=== PATIENT | female | born 1945 | race Caucasian/White ===

== ENCOUNTER → 2018-02-01 11:01 | Outpatient (CLI) | payer MEDICARE, OTHER, SELFPAY | PROVIDERS: PCP Internal Medicine; Visit Provider Internal Medicine Endocrinology, Diabetes & Metabolism | DX: E11.9 Type 2 diabetes mellitus without complications (principal) | CPT/HCPCS: 36415; 83036 ==

== ENCOUNTER → 2018-07-28 12:18 | Outpatient (CLI) | payer MEDICARE, OTHER, SELFPAY ==
[2018-07-28 13:13] LABS: Hemoglobin A1C% w Est Avg Glu 6.5 % (4.0-6.0)
[2018-07-28 13:31] LABS: Alanine Aminotransferase 25 IU/L (9-52); BUN Creatinine Ratio 22.5 (6-22); Blood Urea Nitrogen 18 mg/dL (7-17); Calcium 9.7 mg/dL (8.4-10.2); Carbon Dioxide 29 mmol/L (22-32); Chloride 104 mmol/L (98-107); Cholesterol 140 mg/dL (140-199); Estimated Glomerular Filt Rate > 60.0 mL/min (>60); Glucose 95 mg/dL (80-110); HDL Cholesterol 33 mg/dL (40-60); HEMOLYSIS < 15 (0-50); LDL Cholesterol Calculated 81 mg/dL (<100); Potassium 4.3 mmol/L (3.4-5.1); Sodium 147 mmol/L (137-145); Triglycerides 128 mg/dL (35-150)
[2018-07-28 15:55] LABS: Microalbumin Urine Random 2.4 mg/dL (0-1.6)
[2018-07-28 16:04] LABS: Creatinine Urine Random 107.4 mg/dL; Microalbumi Creatinin Ratio Ur 22.3 ug/mg CR (<30)
== END ==
PROVIDERS: Visit Provider Internal Medicine Endocrinology, Diabetes & Metabolism
DX: E11.9 Type 2 diabetes mellitus without complications (principal)
CPT/HCPCS: 36415; 80048; 80061; 82043; 82570; 83036; 84460

== ENCOUNTER → 2018-11-11 08:40 | Outpatient (CLI) | payer MEDICARE, OTHER, SELFPAY ==
[2018-11-11 09:49] LABS: Alanine Aminotransferase 35 IU/L (9-52); Aspartate Aminotransferase 23 IU/L (14-36); BUN Creatinine Ratio 25.6 (6-22); Blood Urea Nitrogen 23 mg/dL (7-17); Calcium 9.5 mg/dL (8.4-10.2); Carbon Dioxide 30 mmol/L (22-32); Chloride 98 mmol/L (98-107); Cholesterol 165 mg/dL (140-199); Estimated Glomerular Filt Rate > 60.0 mL/min (>60); Glucose 207 mg/dL (80-110); HDL Cholesterol 30 mg/dL (40-60); HEMOLYSIS < 15 (0-50); LDL Cholesterol Calculated 94 mg/dL (<100); Potassium 4.7 mmol/L (3.4-5.1); Sodium 138 mmol/L (137-145); Triglycerides 204 mg/dL (35-150)
[2018-11-11 11:25] LABS: TSH w/ Reflex to FT4 1.43 uIU/mL (0.47-4.68)
== END ==
PROVIDERS: PCP Internal Medicine; Visit Provider Internal Medicine
DX: I10 Essential (primary) hypertension (principal); E78.5 Hyperlipidemia, unspecified; E03.9 Hypothyroidism, unspecified; E78.2 Mixed hyperlipidemia
CPT/HCPCS: 36415; 80048; 80061; 84443; 84450; 84460

== ENCOUNTER → 2018-12-19 08:03 | Outpatient (CLI) | payer MEDICARE, OTHER, SELFPAY ==
[2018-12-19 09:59] LABS: Alanine Aminotransferase 23 IU/L (9-52); Aspartate Aminotransferase 22 IU/L (14-36); BUN Creatinine Ratio 26.3 (6-22); Blood Urea Nitrogen 21 mg/dL (7-17); Calcium 9.6 mg/dL (8.4-10.2); Carbon Dioxide 31 mmol/L (22-32); Chloride 100 mmol/L (98-107); Cholesterol 189 mg/dL (140-199); Estimated Glomerular Filt Rate > 60.0 mL/min (>60); Glucose 205 mg/dL (80-110); HDL Cholesterol 35 mg/dL (40-60); HEMOLYSIS < 15 (0-50); LDL Cholesterol Calculated 105 mg/dL (<100); Sodium 139 mmol/L (137-145); TSH w/ Reflex to FT4 2.32 uIU/mL (0.47-4.68); Triglycerides 247 mg/dL (35-150)
== END ==
PROVIDERS: PCP Internal Medicine; Visit Provider Internal Medicine
DX: I10 Essential (primary) hypertension (principal); E78.5 Hyperlipidemia, unspecified; E03.9 Hypothyroidism, unspecified
CPT/HCPCS: 36415; 80048; 80061; 84443; 84450; 84460

== ENCOUNTER → 2018-12-20 12:13 | Outpatient (CLI) | payer MEDICARE, OTHER, SELFPAY ==
--- NOTE | 2018-12-20 | DI.US.S_ITS ---
PROCEDURE: US THYROID INDICATIONS: THYROID NODULE TECHNIQUE: Real-time scanning was performed of the thyroid gland, with image documentation. COMPARISON: None. FINDINGS: Right: Thyroid lobe measures 3.2 x 1.3 x 1.4 cm, and is heterogeneous in echotexture. Left: Thyroid lobe measures 3.2 x 1.9 x 2.1 cm, and is heterogeneous in echotexture. Isthmus: 1.0 mm thick. I Nodule number: 1 Location: Left mid Size: 2.0 x 1.7 x 1.4 cm. Composition: Solid Echogenicity: Isoechoic Shape: wider than tall. Margins: Smooth Echogenic foci: None Total points: 3 ACR TI-RADS category: Mildly suspicious Nodule number: 2 Location: Left inferior Size: 0.8 x 1.0 x 0.9 cm. Composition: Solid Echogenicity: Isoechoic Shape: wider than tall. Margins: Smooth Echogenic foci: None Total points: 3 ACR TI-RADS category: Mildly suspicious IMPRESSION: Left thyroid nodules as above. Recommend continued followup ultrasound as detailed below. ACR TI-RADS definitions and recommendations: TI-RADS 1 (benign): 0 points. FNA not needed. TI-RADS 2 (not suspicious): 2 points. FNA not needed. TI-RADS 3 (mildly suspicious): 3 points. * FNA if 2.5 cm or larger, follow up if 1.5 cm or larger (at 1, 3, and 5 years). TI-RADS 4 (moderately suspicious): 4-6 points. * FNA if 1.5 cm or larger, follow up if 1 cm or larger (at 1, 2, 3, and 5 years). TI-RADS 5 (highly suspicious): 7 points or more. * FNA if 1 cm or larger, follow up if 0.5 cm or larger (every year for 5 years). Dictated by: Edwardo TONEY Interpreted: Pito España MD on 12/20/2018 at 14:33 Approved by: Pito España M.D. on 12/21/2018 at 9:56
== END ==
PROVIDERS: PCP Internal Medicine; Visit Provider Internal Medicine
DX: E04.2 Nontoxic multinodular goiter (principal)
CPT/HCPCS: 76536

== ENCOUNTER → 2019-01-19 11:50 | Outpatient (CLI) | payer MEDICARE, OTHER, SELFPAY ==
--- NOTE | 2019-01-19 | DI.MRI.S_ITS ---
PROCEDURE: MR HEAD/BRAIN WO CON INDICATIONS: Dizziness and giddiness TECHNIQUE: Non-contrast axial T1 spin echo, axial T2 fast spin echo, sagittal and axial FLAIR, coronal T2 fast spin echo, axial gradient echo, axial diffusion and ADC through the brain. COMPARISON: [facility], CT, MASTOIDS WITHOUT CONTRAST, 04/22/2011, 7:54. FINDINGS: Image quality: Excellent. CSF spaces: Ventricles appear symmetric in size and shape. Basal cisterns are patent. No extra-axial fluid collections. Brain: No intracranial bleeds or mass effects. There is cerebral volume loss for age. There are periventricular and deep white matter chronic small vessel ischemic changes. Brainstem appears normal. Diffusion-weighted images show no acute ischemic insults. No chronic ischemic insults. Normal intravascular flow voids are present. Skull and face: Calvarial bone marrow is normal in signal. Orbits are normal. Note is made of bilateral lens replacements. Sinuses: Sinuses and mastoids are clear. IMPRESSION: No imaging explanation is found for this patient's presenting symptoms. Dictated by: Rafael Gerber M.D. on 01/19/2019 at 11:57 Approved by: Rafael Gerber M.D. on 01/19/2019 at 11:58
== END ==
PROVIDERS: PCP Internal Medicine; Visit Provider Internal Medicine
DX: R42 Dizziness and giddiness (principal)
CPT/HCPCS: 70551

== ENCOUNTER → 2019-01-25 15:46 | Outpatient (CLI) | payer MEDICARE, OTHER, SELFPAY ==
[2019-01-25 16:23] LABS: Erythrocyte Sedimentation Rate 1 MM/HR (0-20)
[2019-01-25 16:36] LABS: C-Reactive Protein Quant < 0.5 mg/dL (<1.0)
== END ==
PROVIDERS: PCP Internal Medicine; Visit Provider Internal Medicine
DX: R51 Headache (principal)
CPT/HCPCS: 36415; 85651; 86140

== ENCOUNTER → 2019-05-11 07:21 | Outpatient (CLI) | payer MEDICARE, OTHER, SELFPAY ==
[2019-05-11 09:56] LABS: Alanine Aminotransferase 19 IU/L (9-52); BUN Creatinine Ratio 28.8 (6-22); Blood Urea Nitrogen 23 mg/dL (7-17); Carbon Dioxide 29 mmol/L (22-32); Chloride 101 mmol/L (98-107); Cholesterol 164 mg/dL (140-199); Estimated Glomerular Filt Rate > 60.0 mL/min (>60); Glucose 180 mg/dL (80-110); HDL Cholesterol 35 mg/dL (40-60); HEMOLYSIS < 15 (0-50); LDL Cholesterol Calculated 92 mg/dL (<100); Potassium 4.8 mmol/L (3.4-5.1); Sodium 142 mmol/L (137-145); Triglycerides 186 mg/dL (35-150); VLDL Cholesterol Calculated 37 mg/dL (2-30)
[2019-05-11 09:59] LABS: Hemoglobin A1C% w Est Avg Glu 7.2 % (4.0-6.0)
[2019-05-13 15:52] LABS: Microalbumin Urine Random 1.7 mg/dL (0-1.6)
[2019-05-13 16:08] LABS: Creatinine Urine Random 53.9 mg/dL; Microalbumi Creatinin Ratio Ur 31.5 ug/mg CR (<30)
== END ==
PROVIDERS: PCP Internal Medicine; Visit Provider Internal Medicine Endocrinology, Diabetes & Metabolism
DX: E11.9 Type 2 diabetes mellitus without complications (principal)
CPT/HCPCS: 36415; 80048; 80061; 82043; 82570; 83036; 84443; 84460

== ENCOUNTER 2019-05-16 09:23 | Day surgery (SDC) | payer MEDICARE, OTHER, SELFPAY ==
[2019-05-16] VITALS (9 sets, daily range): BP systolic 108–124; BP diastolic 59–71; PULSE 68–73; RESP 10–16; TEMP 36.1–36.2; O2SAT 94–100; BMI 24.2
--- NOTE | 2019-05-16 10:11 | PM.HP.1 ---
History of Present Illness History of Present Illness Date Patient Seen: 05/16/19 Chief complaint: [id number] SCREENING COLONOSCOPY Narrative: Patient presented for screening colonoscopy, no previous colonoscopy. Denies history of diarrhea or constipation. Denies rectal bleeding. Denies family history of GI malignancy. Patient History Social History household members: spouse Smoking Status: Never smoker Family & Social History Tobacco & Substance use: Smoking Status Never smoker Meds Home Medications and Allergies Home Medications Medication Instructions Recorded Confirmed Type latanoprost 1 drp EYE-BOTH BEDTIME #0 02/18/09 05/16/19 History levothyroxine 75 mcg PO DAILY #0 02/18/09 05/16/19 History lovastatin 40 mg PO QDAYPM #0 02/18/09 05/16/19 History metformin 1,000 mg PO BID #0 02/18/09 05/16/19 History multivitamin 1 cap PO DAILY #0 02/18/09 05/16/19 History glimepiride 4 mg PO DAILY 05/16/19 05/16/19 History timolol maleate 1 drp EYE-BOTH BID 05/16/19 05/16/19 History Allergies Allergy/AdvReac Type Severity Reaction Status Date / Time No Known Drug Allergies Allergy Verified 05/16/19 10:12 Review of Systems Review of Systems ROS Unobtainable: All systems reviewed & are unremarkable except as noted in HPI and below Exam Const General: cooperative, healthy appearing, comfortable and well developed Nutritional Appearance: average body habitus HENMT Head: normal to inspection and atraumatic Nose: external nose normal Resp Effort & Inspection: normal respiratory effort and able to speak in complete sentences Auscultation: clear to auscultation bilaterally Cardio Rate: regular rate Rhythm: regular rhythm Heart Sounds: S1 normal and S2 normal GI Palpation: soft and No tender Auscultation: normal bowel sounds Extrem General: no pedal edema Assessment & Plan Assessment & Plan narrative: 1. Screening colonoscopy - Colonoscopy today
[2019-05-16] MEDS: SODIUM CHLORIDE 0.9% 1,000 ML 70 ML IV (10:33)
--- NOTE | 2019-05-16 12:05 | PM.OP.ENDO ---
Operative Date/Time/Diagnoses Date of procedure: 05/16/19 Time of procedure: 11:40 Procedure Notes Procedure in detail: Surgeon: Paige Najera DO Procedure: Screening Colonoscopy Preoperative diagnosis: 1. Screening colonoscopy, no prior colonoscopy. Average risk. Postoperative diagnosis: 1. Diverticulosis scattered throughout the entire colon concentrated in the sigmoid and descending colon 2. Mild internal hemorrhoids, grade 1 Medications: Conscious sedation using 3 mg IV of Midazolam and 100 mcg IV of Fentanyl Preanesthesia Assessment An H and P was performed/updated and the Px?s ASA class is 2. The procedure was discussed in detail with the patient. The potential risks and complications including infection, bleeding, missed lesions, perforation, need for surgery in case of perforation, prolonged hospital stay, and were explained. A brief question and answer period was allotted and once all questions were answered, informed consent was obtained. The patient was brought back to the procedure room and placed on standard monitoring. The patient?s vital signs were monitored continuously throughout the entire procedure. Prior to starting, a timeout was performed to confirm the patient?s identity, allergies, medications, and procedure. Procedure in detail The patient was placed in left lateral decubitus position and once adequate sedation was obtained a EARLINE was performed. The digital rectal examination did not reveal any palpable lesions. The tip of the colonoscope was placed in the anal canal and advanced without difficulty all the way to the cecum which was identified by the appendiceal orifice and the ileocecal valve. Careful examination of all mark of the colon was performed with irrigation of any residual stool. Patient's colon was moderately tortuous. Diverticulosis was noted scattered throughout the entire colon with the greatest concentration in the sigmoid and descending colon. Internal hemorrhoids, grade 1 were noted during retroflexion. The patient tolerated the procedure well and will be brought back to the recovery area to be discharged once criteria are met. The prep was judged to be good/excellent and adequate to identify polyps less than 5 mm. The withdrawal time was 9min. The total physician intraservice time was 22min. Complications There were no complications and estimated blood loss was minimal. Recommendations: Resume previous diet Continue outPx medications Follow up pathology results Repeat colonoscopy in 10 years, though will be over age 80 at that time. No further screening colonoscopies are needed. An emergency contact number was given to the patient for any complications related to the procedure
[2019-05-16] MEDS: fentaNYL 250 MCG/5 ML INJ IV (12:08)
[2019-05-16] MEDS: MIDAZOLAM 5 MG/5 ML VIAL IV (12:09)
--- NOTE | 2019-05-16 12:35 | SUR.PHASEI ---
1210 To PACU from endo, awake, oriented, drowsy. Verbalized desire to sleep 1235 Aroused to voice, HOB elevated, juice given. Denies discomfort. States that she is light-headed; preferred to stay sitting up and drinking juice.
== END 2019-05-16 13:11 | disposition home or self-care (01) ==
PROVIDERS: Family Provider Internal Medicine; PCP Internal Medicine; Visit Provider Student in an Organized Health Care Education/Training Program
PROC: 0DJD8ZZ Inspection of Lower Intestinal Tract, Via Natural or Artificial Opening Endoscopic (ICD-10-PCS; CPT 45378; principal; 2019-05-16 11:00)
DX: Z12.11 Encounter for screening for malignant neoplasm of colon (principal); K57.30 Diverticulosis of large intestine without perforation or abscess without bleeding; K64.0 First degree hemorrhoids
CPT/HCPCS: G0121; J2250; J3010

== ENCOUNTER 2019-09-02 15:34 | Observation (INO) | payer MEDICARE, OTHER, SELFPAY ==
[2019-09-02] VITALS (7 sets, daily range): BP systolic 123–182; BP diastolic 58–79; PULSE 66–77; RESP 15–19; TEMP 36.4; O2SAT 95–100
--- NOTE | 2019-09-02 15:55 | ED.DIZZY ---
HPI - Dizziness <Jil Cid, - Last Filed: 09/03/19 07:48> General Chief Complaint: Dizziness Stated Complaint: dizziness/headache Time Seen by Provider: 09/02/19 15:54 Source: patient Mode of arrival: Wheelchair Limitations: no limitations History of Present Illness HPI Narrative: This is a 73-year-old female comes to the emergency department with complaint of dizziness and headache. Patient states she has a chronic history of dizziness which she describes as being off balance. Typically she finds it fairly minimal with mild headache and will often have to grab a wall or steady herself and then be able to ambulate or move normally. Today at about 2:00 pm. this afternoon she felt that it was significantly worse. She states her headache feels about the same. It's typically left-sided and radiates down through her back. Patient has not had any fevers. She does not have vision changes. She is nauseated but not vomiting. Denies any chest pain or shortness of breath denies any dysuria, urgency but has had some frequency. She states this is chronic. She has also had frequent diarrhea but states this is been for several months. Patient has not noticed any new issues with speech, no facial droop, no numbness or tingling in her extremities or weakness on 1 side versus the other that is new or different. Patient has seen a neurologist and had an extensive workup including MRI. She was referred for PT for her vertigo symptoms but has not attended. She states she has not been prescribed any medication for her symptoms in the past. Related Data Home Medications Medication Instructions Recorded Confirmed latanoprost 1 drp EYE-BOTH BEDTIME #0 02/18/09 09/03/19 levothyroxine 75 mcg PO DAILY #0 02/18/09 09/03/19 lovastatin 40 mg PO QDAYPM #0 02/18/09 09/03/19 metformin 1,000 mg PO BID #0 02/18/09 09/03/19 multivitamin 1 cap PO DAILY #0 02/18/09 09/03/19 glimepiride 4 mg PO BID 05/16/19 09/03/19 timolol maleate 1 drp EYE-BOTH BID 05/16/19 09/03/19 dulaglutide [Trulicity] mg SUBCUT 09/03/19 Previous Rx's Medication Instructions Recorded meclizine 50 mg PO TID PRN #14 tab 09/02/19 ondansetron HCl [Zofran] 4 mg PO Q6H PRN #10 tab 09/02/19 Allergies Allergy/AdvReac Type Severity Reaction Status Date / Time No Known Drug Allergies Allergy Verified 09/02/19 15:36 Review of Systems <Jil Cid DO - Last Filed: 09/03/19 07:48> Review of Systems ROS Unobtainable: All systems reviewed & are unremarkable except as noted in HPI and below Patient History <Jil Cid DO - Last Filed: 09/03/19 07:48> Medical History Diabetes type 2, controlled (Chronic) Hearing aid worn (Chronic) Hypothyroidism (Chronic) Family History Mother Myocardial infarct Father CVA (cerebral vascular accident) Sister Thyroid disease Brother Thyroid disease Social History household members: spouse Smoking Status: Never smoker alcohol intake: current Smoking Status: Never smoker Exam <Jil Cid DO - Last Filed: 09/03/19 07:48> Narrative Exam Narrative: GEN: well nourished, well appearing female, alert and oriented x 3, patient appears to be in mild distress. HEENT: Atraumatic, pupils are equal round reactive to light, extraocular movements are intact, nares are clear, TMs are clear with no fluid, there is no conjunctival pallor. Throat is clear without any exudates, erythema, tonsillar enlargement or uvular deviation, no facial droop. HEART: Regular rate and rhythm without murmur, clicks, rubs. Pulses are equal in upper and lower extremities LUNGS:Lungs clear to auscultation, no wheezes, rales, crackles, chest moves symmetrically, no tachypnea accessory muscle use ABD:bowel sounds normal, soft, non-tender, no guarding, rebound, rigidity, no masses noted, no hepatosplenomegaly :No CVA tenderness MSCL: Non-tender, no muscle atrophy, muscles strength 5/5 upper and lower extremities, full range of motion, gait not tested. NEURO:CN 2-12 intact, sensation normal, finger nose finger test normal, heel cloud test normal SKIN: no rash, no erythema, no petechiae Initial Vital Signs Initial Vital Signs: Vital Signs Temperature 97.6 F 09/02/19 16:10 Pulse Rate 69 09/02/19 16:10 Respiratory Rate 18 09/02/19 16:10 Blood Pressure 142/79 H 09/02/19 16:10 Pulse Oximetry 98 09/02/19 16:10 <James Campos DO - Last Filed: 09/03/19 05:24> Initial Vital Signs Initial Vital Signs: Vital Signs Temperature 97.6 F 09/02/19 16:10 Pulse Rate 69 09/02/19 16:10 Respiratory Rate 18 09/02/19 16:10 Blood Pressure 142/79 H 09/02/19 16:10 Pulse Oximetry 98 09/02/19 16:10 Scores <Jil Cid DO - Last Filed: 09/03/19 07:48> NIH Stroke Scale Level of Conciousness: Alert, keenly responsive Ask month/age: Answers both questions correctly. Open/close eyes, close hand: Performs both tasks correctly Best gaze horizontal: Normal Visual muñoz: No visual loss Facial palsy: Normal symetrical movement Left arm drift: No drift for full 10 sec Right arm drift: No drift for full 10 sec Left leg drift: No drift for full 10 sec Right leg drift: No drift for full 10 sec Limb ataxia: Absent Sensory on face/arms/legs: Normal, no sensory loss Best language: No aphasia, normal Dysarthria: Normal Extinction or inattention: No abnormality Total NIH Stroke scale score: 0 Course <Jil Cid DO - Last Filed: 09/03/19 07:48> Orders Ordered: Acetaminophen (Tylenol) 650 mg PO Q6HR PRN PRN Reason: Fever/Mild Pain (1-3) Dextrose (D50w) 25 gm IV PRN PRN PRN Reason: Hypoglycemia Sodium Chloride (Normal Saline 0.9%) 1,000 mls @ 100 mls/hr IV CONT JOYCE Last Infusion: 09/03/19 01:08 Dose: 0 mls/hr Documented by: Infusion: 09/03/19 00:30 Dose: 150 mls/hr Documented by: Admin: 09/02/19 23:21 Dose: 150 mls/hr Documented by: RENEE Sodium Chloride (Normal Saline 0.9%) 1,000 mls @ 100 mls/hr IV CONT JOYCE Stop: 09/03/19 10:29 Last Admin: 09/03/19 01:08 Dose: 100 mls/hr Documented by: ROSA Insulin Aspart (Novolog Flexpen) 0 unit SUBCUT ACHS JOYCE; Protocol Meclizine HCl (Antivert) 25 mg PO Q6HR PRN PRN Reason: Vertigo Naloxone HCl (Narcan) 0.2 mg IV Q2MIN PRN PRN Reason: Opiate Reversal Ondansetron HCl (Zofran) 4 mg IV Q8HR PRN PRN Reason: Nausea And Vomiting Discontinued Medications Sodium Chloride (Normal Saline 0.9%) 1,000 mls @ 1,000 mls/hr IV BOLUS ONE Stop: 09/02/19 17:28 Last Infusion: 09/02/19 19:30 Dose: 0 mls/hr Documented by: Admin: 09/02/19 17:00 Dose: 1,000 mls/hr Documented by: ERIC Lorazepam (Ativan) 0.5 mg IV NOW ONE Stop: 09/02/19 18:28 Last Admin: 09/02/19 18:37 Dose: 0.5 mg Documented by: RENEE Meclizine HCl (Antivert) 50 mg PO NOW ONE Stop: 09/02/19 16:30 Last Admin: 09/02/19 17:00 Dose: 50 mg Documented by: ERIC Metoclopramide HCl (Reglan) 10 mg IV NOW ONE Stop: 09/02/19 23:04 Last Admin: 09/02/19 23:09 Dose: 10 mg Documented by: RENEE Ondansetron HCl (Zofran) 4 mg IV NOW ONE Stop: 09/02/19 17:24 Last Admin: 09/02/19 17:29 Dose: 4 mg Documented by: RENEE Vital Signs Vital signs: Vital Signs - 8 hr 09/02/19 22:33 Pulse Rate 72 Respiratory Rate 16 Blood Pressure [Right Arm] 159/76 H Pulse Oximetry 95 <James Campos DO - Last Filed: 09/03/19 05:24> Course Course Narrative: Patient received in sign-out from Dr. Jenkins. I performed independent history and physical. Patient has had a very thorough evaluation for her dizziness without any high risk findings. She is persistently dizzy with vomiting despite multiple medications and cannot even stand without becoming symptomatic. She is on safe for discharge and requires hospitalization for treatment of her intractable vomiting Orders Ordered: Acetaminophen (Tylenol) 650 mg PO Q6HR PRN PRN Reason: Fever/Mild Pain (1-3) Dextrose (D50w) 25 gm IV PRN PRN PRN Reason: Hypoglycemia Sodium Chloride (Normal Saline 0.9%) 1,000 mls @ 100 mls/hr IV CONT JOYCE Last Infusion: 09/03/19 01:08 Dose: 0 mls/hr Documented by: Infusion: 09/03/19 00:30 Dose: 150 mls/hr Documented by: Admin: 09/02/19 23:21 Dose: 150 mls/hr Documented by: RENEE Sodium Chloride (Normal Saline 0.9%) 1,000 mls @ 100 mls/hr IV CONT JOYCE Stop: 09/03/19 10:29 Last Admin: 09/03/19 01:08 Dose: 100 mls/hr Documented by: ROSA Insulin Aspart (Novolog Flexpen) 0 unit SUBCUT ACHS JOYCE; Protocol Meclizine HCl (Antivert) 25 mg PO Q6HR PRN PRN Reason: Vertigo Naloxone HCl (Narcan) 0.2 mg IV Q2MIN PRN PRN Reason: Opiate Reversal Ondansetron HCl (Zofran) 4 mg IV Q8HR PRN PRN Reason: Nausea And Vomiting Discontinued Medications Sodium Chloride (Normal Saline 0.9%) 1,000 mls @ 1,000 mls/hr IV BOLUS ONE Stop: 09/02/19 17:28 Last Infusion: 09/02/19 19:30 Dose: 0 mls/hr Documented by: Admin: 09/02/19 17:00 Dose: 1,000 mls/hr Documented by: ERIC Lorazepam (Ativan) 0.5 mg IV NOW ONE Stop: 09/02/19 18:28 Last Admin: 09/02/19 18:37 Dose: 0.5 mg Documented by: RENEE Meclizine HCl (Antivert) 50 mg PO NOW ONE Stop: 09/02/19 16:30 Last Admin: 09/02/19 17:00 Dose: 50 mg Documented by: ERIC Metoclopramide HCl (Reglan) 10 mg IV NOW ONE Stop: 09/02/19 23:04 Last Admin: 09/02/19 23:09 Dose: 10 mg Documented by: RENEE Ondansetron HCl (Zofran) 4 mg IV NOW ONE Stop: 09/02/19 17:24 Last Admin: 09/02/19 17:29 Dose: 4 mg Documented by: RENEE Vital Signs Vital signs: Vital Signs - 8 hr 09/02/19 22:33 Pulse Rate 72 Respiratory Rate 16 Blood Pressure [Right Arm] 159/76 H Pulse Oximetry 95 MDM - Dizziness <Jil Cid, DO - Last Filed: 09/03/19 07:48> Lab Data Attestation: I reviewed the patient's lab results. Result diagrams: 09/03/19 05:40 09/03/19 05:40 Labs: Lab Results 09/02/19 09/02/19 09/02/19 Range/Units 16:55 16:55 16:55 WBC 14.6 H (4.5-11.0) X10^3/uL RBC 4.35 (4.0-5.2) X10^6/uL Hgb 13.9 (12.0-16.0) g/dL Hct 40.5 (36-46) % MCV 93.2 (80-100) fL MCH 31.9 (26-34) PG MCHC 34.2 (30-36) % RDW 14.0 (11.6-14.8) % Plt Count 137 L (150-400) X10^3/uL Neut % (Auto) Not Reportable Lymph % (Auto) Not Reportable Dillon % (Auto) Not Reportable Eos % (Auto) Not Reportable Baso % (Auto) Not Reportable Lymph # (Auto) Not Reportable Dillon # (Auto) Not Reportable Baso # (Auto) Not Reportable Total Counted 100 Seg Neutrophils % 30.0 L (38-70) % Band Neutrophils % 1.0 L (3-7) % Lymphocytes % (Manual) 44.0 (25-45) % Atypical Lymphs % 23.0 H ( - 0) % Monocytes % (Manual) 2.0 (2-11) % Neutrophils # (Manual) 4526 (3035-0787) /uL Smudge Cells 2+ H RBC Morphology Normal morphology Sodium 140 (137-145) mmol/L Potassium 4.0 (3.4-5.1) mmol/L Chloride 103 (98-107) mmol/L Carbon Dioxide 30 (22-32) mmol/L BUN 18 H (7-17) mg/dL Creatinine 0.70 (0.52-1.04) mg/dL Estimated GFR > 60.0 (>60) mL/min BUN/Creatinine Ratio 25.7 H (6-22) Glucose 138 H (80-110) mg/dL Calcium 9.5 (8.4-10.2) mg/dL Troponin I < 0.012 (0.01-0.034) ng/mL Procalcitonin < 0.05 (<0.5) ng/mL Imaging Data CT scan - head: Radiologist's Impression: [address] [address] [address] Scan Report Signed Patient: Jennifer Tubbs FMR#: [id number] : 6Acct:[id number] Age/Sex: 73 / FDate of Service: 09/02/19 Loc: ED Accession Number: [id number] Procedure: CT head/brain wo con Ordering Provider: Jil Cid D.O. PROCEDURE: CT HEAD/BRAIN WO CON INDICATIONS: hx of vertigo chronically, worsened today TECHNIQUE: Noncontrast 4.5 mm thick angled axial sections acquired from the foramen magnum to the vertex, with coronal and sagittal reformats. For radiation dose reduction, the following was used: automated exposure control, adjustment of mA and/or kV according to patient size. COMPARISON: [facility], MR, MR HEAD/BRAIN WO CON, 01/19/2019, 12:04. FINDINGS: Image quality: Excellent. CSF spaces: Basal cisterns are patent. No extra-axial fluid collections. Ventricles are normal in size and shape. Brain: No midline shift. No intracranial masses or hemorrhage. [place]-white matter interface is normal. Skull and face: Calvarium and visualized facial bones are intact, without suspicious lesions. Sinuses: Visualized sinuses and mastoids are clear. IMPRESSION: No acute intracranial abnormality demonstrated. Comment: Findings were discussed with Jil Cid at the time of dictation. Dictated by: Suresh aCntu M.D. on 09/02/2019 at 17:49 Approved by: Suresh Cantu M.D. on 09/02/2019 at 17:51 head and neck angio: Radiologist's Impression: Jennifer Tubbs 73 F [address] [address] [address] Scan Report Signed Patient: Jennifer Tubbs FMR#: [id number] : [id number]:[id number] Age/Sex: 73 / FDate of Service: 09/02/19 Loc: ED Accession Number: [id number] Procedure: CT angio head and neck Ordering Provider: Jil Cid D.O. PROCEDURE: CT ANGIO HEAD AND NECK INDICATIONS: vertigo symptoms, worsening TECHNIQUE: Pre-contrast 4.5 mm thick sections acquired from the foramen magnum to the vertex. After the administration of intravenous contrast, 1 mm thick sections acquired from the aortic arch through the [place] of [place]. Post-contrast 4.5 mm thick sections then re-acquired from the foramen magnum to the vertex. 3-dimensional umzjhfg-umzbwlmby-etfockxyvp (MIP) and/or volume rendering reformats were acquired of the central intracranial vasculature and neck separately. COMPARISON: [facility], CT, CT HEAD/BRAIN WO CON, 09/02/2019, 17:35. [facility], MR, MR HEAD/BRAIN WO CON, 01/19/2019, 12:04. FINDINGS: Image quality: Excellent. BRAIN: CSF spaces: Ventricles are normal in size and shape. Basal cisterns are patent. No extra-axial fluid collections. Brain: No midline shift. No intracranial bleeds or masses. [place]-white matter interface appears intact. Skull and face: Calvarium and facial bones appear intact, without suspicious lesions. Orbits appear normal. Sinuses: Sinuses and mastoids are clear. HEAD CT ANGIOGRAPHY: Anterior circulation: Intracranial internal carotid arteries are normal in size and flow. The flow within the paired anterior cerebral arteries is normal and symmetric. The flow within the middle cerebral arteries is normal and symmetric. The anterior communicating artery is seen. No aneurysms are seen. Posterior circulation: Visualized portions of the vertebral arteries demonstrate normal caliber, and join to form a normal appearing basilar artery. Flow within the posterior cerebral arteries is symmetric. The left posterior cerebral artery originates off of the left MCA, (8/102), variant. Bilateral posterior communicating artery are seen. No aneurysms are seen. NECK CT ANGIOGRAPHY: Carotid system: The great vessels demonstrate a conventional anatomy as they arise from the aortic arch. The origins of the common carotid arteries appear patent. The common carotid arteries demonstrate normal caliber and courses. The bifurcation regions are both widely patent. The internal carotid arteries demonstrate normal calibers and courses. Posterior circulation: The origins of the vertebral arteries both appear widely patent. The more superior extracranial portions of both vertebral arteries also demonstrate normal courses and calibers. They join to form a normal appearing basilar artery. Soft tissues: Visualized neck soft tissues demonstrate no suspicious abnormalities. Heterogeneous left thyroid nodule, (4/166). Bones: No suspicious bony lesions. Visualized cervical spine appears normally aligned. IMPRESSION: 1. No large vessel occlusion. No significant stenosis or aneurysm seen. 2. Less than 50% bilateral ICA stenosis. Any quantitative measurements of stenosis were performed using NASCET criteria. Comment: Findings were discussed with Dr. Cid at the time of dictation. Dictated by: Suresh Cantu M.D. on 09/02/2019 at 18:24 Approved by: Suresh Cantu M.D. on 09/02/2019 at 18:32 ECG Data Attestation: I personally reviewed and interpreted this ECG as follows: Prior ECG tracings: available for review Interpretation: Sinus rhythm rate of 67 CA 164 QRS 80 and QTC of 400. No ST elevation or depression noted. Q-wave in V1 and V2. Patient has prior from 06/07/19 that appears similar. [facility] Narrative Medical decision making narrative: Patient symptoms similar to prior but worsened sudden onset. Patient had MRI in 01/19/19 that showed no acute changes. Patient received fluids, zofran and meclizine in ED. Patient Head CT is negative. labs show elevated wbc count, patient has been afebrile, platelets are 137. BUN is elevated 18, glucose is 138 with negative troponin and normal electrolytes. CTA is negative for large vessel occlusion and suspect this is a worsening of patients symptoms results called to me by radiology. She did tolerate zofran and meclizine for a while and tolerated CT and return without issue but then began having worsening symptoms. Given ativan 0.5mg IV and will recheck. Patient signed out to Dr. Campos for final disposition. If patient unable to ambulate safely may need to be kept for observation. <James Campos, DO - Last Filed: 09/03/19 05:24> Lab Data Labs: Lab Results 09/02/19 09/02/19 09/02/19 Range/Units 16:55 16:55 16:55 WBC 14.6 H (4.5-11.0) X10^3/uL RBC 4.35 (4.0-5.2) X10^6/uL Hgb 13.9 (12.0-16.0) g/dL Hct 40.5 (36-46) % MCV 93.2 (80-100) fL MCH 31.9 (26-34) PG MCHC 34.2 (30-36) % RDW 14.0 (11.6-14.8) % Plt Count 137 L (150-400) X10^3/uL Neut % (Auto) Not Reportable Lymph % (Auto) Not Reportable Dillon % (Auto) Not Reportable Eos % (Auto) Not Reportable Baso % (Auto) Not Reportable Lymph # (Auto) Not Reportable Dillon # (Auto) Not Reportable Baso # (Auto) Not Reportable Total Counted 100 Seg Neutrophils % 30.0 L (38-70) % Band Neutrophils % 1.0 L (3-7) % Lymphocytes % (Manual) 44.0 (25-45) % Atypical Lymphs % 23.0 H ( - 0) % Monocytes % (Manual) 2.0 (2-11) % Neutrophils # (Manual) 4526 (2639-6767) /uL Smudge Cells 2+ H RBC Morphology Normal morphology Sodium 140 (137-145) mmol/L Potassium 4.0 (3.4-5.1) mmol/L Chloride 103 (98-107) mmol/L Carbon Dioxide 30 (22-32) mmol/L BUN 18 H (7-17) mg/dL Creatinine 0.70 (0.52-1.04) mg/dL Estimated GFR > 60.0 (>60) mL/min BUN/Creatinine Ratio 25.7 H (6-22) Glucose 138 H (80-110) mg/dL Calcium 9.5 (8.4-10.2) mg/dL Troponin I < 0.012 (0.01-0.034) ng/mL Procalcitonin < 0.05 (<0.5) ng/mL Discharge Plan Departure Patient Disposition: Admitted as Observation Clinical Impression: Vertigo Discharge Date/Time: 09/03/19 00:32 Instructions: DI for Vertigo Additional Instructions: Follow up with primary care and/or your neurologist this week. I would recommend following up with PT for treatment of your vertigo/dizziness symptoms. Continue home medications as prescribed. You may take meclizine 1-2 tablets every 8 hours as needed for vertigo symptoms. Take zofran 1 tablet every 6 hours as needed for nausea/vomiting. Return to ER for fevers greater 100.4 F, who worsening symptoms, passing out, new lightheadedness, chest pain, shortness of breath, persistent vomiting, black or bloody stools or other new or concerning symptoms. Referrals: Norma Donovan MD [Primary Care Provider] - Admit Date/Time: 09/02/19 23:20 Admit Provider: Awa Cueto
--- NOTE | 2019-09-02 16:30 | DI.CT.S_ITS ---
PROCEDURE: CT HEAD/BRAIN WO CON INDICATIONS: hx of vertigo chronically, worsened today TECHNIQUE: Noncontrast 4.5 mm thick angled axial sections acquired from the foramen magnum to the vertex, with coronal and sagittal reformats. For radiation dose reduction, the following was used: automated exposure control, adjustment of mA and/or kV according to patient size. COMPARISON: [facility], MR, MR HEAD/BRAIN WO CON, 01/19/2019, 12:04. FINDINGS: Image quality: Excellent. CSF spaces: Basal cisterns are patent. No extra-axial fluid collections. Ventricles are normal in size and shape. Brain: No midline shift. No intracranial masses or hemorrhage. [place]-white matter interface is normal. Skull and face: Calvarium and visualized facial bones are intact, without suspicious lesions. Sinuses: Visualized sinuses and mastoids are clear. IMPRESSION: No acute intracranial abnormality demonstrated. Comment: Findings were discussed with Jil Cid at the time of dictation. Dictated by: Suresh Cantu M.D. on 09/02/2019 at 17:49 Approved by: Suresh Cantu M.D. on 09/02/2019 at 17:51
--- NOTE | 2019-09-02 16:30 | DI.CT.S_ITS ---
PROCEDURE: CT ANGIO HEAD AND NECK INDICATIONS: vertigo symptoms, worsening TECHNIQUE: Pre-contrast 4.5 mm thick sections acquired from the foramen magnum to the vertex. After the administration of intravenous contrast, 1 mm thick sections acquired from the aortic arch through the [place] of [place]. Post-contrast 4.5 mm thick sections then re-acquired from the foramen magnum to the vertex. 3-dimensional nvkxmlu-zpphbtwaj-cdjmcifzwb (MIP) and/or volume rendering reformats were acquired of the central intracranial vasculature and neck separately. COMPARISON: [facility], CT, CT HEAD/BRAIN WO CON, 09/02/2019, 17:35. [facility], MR, MR HEAD/BRAIN WO CON, 01/19/2019, 12:04. FINDINGS: Image quality: Excellent. BRAIN: CSF spaces: Ventricles are normal in size and shape. Basal cisterns are patent. No extra-axial fluid collections. Brain: No midline shift. No intracranial bleeds or masses. [place]-white matter interface appears intact. Skull and face: Calvarium and facial bones appear intact, without suspicious lesions. Orbits appear normal. Sinuses: Sinuses and mastoids are clear. HEAD CT ANGIOGRAPHY: Anterior circulation: Intracranial internal carotid arteries are normal in size and flow. The flow within the paired anterior cerebral arteries is normal and symmetric. The flow within the middle cerebral arteries is normal and symmetric. The anterior communicating artery is seen. No aneurysms are seen. Posterior circulation: Visualized portions of the vertebral arteries demonstrate normal caliber, and join to form a normal appearing basilar artery. Flow within the posterior cerebral arteries is symmetric. The left posterior cerebral artery originates off of the left MCA, (8/102), variant. Bilateral posterior communicating artery are seen. No aneurysms are seen. NECK CT ANGIOGRAPHY: Carotid system: The great vessels demonstrate a conventional anatomy as they arise from the aortic arch. The origins of the common carotid arteries appear patent. The common carotid arteries demonstrate normal caliber and courses. The bifurcation regions are both widely patent. The internal carotid arteries demonstrate normal calibers and courses. Posterior circulation: The origins of the vertebral arteries both appear widely patent. The more superior extracranial portions of both vertebral arteries also demonstrate normal courses and calibers. They join to form a normal appearing basilar artery. Soft tissues: Visualized neck soft tissues demonstrate no suspicious abnormalities. Heterogeneous left thyroid nodule, (4/166). Bones: No suspicious bony lesions. Visualized cervical spine appears normally aligned. IMPRESSION: 1. No large vessel occlusion. No significant stenosis or aneurysm seen. 2. Less than 50% bilateral ICA stenosis. Any quantitative measurements of stenosis were performed using NASCET criteria. Comment: Findings were discussed with Dr. Cid at the time of dictation. Dictated by: Suresh Cantu M.D. on 09/02/2019 at 18:24 Approved by: Suresh Cantu M.D. on 09/02/2019 at 18:32
[2019-09-02] MEDS: SODIUM CHLORIDE 0.9% 1,000 ML 1000 ML IV (17:00)
[2019-09-02] MEDS: MECLIZINE HCL 12.5 MG TABLET 50 MG PO (17:00)
[2019-09-02 17:14] LABS: BUN Creatinine Ratio 25.7 (6-22); Blood Urea Nitrogen 18 mg/dL (7-17); Calcium 9.5 mg/dL (8.4-10.2); Carbon Dioxide 30 mmol/L (22-32); Chloride 103 mmol/L (98-107); Estimated Glomerular Filt Rate > 60.0 mL/min (>60); Glucose 138 mg/dL (80-110); HEMOLYSIS 17 (0-50); Sodium 140 mmol/L (137-145)
[2019-09-02 17:15] LABS: Add Manual Diff / Slide Review YES; Hematocrit 40.5 % (36-46); Hemoglobin 13.9 g/dL (12.0-16.0); Mean Corpuscular HGB Conc 34.2 % (30-36); Mean Corpuscular Hemoglobin 31.9 PG (26-34); Mean Corpuscular Volume 93.2 fL (80-100); Platelet Count 137 X10^3/uL (150-400); Red Blood Cell Count 4.35 X10^6/uL (4.0-5.2); White Blood Cell Count 14.6 X10^3/uL (4.5-11.0)
[2019-09-02 17:26] LABS: Troponin I < 0.012 ng/mL (0.01-0.034)
[2019-09-02] MEDS: ONDANSETRON 4 MG/2 ML INJ IV (17:29)
[2019-09-02 17:47] LABS: Neutrophils Absolute Manual 4526 /uL (3000-5900); RBC Morphology Normal Morphology; Total Cells Counted 100
[2019-09-02 18:11] LABS: Smudge Cells 2+
[2019-09-02] MEDS: ONDANSETRON 4 MG/2 ML INJ (18:36)
[2019-09-02] MEDS: LORazepam 2 MG/ML INJ 0.5 MG IV (18:37)
--- NOTE | 2019-09-02 22:19 | PC.NURSE ---
Pt's came out and requested that she needs to use the restroom. when we get her up she starts vomiting. Pt agreed to wait until she could get something for her vomiting.
[2019-09-02] MEDS: METOCLOPRAMIDE 10 MG/2 ML INJ IV (23:09)
[2019-09-02] MEDS: SODIUM CHLORIDE 0.9% 1,000 ML 150 ML IV (23:21)
[2019-09-03] VITALS (16 sets, daily range): BP systolic 97–167; BP diastolic 49–80; PULSE 67–86; RESP 16–19; TEMP 36.4–37.2; O2SAT 92–99; BMI 23.8
--- NOTE | 2019-09-03 00:37 | P.HP_ITS ---
History of Present Illness History of Present Illness Date Patient Seen: 09/03/19 Time Patient Seen: 00:01 Chief complaint: dizziness/headache Narrative: Jennifer Tubbs is a pleasant 73 y.o. female with diabetes type 2, hypothyroidism who wears hearing aids and presented to the ED with a one day history headache, vertigo followed by debilitating nausea. She was worked up in the ED with a head CT, and a MRI/MRA both which were negative. She is being observed overnight as she is unable to ambulate without suffering from nausea. She has had similar symptoms that occurred in [place] last summer. She was assessed there, discharged and returned to the [facility] where they had been referred to and saw a neurologist. They recommended PT/OT for treatment with Eppley maneuvers, however they had not followed up on this as yet. Patient History Medical History Diabetes type 2, controlled (Chronic) Hearing aid worn (Chronic) Hypothyroidism (Chronic) Family & Social History Family History Mother Myocardial infarct Father CVA (cerebral vascular accident) Sister Thyroid disease Brother Thyroid disease Social History: household members spouse Safety & Behavioral: Feels Safe in Current Yes Environment Been Physically Hurt or No Threatened By a Person Tobacco & Substance use: Smoking Status Never smoker ETOH Denies Substance use Denies Meds Home Medications and Allergies Home Medications Medication Instructions Recorded Confirmed Type latanoprost 1 drp EYE-BOTH BEDTIME #0 02/18/09 09/03/19 History levothyroxine 75 mcg PO DAILY #0 02/18/09 09/03/19 History lovastatin 40 mg PO QDAYPM #0 02/18/09 09/03/19 History metformin 1,000 mg PO BID #0 02/18/09 09/03/19 History multivitamin 1 cap PO DAILY #0 02/18/09 09/03/19 History glimepiride 4 mg PO BID 05/16/19 09/03/19 History timolol maleate 1 drp EYE-BOTH BID 05/16/19 09/03/19 History meclizine 50 mg PO TID PRN #14 tab 09/02/19 09/03/19 Rx ondansetron HCl [Zofran] 4 mg PO Q6H PRN #10 tab 09/02/19 09/03/19 Rx dulaglutide [Trulicity] mg SUBCUT 09/03/19 History Allergies Allergy/AdvReac Type Severity Reaction Status Date / Time No Known Drug Allergies Allergy Verified 09/02/19 15:36 Review of Systems Review of Systems Narrative: All systems reviewed and are negative except as noted in the HPI. Exam Vital Signs (past 8 hours): - 09/02/19 16:58 09/02/19 18:52 09/02/19 19:30 Pulse Rate 66 69 72 Respiratory Rate 15 18 16 Blood Pressure [Right Arm] 157/67 H 145/62 H 123/58 L Pulse Oximetry 100 97 95 09/02/19 20:36 09/02/19 22:33 09/02/19 23:21 Pulse Rate 70 72 77 Respiratory Rate 18 16 19 Blood Pressure [Right Arm] 140/68 159/76 H 182/75 H Pulse Oximetry 98 95 97 09/03/19 00:09 Pulse Rate 76 Respiratory Rate 19 Blood Pressure [Right Arm] 150/71 H Pulse Oximetry 96 Oxygen Delivery Method Room Air Narrative Exam Narrative: Gen: Alert, oriented, thin 73 y.o. female, appears fatigued HEENT: normocephalic, atraumatic, conjunctiva clear, sclera non-icteric, oral mucosa pink and moist Neck: supple, full ROM Resp: Lungs CTA, non-labored breathing CV: RRR, no murmur or rubs Abd: soft, non-tender, normoactive BTs Skin: no lesions or rashes, dry and intact Neuro: Alert and oriented X 4 w/no focal deficits Extremities: moves all 4 extremities, is ambulatory, negative Gris?s sign Psyche: normal mood and affect. Objective Labs Result Diagrams: 09/02/19 16:55 09/02/19 16:55 Labs: Laboratory Results - last 24 hr 09/02/19 09/02/19 16:55 16:55 WBC 14.6 H RBC 4.35 Hgb 13.9 Hct 40.5 MCV 93.2 MCH 31.9 MCHC 34.2 RDW 14.0 Plt Count 137 L Neut % (Auto) Not Reportable Lymph % (Auto) Not Reportable [place] % (Auto) Not Reportable Eos % (Auto) Not Reportable Baso % (Auto) Not Reportable Lymph # (Auto) Not Reportable [place] # (Auto) Not Reportable Baso # (Auto) Not Reportable Total Counted 100 Seg Neutrophils % 30.0 L Band Neutrophils % 1.0 L Lymphocytes % (Manual) 44.0 Atypical Lymphs % 23.0 H Monocytes % (Manual) 2.0 Neutrophils # (Manual) 4526 Smudge Cells 2+ H RBC Morphology Normal morphology Sodium 140 Potassium 4.0 Chloride 103 Carbon Dioxide 30 BUN 18 H Creatinine 0.70 Estimated GFR > 60.0 BUN/Creatinine Ratio 25.7 H Glucose 138 H Calcium 9.5 Troponin I < 0.012 Assessment & Plan Assessment & Plan narrative: Jennifer Tubbs will be placed into observation for further management and workup of intractable vertigo. 1. Intractable vertigo, acute present on admission * Meclazine for vertigo * Zofran for nausea associated with vertigo * IVF NS at 100 ml/hour X 1L * PT/OT for Eppley maneuvers in the am * Othostatic vitals q shift 2. Elevated white count of 14.6, present on admission * 1st procalcitonin was negative and will be repeated in the am 3. Diabetes type 2, A1C of 7.2, April 2019, chronic and stable * New A1c ordered * Low dose correctional insulin 4. Hypothyroidism, stable and chronic * Continue home dose of levothyroxine 75 mg po daily 5. Hyperlipidemia, stable and chronic * Continue home dose of lovastatin 40 mg qam FEN: NS at 100 ml/hour X 1 bag, carb control diet, chemistries in the am Patient is placed into observation as her stay is not likely to exceed 2 midnights. VTE Prophylaxis: bilateral SCDs Medications reconciled: partially Disposition: probable discharge to home Code Status: full code Quality VTE Deep Vein Thrombosis/Pulmonary Embolism Present on Admission: No
[2019-09-03 01:04] LABS: Procalcitonin < 0.05 ng/mL (<0.5)
[2019-09-03] MEDS: SODIUM CHLORIDE 0.9% 1,000 ML 100 ML IV ×2 (01:08→09:04)
--- NOTE | 2019-09-03 05:36 | PC.NURSE ---
Addendum entered by Mahsa Ang R.N. 09/03/19 07:45: pt retaining urine. Had not voided since being admitted; tried to void in bed simons and on commode, both unsuccessful (peed 20cc while on commode); She was then bladder scanned and found to have 800cc urine. [facility] Cueto notified and ordered a straight cath and UA. Straight Cath'd at 0715 for 1100cc urine. Original Note: Pt is admitted to unit at 0030 as AxOx3, hypertensive on admission. Pt reports dizziness at rest and especially when standing. Reports vomitting when standing up. Pt was settled into bed but about 20minutes after admission pt vomitted 100cc bile. Fingerstick 187 overnight. NS@100cc/hr b/l SCDs on. BP trended down this morning with SBP in the 100s. Not getting pt OOB Pt slept thru majority of shift with no issues.
[2019-09-03 06:03] LABS: Blood Urea Nitrogen 15 mg/dL (7-17); Calcium 8.6 mg/dL (8.4-10.2); Carbon Dioxide 26 mmol/L (22-32); Chloride 103 mmol/L (98-107); Estimated Glomerular Filt Rate > 60.0 mL/min (>60); Glucose 172 mg/dL (80-110); HEMOLYSIS < 15 (0-50); Potassium 3.7 mmol/L (3.4-5.1); Sodium 138 mmol/L (137-145)
[2019-09-03 06:06] LABS: Hemoglobin A1C% w Est Avg Glu 6.9 % (4.0-6.0)
[2019-09-03 06:11] LABS: Add Manual Diff / Slide Review NO; Basophils Absolute Auto 100 /uL (0-100); Basophils Percent Auto 0.3 % (0-2); Eosinophils Absolute Auto 0 /uL (0-450); Eosinophils Percent Auto 0.1 % (2-4); Hemoglobin 13.5 g/dL (12.0-16.0); Lymphocytes Absolute Auto 9300 /uL (1100-4500); Lymphocytes Percent Auto 55.2 % (25-40); Mean Corpuscular HGB Conc 35.5 % (30-36); Mean Corpuscular Hemoglobin 32.8 PG (26-34); Mean Corpuscular Volume 92.5 fL (80-100); Monocytes Absolute Auto 500 /uL (0-900); Monocytes Percent Auto 2.7 % (3-14); Neutrophils Absolute Auto 7000 /uL (1500-7000); Neutrophils Percent Auto 41.7 % (50-75); Platelet Count 150 X10^3/uL (150-400); Red Blood Cell Count 4.11 X10^6/uL (4.0-5.2); Red Cell Distribution Width 13.9 % (11.6-14.8); White Blood Cell Count 16.8 X10^3/uL (4.5-11.0)
[2019-09-03 06:38] LABS: TSH w/ Reflex to FT4 0.29 uIU/mL (0.47-4.68)
[2019-09-03 07:06] LABS: Free T4, Direct Thyroxine 1.36 ng/dL (0.78-2.19)
--- NOTE | 2019-09-03 07:14 | DI.ECHO.S_ITS ---
[facility] +---------+ Hospital +---------+ : : [address] : : : [place], [place] : : : : [id number] : : : : Phone: [phone] Echocardiogram Report + + :Name: FERNANDO BATES Study Date: 09/03/2019 Height: 63 in : :[facility] Weight: 134 lb : : Gender: Female BSA: 1.6 m2 : :: 1945 Age: 73 yrs BP: 113/66 mmHg: :Reason For Study: Dizziness : :Ordering Physician: Stanislaw : :Hospitalist Performed By: Cassius Palomino : :Referring: AGUSTINA BOYLE : + + Interpretation Summary Normal sinus rhythm. Normal LV size, wall thickness, wall motion and LV systolic function. EF is 60-65%. Normal chamber sizes. No significant valvular abnormalities. No prior study available for comparison. Procedure: A two-dimensional transthoracic echocardiogram with color flow and Doppler was performed. The study quality was technically difficult. There is no prior echocardiogram noted for this patient. The patient was in normal sinus rhythm during the exam. Left Ventricle: The left ventricle is normal in size. There is normal left ventricular wall thickness. Left ventricular systolic function is normal. The ejection fraction is estimated to be 60-65%. Left ventricular wall motion is normal. Right Ventricle: The right ventricle is normal in size and function. Atria: The left atrium is not well visualized. Right atrial size is normal. The interatrial septum is intact with no evidence for an atrial septal defect. Mitral Valve: The mitral valve leaflets appear mildly thickened, but open well. Possible prolapse of the anterior leaflet. There is mild to moderate mitral regurgitation. Aortic Valve: The aortic valve is not well visualized. The aortic valve opens well. No aortic regurgitation is present. Tricuspid Valve: The tricuspid valve is normal in structure and function. There is trace tricuspid regurgitation. Pulmonary artery pressures cannot be estimated because of the lack of a measurable TR jet velocity. Pulmonic Valve: The pulmonic valve is not well visualized. There is trace pulmonic regurgitation. Great Vessels: The aortic root is normal size. The dimensions of the ascending aorta are normal. The pulmonary artery is normal size. The IVC is dilated (diameter is greater than 2.1 cm) yet it collapses greater than 50% with a sniff. This suggests a right atrial pressure of 8 mm Hg. Pericardium/ Pleura There is no pericardial effusion. There is no pleural effusion. MMode/2D Measurements & Calculations LVIDd: 4.5 cm LVOT diam: 2.1 cm LVIDs: 2.8 cm Ao root diam: 2.8 cm FS: 37.7 % EPSS: 0.69 cm IVSd: 1.0 cm LVPWd: 0.92 cm LV jung. diameter/BSA (cm/m^2): 2.8 LV sys. diameter/BSA (cm/m^2): 1.7 LA A4 area: 18.6 cm2 RA long axis: 5.0 cm LA length (vol): 5.0 cm RA area: 12.1 cm2 RA vol: 24.9 ml RA : 15.3 ml/m2 TAPSE: 2.5 cm Doppler Measurements & Calculations Ao V2 max: 99.6 cm/sec LVOT Max Anastasia: 86.3 cm/sec Ao V2 mean: 72.6 cm/sec LV V1 max P.0 mmHg Ao max P.0 mmHg LV V1 VTI: 18.9 cm Ao mean P.3 mmHg RODRIGUEZ(I,D): 2.7 cm2 Ao V2 VTI: 22.9 cm RODRIGUEZ(V,D): 2.9 cm2 sev ratio: 0.82 RODRIGUEZ indexed to BSA (cm^2/m^2): 1.7 MV E max anastasia: 71.6 cm/sec PA V2 max: 62.5 cm/sec MV A max anastasia: 55.7 cm/sec PA V2 mean: 44.1 cm/sec MV E/A: 1.3 PA mean P.90 mmHg Med Peak E' Anastasia: 7.6 cm/sec PA Accel Time: 0.10 sec E/E' med: 9.4 Lat Peak E' Anastasia: 9.8 cm/sec E/E' lat: 7.3 E/e' average: 8.3 MV dec time: 0.29 sec SV(LVOT): 63.1 ml Electronically signed by: Maxine Aguila M.D. on Reading Physician:09/03/2019 06:06 PM
[2019-09-03 07:30] LABS: Procalcitonin < 0.05 ng/mL (<0.5)
[2019-09-03 07:56] LABS: RBC Urine None Seen (0-5/HPF)
[2019-09-03 07:58] LABS: Appearance Urine UA CLEAR; Bilirubin Urine UA NEGATIVE (NEGATIVE); Color Urine UA YELLOW; Glucose Urine UA NEGATIVE (Negative); Ketones Urine UA 1+ (NEGATIVE); Leukocyte Esterase Urine UA NEGATIVE (NEGATIVE); Nitrite Urine UA NEGATIVE (Negative); Occult Blood Urine UA NEGATIVE (Negative); Protein Urine UA NEGATIVE (Negative); Specific Gravity Urine UA 1.015 (1.000-1.035); Urobilinogen Urine UA 0.2 E.U./dL (0.2)
[2019-09-03 08:13] LABS: Bacteria Urine Many (>30); Culture Indicated Urine Cult Not Indicated; WBC Urine 0-1/HPF (0-5/HPF)
[2019-09-03 13:20] LABS: Adenovirus Not Detected (Not Detect); Bordetella pertussis Not Detected (Not Detect); Chlamydophila pneumoniae Not Detected (Not Detect); Coronavirus 229E Not Detected (Not Detect); Coronavirus HKU1 Not Detected (Not Detect); Coronavirus NL 63 Not Detected (Not Detect); Coronavirus OC43 Not Detected (Not Detect); Human Metapneumovirus Not Detected (Not Detect); Human Rhinovirus/Enterovirus Not Detected (Not Detect); Influenza A Not Detected (Not Detect); Influenza B Not Detected (Not Detect); Mycoplasma pneumoniae Not Detected (Not Detect); Parainfluenza Virus 1 Not Detected (Not Detect); Parainfluenza Virus 2 Not Detected (Not Detect); Parainfluenza Virus 3 Not Detected (Not Detect); Parainfluenza Virus 4 Not Detected (Not Detect); Respiratory Syncytial Virus Not Detected (Not Detect)
--- NOTE | 2019-09-03 13:26 | PT.IIE ---
Medical History (Last Reviewed 09/03/19 @ 00:56 by ELIZA Dickens) Diabetes type 2, controlled (Chronic) Hearing aid worn (Chronic) Hypothyroidism (Chronic) Physical Therapy Inpatient Evaluation/Re-Eval M1 PT/OT-IP Prior Functional Status Start: 09/03/19 13:07 Freq: NEEDED Status: Active Protocol: Document 09/03/19 10:35 DCW (Rec: 09/03/19 13:26 DCW [id number]) Medical Review Prior Functional Status Medical History Reviewed Yes Diet/Fluid Consistency Regular Communication WNL Mobility and Gait Occasional use of SPC due to right leg pain Social History Household Members spouse Home Equipment Straight Cane M2 PT-IP Current Condition Start: 09/03/19 13:07 Freq: NEEDED Status: Active Protocol: Document 09/03/19 10:35 DCW (Rec: 09/03/19 13:26 DCW [id number]) Physical Therapy Current Condition Current Condition Evaluation Date 09/03/19 Treatment Diagnosis Vertigo/dizziness Onset Date 09/02/19 M3 PT-IP Subjective Start: 09/03/19 13:07 Freq: NEEDED Status: Active Protocol: Document 09/03/19 10:35 DCW (Rec: 09/03/19 13:26 DCW [id number]) Subjective Physical Therapy Visit Type Type Initial Evaluation Visit Start Time 10:35 Visit Stop Time 11:10 Total Visit Minutes 35 Number of GIVER Visits 0 Physical Therapy Visit Comments Patient Comments Pt is a 73 year old female complaining of a one day history of spontaneous vertigo and imbalance. Pt reports episodes lasted 20-60 minutes. Symptoms were constant the entire time, and after they began to fade, she remained feeling very off-balance and dizzy, just no more vertigo or nausea. Pt denies tinnitus, diplopia, dysarthria, discoordination, or decreased mentation/consciousness, but does report unilateral hearing loss on her left side. Pt had previously suffered a similar episode in January of 2019, with an hour or more of spinning vertigo, nausea, and vomiting. Pt denies a migraine history, but does note that she will occasionally get left-sided head pain, which makes her typically feel a little off- balance and dizzy, just not nearly as severe has yesterday . M4 PT-IP Mobility and Gait Start: 09/03/19 13:07 Freq: NEEDED Status: Active Protocol: Document 09/03/19 10:35 DCW (Rec: 09/03/19 13:26 [facility] [id number]) PT-Bed Mobility Assessment Rolling Type of Rolling Roll to Right Level of Assist Independent Supine to Sit Supine to Sit Independent Sit to Supine Sit to Supine Independent Scooting Scooting to Edge of Bed Independent PT-Transfer Assessment Sit to and From Stand Sit to and from Stand Independent Equipment Transfer Assistive Device None PT-Balance Assessment Sitting Balance and Reactions Static Sitting Balance Ability Normal Dynamic Sitting Balance Ability Good Balance Tests Single Limb Standing 5 seconds each foot Comments Other Balance Tests/Deviations/Treatment Eyes closed narrow NATTY: WNL : M5 PT-IP Objective Assessments Start: 09/03/19 13:07 Freq: NEEDED Status: Active Protocol: Document 09/03/19 10:35 DCW (Rec: 09/03/19 13:26 [facility] [id number]) Orientation Orientation/Cognition Level of Alertness Alert Safety Awareness Understands Safety Issues Memory Description No Deficits Noted Gross Range of Motion Upper Extremity ROM Assessment Within Functional Limits Lower Extremity ROM Assessment Within Functional Limits Strength Upper Extremity Strength Assessment Within Functional Limits Lower Extremity Strength Assessment Within Functional Limits Other Assessments Other Other Assessments Horizontal and Vertical Smooth pursuit: WNL Horizontal Saccades: WNL Head Thrust: WNL Heave test: WNL [place]: Negative bilaterally Roll Test: Negative Bilaterally Supine->Sit: Negative M7 PT-IP Assessment and Plan Start: 09/03/19 13:07 Freq: NEEDED Status: Active Protocol: Document 09/03/19 10:35 DCW (Rec: 09/03/19 13:26 [facility] [id number]) PT Summary Assessment and Plan Potential Rehabilitation Potential Good Status of Condition at Evaluation Stable Summary Assessment Summary Pt underwent a vestibular examination in order to rule in or out an inner ear component regarding her dizziness. Pt has undergone a CT, a CTA, and other testing to rule out a central cause of her dizziness, which were all negative. Her vestibular testing was negative at this time, and pt had no current complaints of vertigo. BPPV unlikely at this time, due to pt's reports of extended symptoms with no change in position. Pt may be suffering from a Vestibular migraine, pt does deny migraine history, however her reports of left head pain along with dizziness over the course of her life may be suggestive of an undiagnosed migraine disorder. Additionally, with now two episodes of vertigo over the past year, combined with her unilateral left hearing loss, pt may have Meniere's Disease. Pt would benefit from a referral to an ENT for VNG and auditory testing. Pt's balance at this time is functional, as she can stand with her eyes closed or balance on a single leg for an appropriate length of time for gait. Pt should be safe to discharge home with her when medically cleared . Pt unlikely to benefit from further in-patient physical therapy at this time. Frequency of Treatment Frequency Of Treatment Discharge Recommendations To Nursing Amount of Assist Needed Standby Assistance Discharge Recommendations PT Discharge Recommendations Home with Assistance Other Discharge Recommendations Pt likely to benefit from referral to ENT following discharge from hospital
--- NOTE | 2019-09-03 13:27 | OT.IP.EVAL ---
Past Medical History (Last Reviewed 09/03/19 @ 00:56 by ELIZA Dickens) Diabetes type 2, controlled (Chronic) Hearing aid worn (Chronic) Hypothyroidism (Chronic) Occupational Therapy Inpatient Evaluation/Re-Eval M1 PT/OT-IP Prior Functional Status Start: 09/03/19 13:07 Freq: NEEDED Status: Active Protocol: Document 09/03/19 13:27 PJM (Rec: 09/03/19 15:57 PJ [id number]) Medical Review Prior Functional Status Medical History Reviewed Yes Diet/Fluid Consistency Regular Communication WNL Mobility and Gait Occasional use of SPC (25% of the time) due to right leg pain Activities of Daily Living and IADL's Pt independent with all self care and does light IADLS such as dishes and folding laundry . 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 Pt manages own medications and finances. Prior Functional Level (Other details) Pt states she drives occasionally; does most driving. Social History Household Members spouse Living Arrangements House Number of Stairs To Enter/Railing? 6 stairs to enter front door or 2 through garage with rail Home Environment Standard Height Toilet,Walk in Shower,Built-In Shower Seat Home Equipment Straight Cane M2 OT-IP Current Condition Start: 09/03/19 15:42 Freq: Status: Active Protocol: Document 09/03/19 13:27 PJM (Rec: 09/03/19 15:57 PJ [id number]) Occupational Therapy Current Condition Current Condition Evaluation Date 09/03/19 Treatment Diagnosis assess self care for return home w/DX of vertigo Diagnosis Onset Date 09/02/19 Post Operative Precautions Other Precautions fall risk M3 OT- IP Subjective and Pain Start: 09/03/19 15:42 Freq: Status: Active Protocol: Document 09/03/19 13:27 PJM (Rec: 09/03/19 15:57 PJ [id number]) OT- Subjective Occupational Therapy Visit Type Type Initial Evaluation Visit Start Time 12:56 Visit Stop Time 13:27 Total Visit Minutes 31 Notes not here this session. Occupational Therapy Visit Comments Patient Comments I don't feel dizzy or nauseous right now. Patient/Caregiver Goals to go home OT Pain Assessment Pain When Pain Assessed At Rest Pain Present Pain Present Pain Reported Location Lower Back Intensity 2 Description Aching,Chronic M4 OT- IP ADL's Start: 09/03/19 15:42 Freq: Status: Active Protocol: Document 09/03/19 13:27 PJM (Rec: 09/03/19 15:57 [facility] [id number]) OT VSE-[place]-Gdkssiu General Evaluation Self-Feeding Ability Independent OT ADL-Grooming General Evaluation Grooming Ability Independent Comments OT Grooming Comments standing at sink OT ADL-Oral Care Comments Oral Care Comments pt declined this session OT ADL-Dressing General Eval Lower Body Dressing Ability Independent Areas Needing Assistance Socks OT ADL-Toileting General Evaluation Toileting Ability Independent OT ADL-Bathing Bathing Type Bathing Type Shower Comments OT Bathing Comments pt declines to shower here, prefers to shower at home; has shower seat and can provide SBA M5 OT- IP IADL's Start: 09/03/19 15:42 Freq: Status: Active Protocol: Document 09/03/19 13:27 PJM (Rec: 09/03/19 15:57 [facility] [id number]) OT-Instrumental Activities of Daily Living Deficits IADL Deficits Identified Deficits Home Safety Awareness Awareness of Need for Assistance at Home Good Awareness Ability to Problem Solve Emergency Able to Problem Solve Situations Medication Management Medication Management No Deficits Identified Money Management Money Management No Deficits Identified Meal Preparation Meal Preparation Caregiver Provides Assist Firearms Instructor Firearms Instructor Caregiver Provides Assist Driving Driving Caregiver Provides Assist M6 OT- IP Functional Cognition Start: 09/03/19 15:42 Freq: Status: Active Protocol: Document 09/03/19 13:27 PJM (Rec: 09/03/19 15:57 [facility] [id number]) Cognitive Factors Limiting Selfcare Function Cognitive Ability Level of Alertness Alert Patient Orientation Name,Month,Year,Place, Situation Attention Span Ability Capable of Focused Attention, Capable of Sustained Attention Ability to Follow Commands Able to Follow One Step Commands Cognitive Comments Cognitive Assessment Comments Pt drowsy at start of session and more alert as session progressed. Pt mildly confused about room layout and needs verbal cues to attend to IV lines. Needs verbal cues for exact date. OT- Vision and Hearing OT- Hearing Assessment OT- Hearing Assessment WFL OT- Vision Assessment Visual Acuity Glasses All The Time,No Vision Aides At Hospital Vision Assessment Comments Pt states she needs new glasses. M7 OT- IP Mobility and Balance Start: 09/03/19 15:42 Freq: Status: Active Protocol: Document 09/03/19 13:27 PJM (Rec: 09/03/19 15:57 PJM [id number]) OT- Bed Mobility Assessment Rolling Type of Rolling Roll to Right Level of Assistance Independent Supine to Sit Supine to Sit Assist Independent Scooting Scooting to Edge of Bed Independent OT-Transfer Assessment Sit to and From Stand Sit to and from Stand Standby Assistance Transfers Transfer Ability Standby Assistance Technique Transfer Destination Bed,Toilet Transfer Technique Stand Step Pivot Devices Transfer Assistive Devices None Comments Mobility Comments Therapist pushing IV pole for pt. OT- Gait Assessment Gait Gait Assistance Required: Standby Assistance Distance (Feet) 15 Assistive Devices Assistive Device None Comments Gait Ability Comments no LOB noted; see P.T. notes for further details OT- Balance Assessment Sitting Balance and Reactions Static Sitting Balance Ability Good Dynamic Sitting Balance Ability Good Standing Balance and Reactions Static Standing Balance Ability Good Dynamic Standing Balance Ability Good Comments Other Balance Tests/Deviations/Treatment during lower body clothing : management and standing at sink, see P.T. notes for further details M8 OT- IP Objective Assessments Start: 09/03/19 15:42 Freq: Status: Active Protocol: Document 09/03/19 13:27 PJM (Rec: 09/03/19 15:57 PJM [id number]) OT Gross Range of Motion Upper Extremity Range of Motion Assessment Within Functional Limits OT Strength Upper Extremity Strength Assessment Within Functional Limits Hand Loop Drier Operator Strength Hand Dominance Right OT- Coordination Assessment Comments Coordination Comments BUE WFL OT-Muscle Tone Assessment Muscle Tone WNL Yes OT Sensation Assessment Comments Summary Comments BUE WNL per pt Edema Edema Absent M9 OT- IP Assessment and Plan Start: 09/03/19 15:42 Freq: Status: Active Protocol: Document 09/03/19 13:27 PJM (Rec: 09/03/19 15:57 PJM [id number]) OT Summary Assessment and Plan Potential Rehabilitation Potential Good Analytic Complexity at Evaluation Low Summary Progress Towards Goals Safe For Discharge Assessment Summary Low complexity OT assessment completed on this 73 yr old pt admitted with vertigo, headache with nausea. Head CT/ MRI negative. See P.T. notes for results of vestibular assessment. Pt appears to be close to, or at, her baseline level of self care function as described above. Provided pt education re: energy conservation, pacing and slow movements to avoid triggering vertigo. No further OT goals identified for this admission. Anticipate pt will d/c home with retired when medically stable. Frequency of Treatment Frequency Of Treatment Discharge Discharge Recommendations OT Discharge Recommendations Home with Assistance
[2019-09-03] MEDS: TRIAMTERENE/HCTZ 37.5/25 TABLET 1 CAP PO (14:53)
--- NOTE | 2019-09-03 15:44 | PC.NURSE ---
Shift summary: (late entry) Alert and oriented X3. Endorsed mild nausea, but was able to eat a bit of both meals without increase in nausea or emesis. Voided once for us (100 measured, plus unmeasured amount into the toilet). Denied post-void urgency at that time and as of 1500 had not needed to void again. ECHO was done and she was evaluated by PT earlier. Lungs CTA, HRR. Able to make needs known and calls appropriately. Light within reach, bed alarm on.
--- NOTE | 2019-09-03 16:01 | PC.NURSE ---
Addendum entered by Ermelinda Hannah R.N. 09/03/19 23:27: Since last note, has voided twice, PVR done after the 2020 void with residual bladder scan = 283 ml. Pt reports able to empty bladder & does not feel further urge. VS remain stable. Patient refusing to wear SCD's. She is refusing to call staff before getting OOB, setting off bed alarm. She said and you wonder why I wanted to go home? At least there no one wakes me up all the time. I talked to her about hospitalization & Dr's orders. I explained the order for US in the AM to try to find out why she is retaining urine. I explained fall precautions, instructed her to call staff & have them present before ambulating. Gait unsteady, she takes a few steps and appears steady but then startles & grabs wall/furniture to steady self, refusing to use walker. Needs SBA. Words of comfort & moral support offered, she smiled, apologized and said I bet you get sick of taking care of people like me. Alarm active for safety. Report given to NOC RN, aware of patient's request to let me sleep until I call. Addendum entered by Ermelinda Hannah R.N. 09/03/19 19:15: CBG 178, patient refused SS insulin. Explained rationale for SS insulin order, she said I take 3 other medications for my blood sugar & I don't want that. At 1840 patient voided 400 ml urine. Post-void residual bladder scan = 801. I notified Dr Reece of retention. She ordered for me to do in & out cath x 1. Dr Reece told me if we need to do it a 3rd time we can just leave it in. I talked to patient about need for in & out catheter, she said well let me try to go again--I feel like I need to take a dump. Patient requesting to sit on toilet. Voided large amts of urine, stream stopping then starting again severael times. Urine mostly missed hat except for 50 ml. No BM, did pass flatus. Pt back to bed. Post-void residual bladder scan done, with largest amt recordered= 231 ml. Will hold off on doing straight cath at this time. Original Note: Evening notes: Jennifer up to BS, voided 200 ml urine. PVR bladder scan = 681 ml. IV saline locked per Dr's orders. VS stable, patient reports slight headache but denies increased dizziness when OOB. Spouse now at bedside visiting.
[2019-09-03] MEDS: LOVASTATIN 20 MG TABLET 40 MG PO (17:08)
--- NOTE | 2019-09-03 17:36 | DI.US.S_ITS ---
PROCEDURE: US RENAL COMPLETE INDICATIONS: urinary retention, unintentional weight loss TECHNIQUE: Real-time scanning was performed of the kidneys and bladder, with image documentation. COMPARISON: [facility], CT, ABDOMEN/PELVIS WITH CONTRAST, 06/05/2014, 20:40. FINDINGS: Kidneys: Kidneys are normal in size. Right kidney measures 10.6 cm long; left kidney measures 9.8 cm long. Right renal cortical thickness is 1.3 cm; left renal cortical thickness is 1.5 cm. Renal cortical echotexture is normal. No hydronephrosis or nephrolithiasis. No suspicious solid mass lesions. Bilateral simple appearing renal cysts are seen, which measure up to 2.5 cm on the right and up to 1.6 cm on the left. Bladder: Pre-void bladder volume is 259 mL. Despite this bladder volume, the patient was unable to void for postvoid bladder measurements. Pre-void images demonstrate no intraluminal masses or stones. On pre-void images, both ureteral jets are noted with color Doppler interrogation. (Of note, ureteral jets may not be detectable in up to 25% of cases due to insufficient differences in specific gravity between ureteral and bladder urine). Miscellaneous: No free pelvic fluid. The liver demonstrates normal size. The liver demonstrates generalized increased echogenicity. This decreases ultrasound sensitivity for detection of hepatic masses. IMPRESSION: Confirmation of urinary retention, with the patient unable to void, despite a measured bladder volume of 259 cc. No hydronephrosis is seen. Bilateral simple appearing renal cysts are seen. The liver demonstrates increased echogenicity. This finding is nonspecific, yet it is most commonly attributed to fatty infiltration. Dictated by: Rafael Gerber M.D. on 09/04/2019 at 9:41 Approved by: Rafael Gerber M.D. on 09/04/2019 at 9:44
--- NOTE | 2019-09-03 18:14 | CM.DANOTE ---
DCP Assessment: EMR reviewed: patient is a 73 yr old female who was admitted for 'OBS due to Intractable Vertigo. Patient PCP is Dr. durand. CM/Rn met with patient and explained role. Patient was alert and oriented x3 at time of CM/RN visit. Patient currently lives in a single level home with her Jj. Patient is I with all ADL's at baseline and can drive independently. Patients usually does the Driving, shopping, meal prep, and heavy chores but patient is able to do them when needed. Patient has a shower bench and cane at home. Patient had PT and OT evaluations and both state patient can go home with assistance. Patient has been struggling for the last few days with episodes of Vertigo and generalized weakness associted with feeling dizzy. patient during CM visit stated she felt stable and not feeling dizzy at this time. I: Medicare and [employer] Plan: D/c home with when medically stable. no identified D/C planning needs noted at this time. CM department will follow patient to manage any new D/c planning needs that may arise. Norma Csaon RN Discharge Planning/Care Management Discharge Assessment Start: 09/03/19 18:05 Freq: Status: Active Protocol: Document 09/03/19 18:05 (Rec: 09/03/19 18:14 [id number]) Discharge Planning Assessment Assigned Obstetrician Norma Cason RN DPOA/Assigned Designee Name Jj Thomas () Contact Information [phone] Advance Directives? Yes History Provided By Patient Has Patient been admitted in last 30 No days? Prior Living Arrangements House Household Members spouse Type of transporation used prior to Drives own vehicle admit Comment mostly drives Independent with ADL's Yes Is patient alert and oriented? Yes Needs Assistance With Meal Prep,Home Chores / Shopping Comment patients does most of the heavy chores and grocery shopping and meal prep. Patient can do these chores if needed but huband usually does them. Caregiver for Another No Discharge Plan Home Referrals Initiated None needed Whiteboard Updated in Patient Room with Yes name and ext. # of Obstetrician Review Status In Process Next Review Type Continued Stay Review
[2019-09-03] MEDS: LATANOPROST 0.005% OPHTH 2.5 ML 1 DROPS EYE-BOTH (21:55)
[2019-09-03] MEDS: TIMOLOL 0.25% OPHTH 1 DROPS EYE-BOTH (21:55)
[2019-09-03] MEDS: HEPARIN 5,000 UNIT/ML VIAL 5000 UNIT SUBCUT (21:56)
[2019-09-03] MEDS: SODIUM CHLORIDE 0.9% FLUSH 10 ML IV (21:57)
[2019-09-04 03:15] VITALS: BP 109/66; BP 115/70; BP 126/71; PULSE 68; PULSE 73; PULSE 81; RESP 18; TEMP 36.6; O2SAT 95
--- NOTE | 2019-09-04 06:05 | PC.NURSE ---
Pt still retaining urine. Pt voided 300cc at start of shift, then later at 444 pt voided another 300cc into the hat. Bladder scan performed for PVR showing 600cc urine in bladder still. Straight cath'ed at 0445 and got out 700cc urine.
[2019-09-04 06:33] LABS: Hematocrit 39.7 % (36-46); Hemoglobin 13.9 g/dL (12.0-16.0); Mean Corpuscular Hemoglobin 32.1 PG (26-34); Mean Corpuscular Volume 91.7 fL (80-100); Platelet Count 147 X10^3/uL (150-400); Red Blood Cell Count 4.33 X10^6/uL (4.0-5.2); Red Cell Distribution Width 13.8 % (11.6-14.8); White Blood Cell Count 15.4 X10^3/uL (4.5-11.0)
[2019-09-04 06:34] LABS: Add Manual Diff / Slide Review YES
[2019-09-04 06:43] LABS: BUN Creatinine Ratio 16.3 (6-22); Blood Urea Nitrogen 13 mg/dL (7-17); Calcium 9.1 mg/dL (8.4-10.2); Carbon Dioxide 29 mmol/L (22-32); Chloride 102 mmol/L (98-107); Estimated Glomerular Filt Rate > 60.0 mL/min (>60); Glucose 173 mg/dL (80-110); HEMOLYSIS < 15 (0-50); Magnesium 1.8 mg/dL (1.6-2.3); Potassium 3.7 mmol/L (3.4-5.1); Sodium 138 mmol/L (137-145)
[2019-09-04 07:09] LABS: Neutrophils Absolute Manual 5852 /uL (3000-5900); Smudge Cells 1+; Total Cells Counted 100
[2019-09-04 07:55] VITALS: BP 122/69; PULSE 71; RESP 14; TEMP 36.5; O2SAT 95
[2019-09-04] MEDS: TIMOLOL 0.25% OPHTH 1 DROPS EYE-BOTH (08:42)
[2019-09-04] MEDS: TRIAMTERENE/HCTZ 37.5/25 TABLET 1 CAP PO (08:43)
[2019-09-04] MEDS: LEVOTHYROXINE 50 MCG TABLET PO (08:43)
[2019-09-04] MEDS: HEPARIN 5,000 UNIT/ML VIAL 5000 UNIT SUBCUT (08:43)
[2019-09-04 09:58] VITALS: BMI 23.8
--- NOTE | 2019-09-04 10:00 | DIET.PN ---
Dietary Progress Note Assessment: 73y F admitted for nausea dx as Meniere's Dz referred to nutrition for 15# unintentional wt loss in past year. Pt endorsed slow wt loss over past year of 1#/mo related to reduced appetite. Pt stated she was overweight by 10# so while unintentional, wt loss was welcomed. Pt declined further information regarding nutrition. HT: 160cm WT: 60.9kg UBW: 67kg BMI: 23.8 Labs: A1c: 6.9 adequate range for DM2 MNA: 14 Osmany: 21 Nutrition Diagnosis: unintentional wt loss r/t reduced appetite from unknown causes aeb 15# unintentional wt loss in past year. Interventions: 1. Discussed BMI, while the recent wt loss is okay and within adequate range, continued loss is contraindicated to health after age 65. 2. Encouraged pt to f/u c PCP and consider OP RD appt to address any further wt loss. Diet Order: CCD EER: 1600kcal, 60g PRO (1g/kg elder), 1.9L fluids Monitoring/Evaluations: encouraged pt to follow up c PCP if continued wt loss
--- NOTE | 2019-09-04 10:50 | PC.NURSE ---
Assess- Patient is awake and seems frustrated to be in the hospital. Her Vertigo has resolved but she is now here as she is having some urinary retention. She will void and then we will bladder scan her. If she has a large amount in her bladder, she will either be in/out cathed or will talk to Dr. Reece to see if she would like the patient to have a jernigan catheter based off of if she is going home. Patient had a ultra sound and we are just waiting to see results of this. Patient is pleasant enough, she is just tired of being here and wants to go home.
[2019-09-04 11:00] VITALS: BP 107/57; BP 109/59; BP 122/62; PULSE 68; PULSE 70; PULSE 71; PULSE 73; RESP 16; O2SAT 95
[2019-09-04] MEDS: METFORMIN HCL 500 MG TABLET 1000 MG PO (11:32)
[2019-09-04] MEDS: GLIMEPIRIDE 2 MG TABLET 4 MG PO (11:33)
--- NOTE | 2019-09-04 11:39 | P.DS_ITS ---
History of Present Illness History of Present Illness Date Patient Seen: 09/03/19 Chief complaint: dizziness/headache Narrative: Written by Awa AKY: Jennifer Tubbs is a pleasant 73 y.o. female with diabetes type 2, hypothyroidism who wears hearing aids and presented to the ED with a one day history headache, vertigo followed by debilitating nausea. She was worked up in the ED with a head CT, and a MRI/MRA both which were negative. [facility] is unable to ambulate without suffering from nausea. She has had similar symptoms that occurred in [place] last summer. She was assessed there, discharged and returned to the [facility] where they had been referred to and saw a neurologist. They recommended PT/OT for treatment with Eppley maneuvers, however they had not followed up on this as yet. Discharge Providers Provider Date of admission: 09/02/19 23:20 Discharge Date: 09/04/19 Primary care physician: Norma Donovan MD Consults: 09/03/19 00:21 Consult to Occupational Therapy Evaluate & Treat Comment: Eppley maneuvers for vertigo Physician Instructions: Evaluate and treat 09/03/19 09:16 Consult to Physical Therapy Evaluate & Treat Comment: Admit Dx Vertigo Physician Instructions: Evaluate and Treat 09/04/19 09:45 Consult to Dietitian, Adult Routine Comment: Reason For Exam: unintentional weight loss Discharge provider: Ana Reece DO Summary Hospital Course Discharge Diagnosis: 1. Intractable vertigo secondary to newly diagnosed Meniere's disease, present on admission. Vertigo resolving. 2. Urinary retention, unclear acuity, present on admission. Active. 3. Leukocytosis, unclear acuity, present on admission. Active. 4. Diabetes mellitus type 2, non-insulin using, present on admission. Stable. 5. Hypothyroidism, chronic, present on admission. Stable. Hospital Course: Jennifer Tubbs is a 73-year-old female with a past medical history significant for hyperlipidemia, diabetes mellitus type 2, non-insulin using, hypor thyroidism, and hearing loss who presented with recurrent and intractable vertigo. 1. Intractable vertigo secondary to newly diagnosed Meniere's disease, present on admission. Vertigo resolving. -Patient endorses sensorineural hearing loss bilaterally left greater than right requiring hearing aids, fullness in ear/head, distorted sound, to now 2 episodes of vertigo lasting 12-24 hours in duration not amenable to Jevon or Minerva-Hallpike maneuvers. She denies tinnitus. -CT brain without contrast did not demonstrate any acute intracranial abnormalities. -CTA head and neck did not demonstrate any large vessel occlusion, significant stenosis or aneurysm. Less than 50% bilateral ICA stenosis. -EKG demonstrated sinus rhythm with Q-waves in leads V1 and V2 possible indicative of old septal infarct. -Echocardiogram unremarkable. -Previous neurological evaluation inconclusive. -Started and continued triamterene/hydrochlorothiazide 37.5/25 mg daily. Recommend follow-up with her gyro compass tester and ENT Dr. Angus Johnson in the next 1-2 weeks. 2. Urinary retention, unclear acuity, present on admission. Active. -Patient found to have urinary retention of unclear etiology. The patient is asymptomatic and does not feel as though she did not completely empty her bladder and denies dysuria, urinary frequency, urinary hesitancy, and or urinary urgency. -Continued as needed in and out catheterization and PVR. -Renal ultrasound confirmed urinary retention and did not demonstrate any abnormalities including hydronephrosis, masses or stones. Incidental note of simple appearing renal cysts. -Implemented bowel regimen as chronic constipation may contribute to incomplete bladder emptying. 3. Leukocytosis, unclear acuity, present on admission. Active. -Patient had mild elevation of WBC 14.6->16.9->15.4 with differential predominantly lymphocytes with atypical lymphocytes. -Patient endorses unintentional weight loss in which she was losing 1 lb per month for several months. She reports she is no longer losing weight. -Patient does not appear to have infectious source and has been afebrile, UA negative, chest exam clear, and no abdominal pain. -Path smear review has been sent by ED, pending and will need to be followed by PCP. 4. Diabetes mellitus type 2, non-insulin using, present on admission. Stable. -Hemoglobin A1c 6.9% indicative of fair glycemic control. -Held oral antihyperglycemics including glimepiride, metformin and Trulicity. -Continued [facility] blood glucose checks and covered with low-dose correctional scale insulin. -Continued carbohydrate consistent diet. 5. Hypothyroidism, chronic, present on admission. Stable. -TSH low at 0.29 and free T4 normal at 1.36 indicative of subclinical hyperthyroidism and over supplementation. -Continued levothyroxine at decreased dose from 75 mcg daily to 50 mcg daily. Recommend repeat thyroid function test in 4-6 weeks per PCP. Exam Vital Signs (past 8 hours): - 09/04/19 07:55 Temperature 97.7 F Pulse Rate 71 Respiratory Rate 14 Blood Pressure 122/69 Pulse Oximetry 95 Oxygen Delivery Method Room Air Oxygen Flow Rate 0 Narrative Exam Narrative: General: Older female sitting in bedside chair and in no acute distress, well- developed, well-nourished, appropriately interactive. HEENT: Normocephalic, atraumatic. External ears without defect. Pupils equal, round, and reactive to light. Anicteric sclerae, moist conjunctivae, and no lid lag. Oropharynx free of erythema and cobble stoning with moist mucosa. Neck: Supple with full range of motion. No jugular venous distension. No lymphadenopathy or thyromegaly. Cardiovascular: Regular rate and rhythm without murmurs, rubs, or gallops appreciated Pulmonary: Clear to auscultation bilaterally without crackles, wheezes, or rho nchi. Normal respiratory effort with no use of accessory muscles. Abdomen: Soft, bowel sounds present, nontender, nondistended. No hepatosplenomegaly or masses appreciated. Extremities: No clubbing, cyanosis, or edema. Skin: Normal temperature, turgor, and texture; no rash, ulcers, or subcutaneous nodules appreciated. Neurological: Cranial nerves grossly intact. Psychiatric: Normal mood and affect. Alert and oriented to person, place, and time. Objective Labs Result Diagrams: 09/04/19 06:05 09/04/19 06:05 Labs: Laboratory Results - last 24 hr 09/03/19 09/03/19 09/04/19 07:15 11:51 06:05 WBC 15.4 H RBC 4.33 Hgb 13.9 Hct 39.7 MCV 91.7 MCH 32.1 MCHC 35.0 RDW 13.8 Plt Count 147 L Neut % (Auto) Not Reportable Lymph % (Auto) Not Reportable [place] % (Auto) Not Reportable Eos % (Auto) Not Reportable Baso % (Auto) Not Reportable Lymph # (Auto) Not Reportable [place] # (Auto) Not Reportable Baso # (Auto) Not Reportable Total Counted 100 Seg Neutrophils % 36.0 L Band Neutrophils % 2.0 L Lymphocytes % (Manual) 17.0 L Atypical Lymphs % 39.0 H Monocytes % (Manual) 6.0 Neutrophils # (Manual) 5852 Smudge Cells 1+ H RBC Morphology See below Sodium Potassium Chloride Carbon Dioxide BUN Creatinine Estimated GFR BUN/Creatinine Ratio Glucose Calcium Magnesium Urine Color Yellow Urine Appearance Clear Urine pH 6.0 Ur Specific [place] 1.015 Urine Protein Negative Urine Glucose (UA) Negative Urine Ketones 1+ H Urine Occult Blood Negative Urine Nitrate Negative Urine Bilirubin Negative Urine Urobilinogen 0.2 Ur Leukocyte Esterase Negative Urine RBC None seen Urine WBC 0-1/hpf Urine Bacteria Many (>30) H Ur Culture Indicated? Cult not indicated Chlamy pneumoniae PCR Not detected Adenovirus (PCR) Not detected B.parapertussis DNA PCR Not detected Coronavirus OC43 (PCR) Not detected Coronavirus HKU1 (PCR) Not detected Coronavirus 229E (PCR) Not detected Coronavirus NL63 (PCR) Not detected Human Metapneumovir PCR Not detected Influenza Type A (PCR) Not detected Influenza Type B (PCR) Not detected M. pneumoniae (PCR) Not detected Parainfluenza 1 (PCR) Not detected Parainfluenza 2 (PCR) Not detected Parainfluenza 3 (PCR) Not detected Parainfluenza 4 (PCR) Not detected RSV (PCR) Not detected Entero/Rhino (PCR) Not detected 09/04/19 06:05 WBC RBC Hgb Hct MCV MCH MCHC RDW Plt Count Neut % (Auto) Lymph % (Auto) [place] % (Auto) Eos % (Auto) Baso % (Auto) Lymph # (Auto) [place] # (Auto) Baso # (Auto) Total Counted Seg Neutrophils % Band Neutrophils % Lymphocytes % (Manual) Atypical Lymphs % Monocytes % (Manual) Neutrophils # (Manual) Smudge Cells RBC Morphology Sodium 138 Potassium 3.7 Chloride 102 Carbon Dioxide 29 BUN 13 Creatinine 0.80 Estimated GFR > 60.0 BUN/Creatinine Ratio 16.3 Glucose 173 H Calcium 9.1 Magnesium 1.8 Urine Color Urine Appearance Urine pH Ur Specific [place] Urine Protein Urine Glucose (UA) Urine Ketones Urine Occult Blood Urine Nitrate Urine Bilirubin Urine Urobilinogen Ur Leukocyte Esterase Urine RBC Urine WBC Urine Bacteria Ur Culture Indicated? Chlamy pneumoniae PCR Adenovirus (PCR) B.parapertussis DNA PCR Coronavirus OC43 (PCR) Coronavirus HKU1 (PCR) Coronavirus 229E (PCR) Coronavirus NL63 (PCR) Human Metapneumovir PCR Influenza Type A (PCR) Influenza Type B (PCR) M. pneumoniae (PCR) Parainfluenza 1 (PCR) Parainfluenza 2 (PCR) Parainfluenza 3 (PCR) Parainfluenza 4 (PCR) RSV (PCR) Entero/Rhino (PCR) Discharge Plan Discharge Plan Patient Disposition: Home Discharge comment: You're being discharged home. You have Meniere's disease which is a buildup of fluid in the ear which causes vertigo and hearing loss. You have been prescribed triamterene/hydrochlorothiazide 37.5/[address] ease follow-up with your gyro compass tester regarding your hearing aids and new diagnosis of Meniere's disease. You also have urinary retention from unclear cause which puts you at risk of urinary tract infections. It may be related to chronic constipation which causes incomplete bladder emptying and you have been prescribed Colace 100 mg twice daily and MiraLax 17 g daily as needed for constipation. Please follow-up with your primary care physician, Dr. Donovan, regarding your hospitalization and referral to urology to assess and treat your urinary retention. Also your your levothyroxine was reduced to 50 mcg daily as you were over repleted and may be contributing to your previous weight loss. P adonis have your thyroid function rechecked in 4-6 weeks. Discharge orders & Medications Prescriptions: New meclizine 25 mg tablet,chewable 50 mg PO TID PRN (Reason: dizzines) Qty: 14 RF: 0 ondansetron HCl [Zofran] 4 mg tablet 4 mg PO Q6H PRN (Reason: nausea and vomiting) Qty: 10 RF: 0 triamterene-hydrochlorothiazid [Maxzide-25mg] 37.5-25 mg Tablet 1 tab PO DAILY Qty: 30 RF: 0 docusate sodium [Colace] 100 mg capsule 100 mg PO BID Qty: 60 RF: 0 polyethylene glycol 3350 [Miralax] 17 gram/dose powder 17 gram PO DAILY PRN (Reason: constipation) Qty: 119 RF: 0 levothyroxine 50 mcg capsule 50 mcg PO DAILY Qty: 30 RF: 0 Continued latanoprost 0.005 % Drops 1 drp EYE-BOTH BEDTIME Qty: 0 RF: 0 lovastatin 10 MG tablet 40 mg PO QDAYPM Qty: 0 RF: 0 metformin 1,000 mg Tablet 1,000 mg PO BID Qty: 0 RF: 0 multivitamin Capsule 1 cap PO DAILY Qty: 0 RF: 0 Trulicity 1.5 mg/0.5 mL Pen Injector 1.5 mg SUBCUT WEEKLY RF: 0 timolol maleate 0.25 % Drops 1 drp EYE-BOTH BID RF: 0 glimepiride 4 mg Tablet 4 mg PO BID RF: 0 Discontinued levothyroxine 75 mcg Tablet 75 mcg PO DAILY Qty: 0 RF: 0 Follow up/Referrals: Norma Donovan MD [Primary Care Provider] - 1 Week Diet/Activity/Treatments Diet: Diet as Tolerated and Carb-consistent/Diabetic Activity: Activity as tolerated Visit Report/Discharge Packet Instructions: DI for Vertigo, DI for Meniere's Disease Discharge Data Primary Care Provider: Norma Donovan Attending Provider: Awa Cueto Admit Date/Time: 09/02/19 23:20 Quality VTE Deep Vein Thrombosis/Pulmonary Embolism Present on Admission: No
== END 2019-09-04 13:10 | disposition home or self-care (01) ==
LOC: ED 18:50 → AC 23:21
PROVIDERS: Emergency Medicine; Internal Medicine; Admitting Provider Nurse Practitioner Family; Emergency Provider Emergency Medicine; PCP Internal Medicine; Visit Provider Nurse Practitioner Family
DX: H81.03 Meniere's disease, bilateral (principal); R51 Headache; R11.0 Nausea; E11.9 Type 2 diabetes mellitus without complications; E03.9 Hypothyroidism, unspecified; R33.9 Retention of urine, unspecified; D72.829 Elevated white blood cell count, unspecified
CPT/HCPCS: 36415; 70450; 70496; 70498; 76770; 80048; 81001; 82962; 83036; 83735; 84145; 84439; 84443; 84484; 85025; 87077; 87086; 87185; 87633; 93005; 93010; 93306; 96361; 96372; 96374; 96375; 96376; 97161; 97165; 97535; 99285; G0378; J1644; J2060; J2405; J2765; Q9967

== ENCOUNTER → 2019-10-10 13:07 | Outpatient (CLI) | payer MEDICARE, OTHER, SELFPAY ==
[2019-09-03 00:02] VITALS: BMI 23.8
--- NOTE | 2019-10-10 | DI.CT.S_ITS ---
PROCEDURE: CT ABDOMEN PELVIS W CON INDICATIONS: Change in bowel habit TECHNIQUE: After the administration of oral and intravenous contrast, 5 mm thick sections acquired from the diaphragms to the symphysis. 5 mm thick coronal and sagittal reformats were performed. For radiation dose reduction, the following was used: automated exposure control, adjustment of mA and/or kV according to patient size. COMPARISON: [facility], CT, ABDOMEN/PELVIS WITH CONTRAST, 06/05/2014, 20:40. FINDINGS: Image quality: Excellent. ABDOMEN: Lung bases: Lung bases are clear. Heart size is normal. Solid organs: Liver is normal in size and enhancement. Gallbladder appears partially contracted. Biliary system is non-dilated. Pancreas enhances normally. Spleen is normal in size and enhancement. No adrenal nodules. Kidneys are normal in size and enhancement, without hydronephrosis. Peritoneum and bowel: Stomach, small bowel, and colon loops are normal in caliber and wall thickness. No free fluid or air. Nodes and vessels: No retroperitoneal or mesenteric adenopathy. Aorta and inferior vena cava are normal in caliber. Miscellaneous: No ventral hernias. PELVIS: Genitourinary: Bladder wall thickness is normal. Miscellaneous: No inguinal hernias or adenopathy. Bones: No suspicious bony lesions. No vertebral body compression fractures. IMPRESSION: Source of change in bowel habits is not seen. Please note that bowel preparation for this examination is not performed and significant portions of the colon contain stool to the degraded accurate assessment for underlying neoplasm is very limited. Dictated by: Brendan Vyas M.D. on 10/10/2019 at 14:48 Approved by: Brendan Vyas M.D. on 10/10/2019 at 14:50
== END ==
PROVIDERS: PCP Student in an Organized Health Care Education/Training Program; Referring Provider Urology; Visit Provider Urology
DX: R19.4 Change in bowel habit (principal)
CPT/HCPCS: 74177; Q9967

== ENCOUNTER 2019-11-01 10:30 | Outpatient (RCR) | payer MEDICARE, OTHER, SELFPAY ==
[2019-09-03 00:02] VITALS: BMI 23.8
--- NOTE | 2019-10-04 15:59 | PT.OIE ---
Current Diagnoses Meniere's disease, unspecified ear (10/04/19) Unsteadiness on feet (10/04/19) Past Medical History (Last Reviewed 09/03/19 @ 00:56 by ELIZA Dickens) Diabetes type 2, controlled (Chronic) Hearing aid worn (Chronic) Hypothyroidism (Chronic) Visit Care Team Role Provider Type Norma Donovan MD Primary Care Provider Physician Specialty: Internal Medicine Address: [address] [place] [address], [id number] Email: Chuckie Liu MD Attending Provider Non-Staff Referring Provider Specialty: Neurology Address: [address] [place] [address], [id number] Email: Physical Therapy Initial Evaluation PT-OP-A Visit Information Start: 10/04/19 07:32 Freq: Status: Active Protocol: Document 10/04/19 10:30 MB (Rec: 10/04/19 11:17 MB [id number]) Out-Patient Physical Therapy Visit Information Visit Information Visit Type Initial Evaluation Visit Start Time 10:30 Visit Stop Time 11:45 Total Visit Minutes 75 Visit Number 1 Evaluation Information Evaluation Date 10/04/19 Precautions Precautions Fall risk PT-OP-B Current Condition Start: 10/04/19 07:32 Freq: Status: Active Protocol: Document 10/04/19 10:30 MB (Rec: 10/04/19 11:17 MB [id number]) Current Condition History of Current Condition Onset Date 09/04/2019 Current Complaints She is really dizzy today History of Current Condition Pt reports that she went to the ED and spent three days and was dx with Meniere's. She had trouble with her bladder and is seeing a urologist tomorrow. She is seeing an ENT in three weeks. Pt has had left greater than right hearing changes that have really decreased over the last couple of months. She has hearing aides that she does not often use. She needs replacement hearing aides. Pt states that the dizziness comes and goes. She tends to be inactive. She sleeps a lot- -a couple of hours in the morning and a couple of hours in the afternoon. Activities like bending over to take care of the dog increase her dizziness. She is walking with a hiking stick off and on. She has poor balance. She has not had falls. Pt reports tinnitus in left ear that has resolved. She is coughing a lot. She is not aware of allergies or sinus trouble. No headaches. She has some neck pain and ache down the back and left of head. She denies whiplash. She has not had any acute visual changes. She denies trouble swallowing, chiropractor care, TMD. She is not aware of anemia. She does not know if she takes B12 . She does not bring in med list . She is taking a dizziness medication, possibly meclizine . She denies BP issues. PMH: DM, neck pain, back pain, left knee injury, tail bone injury, possible neuropathy-- these have led to decreased activity progression She has been napping twice a day over the last 6 months. Pt has not been seeing a regular PCP. She is having her DM checked yearly. She is looking for a PCP. Prior Treatments and Tests Pt underwent ECHO that did not reveal any significant issues ; CTA neck negative; Head CT: negative PT for balance and it was fine PT-OP-C Subjective Start: 10/04/19 07:32 Freq: Status: Active Protocol: Document 10/04/19 10:30 MB (Rec: 10/04/19 11:17 MB [id number]) OP-PT Subjective Patient Comments Patient Comments To decrease dizziness and improve balance Patient Questionnaires Dizziness Handicap Inventory DHI Functional Impairment 60 to 79% Impaired (Score 60- 79) OP-PT Pain Assessment Comments Pain Comments Pt reports that she has back of head soreness but she cannot rate when asked PT-OP-D Balance Start: 10/04/19 07:32 Freq: Status: Active Protocol: Document 10/04/19 10:30 MB (Rec: 10/04/19 15:59 MB [id number]) OP-PT Balance Assessment Sitting Balance Static Sitting Balance Ability Good Dynamic Sitting Balance Ability Fair Sitting Balance Comments Pt uses heavy UE support for dynamic scooting to edge of chair, she also utilizes back support in the chair Standing Balance Static Standing Balance Ability Poor Dynamic Standing Balance Ability Poor Standing Balance Comments Pt must use wall to move feet into Romberg. She must use steadying asst to stand up fully, holding onto chair Balance Tests Romberg Romberg Pt has to hold wall to get into position, 10 sec Other Other Balance Tests Performed Pt cannot tolerate further balance testing d/t fall risk and dizziness today Briseno Fall Scale Copyright Permission PT-OP-G Mobility & Gait Start: 10/04/19 07:32 Freq: Status: Active Protocol: Document 10/04/19 10:30 MB (Rec: 10/04/19 15:59 MB [id number]) OP Gait Assessment Comments Gait Comments Use of cane in right hand and she holds onto bag in left hand to even me out. She is unsteady, especially with gentle head turns and trying to talk during gait PT-OP-K Range of Motion Start: 10/04/19 07:32 Freq: Status: Active Protocol: Document 10/04/19 10:30 MB (Rec: 10/04/19 15:59 MB [id number]) Cervical Spine Range of Motion Cervical Spine Active Comments Pt sittin% normal cervical extension and flexion and pt report dizziness with extension. B rotation 70% normal and less reports of dizziness PT-OP-M Strength Start: 10/04/19 07:32 Freq: Status: Active Protocol: Document 10/04/19 10:30 MB (Rec: 10/04/19 15:59 MB [id number]) Shoulder Strength Shoulder Manual Muscle Testing Left Flexion 5 Normal Abduction (C5) 5 Normal Right Flexion 5 Normal Abduction (C5) 5 Normal Elbow/Forearm Strength Elbow and Forearm Manual Muscle Testing Left Flexion (C6) 5 Normal Extension (C7) 5 Normal Pronation 4 Good Supination 4 Good Right Flexion (C6) 5 Normal Extension (C7) 5 Normal Pronation 5 Normal Supination 5 Normal Wrist Strength Wrist Manual Muscle Testing Left Flexion (C7) 4 Good Extension (C6) 4 Good Right Flexion (C7) 5 Normal Extension (C6) 5 Normal PT-OP-O Vestibular Start: 10/04/19 07:32 Freq: Status: Active Protocol: Document 10/04/19 10:30 MB (Rec: 10/04/19 15:59 MB [id number]) Vestibular Assessment Visual Testing Smooth Pursuits Horizontal Normal, pt reports dizziness Smooth Pursuits Vertical As above Saccades Horizontal As above Gaze Evoked Nystagmus With Fixation Negative Convergence Test Dizziness Spontaneous Nystagmus Negative Comments Vestibular Comments Vestibular testing is limited by severe dizziness today at rest, with gait and very mild head movements. No spontaneous nystagmus, right pupil does not constrict to light as readily as the left. Will attempt BPPV testing and orthostatic hypotension testing next treatment date. PT-OP-Q Treatments Start: 10/04/19 07:32 Freq: Status: Active Protocol: Document 10/04/19 10:30 MB (Rec: 10/04/19 15:59 MB [id number]) Self-Care/Home Management Treatment Education Other Education Extensive education to pt and about Meniere's Disease--duration of symptoms, loss of hearing and/or tinnitus in one ear, work-up and dx needed by ENT, ENT testing and possible treatments. Role of PT in vestibular rehab for balance and VOR, need for pt to start with consistent PCP care d/t recent weight loss, increased sleeping and decreased activity, history of DM with high blood sugars PT-OP-T Assessment and Plan Start: 10/04/19 07:32 Freq: Status: Active Protocol: Document 10/04/19 10:30 MB (Rec: 10/04/19 15:59 MB [id number]) Physical Therapy Assessment Rehab Potential Rehabilitation Potential Fair Evaluation Complexity Number of Personal Factors/Comorbidities 3 or More Number of Body Systems Impaired 3 Clinical Presentation at Evaluation Unstable Impairments Impairments Activity Tolerance,Balance, Functional Activities, Functional Mobility,Gait, Posture,Soft Tissue Mobility, Strength,Transfers,Vestibular Other Impairments Pt presents with the following personal factors: [place], poor compliance with medical care, poor historian when PT asks her many questions and PT has come into treatment room after eval for education, risk for driving d/t dizziness and decreased cervical movement. Body systems involved include neuromuscular--possible neuropathy, musculoskeletal, metabolic (DM) and vestibular. Her clinical presentation is unstable given weight loss changes, unstable blood sugars Other Concerns Barriers to Rehabilitation Fall risk, severity of symptoms, multiple medical co- morbidities Goals 4 Half-Way Goal (LTG) Pt will gait train at least 1100 feet in 6 minutes with or without AD to improve community ambulation by 2019. LTG Duration 8 weeks 3 Half-Way Goal (LTG) Pt will ascend and descend 3 steps with rail to allow safe home mobility by 12/03/2019. LTG Duration 8 weeks 2 Half-Way Goal (LTG) Pt will present WNLs on [place] Balance Testing to decrease fall risk and improve mobility by 12/03/2019. LTG Duration 8 weeks 1 Salvage Engineer Goal (LTG) Pt will present with an improved DHI score to reflect no more than low perception of handicap to allow return to actvity and to decrease fall risk by 12/03/2019. LTG Duration 8 weeks Assessment Summary Assessment Pt is a 74 y/o female presenting with a complicated clinical presentation d/t multiple medical co- morbidities, poor overall consistency with health care, possible uncontrolled DM and neuropathy and severe dizziness. She reports needing to nap twice daily, recent weight loss and progressive sedentary lifestyle. She is unable to tolerate many vestibular tests today and balance and gait are very poor . She is awaiting ENT testing. Oculomotor testing is normal for eye movement but does provoke dizziness. Her right pupil does not constrict as readily as the left. Finger-to -nose is normal and she does have some left UE weakness. She is not descriptive about back of the head soreness and is not consistent in her reports. PT makes sure to bring in her to educate pt and him in PT findings and concerns today. Recommend follow-up with a PCP consistently for work-up about weakness, fatigue, weight loss and sleeping as well as regular lab testing as appropriate. Her functional prognosis is guarded d/t her medical co-morbidities, severe dizziness symptoms and decreased clear communication. Physical Therapy Plan Frequency and Duration Frequency of Treatment 2x/Week Duration of Treatment 8 weeks Plan of Care Start Date 10/04/19 Plan of Care End Date 12/03/19 Therapeutic Interventions Therapeutic Interventions Balance Training,Canalithic Repositioning,Coordination Training,Gait Training,Home Exercise Program,Manual Therapy,Neuromuscular Re- education,Patient/Caregiver Education,Self-Care/Home Management,Taping,Therapeutic Activities,Therapeutic Exercises,Vestibular Rehabilitation Modalities Cold Pack/Ice Massage,Electric Stimulation,Hot Packs, Ultrasound Other Referrals/Consults Referrals/Consults Recommended Pt to start seeing a PCP Next Visit Focus/Plan Next Note Type Treatment Note Next Visit Plan [place]-Hallpike and orthostatic testing if she can tolerate
--- NOTE | 2019-10-04 15:59 | PT.OPPOC ---
Physical, Occupational & Speech Therapy At [facility] Current Diagnoses Meniere's disease, unspecified ear (10/04/19) Unsteadiness on feet (10/04/19) Visit Care Team Role Provider Type Norma Donovan MD Primary Care Provider Physician Specialty: Internal Medicine Address: [address] [place] [address], [id number] Email: [email or web address] Chuckie Liu MD Attending Provider Non-Staff Referring Provider Specialty: Neurology Address: [address] [place] [address], [id number] Email: Plan Of Care PT-OP-T Assessment and Plan Start: 10/04/19 07:32 Freq: Status: Active Protocol: Document 10/04/19 10:30 MB (Rec: 10/04/19 15:59 MB [id number]) Physical Therapy Assessment Rehab Potential Rehabilitation Potential Fair Evaluation Complexity Number of Personal Factors/Comorbidities 3 or More Number of Body Systems Impaired 3 Clinical Presentation at Evaluation Unstable Impairments Impairments Activity Tolerance,Balance, Functional Activities, Functional Mobility,Gait, Posture,Soft Tissue Mobility, Strength,Transfers,Vestibular Other Impairments Pt presents with the following personal factors: [place], poor compliance with medical care, poor historian when PT asks her many questions and PT has come into treatment room after eval for education, risk for driving d/t dizziness and decreased cervical movement. Body systems involved include neuromuscular--possible neuropathy, musculoskeletal, metabolic (DM) and vestibular. Her clinical presentation is unstable given weight loss changes, unstable blood sugars Other Concerns Barriers to Rehabilitation Fall risk, severity of symptoms, multiple medical co- morbidities Goals 4 Multiple Effect Evaporator Operator Goal (LTG) Pt will gait train at least 1100 feet in 6 minutes with or without AD to improve community ambulation by 2019. LTG Duration 8 weeks 3 Multiple Effect Evaporator Operator Goal (LTG) Pt will ascend and descend 3 steps with rail to allow safe home mobility by 12/03/2019. LTG Duration 8 weeks 2 Assisted Goal (LTG) Pt will present WNLs on [place] Balance Testing to decrease fall risk and improve mobility by 12/03/2019. LTG Duration 8 weeks 1 Assisted Goal (LTG) Pt will present with an improved DHI score to reflect no more than low perception of handicap to allow return to actvity and to decrease fall risk by 12/03/2019. LTG Duration 8 weeks Assessment Summary Assessment Pt is a 74 y/o female presenting with a complicated clinical presentation d/t multiple medical co- morbidities, poor overall consistency with health care, possible uncontrolled DM and neuropathy and severe dizziness. She reports needing to nap twice daily, recent weight loss and progressive sedentary lifestyle. She is unable to tolerate many vestibular tests today and balance and gait are very poor . She is awaiting ENT testing. Oculomotor testing is normal for eye movement but does provoke dizziness. Her right pupil does not constrict as readily as the left. Finger-to -nose is normal and she does have some left UE weakness. She is not descriptive about back of the head soreness and is not consistent in her reports. PT makes sure to bring in her to educate pt and him in PT findings and concerns today. Recommend follow-up with a PCP consistently for work-up about weakness, fatigue, weight loss and sleeping as well as regular lab testing as appropriate. Her functional prognosis is guarded d/t her medical co-morbidities, severe dizziness symptoms and decreased clear communication. Physical Therapy Plan Frequency and Duration Frequency of Treatment 2x/Week Duration of Treatment 8 weeks Plan of Care Start Date 10/04/19 Plan of Care End Date 12/03/19 Therapeutic Interventions Therapeutic Interventions Balance Training,Canalithic Repositioning,Coordination Training,Gait Training,Home Exercise Program,Manual Therapy,Neuromuscular Re- education,Patient/Caregiver Education,Self-Care/Home Management,Taping,Therapeutic Activities,Therapeutic Exercises,Vestibular Rehabilitation Modalities Cold Pack/Ice Massage,Electric Stimulation,Hot Packs, Ultrasound Other Referrals/Consults Referrals/Consults Recommended Pt to start seeing a PCP Next Visit Focus/Plan Next Note Type Treatment Note Next Visit Plan [place]-Hallpike and orthostatic testing if she can tolerate Plan of Care Dates Plan of Care Start Date 10/04/19 Plan of Care End Date 12/03/19 Electronically Signed by: Melanie Simmons, PT 10/04/19 1693 Please Sign and Return: I have reviewed this Plan of Care and certify that the skilled therapy services above are required to meet the patient?s needs. Physician Signature Date Printed Name and Credentials Clinical Instructor Signature Printed Name and Credentials
--- NOTE | 2019-10-11 11:29 | PT.OTN ---
Current Diagnoses Meniere's disease, unspecified ear (10/11/19) Unsteadiness on feet (10/11/19) Physical Therapy Treatment Note PT-OP-A Visit Information Start: 10/04/19 07:32 Freq: Status: Active Protocol: Document 10/11/19 10:35 MB (Rec: 10/11/19 11:29 MB [id number]) Out-Patient Physical Therapy Visit Information Visit Information Visit Type Treatment Note Visit Start Time 10:35 Visit Stop Time 11:15 Total Visit Minutes 40 Visit Number 2 PT-OP-B Current Condition Start: 10/04/19 07:32 Freq: Status: Active Protocol: Document 10/04/19 10:30 MB (Rec: 10/04/19 11:17 MB [id number]) Current Condition History of Current Condition Onset Date 09/04/2019 Current Complaints She is really dizzy today History of Current Condition Pt reports that she went to the ED and spent three days and was dx with Meniere's. She had trouble with her bladder and is seeing a urologist tomorrow. She is seeing an ENT in three weeks. Pt has had left greater than right hearing changes that have really decreased over the last couple of months. She has hearing aides that she does not often use. She needs replacement hearing aides. Pt states that the dizziness comes and goes. She tends to be inactive. She sleeps a lot- -a couple of hours in the morning and a couple of hours in the afternoon. Activities like bending over to take care of the dog increase her dizziness. She is walking with a hiking stick off and on. She has poor balance. She has not had falls. Pt reports tinnitus in left ear that has resolved. She is coughing a lot. She is not aware of allergies or sinus trouble. No headaches. She has some neck pain and ache down the back and left of head. She denies whiplash. She has not had any acute visual changes. She denies trouble swallowing, chiropractor care, TMD. She is not aware of anemia. She does not know if she takes B12 . She does not bring in med list . She is taking a dizziness medication, possibly meclizine . She denies BP issues. PMH: DM, neck pain, back pain, left knee injury, tail bone injury, possible neuropathy-- these have led to decreased activity progression She has been napping twice a day over the last 6 months. Pt has not been seeing a regular PCP. She is having her DM checked yearly. She is looking for a PCP. Prior Treatments and Tests Pt underwent ECHO that did not reveal any significant issues ; CTA neck negative; Head CT: negative PT for balance and it was fine PT-OP-C Subjective Start: 10/04/19 07:32 Freq: Status: Active Protocol: Document 10/11/19 10:35 MB (Rec: 10/11/19 11:29 MB [id number]) OP-PT Subjective Patient Comments Patient Comments Pt reports her dizziness is about the same. PT-OP-D Balance Start: 10/04/19 07:32 Freq: Status: Active Protocol: Document 10/04/19 10:30 MB (Rec: 10/04/19 15:59 MB [id number]) OP-PT Balance Assessment Sitting Balance Static Sitting Balance Ability Good Dynamic Sitting Balance Ability Fair Sitting Balance Comments Pt uses heavy UE support for dynamic scooting to edge of chair, she also utilizes back support in the chair Standing Balance Static Standing Balance Ability Poor Dynamic Standing Balance Ability Poor Standing Balance Comments Pt must use wall to move feet into Romberg. She must use steadying asst to stand up fully, holding onto chair Balance Tests Romberg Romberg Pt has to hold wall to get into position, 10 sec Other Other Balance Tests Performed Pt cannot tolerate further balance testing d/t fall risk and dizziness today Briseno Fall Scale Copyright Permission PT-OP-G Mobility & Gait Start: 10/04/19 07:32 Freq: Status: Active Protocol: Document 10/04/19 10:30 MB (Rec: 10/04/19 15:59 MB [id number]) OP Gait Assessment Comments Gait Comments Use of cane in right hand and she holds onto bag in left hand to even me out. She is unsteady, especially with gentle head turns and trying to talk during gait PT-OP-K Range of Motion Start: 10/04/19 07:32 Freq: Status: Active Protocol: Document 10/04/19 10:30 MB (Rec: 10/04/19 15:59 MB [id number]) Cervical Spine Range of Motion Cervical Spine Active Comments Pt sittin% normal cervical extension and flexion and pt report dizziness with extension. B rotation 70% normal and less reports of dizziness PT-OP-M Strength Start: 10/04/19 07:32 Freq: Status: Active Protocol: Document 10/04/19 10:30 MB (Rec: 10/04/19 15:59 MB [id number]) Shoulder Strength Shoulder Manual Muscle Testing Left Flexion 5 Normal Abduction (C5) 5 Normal Right Flexion 5 Normal Abduction (C5) 5 Normal Elbow/Forearm Strength Elbow and Forearm Manual Muscle Testing Left Flexion (C6) 5 Normal Extension (C7) 5 Normal Pronation 4 Good Supination 4 Good Right Flexion (C6) 5 Normal Extension (C7) 5 Normal Pronation 5 Normal Supination 5 Normal Wrist Strength Wrist Manual Muscle Testing Left Flexion (C7) 4 Good Extension (C6) 4 Good Right Flexion (C7) 5 Normal Extension (C6) 5 Normal PT-OP-O Vestibular Start: 10/04/19 07:32 Freq: Status: Active Protocol: Document 10/04/19 10:30 MB (Rec: 10/04/19 15:59 MB [id number]) Vestibular Assessment Visual Testing Smooth Pursuits Horizontal Normal, pt reports dizziness Smooth Pursuits Vertical As above Saccades Horizontal As above Gaze Evoked Nystagmus With Fixation Negative Convergence Test Dizziness Spontaneous Nystagmus Negative Comments Vestibular Comments Vestibular testing is limited by severe dizziness today at rest, with gait and very mild head movements. No spontaneous nystagmus, right pupil does not constrict to light as readily as the left. Will attempt BPPV testing and orthostatic hypotension testing next treatment date. PT-OP-Q Treatments Start: 10/04/19 07:32 Freq: Status: Active Protocol: Document 10/11/19 10:35 MB (Rec: 10/11/19 11:29 MB [id number]) Neuro Re-Education Treatment Vestibular Rehabilitation Head Thrust Comments Postive for B corrective saccade, pt too dizzy for VOR exercise today Other Activities Quick supine to stand, standing balance and symptoms with orthostatic testing Comments +2 CGA for balance once up, she does seem dizzier with getting to feet but she is not very descriptive when asked about it. Negative orthostasis Hawthorne-Hallpike and Log roll Comments Mod A for rolling, performed with and without Frenzel Lenses and PT does not appreciate nystagmus and pt does not report worse dizziness; B Chuck-Hallpike without lenses and no nystagmus noted. Pt is poor historian when asked if worse dizzy, +2 asst for supine to long sitting PT-OP-T Assessment and Plan Start: 10/04/19 07:32 Freq: Status: Active Protocol: Document 10/11/19 10:35 MB (Rec: 10/11/19 11:29 MB [id number]) Physical Therapy Assessment Rehab Potential Rehabilitation Potential Fair Evaluation Complexity Number of Personal Factors/Comorbidities 3 or More Number of Body Systems Impaired 3 Clinical Presentation at Evaluation Unstable Impairments Impairments Activity Tolerance,Balance, Functional Activities, Functional Mobility,Gait, Posture,Soft Tissue Mobility, Strength,Transfers,Vestibular Other Impairments Pt presents with the following personal factors: [place], poor compliance with medical care, poor historian when PT asks her many questions and PT has come into treatment room after eval for education, risk for driving d/t dizziness and decreased cervical movement. Body systems involved include neuromuscular--possible neuropathy, musculoskeletal, metabolic (DM) and vestibular. Her clinical presentation is unstable given weight loss changes, unstable blood sugars Other Concerns Barriers to Rehabilitation Fall risk, severity of symptoms, multiple medical co- morbidities Goals 4 Penitentiary Goal (LTG) Pt will gait train at least 1100 feet in 6 minutes with or without AD to improve community ambulation by 2019. LTG Duration 8 weeks 3 Plywood Layup Line Core Feeder Goal (LTG) Pt will ascend and descend 3 steps with rail to allow safe home mobility by 12/03/2019. LTG Duration 8 weeks 2 Penitentiary Goal (LTG) Pt will present WNLs on [place] Balance Testing to decrease fall risk and improve mobility by 12/03/2019. LTG Duration 8 weeks 1 Plywood Layup Line Core Feeder Goal (LTG) Pt will present with an improved DHI score to reflect no more than low perception of handicap to allow return to actvity and to decrease fall risk by 12/03/2019. LTG Duration 8 weeks Assessment Summary Assessment Orthostatic assessment with BP and HR in LUE: supine 120/72, 72; standing 120/65, 92; standing 1' 122/69, 91. She might have some saccadic eye movement with smooth pursuits but it is hard to see with pt blinking often and this is not new from eval. No spontaneous nystagmus with Frenzel Lenses and wtih gaze with lenses on. BPPV testing negative today, no positive findings with Frenzel Lenses with gaze and log rolling. Pt states that nothing really made her dizziness worse today except for standing. She does have worse dizziness with shaking head. Pt con't to report trouble with her legs weakness , losing weight. Vestibulopathy still in work- up given hearing change, 4 week dizziness and negative head and neck dxs in hospital but PT cannot rule out some sort of central process at this point given long dizziness course and leg weakness. She con't to sleep a lot as well. Pt has trouble with opposite toe tap, reports cramp in left foot. Rapid supination and pronation normal. B VOR head thrust with corrective saccade but pt closes eyes and is difficult to determine. Con't PT efforts . Pt states she does have an ENT appointment next month. Physical Therapy Plan Frequency and Duration Frequency of Treatment 2x/Week Duration of Treatment 8 weeks Plan of Care Start Date 10/04/19 Plan of Care End Date 12/03/19 Therapeutic Interventions Therapeutic Interventions Balance Training,Canalithic Repositioning,Coordination Training,Gait Training,Home Exercise Program,Manual Therapy,Neuromuscular Re- education,Patient/Caregiver Education,Self-Care/Home Management,Taping,Therapeutic Activities,Therapeutic Exercises,Vestibular Rehabilitation Modalities Cold Pack/Ice Massage,Electric Stimulation,Hot Packs, Ultrasound Other Referrals/Consults Referrals/Consults Recommended Pt to start seeing a PCP, work -up regarding B12, possible testing for leg weakness such as EMG if there is a neurological concern related to dizziness. She does not currently have a neurologist appointment. Next Visit Focus/Plan Next Note Type Treatment Note
--- NOTE | 2019-10-16 13:29 | PT.OTN ---
Current Diagnoses Meniere's disease, unspecified ear (10/16/19) Unsteadiness on feet (10/16/19) Physical Therapy Treatment Note PT-OP-A Visit Information Start: 10/04/19 07:32 Freq: Status: Active Protocol: Document 10/16/19 13:00 MB (Rec: 10/16/19 13:28 MB [id number]) Out-Patient Physical Therapy Visit Information Visit Information Visit Type Treatment Note Visit Note Shortened treatment d/t ongoing severity of symptoms and initiated simple VOR exercises and monitor response Visit Start Time 13:00 Visit Stop Time 13:28 Total Visit Minutes 28 Visit Number 3 Precautions Precautions Fall risk PT-OP-B Current Condition Start: 10/04/19 07:32 Freq: Status: Active Protocol: Document 10/04/19 10:30 MB (Rec: 10/04/19 11:17 MB [id number]) Current Condition History of Current Condition Onset Date 09/04/2019 Current Complaints She is really dizzy today History of Current Condition Pt reports that she went to the ED and spent three days and was dx with Meniere's. She had trouble with her bladder and is seeing a urologist tomorrow. She is seeing an ENT in three weeks. Pt has had left greater than right hearing changes that have really decreased over the last couple of months. She has hearing aides that she does not often use. She needs replacement hearing aides. Pt states that the dizziness comes and goes. She tends to be inactive. She sleeps a lot- -a couple of hours in the morning and a couple of hours in the afternoon. Activities like bending over to take care of the dog increase her dizziness. She is walking with a hiking stick off and on. She has poor balance. She has not had falls. Pt reports tinnitus in left ear that has resolved. She is coughing a lot. She is not aware of allergies or sinus trouble. No headaches. She has some neck pain and ache down the back and left of head. She denies whiplash. She has not had any acute visual changes. She denies trouble swallowing, chiropractor care, TMD. She is not aware of anemia. She does not know if she takes B12 . She does not bring in med list . She is taking a dizziness medication, possibly meclizine . She denies BP issues. PMH: DM, neck pain, back pain, left knee injury, tail bone injury, possible neuropathy-- these have led to decreased activity progression She has been napping twice a day over the last 6 months. Pt has not been seeing a regular PCP. She is having her DM checked yearly. She is looking for a PCP. Prior Treatments and Tests Pt underwent ECHO that did not reveal any significant issues ; CTA neck negative; Head CT: negative PT for balance and it was fine PT-OP-C Subjective Start: 10/04/19 07:32 Freq: Status: Active Protocol: Document 10/16/19 13:00 MB (Rec: 10/16/19 13:28 MB [id number]) OP-PT Subjective Patient Comments Patient Comments Pt when to Dr. Johnson, ENT, who cleaned out both ears and she had more ear wax in her left ear. She was told that she has not had a significant hearing change but she states she cannot hear as well out of her left ear. She is being referred to another ENT for further Meniere's work-up. She was prescribed a diuretic and is taking it. PT-OP-D Balance Start: 10/04/19 07:32 Freq: Status: Active Protocol: Document 10/04/19 10:30 MB (Rec: 10/04/19 15:59 MB [id number]) OP-PT Balance Assessment Sitting Balance Static Sitting Balance Ability Good Dynamic Sitting Balance Ability Fair Sitting Balance Comments Pt uses heavy UE support for dynamic scooting to edge of chair, she also utilizes back support in the chair Standing Balance Static Standing Balance Ability Poor Dynamic Standing Balance Ability Poor Standing Balance Comments Pt must use wall to move feet into Romberg. She must use steadying asst to stand up fully, holding onto chair Balance Tests Romberg Romberg Pt has to hold wall to get into position, 10 sec Other Other Balance Tests Performed Pt cannot tolerate further balance testing d/t fall risk and dizziness today Briseno Fall Scale Copyright Permission PT-OP-G Mobility & Gait Start: 10/04/19 07:32 Freq: Status: Active Protocol: Document 10/04/19 10:30 MB (Rec: 10/04/19 15:59 MB [id number]) OP Gait Assessment Comments Gait Comments Use of cane in right hand and she holds onto bag in left hand to even me out. She is unsteady, especially with gentle head turns and trying to talk during gait PT-OP-K Range of Motion Start: 10/04/19 07:32 Freq: Status: Active Protocol: Document 10/04/19 10:30 MB (Rec: 10/04/19 15:59 MB [id number]) Cervical Spine Range of Motion Cervical Spine Active Comments Pt sittin% normal cervical extension and flexion and pt report dizziness with extension. B rotation 70% normal and less reports of dizziness PT-OP-M Strength Start: 10/04/19 07:32 Freq: Status: Active Protocol: Document 10/04/19 10:30 MB (Rec: 10/04/19 15:59 MB [id number]) Shoulder Strength Shoulder Manual Muscle Testing Left Flexion 5 Normal Abduction (C5) 5 Normal Right Flexion 5 Normal Abduction (C5) 5 Normal Elbow/Forearm Strength Elbow and Forearm Manual Muscle Testing Left Flexion (C6) 5 Normal Extension (C7) 5 Normal Pronation 4 Good Supination 4 Good Right Flexion (C6) 5 Normal Extension (C7) 5 Normal Pronation 5 Normal Supination 5 Normal Wrist Strength Wrist Manual Muscle Testing Left Flexion (C7) 4 Good Extension (C6) 4 Good Right Flexion (C7) 5 Normal Extension (C6) 5 Normal PT-OP-O Vestibular Start: 10/04/19 07:32 Freq: Status: Active Protocol: Document 10/04/19 10:30 MB (Rec: 10/04/19 15:59 MB [id number]) Vestibular Assessment Visual Testing Smooth Pursuits Horizontal Normal, pt reports dizziness Smooth Pursuits Vertical As above Saccades Horizontal As above Gaze Evoked Nystagmus With Fixation Negative Convergence Test Dizziness Spontaneous Nystagmus Negative Comments Vestibular Comments Vestibular testing is limited by severe dizziness today at rest, with gait and very mild head movements. No spontaneous nystagmus, right pupil does not constrict to light as readily as the left. Will attempt BPPV testing and orthostatic hypotension testing next treatment date. PT-OP-Q Treatments Start: 10/04/19 07:32 Freq: Status: Active Protocol: Document 10/16/19 13:00 MB (Rec: 10/16/19 13:28 MB [id number]) Therapeutic Exercises Sitting Exercises Diaphragmatic breathing Comments Performed in sitting between exercises Neuro Re-Education Treatment Other Activities VOR eye tracking letter a with letter still and head turns Comments Extensive cues and practice, neck moves rigidly. Cues to keep letter a clear. 20 sec x2 reps VOR eye tracking letter a, head still Comments Performed 1 minute, mild dizziness, added to HEP PT-OP-T Assessment and Plan Start: 10/04/19 07:32 Freq: Status: Active Protocol: Document 10/16/19 13:00 MB (Rec: 10/16/19 13:28 MB [id number]) Physical Therapy Assessment Rehab Potential Rehabilitation Potential Fair Evaluation Complexity Number of Personal Factors/Comorbidities 3 or More Number of Body Systems Impaired 3 Clinical Presentation at Evaluation Unstable Impairments Impairments Activity Tolerance,Balance, Functional Activities, Functional Mobility,Gait, Posture,Soft Tissue Mobility, Strength,Transfers,Vestibular Other Impairments Pt presents with the following personal factors: [place], poor compliance with medical care, poor historian when PT asks her many questions and PT has come into treatment room after eval for education, risk for driving d/t dizziness and decreased cervical movement. Body systems involved include neuromuscular--possible neuropathy, musculoskeletal, metabolic (DM) and vestibular. Her clinical presentation is unstable given weight loss changes, unstable blood sugars Other Concerns Barriers to Rehabilitation Fall risk, severity of symptoms, multiple medical co- morbidities Goals 4 [employer] Pinner Goal (LTG) Pt will gait train at least 1100 feet in 6 minutes with or without AD to improve community ambulation by 2019. LTG Duration 8 weeks 3 [employer]inner Goal (LTG) Pt will ascend and descend 3 steps with rail to allow safe home mobility by 12/03/2019. LTG Duration 8 weeks 2 Snf Goal (LTG) Pt will present WNLs on [place] Balance Testing to decrease fall risk and improve mobility by 12/03/2019. LTG Duration 8 weeks 1 [employer] Pinner Goal (LTG) Pt will present with an improved DHI score to reflect no more than low perception of handicap to allow return to actvity and to decrease fall risk by 12/03/2019. LTG Duration 8 weeks Assessment Summary Assessment Pt con't to be severely symptomatic with gait, head turns, sit to stand, all mobility. This is a barrier to PT. Initiated VOR exercises today and will monitor response. Will monitor if PT is helpful at this time. Diuretic might help. Extensive breaks and ed in simple VOR exercises today. Physical Therapy Plan Frequency and Duration Frequency of Treatment 2x/Week Duration of Treatment 8 weeks Plan of Care Start Date 10/04/19 Plan of Care End Date 12/03/19 Therapeutic Interventions Therapeutic Interventions Balance Training,Canalithic Repositioning,Coordination Training,Gait Training,Home Exercise Program,Manual Therapy,Neuromuscular Re- education,Patient/Caregiver Education,Self-Care/Home Management,Taping,Therapeutic Activities,Therapeutic Exercises,Vestibular Rehabilitation Modalities Cold Pack/Ice Massage,Electric Stimulation,Hot Packs, Ultrasound Other Referrals/Consults Referrals/Consults Recommended Pt to start seeing a PCP, work -up regarding B12, possible testing for leg weakness such as EMG if there is a neurological concern related to dizziness. She does not currently have a neurologist appointment. Next Visit Focus/Plan Next Note Type Treatment Note Next Visit Plan Monitor response to VOR exercises provided
--- NOTE | 2019-10-18 13:45 | PT.OTN ---
Current Diagnoses Meniere's disease, unspecified ear (10/18/19) Unsteadiness on feet (10/18/19) Physical Therapy Treatment Note PT-OP-A Visit Information Start: 10/04/19 07:32 Freq: Status: Active Protocol: Document 10/18/19 13:02 MB (Rec: 10/18/19 13:41 MB [id number]) Out-Patient Physical Therapy Visit Information Visit Information Visit Type Treatment Note Visit Start Time 13:02 Visit Stop Time 13:40 Total Visit Minutes 38 Visit Number 4 Precautions Precautions Fall risk PT-OP-B Current Condition Start: 10/04/19 07:32 Freq: Status: Active Protocol: Document 10/04/19 10:30 MB (Rec: 10/04/19 11:17 MB [id number]) Current Condition History of Current Condition Onset Date 09/04/2019 Current Complaints She is really dizzy today History of Current Condition Pt reports that she went to the ED and spent three days and was dx with Meniere's. She had trouble with her bladder and is seeing a urologist tomorrow. She is seeing an ENT in three weeks. Pt has had left greater than right hearing changes that have really decreased over the last couple of months. She has hearing aides that she does not often use. She needs replacement hearing aides. Pt states that the dizziness comes and goes. She tends to be inactive. She sleeps a lot- -a couple of hours in the morning and a couple of hours in the afternoon. Activities like bending over to take care of the dog increase her dizziness. She is walking with a hiking stick off and on. She has poor balance. She has not had falls. Pt reports tinnitus in left ear that has resolved. She is coughing a lot. She is not aware of allergies or sinus trouble. No headaches. She has some neck pain and ache down the back and left of head. She denies whiplash. She has not had any acute visual changes. She denies trouble swallowing, chiropractor care, TMD. She is not aware of anemia. She does not know if she takes B12 . She does not bring in med list . She is taking a dizziness medication, possibly meclizine . She denies BP issues. PMH: DM, neck pain, back pain, left knee injury, tail bone injury, possible neuropathy-- these have led to decreased activity progression She has been napping twice a day over the last 6 months. Pt has not been seeing a regular PCP. She is having her DM checked yearly. She is looking for a PCP. Prior Treatments and Tests Pt underwent ECHO that did not reveal any significant issues ; CTA neck negative; Head CT: negative PT for balance and it was fine PT-OP-C Subjective Start: 10/04/19 07:32 Freq: Status: Active Protocol: Document 10/18/19 13:02 MB (Rec: 10/18/19 13:41 MB [id number]) OP-PT Subjective Patient Comments Patient Comments Pt states that she is the same . She did not bring in her walking stick because she walked out of a different. Pt is still sleeping a lot. PT-OP-D Balance Start: 10/04/19 07:32 Freq: Status: Active Protocol: Document 10/04/19 10:30 MB (Rec: 10/04/19 15:59 MB [id number]) OP-PT Balance Assessment Sitting Balance Static Sitting Balance Ability Good Dynamic Sitting Balance Ability Fair Sitting Balance Comments Pt uses heavy UE support for dynamic scooting to edge of chair, she also utilizes back support in the chair Standing Balance Static Standing Balance Ability Poor Dynamic Standing Balance Ability Poor Standing Balance Comments Pt must use wall to move feet into Romberg. She must use steadying asst to stand up fully, holding onto chair Balance Tests Romberg Romberg Pt has to hold wall to get into position, 10 sec Other Other Balance Tests Performed Pt cannot tolerate further balance testing d/t fall risk and dizziness today Briseno Fall Scale Copyright Permission PT-OP-G Mobility & Gait Start: 10/04/19 07:32 Freq: Status: Active Protocol: Document 10/04/19 10:30 MB (Rec: 10/04/19 15:59 MB [id number]) OP Gait Assessment Comments Gait Comments Use of cane in right hand and she holds onto bag in left hand to even me out. She is unsteady, especially with gentle head turns and trying to talk during gait PT-OP-K Range of Motion Start: 10/04/19 07:32 Freq: Status: Active Protocol: Document 10/04/19 10:30 MB (Rec: 10/04/19 15:59 MB [id number]) Cervical Spine Range of Motion Cervical Spine Active Comments Pt sittin% normal cervical extension and flexion and pt report dizziness with extension. B rotation 70% normal and less reports of dizziness PT-OP-M Strength Start: 10/04/19 07:32 Freq: Status: Active Protocol: Document 10/04/19 10:30 MB (Rec: 10/04/19 15:59 MB [id number]) Shoulder Strength Shoulder Manual Muscle Testing Left Flexion 5 Normal Abduction (C5) 5 Normal Right Flexion 5 Normal Abduction (C5) 5 Normal Elbow/Forearm Strength Elbow and Forearm Manual Muscle Testing Left Flexion (C6) 5 Normal Extension (C7) 5 Normal Pronation 4 Good Supination 4 Good Right Flexion (C6) 5 Normal Extension (C7) 5 Normal Pronation 5 Normal Supination 5 Normal Wrist Strength Wrist Manual Muscle Testing Left Flexion (C7) 4 Good Extension (C6) 4 Good Right Flexion (C7) 5 Normal Extension (C6) 5 Normal PT-OP-O Vestibular Start: 10/04/19 07:32 Freq: Status: Active Protocol: Document 10/04/19 10:30 MB (Rec: 10/04/19 15:59 MB [id number]) Vestibular Assessment Visual Testing Smooth Pursuits Horizontal Normal, pt reports dizziness Smooth Pursuits Vertical As above Saccades Horizontal As above Gaze Evoked Nystagmus With Fixation Negative Convergence Test Dizziness Spontaneous Nystagmus Negative Comments Vestibular Comments Vestibular testing is limited by severe dizziness today at rest, with gait and very mild head movements. No spontaneous nystagmus, right pupil does not constrict to light as readily as the left. Will attempt BPPV testing and orthostatic hypotension testing next treatment date. PT-OP-Q Treatments Start: 10/04/19 07:32 Freq: Status: Active Protocol: Document 10/18/19 13:02 MB (Rec: 10/18/19 13:41 MB [id number]) Manual Therapy Treatment Other Other Manual Treatments STM: B upper traps, B cervical paraspinals and scalenes and pt performs active cervical rotation, SB and extension ( with anterior scalene). She has more myofascial tension on the left. Ed pt in sleeping position. PT-OP-T Assessment and Plan Start: 10/04/19 07:32 Freq: Status: Active Protocol: Document 10/18/19 13:02 MB (Rec: 10/18/19 13:41 MB [id number]) Physical Therapy Assessment Rehab Potential Rehabilitation Potential Fair Evaluation Complexity Number of Personal Factors/Comorbidities 3 or More Number of Body Systems Impaired 3 Clinical Presentation at Evaluation Unstable Impairments Impairments Activity Tolerance,Balance, Functional Activities, Functional Mobility,Gait, Posture,Soft Tissue Mobility, Strength,Transfers,Vestibular Other Impairments Pt presents with the following personal factors: [place], poor compliance with medical care, poor historian when PT asks her many questions and PT has come into treatment room after eval for education, risk for driving d/t dizziness and decreased cervical movement. Body systems involved include neuromuscular--possible neuropathy, musculoskeletal, metabolic (DM) and vestibular. Her clinical presentation is unstable given weight loss changes, unstable blood sugars Other Concerns Barriers to Rehabilitation Fall risk, severity of symptoms, multiple medical co- morbidities Goals 4 Rotoprinter Goal (LTG) Pt will gait train at least 1100 feet in 6 minutes with or without AD to improve community ambulation by 2019. LTG Duration 8 weeks 3 Snf Goal (LTG) Pt will ascend and descend 3 steps with rail to allow safe home mobility by 12/03/2019. LTG Duration 8 weeks 2 Snf Goal (LTG) Pt will present WNLs on [place] Balance Testing to decrease fall risk and improve mobility by 12/03/2019. LTG Duration 8 weeks 1 Snf Goal (LTG) Pt will present with an improved DHI score to reflect no more than low perception of handicap to allow return to actvity and to decrease fall risk by 12/03/2019. LTG Duration 8 weeks Assessment Summary Assessment Pt con't with cough that has been ongoing for two weeks and she wears face mask. She sees new PCP next week. PT asks pt if her gets sick d/t pt with lingering mildew-type smell for 10 minutes in room after she left last treatment and this treatment as well. Unsure about home air situation. Initiated gentle manual work, ed pt on proper neck support with towel roll in pillow for sleeping. Initiate postural exercises next treatment date. Physical Therapy Plan Frequency and Duration Frequency of Treatment 2x/Week Duration of Treatment 8 weeks Plan of Care Start Date 10/04/19 Plan of Care End Date 12/03/19 Therapeutic Interventions Therapeutic Interventions Balance Training,Canalithic Repositioning,Coordination Training,Gait Training,Home Exercise Program,Manual Therapy,Neuromuscular Re- education,Patient/Caregiver Education,Self-Care/Home Management,Taping,Therapeutic Activities,Therapeutic Exercises,Vestibular Rehabilitation Modalities Cold Pack/Ice Massage,Electric Stimulation,Hot Packs, Ultrasound Other Referrals/Consults Referrals/Consults Recommended Pt to start seeing a PCP, work -up regarding B12, possible testing for leg weakness such as EMG if there is a neurological concern related to dizziness. She does not currently have a neurologist appointment. Next Visit Focus/Plan Next Note Type Treatment Note Next Visit Plan Reassess VOR exercises, initiate gentle cervical exercises, scapular retraction and shoulder strengthening. Consider teaching racquet ball self-massage as pt states that massage in the past has been helpful. Consider anterior neck stretch.
--- NOTE | 2019-10-26 15:29 | PT.OTN ---
Current Diagnoses Meniere's disease, unspecified ear (10/26/19) Unsteadiness on feet (10/26/19) Physical Therapy Treatment Note PT-OP-A Visit Information Start: 10/04/19 07:32 Freq: Status: Active Protocol: Document 10/26/19 14:32 MB (Rec: 10/26/19 15:29 MB [id number]) Out-Patient Physical Therapy Visit Information Visit Information Visit Type Treatment Note Visit Start Time 14:32 Visit Stop Time 15:15 Total Visit Minutes 43 Visit Number 5 Precautions Precautions Fall risk PT-OP-B Current Condition Start: 10/04/19 07:32 Freq: Status: Active Protocol: Document 10/04/19 10:30 MB (Rec: 10/04/19 11:17 MB [id number]) Current Condition History of Current Condition Onset Date 09/04/2019 Current Complaints She is really dizzy today History of Current Condition Pt reports that she went to the ED and spent three days and was dx with Meniere's. She had trouble with her bladder and is seeing a urologist tomorrow. She is seeing an ENT in three weeks. Pt has had left greater than right hearing changes that have really decreased over the last couple of months. She has hearing aides that she does not often use. She needs replacement hearing aides. Pt states that the dizziness comes and goes. She tends to be inactive. She sleeps a lot- -a couple of hours in the morning and a couple of hours in the afternoon. Activities like bending over to take care of the dog increase her dizziness. She is walking with a hiking stick off and on. She has poor balance. She has not had falls. Pt reports tinnitus in left ear that has resolved. She is coughing a lot. She is not aware of allergies or sinus trouble. No headaches. She has some neck pain and ache down the back and left of head. She denies whiplash. She has not had any acute visual changes. She denies trouble swallowing, chiropractor care, TMD. She is not aware of anemia. She does not know if she takes B12 . She does not bring in med list . She is taking a dizziness medication, possibly meclizine . She denies BP issues. PMH: DM, neck pain, back pain, left knee injury, tail bone injury, possible neuropathy-- these have led to decreased activity progression She has been napping twice a day over the last 6 months. Pt has not been seeing a regular PCP. She is having her DM checked yearly. She is looking for a PCP. Prior Treatments and Tests Pt underwent ECHO that did not reveal any significant issues ; CTA neck negative; Head CT: negative PT for balance and it was fine PT-OP-C Subjective Start: 10/04/19 07:32 Freq: Status: Active Protocol: Document 10/26/19 14:32 MB (Rec: 10/26/19 15:29 MB [id number]) OP-PT Subjective Patient Comments Patient Comments Pt reports she feels the same and she is meeting Dr. Bach on Tuesday. She does not have new cough, same cough . She has had the cough for a long time. She has a wood stove on all the time. PT-OP-D Balance Start: 10/04/19 07:32 Freq: Status: Active Protocol: Document 10/04/19 10:30 MB (Rec: 10/04/19 15:59 MB [id number]) OP-PT Balance Assessment Sitting Balance Static Sitting Balance Ability Good Dynamic Sitting Balance Ability Fair Sitting Balance Comments Pt uses heavy UE support for dynamic scooting to edge of chair, she also utilizes back support in the chair Standing Balance Static Standing Balance Ability Poor Dynamic Standing Balance Ability Poor Standing Balance Comments Pt must use wall to move feet into Romberg. She must use steadying asst to stand up fully, holding onto chair Balance Tests Romberg Romberg Pt has to hold wall to get into position, 10 sec Other Other Balance Tests Performed Pt cannot tolerate further balance testing d/t fall risk and dizziness today Briseno Fall Scale Copyright Permission PT-OP-G Mobility & Gait Start: 10/04/19 07:32 Freq: Status: Active Protocol: Document 10/04/19 10:30 MB (Rec: 10/04/19 15:59 MB [id number]) OP Gait Assessment Comments Gait Comments Use of cane in right hand and she holds onto bag in left hand to even me out. She is unsteady, especially with gentle head turns and trying to talk during gait PT-OP-K Range of Motion Start: 10/04/19 07:32 Freq: Status: Active Protocol: Document 10/04/19 10:30 MB (Rec: 10/04/19 15:59 MB [id number]) Cervical Spine Range of Motion Cervical Spine Active Comments Pt sittin% normal cervical extension and flexion and pt report dizziness with extension. B rotation 70% normal and less reports of dizziness PT-OP-M Strength Start: 10/04/19 07:32 Freq: Status: Active Protocol: Document 10/04/19 10:30 MB (Rec: 10/04/19 15:59 MB [id number]) Shoulder Strength Shoulder Manual Muscle Testing Left Flexion 5 Normal Abduction (C5) 5 Normal Right Flexion 5 Normal Abduction (C5) 5 Normal Elbow/Forearm Strength Elbow and Forearm Manual Muscle Testing Left Flexion (C6) 5 Normal Extension (C7) 5 Normal Pronation 4 Good Supination 4 Good Right Flexion (C6) 5 Normal Extension (C7) 5 Normal Pronation 5 Normal Supination 5 Normal Wrist Strength Wrist Manual Muscle Testing Left Flexion (C7) 4 Good Extension (C6) 4 Good Right Flexion (C7) 5 Normal Extension (C6) 5 Normal PT-OP-O Vestibular Start: 10/04/19 07:32 Freq: Status: Active Protocol: Document 10/04/19 10:30 MB (Rec: 10/04/19 15:59 MB [id number]) Vestibular Assessment Visual Testing Smooth Pursuits Horizontal Normal, pt reports dizziness Smooth Pursuits Vertical As above Saccades Horizontal As above Gaze Evoked Nystagmus With Fixation Negative Convergence Test Dizziness Spontaneous Nystagmus Negative Comments Vestibular Comments Vestibular testing is limited by severe dizziness today at rest, with gait and very mild head movements. No spontaneous nystagmus, right pupil does not constrict to light as readily as the left. Will attempt BPPV testing and orthostatic hypotension testing next treatment date. PT-OP-Q Treatments Start: 10/04/19 07:32 Freq: Status: Active Protocol: Document 10/26/19 14:32 MB (Rec: 10/26/19 15:29 MB [id number]) Therapeutic Exercises Sitting Exercises Racquet ball massage upper traps Comments Shoulder against corner and head turns Standing Exercises Scapular retraction Comments Scapular retraction against wall Racquet ball massage intrascapular area, infraspinatus with MWM Comments Performed today with MWM IR and ER for infra Self-Care/Home Management Treatment Education Other Education Proper sleeping position with contour pillow and PT demonstrates today, ed pt in talking with about wood stove given her symptoms of cough and [place] PT-OP-T Assessment and Plan Start: 10/04/19 07:32 Freq: Status: Active Protocol: Document 10/26/19 14:32 MB (Rec: 10/26/19 15:29 MB [id number]) Physical Therapy Assessment Rehab Potential Rehabilitation Potential Fair Evaluation Complexity Number of Personal Factors/Comorbidities 3 or More Number of Body Systems Impaired 3 Clinical Presentation at Evaluation Unstable Impairments Impairments Activity Tolerance,Balance, Functional Activities, Functional Mobility,Gait, Posture,Soft Tissue Mobility, Strength,Transfers,Vestibular Other Impairments Pt presents with the following personal factors: [place], poor compliance with medical care, poor historian when PT asks her many questions and PT has come into treatment room after eval for education, risk for driving d/t dizziness and decreased cervical movement. Body systems involved include neuromuscular--possible neuropathy, musculoskeletal, metabolic (DM) and vestibular. Her clinical presentation is unstable given weight loss changes, unstable blood sugars Other Concerns Barriers to Rehabilitation Fall risk, severity of symptoms, multiple medical co- morbidities Goals 4 Life Specialist Goal (LTG) Pt will gait train at least 1100 feet in 6 minutes with or without AD to improve community ambulation by 2019. LTG Duration 8 weeks 3 Mcfp Goal (LTG) Pt will ascend and descend 3 steps with rail to allow safe home mobility by 12/03/2019. LTG Duration 8 weeks 2 Mcfp Goal (LTG) Pt will present WNLs on [place] Balance Testing to decrease fall risk and improve mobility by 12/03/2019. LTG Duration 8 weeks 1 Life Specialist Goal (LTG) Pt will present with an improved DHI score to reflect no more than low perception of handicap to allow return to actvity and to decrease fall risk by 12/03/2019. LTG Duration 8 weeks Assessment Summary Assessment Extensive time to teach and practice self-massage techniques in sitting in standing d/t dizziness. Pt has trouble with getting up, head turns, nodding provoking dizziness. Also ed pt in postural changes. Upon questioning today, pt states that they heat with a wood stove and she doesn't particularly like it but her does. Given her ongoing headaches and cough, it is possible she could have an allergy to the smoke. Pt demonstrates how she sleeps and it is with tip of head on pillow without neck support and all tension on side of head. Given reports of side of head pain each day, ed pt on better sleeping position. Physical Therapy Plan Frequency and Duration Frequency of Treatment 2x/Week Duration of Treatment 8 weeks Plan of Care Start Date 10/04/19 Plan of Care End Date 12/03/19 Therapeutic Interventions Therapeutic Interventions Balance Training,Canalithic Repositioning,Coordination Training,Gait Training,Home Exercise Program,Manual Therapy,Neuromuscular Re- education,Patient/Caregiver Education,Self-Care/Home Management,Taping,Therapeutic Activities,Therapeutic Exercises,Vestibular Rehabilitation Modalities Cold Pack/Ice Massage,Electric Stimulation,Hot Packs, Ultrasound Other Referrals/Consults Referrals/Consults Recommended Pt to start seeing a PCP, work -up regarding B12, possible testing for leg weakness such as EMG if there is a neurological concern related to dizziness. She does not currently have a neurologist appointment. Next Visit Focus/Plan Next Note Type Treatment Note Next Visit Plan Reassess VOR exercises, initiate gentle cervical exercises, scapular retraction and shoulder strengthening. Consider teaching racquet ball self-massage as pt states that massage in the past has been helpful. Consider anterior neck stretch.
--- NOTE | 2019-10-30 11:28 | PT.OTN ---
Current Diagnoses Meniere's disease, unspecified ear (10/30/19) Unsteadiness on feet (10/30/19) Physical Therapy Treatment Note PT-OP-A Visit Information Start: 10/04/19 07:32 Freq: Status: Active Protocol: Document 10/30/19 10:35 MB (Rec: 10/30/19 11:28 MB [id number]) Out-Patient Physical Therapy Visit Information Visit Information Visit Type Treatment Note Visit Start Time 10:35 Visit Stop Time 11:15 Total Visit Minutes 40 Visit Number 6 Precautions Precautions Fall risk PT-OP-B Current Condition Start: 10/04/19 07:32 Freq: Status: Active Protocol: Document 10/04/19 10:30 MB (Rec: 10/04/19 11:17 MB [id number]) Current Condition History of Current Condition Onset Date 09/04/2019 Current Complaints She is really dizzy today History of Current Condition Pt reports that she went to the ED and spent three days and was dx with Meniere's. She had trouble with her bladder and is seeing a urologist tomorrow. She is seeing an ENT in three weeks. Pt has had left greater than right hearing changes that have really decreased over the last couple of months. She has hearing aides that she does not often use. She needs replacement hearing aides. Pt states that the dizziness comes and goes. She tends to be inactive. She sleeps a lot- -a couple of hours in the morning and a couple of hours in the afternoon. Activities like bending over to take care of the dog increase her dizziness. She is walking with a hiking stick off and on. She has poor balance. She has not had falls. Pt reports tinnitus in left ear that has resolved. She is coughing a lot. She is not aware of allergies or sinus trouble. No headaches. She has some neck pain and ache down the back and left of head. She denies whiplash. She has not had any acute visual changes. She denies trouble swallowing, chiropractor care, TMD. She is not aware of anemia. She does not know if she takes B12 . She does not bring in med list . She is taking a dizziness medication, possibly meclizine . She denies BP issues. PMH: DM, neck pain, back pain, left knee injury, tail bone injury, possible neuropathy-- these have led to decreased activity progression She has been napping twice a day over the last 6 months. Pt has not been seeing a regular PCP. She is having her DM checked yearly. She is looking for a PCP. Prior Treatments and Tests Pt underwent ECHO that did not reveal any significant issues ; CTA neck negative; Head CT: negative PT for balance and it was fine PT-OP-C Subjective Start: 10/04/19 07:32 Freq: Status: Active Protocol: Document 10/30/19 10:35 MB (Rec: 10/30/19 11:28 MB [id number]) OP-PT Subjective Patient Comments Patient Comments Pt thinks that her dizziness is worse. She saw Dr. Bach and it was mostly meet and greet and she did not get any labs ordered or medication changes. PT-OP-D Balance Start: 10/04/19 07:32 Freq: Status: Active Protocol: Document 10/04/19 10:30 MB (Rec: 10/04/19 15:59 MB [id number]) OP-PT Balance Assessment Sitting Balance Static Sitting Balance Ability Good Dynamic Sitting Balance Ability Fair Sitting Balance Comments Pt uses heavy UE support for dynamic scooting to edge of chair, she also utilizes back support in the chair Standing Balance Static Standing Balance Ability Poor Dynamic Standing Balance Ability Poor Standing Balance Comments Pt must use wall to move feet into Romberg. She must use steadying asst to stand up fully, holding onto chair Balance Tests Romberg Romberg Pt has to hold wall to get into position, 10 sec Other Other Balance Tests Performed Pt cannot tolerate further balance testing d/t fall risk and dizziness today Briseno Fall Scale Copyright Permission PT-OP-G Mobility & Gait Start: 10/04/19 07:32 Freq: Status: Active Protocol: Document 10/04/19 10:30 MB (Rec: 10/04/19 15:59 MB [id number]) OP Gait Assessment Comments Gait Comments Use of cane in right hand and she holds onto bag in left hand to even me out. She is unsteady, especially with gentle head turns and trying to talk during gait PT-OP-K Range of Motion Start: 10/04/19 07:32 Freq: Status: Active Protocol: Document 10/04/19 10:30 MB (Rec: 10/04/19 15:59 MB [id number]) Cervical Spine Range of Motion Cervical Spine Active Comments Pt sittin% normal cervical extension and flexion and pt report dizziness with extension. B rotation 70% normal and less reports of dizziness PT-OP-M Strength Start: 10/04/19 07:32 Freq: Status: Active Protocol: Document 10/04/19 10:30 MB (Rec: 10/04/19 15:59 MB [id number]) Shoulder Strength Shoulder Manual Muscle Testing Left Flexion 5 Normal Abduction (C5) 5 Normal Right Flexion 5 Normal Abduction (C5) 5 Normal Elbow/Forearm Strength Elbow and Forearm Manual Muscle Testing Left Flexion (C6) 5 Normal Extension (C7) 5 Normal Pronation 4 Good Supination 4 Good Right Flexion (C6) 5 Normal Extension (C7) 5 Normal Pronation 5 Normal Supination 5 Normal Wrist Strength Wrist Manual Muscle Testing Left Flexion (C7) 4 Good Extension (C6) 4 Good Right Flexion (C7) 5 Normal Extension (C6) 5 Normal PT-OP-O Vestibular Start: 10/04/19 07:32 Freq: Status: Active Protocol: Document 10/04/19 10:30 MB (Rec: 10/04/19 15:59 MB [id number]) Vestibular Assessment Visual Testing Smooth Pursuits Horizontal Normal, pt reports dizziness Smooth Pursuits Vertical As above Saccades Horizontal As above Gaze Evoked Nystagmus With Fixation Negative Convergence Test Dizziness Spontaneous Nystagmus Negative Comments Vestibular Comments Vestibular testing is limited by severe dizziness today at rest, with gait and very mild head movements. No spontaneous nystagmus, right pupil does not constrict to light as readily as the left. Will attempt BPPV testing and orthostatic hypotension testing next treatment date. PT-OP-Q Treatments Start: 10/04/19 07:32 Freq: Status: Active Protocol: Document 10/30/19 10:35 MB (Rec: 10/30/19 11:28 MB [id number]) Therapeutic Exercises Standing Exercises Racquet ball massage intrascapular area, infraspinatus with MWM Standing Exercise Name Pt requires extensive ed and demo Comments Performed today with MWM IR and ER for infra Therapeutic Activity Therapeutic Activity Bed mobility Comments Bed mobility with B Chuck- Hallpike and Roll test which were negative pt takes time to settle from dizziness with sitting and max A to roll quickly and move from supine to sit PT-OP-T Assessment and Plan Start: 10/04/19 07:32 Freq: Status: Active Protocol: Document 10/30/19 10:35 MB (Rec: 10/30/19 11:28 MB [id number]) Physical Therapy Assessment Rehab Potential Rehabilitation Potential Fair Evaluation Complexity Number of Personal Factors/Comorbidities 3 or More Number of Body Systems Impaired 3 Clinical Presentation at Evaluation Unstable Impairments Impairments Activity Tolerance,Balance, Functional Activities, Functional Mobility,Gait, Posture,Soft Tissue Mobility, Strength,Transfers,Vestibular Other Impairments Pt presents with the following personal factors: [place], poor compliance with medical care, poor historian when PT asks her many questions and PT has come into treatment room after eval for education, risk for driving d/t dizziness and decreased cervical movement. Body systems involved include neuromuscular--possible neuropathy, musculoskeletal, metabolic (DM) and vestibular. Her clinical presentation is unstable given weight loss changes, unstable blood sugars Other Concerns Barriers to Rehabilitation Fall risk, severity of symptoms, multiple medical co- morbidities Goals 4 Nursing Clinical Director Goal (LTG) Pt will gait train at least 1100 feet in 6 minutes with or without AD to improve community ambulation by 2019. LTG Duration 8 weeks 3 Senior Care Goal (LTG) Pt will ascend and descend 3 steps with rail to allow safe home mobility by 12/03/2019. LTG Duration 8 weeks 2 Senior Care Goal (LTG) Pt will present WNLs on [place] Balance Testing to decrease fall risk and improve mobility by 12/03/2019. LTG Duration 8 weeks 1 Nursing Clinical Director Goal (LTG) Pt will present with an improved DHI score to reflect no more than low perception of handicap to allow return to actvity and to decrease fall risk by 12/03/2019. LTG Duration 8 weeks Assessment Summary Assessment Pt requires increased time and practice of racquet ball exercises, she has trouble performing. Re-ed today. Pt asks about self-Jevon maneuver for home and so BPPV testing performed and was negative. Motion Sensitivity Quotient not performed d/t pt is dizzy all the time. PT will try to talk with , Elkin, about trialing not using wood stove d/t pt's chronic cough, fatigue and sleepiness, dizziness and she states she feels better when it is not running. Con't PT efforts. Heat to back and neck after treatment. Physical Therapy Plan Frequency and Duration Frequency of Treatment 2x/Week Duration of Treatment 8 weeks Plan of Care Start Date 10/04/19 Plan of Care End Date 12/03/19 Therapeutic Interventions Therapeutic Interventions Balance Training,Canalithic Repositioning,Coordination Training,Gait Training,Home Exercise Program,Manual Therapy,Neuromuscular Re- education,Patient/Caregiver Education,Self-Care/Home Management,Taping,Therapeutic Activities,Therapeutic Exercises,Vestibular Rehabilitation Modalities Cold Pack/Ice Massage,Electric Stimulation,Hot Packs, Ultrasound Other Referrals/Consults Referrals/Consults Recommended Pt to start seeing a PCP, work -up regarding B12, possible testing for leg weakness such as EMG if there is a neurological concern related to dizziness. She does not currently have a neurologist appointment. Next Visit Focus/Plan Next Note Type Treatment Note Next Visit Plan Reassess VOR exercises, initiate gentle cervical exercises, scapular retraction and shoulder strengthening. Consider teaching racquet ball self-massage as pt states that massage in the past has been helpful. Consider anterior neck stretch.
--- NOTE | 2019-11-01 11:21 | PT.OTN ---
Current Diagnoses Meniere's disease, unspecified ear (11/01/19) Unsteadiness on feet (11/01/19) Physical Therapy Treatment Note PT-OP-A Visit Information Start: 10/04/19 07:32 Freq: Status: Active Protocol: Document 11/01/19 10:32 MB (Rec: 11/01/19 11:20 MB [id number]) Out-Patient Physical Therapy Visit Information Visit Information Visit Type Treatment Note Visit Start Time 10:32 Visit Stop Time 11:13 Total Visit Minutes 41 Visit Number 7 Precautions Precautions Fall risk PT-OP-B Current Condition Start: 10/04/19 07:32 Freq: Status: Active Protocol: Document 10/04/19 10:30 MB (Rec: 10/04/19 11:17 MB [id number]) Current Condition History of Current Condition Onset Date 09/04/2019 Current Complaints She is really dizzy today History of Current Condition Pt reports that she went to the ED and spent three days and was dx with Meniere's. She had trouble with her bladder and is seeing a urologist tomorrow. She is seeing an ENT in three weeks. Pt has had left greater than right hearing changes that have really decreased over the last couple of months. She has hearing aides that she does not often use. She needs replacement hearing aides. Pt states that the dizziness comes and goes. She tends to be inactive. She sleeps a lot- -a couple of hours in the morning and a couple of hours in the afternoon. Activities like bending over to take care of the dog increase her dizziness. She is walking with a hiking stick off and on. She has poor balance. She has not had falls. Pt reports tinnitus in left ear that has resolved. She is coughing a lot. She is not aware of allergies or sinus trouble. No headaches. She has some neck pain and ache down the back and left of head. She denies whiplash. She has not had any acute visual changes. She denies trouble swallowing, chiropractor care, TMD. She is not aware of anemia. She does not know if she takes B12 . She does not bring in med list . She is taking a dizziness medication, possibly meclizine . She denies BP issues. PMH: DM, neck pain, back pain, left knee injury, tail bone injury, possible neuropathy-- these have led to decreased activity progression She has been napping twice a day over the last 6 months. Pt has not been seeing a regular PCP. She is having her DM checked yearly. She is looking for a PCP. Prior Treatments and Tests Pt underwent ECHO that did not reveal any significant issues ; CTA neck negative; Head CT: negative PT for balance and it was fine PT-OP-C Subjective Start: 10/04/19 07:32 Freq: Status: Active Protocol: Document 11/01/19 10:32 MB (Rec: 11/01/19 11:20 MB [id number]) OP-PT Subjective Patient Comments Patient Comments When PT asks pt if her , Elkin, is around for PT to call him about the wood stove issue, she states that he is not available today. She states that he really likes the wood stove and does not feel that he will consider another option. She has paid attention that she feels better when she is in the part of the house away from the stove. The kitchen is near the stove. PT-OP-D Balance Start: 10/04/19 07:32 Freq: Status: Active Protocol: Document 10/04/19 10:30 MB (Rec: 10/04/19 15:59 MB [id number]) OP-PT Balance Assessment Sitting Balance Static Sitting Balance Ability Good Dynamic Sitting Balance Ability Fair Sitting Balance Comments Pt uses heavy UE support for dynamic scooting to edge of chair, she also utilizes back support in the chair Standing Balance Static Standing Balance Ability Poor Dynamic Standing Balance Ability Poor Standing Balance Comments Pt must use wall to move feet into Romberg. She must use steadying asst to stand up fully, holding onto chair Balance Tests Romberg Romberg Pt has to hold wall to get into position, 10 sec Other Other Balance Tests Performed Pt cannot tolerate further balance testing d/t fall risk and dizziness today Briseno Fall Scale Copyright Permission PT-OP-G Mobility & Gait Start: 10/04/19 07:32 Freq: Status: Active Protocol: Document 10/04/19 10:30 MB (Rec: 10/04/19 15:59 MB [id number]) OP Gait Assessment Comments Gait Comments Use of cane in right hand and she holds onto bag in left hand to even me out. She is unsteady, especially with gentle head turns and trying to talk during gait PT-OP-K Range of Motion Start: 10/04/19 07:32 Freq: Status: Active Protocol: Document 10/04/19 10:30 MB (Rec: 10/04/19 15:59 MB [id number]) Cervical Spine Range of Motion Cervical Spine Active Comments Pt sittin% normal cervical extension and flexion and pt report dizziness with extension. B rotation 70% normal and less reports of dizziness PT-OP-M Strength Start: 10/04/19 07:32 Freq: Status: Active Protocol: Document 10/04/19 10:30 MB (Rec: 10/04/19 15:59 MB [id number]) Shoulder Strength Shoulder Manual Muscle Testing Left Flexion 5 Normal Abduction (C5) 5 Normal Right Flexion 5 Normal Abduction (C5) 5 Normal Elbow/Forearm Strength Elbow and Forearm Manual Muscle Testing Left Flexion (C6) 5 Normal Extension (C7) 5 Normal Pronation 4 Good Supination 4 Good Right Flexion (C6) 5 Normal Extension (C7) 5 Normal Pronation 5 Normal Supination 5 Normal Wrist Strength Wrist Manual Muscle Testing Left Flexion (C7) 4 Good Extension (C6) 4 Good Right Flexion (C7) 5 Normal Extension (C6) 5 Normal PT-OP-O Vestibular Start: 10/04/19 07:32 Freq: Status: Active Protocol: Document 10/04/19 10:30 MB (Rec: 10/04/19 15:59 MB [id number]) Vestibular Assessment Visual Testing Smooth Pursuits Horizontal Normal, pt reports dizziness Smooth Pursuits Vertical As above Saccades Horizontal As above Gaze Evoked Nystagmus With Fixation Negative Convergence Test Dizziness Spontaneous Nystagmus Negative Comments Vestibular Comments Vestibular testing is limited by severe dizziness today at rest, with gait and very mild head movements. No spontaneous nystagmus, right pupil does not constrict to light as readily as the left. Will attempt BPPV testing and orthostatic hypotension testing next treatment date. PT-OP-Q Treatments Start: 10/04/19 07:32 Freq: Status: Active Protocol: Document 11/01/19 10:32 MB (Rec: 11/01/19 11:20 MB [id number]) Manual Therapy Treatment Soft Tissue Mobilization STM B upper traps Comments Pt sitting, increased tension greater on the left Neuro Re-Education Treatment Other Activities DVA eye chart VOR exercise Comments Letter A horizontal and vertical head movements, 4 reps up to 30 sec and pt states that they are both troublesome Self-Care/Home Management Treatment Education Other Education Ongoing discussions about home air, allergies in setting of chronic dizziness, headache, cough, fatigue. Pt is unsure when will be available for PT to speak with them together. Discussed many options: allergy testing, staying in a stove-free area for a week, being outside. PT-OP-T Assessment and Plan Start: 10/04/19 07:32 Freq: Status: Active Protocol: Document 11/01/19 10:32 MB (Rec: 11/01/19 11:20 MB [id number]) Physical Therapy Assessment Rehab Potential Rehabilitation Potential Fair Evaluation Complexity Number of Personal Factors/Comorbidities 3 or More Number of Body Systems Impaired 3 Clinical Presentation at Evaluation Unstable Impairments Impairments Activity Tolerance,Balance, Functional Activities, Functional Mobility,Gait, Posture,Soft Tissue Mobility, Strength,Transfers,Vestibular Other Impairments Pt presents with the following personal factors: [place], poor compliance with medical care, poor historian when PT asks her many questions and PT has come into treatment room after eval for education, risk for driving d/t dizziness and decreased cervical movement. Body systems involved include neuromuscular--possible neuropathy, musculoskeletal, metabolic (DM) and vestibular. Her clinical presentation is unstable given weight loss changes, unstable blood sugars Other Concerns Barriers to Rehabilitation Fall risk, severity of symptoms, multiple medical co- morbidities Goals 4 Continuous Improvement Lead Goal (LTG) Pt will gait train at least 1100 feet in 6 minutes with or without AD to improve community ambulation by 2019. LTG Duration 8 weeks 3 Continuous Improvement Lead Goal (LTG) Pt will ascend and descend 3 steps with rail to allow safe home mobility by 12/03/2019. LTG Duration 8 weeks 2 Senior Care Goal (LTG) Pt will present WNLs on [place] Balance Testing to decrease fall risk and improve mobility by 12/03/2019. LTG Duration 8 weeks 1 Senior Care Goal (LTG) Pt will present with an improved DHI score to reflect no more than low perception of handicap to allow return to actvity and to decrease fall risk by 12/03/2019. LTG Duration 8 weeks Assessment Summary Assessment Pt would like to con't with PT over the next two weeks. Pt requires increased time and practice of racquet ball exercises, she has trouble performing. Re-ed today. Pt asks about self-Jevon maneuver for home and so BPPV testing performed and was negative. Motion Sensitivity Quotient not performed d/t pt is dizzy all the time. PT will try to talk with , Elkin, about trialing not using wood stove d/t pt's chronic cough, fatigue and sleepiness, dizziness and she states she feels better when it is not running. Con't PT efforts. Heat to back and neck after treatment. Physical Therapy Plan Frequency and Duration Frequency of Treatment 2x/Week Duration of Treatment 8 weeks Plan of Care Start Date 10/04/19 Plan of Care End Date 12/03/19 Therapeutic Interventions Therapeutic Interventions Balance Training,Canalithic Repositioning,Coordination Training,Gait Training,Home Exercise Program,Manual Therapy,Neuromuscular Re- education,Patient/Caregiver Education,Self-Care/Home Management,Taping,Therapeutic Activities,Therapeutic Exercises,Vestibular Rehabilitation Modalities Cold Pack/Ice Massage,Electric Stimulation,Hot Packs, Ultrasound Other Referrals/Consults Referrals/Consults Recommended Consider allergy testing and ENT work-up Next Visit Focus/Plan Next Note Type Treatment Note Next Visit Plan Reassess VOR exercises, initiate gentle cervical exercises, scapular retraction and shoulder strengthening. Consider anterior neck stretch .
--- NOTE | 2019-11-06 12:26 | PT-OP ANOTE ---
Pt and would not like to have treatment today. PT explained that PT is wearing mask d/t found out today PT had patient exposure to COVID-19 12 days ago and PT has been symptom and fever free. PT has been cleared by employee health. Pt and decline treatment. Will con't PT in December.
--- NOTE | 2019-11-24 12:29 | PT-OP ANOTE ---
PT calls pt. She states that she has settled into isolation. She feels better. She is not near as dizzy. Standing up quickly and turning will make her dizzy. She is interested in e-visits.
--- NOTE | 2019-12-08 16:36 | PT-OP ANOTE ---
PT calls pt. Pt has been lax with doing her exercises. She has not been very dizzy. Given pt's ongoing coughing and not being able to have her specialist ENT appointment yet, pt and PT agree to d/c PT at this time.
--- NOTE | 2019-12-08 16:44 | PT.OPDS ---
Current Diagnoses Meniere's disease, unspecified ear (11/01/19) Unsteadiness on feet (11/01/19) Visit Care Team Role Provider Type Norma Donovan MD Primary Care Provider Physician Specialty: Internal Medicine Address: [address] [place] [address], [id number] Email: [email or web address] Chuckie Liu MD Attending Provider Non-Staff Referring Provider Specialty: Neurology Address: [address] [place] [address], [id number] Email: Visit Number Visit Number 7 Discharge Summary PT-OP-B Current Condition Start: 10/04/19 07:32 Freq: Status: Active Protocol: Document 10/04/19 10:30 MB (Rec: 10/04/19 11:17 MB [id number]) Current Condition History of Current Condition Onset Date 09/04/2019 Current Complaints She is really dizzy today History of Current Condition Pt reports that she went to the ED and spent three days and was dx with Meniere's. She had trouble with her bladder and is seeing a urologist tomorrow. She is seeing an ENT in three weeks. Pt has had left greater than right hearing changes that have really decreased over the last couple of months. She has hearing aides that she does not often use. She needs replacement hearing aides. Pt states that the dizziness comes and goes. She tends to be inactive. She sleeps a lot- -a couple of hours in the morning and a couple of hours in the afternoon. Activities like bending over to take care of the dog increase her dizziness. She is walking with a hiking stick off and on. She has poor balance. She has not had falls. Pt reports tinnitus in left ear that has resolved. She is coughing a lot. She is not aware of allergies or sinus trouble. No headaches. She has some neck pain and ache down the back and left of head. She denies whiplash. She has not had any acute visual changes. She denies trouble swallowing, chiropractor care, TMD. She is not aware of anemia. She does not know if she takes B12 . She does not bring in med list . She is taking a dizziness medication, possibly meclizine . She denies BP issues. PMH: DM, neck pain, back pain, left knee injury, tail bone injury, possible neuropathy-- these have led to decreased activity progression She has been napping twice a day over the last 6 months. Pt has not been seeing a regular PCP. She is having her DM checked yearly. She is looking for a PCP. Prior Treatments and Tests Pt underwent ECHO that did not reveal any significant issues ; CTA neck negative; Head CT: negative PT for balance and it was fine PT-OP-C Subjective Start: 10/04/19 07:32 Freq: Status: Active Protocol: Document 11/01/19 10:32 MB (Rec: 11/01/19 11:20 MB [id number]) OP-PT Subjective Patient Comments Patient Comments When PT asks pt if her , Elkin, is around for PT to call him about the wood stove issue, she states that he is not available today. She states that he really likes the wood stove and does not feel that he will consider another option. She has paid attention that she feels better when she is in the part of the house away from the stove. The kitchen is near the stove. PT-OP-D Balance Start: 10/04/19 07:32 Freq: Status: Active Protocol: Document 10/04/19 10:30 MB (Rec: 10/04/19 15:59 MB [id number]) OP-PT Balance Assessment Sitting Balance Static Sitting Balance Ability Good Dynamic Sitting Balance Ability Fair Sitting Balance Comments Pt uses heavy UE support for dynamic scooting to edge of chair, she also utilizes back support in the chair Standing Balance Static Standing Balance Ability Poor Dynamic Standing Balance Ability Poor Standing Balance Comments Pt must use wall to move feet into Romberg. She must use steadying asst to stand up fully, holding onto chair Balance Tests Romberg Romberg Pt has to hold wall to get into position, 10 sec Other Other Balance Tests Performed Pt cannot tolerate further balance testing d/t fall risk and dizziness today Briseno Fall Scale Copyright Permission PT-OP-G Mobility & Gait Start: 10/04/19 07:32 Freq: Status: Active Protocol: Document 10/04/19 10:30 MB (Rec: 10/04/19 15:59 MB [id number]) OP Gait Assessment Comments Gait Comments Use of cane in right hand and she holds onto bag in left hand to even me out. She is unsteady, especially with gentle head turns and trying to talk during gait PT-OP-K Range of Motion Start: 10/04/19 07:32 Freq: Status: Active Protocol: Document 10/04/19 10:30 MB (Rec: 10/04/19 15:59 MB [id number]) Cervical Spine Range of Motion Cervical Spine Active Comments Pt sittin% normal cervical extension and flexion and pt report dizziness with extension. B rotation 70% normal and less reports of dizziness PT-OP-M Strength Start: 10/04/19 07:32 Freq: Status: Active Protocol: Document 10/04/19 10:30 MB (Rec: 10/04/19 15:59 MB [id number]) Shoulder Strength Shoulder Manual Muscle Testing Left Flexion 5 Normal Abduction (C5) 5 Normal Right Flexion 5 Normal Abduction (C5) 5 Normal Elbow/Forearm Strength Elbow and Forearm Manual Muscle Testing Left Flexion (C6) 5 Normal Extension (C7) 5 Normal Pronation 4 Good Supination 4 Good Right Flexion (C6) 5 Normal Extension (C7) 5 Normal Pronation 5 Normal Supination 5 Normal Wrist Strength Wrist Manual Muscle Testing Left Flexion (C7) 4 Good Extension (C6) 4 Good Right Flexion (C7) 5 Normal Extension (C6) 5 Normal PT-OP-O Vestibular Start: 10/04/19 07:32 Freq: Status: Active Protocol: Document 10/04/19 10:30 MB (Rec: 10/04/19 15:59 MB [id number]) Vestibular Assessment Visual Testing Smooth Pursuits Horizontal Normal, pt reports dizziness Smooth Pursuits Vertical As above Saccades Horizontal As above Gaze Evoked Nystagmus With Fixation Negative Convergence Test Dizziness Spontaneous Nystagmus Negative Comments Vestibular Comments Vestibular testing is limited by severe dizziness today at rest, with gait and very mild head movements. No spontaneous nystagmus, right pupil does not constrict to light as readily as the left. Will attempt BPPV testing and orthostatic hypotension testing next treatment date. PT-OP-T Assessment and Plan Start: 10/04/19 07:32 Freq: Status: Active Protocol: Document 12/08/19 16:43 MB (Rec: 12/08/19 16:44 MB [id number]) Physical Therapy Plan Discharge Physical Therapy Discharge Comments Pt has not been performing exercises. She has not been as dizzy. Given her ongoing cough and unable to get to ENT appointment yet d/t government shut in, will d/c PT at this time.
== END 2019-11-01 11:30 ==
LOC: PHYS 10:30
PROVIDERS: PCP Internal Medicine; Referring Provider Psychiatry & Neurology Neurology; Visit Provider Psychiatry & Neurology Neurology
DX: R26.81 Unsteadiness on feet (principal); H81.09 Meniere's disease, unspecified ear
CPT/HCPCS: 97110; 97112; 97140; 97163; 97530; 97535

== ENCOUNTER → 2019-12-20 10:10 | Outpatient (CLI) | payer MEDICARE, OTHER, SELFPAY ==
[2019-10-12 10:45] VITALS: BMI 23.8
[2019-12-20 12:53] LABS: TSH w/ Reflex to FT4 1.28 uIU/mL (0.47-4.68)
== END ==
PROVIDERS: PCP Family Medicine
DX: E03.9 Hypothyroidism, unspecified (principal); E11.40 Type 2 diabetes mellitus with diabetic neuropathy, unspecified
CPT/HCPCS: 36415; 83036; 84443

== ENCOUNTER → 2019-12-28 16:47 | Outpatient (CLI) | payer MEDICARE, OTHER, SELFPAY ==
[2019-10-12 10:45] VITALS: BMI 23.8
[2019-12-28 17:00] LABS: RBC Urine None Seen (0-5/HPF)
[2019-12-28 17:37] LABS: Appearance Urine UA CLOUDY; Bilirubin Urine UA NEGATIVE (NEGATIVE); Color Urine UA YELLOW; Glucose Urine UA NEGATIVE (Negative); Ketones Urine UA NEGATIVE (NEGATIVE); Leukocyte Esterase Urine UA NEGATIVE (NEGATIVE); Nitrite Urine UA POSITIVE (Negative); Occult Blood Urine UA NEGATIVE (Negative); Protein Urine UA NEGATIVE (Negative); Specific Gravity Urine UA 1.015 (1.000-1.035); Urobilinogen Urine UA 0.2 E.U./dL (0.2); pH Urine UA 8.5 (4.5-8.0)
[2019-12-28 17:49] LABS: Amorphous Sediment Urine 2+; Bacteria Urine Many (>30); Squamous Epithelial Cell Urine 0-1 /HPF (0-5/HPF); Triple Phosphate Crystal Urine Many; WBC Urine 1-5/HPF (0-5/HPF)
[2019-12-28 17:50] LABS: Culture Indicated Urine Specimen Cultured
== END ==
PROVIDERS: PCP Family Medicine; Referring Provider Urology; Visit Provider Urology
DX: R39.15 Urgency of urination (principal)
CPT/HCPCS: 81001; 87077; 87086

== ENCOUNTER → 2020-01-10 15:19 | Outpatient (CLI) | payer MEDICARE, OTHER, SELFPAY ==
[2019-10-12 10:45] VITALS: BMI 23.8
[2020-01-10 18:04] LABS: Appearance Urine UA SL CLOUDY; Bilirubin Urine UA NEGATIVE (NEGATIVE); Color Urine UA YELLOW; Glucose Urine UA NEGATIVE (Negative); Ketones Urine UA NEGATIVE (NEGATIVE); Leukocyte Esterase Urine UA 2+ (NEGATIVE); Nitrite Urine UA NEGATIVE (Negative); Occult Blood Urine UA 1+ (Negative); Protein Urine UA NEGATIVE (Negative); Urobilinogen Urine UA 0.2 E.U./dL (0.2)
[2020-01-10 18:12] LABS: pH Urine UA 5.5 (4.5-8.0)
[2020-01-10 18:13] LABS: Bacteria Urine Occasional (0-1); RBC Urine 5-10/HPF (0-5/HPF); Squamous Epithelial Cell Urine 1-5 /HPF (0-5/HPF); Transitional Epi Cells Urine 1-5/HPF (0-5/HPF); WBC Urine 5-10/HPF (0-5/HPF)
[2020-01-10 18:14] LABS: Culture Indicated Urine Specimen Cultured
== END ==
PROVIDERS: PCP Family Medicine; Referring Provider Urology; Visit Provider Urology
DX: R39.15 Urgency of urination (principal)
CPT/HCPCS: 81001; 87086

== ENCOUNTER → 2020-03-05 09:41 | Outpatient (CLI) | payer MEDICARE, OTHER, SELFPAY ==
[2019-10-12 10:45] VITALS: BMI 23.8
[2020-03-05 10:27] LABS: Appearance Urine UA SL CLOUDY; Bilirubin Urine UA NEGATIVE (NEGATIVE); Color Urine UA YELLOW; Glucose Urine UA NEGATIVE (Negative); Ketones Urine UA NEGATIVE (NEGATIVE); Leukocyte Esterase Urine UA TRACE (NEGATIVE); Nitrite Urine UA NEGATIVE (Negative); Occult Blood Urine UA TRACE-LYSED (Negative); Protein Urine UA NEGATIVE (Negative); Specific Gravity Urine UA 1.015 (1.000-1.035); Urobilinogen Urine UA 0.2 E.U./dL (0.2)
[2020-03-05 10:37] LABS: RBC Urine 1-5/HPF (0-5/HPF); Squamous Epithelial Cell Urine 0-1 /HPF (0-5/HPF); WBC Urine 1-5/HPF (0-5/HPF)
[2020-03-05 10:38] LABS: Amorphous Sediment Urine 1+; Bacteria Urine Many (>30); Culture Indicated Urine Specimen Cultured
== END ==
PROVIDERS: PCP Student in an Organized Health Care Education/Training Program; Referring Provider Urology; Visit Provider Urology
DX: R39.15 Urgency of urination (principal)
CPT/HCPCS: 81001; 87077; 87086

== ENCOUNTER → 2020-03-14 16:29 | Outpatient (CLI) | payer MEDICARE, OTHER, SELFPAY ==
[2019-10-12 10:45] VITALS: BMI 23.8
[2020-03-14 16:44] LABS: Bacteria Urine None Seen; RBC Urine None Seen (0-5/HPF)
[2020-03-14 17:39] LABS: Appearance Urine UA CLEAR; Bilirubin Urine UA NEGATIVE (NEGATIVE); Color Urine UA YELLOW; Glucose Urine UA NEGATIVE (Negative); Ketones Urine UA NEGATIVE (NEGATIVE); Leukocyte Esterase Urine UA NEGATIVE (NEGATIVE); Nitrite Urine UA NEGATIVE (Negative); Occult Blood Urine UA NEGATIVE (Negative); Protein Urine UA NEGATIVE (Negative); Urobilinogen Urine UA 0.2 E.U./dL (0.2)
[2020-03-14 17:53] LABS: Culture Indicated Urine Cult Not Indicated; Squamous Epithelial Cell Urine 0-1 /HPF (0-5/HPF); WBC Urine 0-1/HPF (0-5/HPF)
== END ==
PROVIDERS: PCP Student in an Organized Health Care Education/Training Program; Referring Provider Urology; Visit Provider Urology
DX: R35.0 Frequency of micturition (principal)
CPT/HCPCS: 81001

== ENCOUNTER → 2020-03-17 11:30 | Outpatient (CLI) | payer MEDICARE, OTHER, SELFPAY ==
[2019-10-12 10:45] VITALS: BMI 23.8
[2020-03-17 11:55] LABS: Bacteria Urine None Seen; WBC Urine None Seen (0-5/HPF)
[2020-03-17 14:03] LABS: Appearance Urine UA CLEAR; Bilirubin Urine UA NEGATIVE (NEGATIVE); Color Urine UA YELLOW; Glucose Urine UA NEGATIVE (Negative); Ketones Urine UA NEGATIVE (NEGATIVE); Leukocyte Esterase Urine UA NEGATIVE (NEGATIVE); Nitrite Urine UA NEGATIVE (Negative); Occult Blood Urine UA NEGATIVE (Negative); Protein Urine UA NEGATIVE (Negative); Urobilinogen Urine UA 0.2 E.U./dL (0.2)
[2020-03-17 14:04] LABS: pH Urine UA 5.5 (4.5-8.0)
[2020-03-17 14:06] LABS: Culture Indicated Urine Cult Not Indicated; RBC Urine 1-5/HPF (0-5/HPF)
== END ==
PROVIDERS: PCP Student in an Organized Health Care Education/Training Program; Referring Provider Urology; Visit Provider Urology
DX: R35.0 Frequency of micturition (principal)
CPT/HCPCS: 81001

== ENCOUNTER 2020-04-07 09:45 | Outpatient (RCR) | payer MEDICARE, OTHER, SELFPAY ==
[2019-10-12 10:45] VITALS: BMI 23.8
--- NOTE | 2020-03-21 15:32 | PT.OIE ---
Current Diagnoses Other symptoms and signs involving the musculoskeletal system (03/21/20) Dizziness and giddiness (03/21/20) Past Medical History (Last Updated 01/31/20 @ 14:09 by Jj Rasheed MD) Bladder incontinence (Acute) Diabetes type 2, controlled (Chronic) Hearing aid worn (Chronic) Hypothyroidism (Chronic) Visit Care Team Role Provider Type Jj Rasheed MD Attending Provider Physician Other Providers Primary Care Provider Referring Provider Specialty: Internal Medicine Address: [address] [place] [address], [address], [facility] Email: [email or web address] Physical Therapy Initial Evaluation PT-OP-A Visit Information Start: 03/20/20 16:52 Freq: Status: Active Protocol: Document 03/21/20 10:36 MB (Rec: 03/21/20 11:16 MB [id number]) Out-Patient Physical Therapy Visit Information Visit Information Visit Type Initial Evaluation Visit Note Medicare Physical Therapy Visit Start Time 10:36 Visit Stop Time 11:30 Total Visit Minutes 54 Visit Number 1 Evaluation Information Evaluation Date 03/21/20 PT-OP-B Current Condition Start: 03/20/20 16:52 Freq: Status: Active Protocol: Document 03/21/20 10:36 MB (Rec: 03/21/20 11:16 MB [id number]) Current Condition History of Current Condition Onset Date August 2019 Current Complaints Per patient is LBP that is inhibiting mobility History of Current Condition Pt arrives in w/c today. Her is present for evaluation. Pt was seen previously for dizziness by this PT after ED visit in August and she was dx with Meniere's. During PT course, she was found to have reaction to wood stove in house. She had ongoing coughing and nasal drainage is better since the wood stove has been off and windows have been open. Pt reports: light-headedness when standing up from lying down. She is sleepy and sleeping 1-2 hours in the morning, 1 hour in the afternoon and 11 pm to 9 am. She has trouble getting back to sleep when she wakes up to urinate at night. Pt reports numbness/tingling in her back that is new, opthamologist visit revealed stopping eye drops for eye pressure in thoughts that it being a beta jono might be dropping BP. The dizziness did not change but the eye pressure did go up . Pt reports anemia and unsure if controlled. She does not like following up with PCP. She is tired all the time and is loosing strength all over and in her hands. She has trouble carrying heavy china. Pt notices change in hearing on left ear. This is worsening but chronic. Pt reports no sinus or allergy issues. Pt may have B12 deficiency. Pt has background noise in left ear. Pt reports left sided posterior head pain and ringing at the top of left head. She starts out sleeping on her left side. Pt denies: double vision, blurred vision, falls, concussion, ear pressure, overhead lifting, whiplash injury, TMJ and care clinician. Pt saw ENT and PT at ENT in interim of care here and PT gave her some exercises that pt did not do. She wanted pt to get idea of where her head is in space and gave her some shoulder and neck rolls. Pt saw a back doctor and had a x-ray. It was negative. She was known to have non-voiding of the bladder and saw a urologist who thought she might be having back up of the bladder. She will have further work-up next week. In August, she had catheterization in hospital to help empty bladder. She might get a back injection if not the kidneys. Pt reports constant right sided back pain . Prior Treatments and Tests See above, many tests, many providers and questionable coordination of provider communication with recommendations and findings. Treatment Goals Patient/Caregiver Goals Pt: Pt would like to decrease constant pain in right hip (Elkin): that pt could go for a walk someplace Prior Functional Status Baseline Function- Other Pt states that she is getting up I at night to go to the BR but she cannot walk without asst today and her brings her back to gym in w/c Current Functional Impairments (Reported) Functional Limitations- Other All functional mobility is limited by pt's reports of pain Personal Factors Other Personal Factors That May Effect Pt has not been compliant with Therapy/Recovery going to PCP regularly, has many many medical issues (DM, dizziness, fatigue, sleeping many hours, new back pain, recent kidney issues, questionable anemia, etc) PT-OP-C Subjective Start: 03/20/20 16:52 Freq: Status: Active Protocol: Document 03/21/20 10:36 MB (Rec: 08/07/20 15:00 MB [id number]) OP-PT Subjective Patient Comments Patient Comments See history of current condition PT-OP-D Balance Start: 03/20/20 16:52 Freq: Status: Active Protocol: Document 03/21/20 10:36 MB (Rec: 03/21/20 15:32 MB [id number]) OP-PT Balance Assessment Sitting Balance Static Sitting Balance Ability Fair Dynamic Sitting Balance Ability Fair Sitting Balance Comments UE support for static and dynamic balance and pt holds onto w/c arms during LE MMT Standing Balance Static Standing Balance Ability Poor Dynamic Standing Balance Ability Poor Standing Balance Comments PT support left UE and pt uses walking stick for static standing Briseno Fall Scale Copyright Permission PT-OP-G Mobility & Gait Start: 03/20/20 16:52 Freq: Status: Active Protocol: Document 03/21/20 10:36 MB (Rec: 03/21/20 15:32 MB [id number]) OP Mobility Evaluation Transfers Sit to Stand Min A sit to stand from w/c OP Gait Assessment Gait Gait Assistance Required: Minimum Assistance Distance (Feet) 10 Gait Deviations General Gait Pattern Antalgic,Decreased Stride Length,Decreased Feet Clearance,Flexed Trunk,Lateral Trunk Lean,Narrow Based Gait, Step-to Gait Factors Limiting Gait Function Factors Limiting Gait Function Decreased Strength,Pain,Poor Balance,Poor Safety Awareness Comments Gait Comments Pt presents with functional leg length difference with left leg shorter than the right. She reports pain in her right back and hip and does not rate it. She walks with walking stick in right hand and PT [employer]PAREL STOCK CHECKER left hand, requiring min A. Pt gait trains 10'x2 in clinic room PT-OP-K Range of Motion Start: 03/20/20 16:52 Freq: Status: Active Protocol: Document 03/21/20 10:36 MB (Rec: 03/21/20 15:32 MB [id number]) Cervical Spine Range of Motion Cervical Spine Active Testing Position Sitting Flexion 20 Extension 15 Rotation Left 20 Rotation Right 25 Lateral Flexion Left 5 Lateral Flexion Right 10 Shoulder Goniometric Range of Motion Shoulder ROM Limitations Comments In sitting, shoulder flexion and abduction is grossly equal and WNLs B Hip Goniometric Range of Motion Hip ROM Limitations Comments In sitting, pt can clear right thigh off of w/c but not the left. B knee extension, flexion, ankle DF and PF grossly WNLs B PT-OP-M Strength Start: 03/20/20 16:52 Freq: Status: Active Protocol: Document 03/21/20 10:36 MB (Rec: 03/21/20 15:32 MB [id number]) Shoulder Strength Shoulder Manual Muscle Testing Left Flexion 3 Fair Right Flexion 3 Fair Elbow/Forearm Strength Elbow and Forearm Manual Muscle Testing Left Flexion (C6) 4 Good Extension (C7) 4 Good Right Flexion (C6) 4 Good Extension (C7) 4 Good Hip Strength Hip Manual Muscle Testing Left Flexion (L2) 2+ Poor+ Right Flexion (L2) 3- Fair- Knee Strength Knee Manual Muscle Testing Left Flexion (S2) 5 Normal Extension (L3) 5 Normal Right Flexion (S2) 5 Normal Extension (L3) 5 Normal PT-OP-O Vestibular Start: 03/20/20 16:52 Freq: Status: Active Protocol: Document 03/21/20 10:36 MB (Rec: 03/21/20 15:32 MB [id number]) Vestibular Assessment Visual Testing Smooth Pursuits Horizontal Normal Smooth Pursuits Vertical Normal Saccades Horizontal Normal Gaze Evoked Nystagmus With Fixation Negative Convergence Test WNL Spontaneous Nystagmus Negative Comments Vestibular Comments B finger to nose, rapid supination and pronation and touching toe across opposite foot normal movement, slower on the left with finger to nose and slow B toes PT-OP-Q Treatments Start: 03/20/20 16:52 Freq: Status: Active Protocol: Document 03/21/20 10:36 MB (Rec: 03/21/20 15:32 MB [id number]) Self-Care/Home Management Treatment Education Other Education PT ed pt and : importance of pt to have one provider who is managing/ communicating with all her specialist appointments. Pt states that she does not like to go to PCP. She does not know if she has anemia or B12 deficiency. states that orthopedist (spine doctor ) might do cortisone injection if the back pain is not from her kidneys. Pt and have reported that she has unstable eye pressure in setting of DM and PT is concerned about a cortisone injection. PT ed pt and that this scenario of pt having multiple specialists (two ENTs, this and another vestibular PT, orthopedist, urologist, roller turner) and reporting that she does not follow-up with PCP about symptoms, is a concern for coordination of care, pt overall health, safety and well-being. She presents worse than when previously seen by this PT earlier this year. She wishes to be treated for back pain but PT is order is from ENT. PT con't to heavily encourage pt and to follow-up with PCP to get all medical issues addressed and sorted as her presentation is multi-factorial and complex in setting of many medical issues. PT ed pt and that her bladder/kidney issue and headaches and dizziness are not helped by excessive side lying position and sleeping and this needs to be addressed by PCP, possible sleep study and whatever PCP would like to do about it. PT ed pt and that this PT did not have a lot of success treating pt earlier this year and that PT will be wholistic in nature but that PT will not be treating her spine at this time. Will work on posture and alignment, which could carryover to less pain. PT-OP-T Assessment and Plan Start: 03/20/20 16:52 Freq: Status: Active Protocol: Document 03/21/20 10:36 MB (Rec: 03/21/20 15:32 MB [id number]) Physical Therapy Assessment Rehab Potential Rehabilitation Potential Poor Evaluation Complexity Number of Personal Factors/Comorbidities 3 or More Number of Body Systems Impaired 4 or More Clinical Presentation at Evaluation Unstable Impairments Impairments Activity Tolerance,Balance, Functional Activities, Functional Mobility,Gait,Pain, Posture,ROM,Strength,Transfers ,Vestibular Other Impairments Body systems involved: musculoskeletal, vestibular, metabolic (DM), visceral (work -up for kidney has been going on since August 2019--8 months), cognitive impairment. Personal factors include: poor cognition, poor follow- through with PT exercises from last PT treatment, poor verbalizations, questionable home safety and awareness Goals 4 Penitentiary Goal (LTG) Pt will perform all transfers supine<>sit, sit<>stand with I to improve I at home by 2019. LTG Duration 8 weeks 3 Penitentiary Goal (LTG) Pt will gait train at least 800 feet in 6 minutes with LRAD and SBA to improve safety with community ambulation by 05/21/2020. LTG Duration 8 weeks 2 Penitentiary Goal (LTG) Pt will perform progressive HEP with I including postural, alignment, balance, gait, transfer, VOR, flexibility and strengthening exercises to improve overall I and pain and to decrease fall risk by 05/21. LTG Duration 8 weeks 1 Automation Engineer Goal (LTG) Pt will perform 10 reps of sit to stands without UE support in 30 sec to improve functional transfers by 2019. LTG Duration 8 weeks Assessment Summary Assessment Pt returns to this PT with referral from a vestibular PT at an ENT's office and then order is received from Dr. Rasheed's office per clinic front office. Pt arrives in a w/c and states that she cannot walk d/t weakness and back pain. History taking is extensive. Oculomotor screen is negative. Pt presents with UE and LE weakness and back pain. She reports she cannot get up or walk much d/t back pain and requires asst for short gait with PT today. PT ed pt and about importance of pt to have one provider who is managing/ communicating with all her specialist appointments. Pt states that she does not like to go to PCP. She does not know if she has anemia or B12 deficiency. states that orthopedist (spine doctor ) might do cortisone injection if the back pain is not from her kidneys. Pt and have reported that she has unstable eye pressure in setting of DM and PT is concerned about a cortisone injection. PT ed pt and that this scenario of pt having multiple specialists (two ENTs, this and another vestibular PT, orthopedist, urologist, roller turner) and reporting that she does not follow-up with PCP about symptoms, is a concern for coordination of care, pt overall health, safety and well-being. She presents worse than when previously seen by this PT earlier this year. She wishes to be treated for back pain but PT is order is from ENT. PT con't to heavily encourage pt and to follow-up with PCP to get all medical issues addressed and sorted as her presentation is multi- factorial and complex in setting of many medical issues . PT ed pt and that her bladder/kidney issue and headaches and dizziness are not helped by excessive side lying position and sleeping and this needs to be addressed by PCP, possible sleep study and whatever PCP recommends. PT ed pt and that this PT did not have a lot of success treating pt earlier this year and that PT will be wholistic in nature but that PT will not be treating her spine at this time. Will work on posture and alignment, which could carryover to less pain. Will initiate PT efforts to improve mobility, balance and gait. Her clinical presentation is guarded. Pt is also a poor historian and this complicates treatment. Pt presents with some short-term memory impairment and recall. She presented with decreased compliance with PT recommendations past therapy sessions. PT was able to determine that wood stove burning in her home was problematic for her breathing (she presented with wood stove odor, nasal dripping and cough every treatment and stated she felt worse with wood stove at home) and she was reluctant to talk with her about this issue. Since that time, the wood stove has been off for the summer. Physical Therapy Plan Frequency and Duration Frequency of Treatment 2x/Week Duration of Treatment 8 weeks Plan of Care Start Date 03/21/20 Plan of Care End Date 05/21/20 Therapeutic Interventions Therapeutic Interventions Balance Training,Canalithic Repositioning,Coordination Training,Gait Training,Home Exercise Program,Manual Therapy,Neuromuscular Re- education,Patient/Caregiver Education,Self-Care/Home Management,Soft Tissue Mobilization,Taping, Therapeutic Activities, Therapeutic Exercises, Vestibular Rehabilitation Other Referrals/Consults Referrals/Consults Recommended Follow-up with PCP about all her medical concerns. Next Visit Focus/Plan Next Note Type Treatment Note Next Visit Plan Assess orthostatics if pt can tolerate change of position, progress other issues as able, consider adding lift to left shoe
--- NOTE | 2020-03-31 10:24 | PT.OTN ---
Current Diagnoses Other symptoms and signs involving the musculoskeletal system (03/31/20) Dizziness and giddiness (03/31/20) Physical Therapy Treatment Note PT-OP-A Visit Information Start: 03/20/20 16:52 Freq: Status: Active Protocol: Document 03/31/20 09:47 MB (Rec: 03/31/20 10:23 MB [id number]) Out-Patient Physical Therapy Visit Information Visit Information Visit Type Treatment Note Visit Note Medicare Physical Therapy Decreased treatment time d/t decreased patient tolerance to PT given back pain and pt is currently seeing PT for vestibular consult. Visit Start Time 09:47 Visit Stop Time 10:17 Total Visit Minutes 30 Visit Number 2 PT-OP-B Current Condition Start: 03/20/20 16:52 Freq: Status: Active Protocol: Document 03/21/20 10:36 MB (Rec: 03/21/20 11:16 MB [id number]) Current Condition History of Current Condition Onset Date August 2019 Current Complaints Per patient is LBP that is inhibiting mobility History of Current Condition Pt arrives in w/c today. Her is present for evaluation. Pt was seen previously for dizziness by this PT after ED visit in August and she was dx with Meniere's. During PT course, she was found to have reaction to wood stove in house. She had ongoing coughing and nasal drainage is better since the wood stove has been off and windows have been open. Pt reports: light-headedness when standing up from lying down. She is sleepy and sleeping 1-2 hours in the morning, 1 hour in the afternoon and 11 pm to 9 am. She has trouble getting back to sleep when she wakes up to urinate at night. Pt reports numbness/tingling in her back that is new, opthamologist visit revealed stopping eye drops for eye pressure in thoughts that it being a beta jono might be dropping BP. The dizziness did not change but the eye pressure did go up . Pt reports anemia and unsure if controlled. She does not like following up with PCP. She is tired all the time and is loosing strength all over and in her hands. She has trouble carrying heavy [place]. Pt notices change in hearing on left ear. This is worsening but chronic. Pt reports no sinus or allergy issues. Pt may have B12 deficiency. Pt has background noise in left ear. Pt reports left sided posterior head pain and ringing at the top of left head. She starts out sleeping on her left side. Pt denies: double vision, blurred vision, falls, concussion, ear pressure, overhead lifting, whiplash injury, TMJ and wound care center consultant. Pt saw ENT and PT at [facility]NT in interim of care here and PT gave her some exercises that pt did not do. She wanted pt to get idea of where her head is in space and gave her some shoulder and neck rolls. Pt saw a back doctor and had a x-ray. It was negative. She was known to have non-voiding of the bladder and saw a urologist who thought she might be having back up of the bladder. She will have further work-up next week. In August, she had catheterization in hospital to help empty bladder. She might get a back injection if not the kidneys. Pt reports constant right sided back pain . Prior Treatments and Tests See above, many tests, many providers and questionable coordination of provider communication with recommendations and findings. Treatment Goals Patient/Caregiver Goals Pt: Pt would like to decrease constant pain in right hip ([place]): that pt could go for a walk someplace Prior Functional Status Baseline Function- Other Pt states that she is getting up I at night to go to the BR but she cannot walk without asst today and her brings her back to gym in w/c Current Functional Impairments (Reported) Functional Limitations- Other All functional mobility is limited by pt's reports of pain Personal Factors Other Personal Factors That May Effect Pt has not been compliant with Therapy/Recovery going to PCP regularly, has many many medical issues (DM, dizziness, fatigue, sleeping many hours, new back pain, recent kidney issues, questionable anemia, etc) PT-OP-C Subjective Start: 03/20/20 16:52 Freq: Status: Active Protocol: Document 03/31/20 09:47 MB (Rec: 03/31/20 10:23 MB [id number]) OP-PT Subjective Patient Comments Patient Comments Pt states that she still has back pain. PT-OP-D Balance Start: 03/20/20 16:52 Freq: Status: Active Protocol: Document 03/21/20 10:36 MB (Rec: 03/21/20 15:32 MB [id number]) OP-PT Balance Assessment Sitting Balance Static Sitting Balance Ability Fair Dynamic Sitting Balance Ability Fair Sitting Balance Comments UE support for static and dynamic balance and pt holds onto w/c arms during LE MMT Standing Balance Static Standing Balance Ability Poor Dynamic Standing Balance Ability Poor Standing Balance Comments PT support left UE and pt uses walking stick for static standing Briseno Fall Scale Copyright Permission PT-OP-G Mobility & Gait Start: 03/20/20 16:52 Freq: Status: Active Protocol: Document 03/21/20 10:36 MB (Rec: 03/21/20 15:32 MB [id number]) OP Mobility Evaluation Transfers Sit to Stand Min A sit to stand from w/c OP Gait Assessment Gait Gait Assistance Required: Minimum Assistance Distance (Feet) 10 Gait Deviations General Gait Pattern Antalgic,Decreased Stride Length,Decreased Feet Clearance,Flexed Trunk,Lateral Trunk Lean,Narrow Based Gait, Step-to Gait Factors Limiting Gait Function Factors Limiting Gait Function Decreased Strength,Pain,Poor Balance,Poor Safety Awareness Comments Gait Comments Pt presents with functional leg length difference with left leg shorter than the right. She reports pain in her right back and hip and does not rate it. 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 Pt gait trains 10'x2 in clinic room PT-OP-K Range of Motion Start: 03/20/20 16:52 Freq: Status: Active Protocol: Document 03/21/20 10:36 MB (Rec: 03/21/20 15:32 MB [id number]) Cervical Spine Range of Motion Cervical Spine Active Testing Position Sitting Flexion 20 Extension 15 Rotation Left 20 Rotation Right 25 Lateral Flexion Left 5 Lateral Flexion Right 10 Shoulder Goniometric Range of Motion Shoulder ROM Limitations Comments In sitting, shoulder flexion and abduction is grossly equal and WNLs B Hip Goniometric Range of Motion Hip ROM Limitations Comments In sitting, pt can clear right thigh off of w/c but not the left. B knee extension, flexion, ankle DF and PF grossly WNLs B PT-OP-M Strength Start: 03/20/20 16:52 Freq: Status: Active Protocol: Document 03/21/20 10:36 MB (Rec: 03/21/20 15:32 MB [id number]) Shoulder Strength Shoulder Manual Muscle Testing Left Flexion 3 Fair Right Flexion 3 Fair Elbow/Forearm Strength Elbow and Forearm Manual Muscle Testing Left Flexion (C6) 4 Good Extension (C7) 4 Good Right Flexion (C6) 4 Good Extension (C7) 4 Good Hip Strength Hip Manual Muscle Testing Left Flexion (L2) 2+ Poor+ Right Flexion (L2) 3- Fair- Knee Strength Knee Manual Muscle Testing Left Flexion (S2) 5 Normal Extension (L3) 5 Normal Right Flexion (S2) 5 Normal Extension (L3) 5 Normal PT-OP-O Vestibular Start: 03/20/20 16:52 Freq: Status: Active Protocol: Document 03/21/20 10:36 MB (Rec: 03/21/20 15:32 MB [id number]) Vestibular Assessment Visual Testing Smooth Pursuits Horizontal Normal Smooth Pursuits Vertical Normal Saccades Horizontal Normal Gaze Evoked Nystagmus With Fixation Negative Convergence Test WNL Spontaneous Nystagmus Negative Comments Vestibular Comments B finger to nose, rapid supination and pronation and touching toe across opposite foot normal movement, slower on the left with finger to nose and slow B toes PT-OP-Q Treatments Start: 03/20/20 16:52 Freq: Status: Active Protocol: Document 03/31/20 09:47 MB (Rec: 03/31/20 10:23 MB [id number]) Gait Training Gait Activity Walking stick right hand vs RW Comments Pt arrives with walking stick right hand and she uses it like a cane. Ed to hold like a walking stick. Pt has very poor posture with spinal curvature changes, PT notices left leg anomalies such as varus, poor left foot DF and functional foot drop. Pt reports left LBP. 50'. Gait posture is very stooped and pt also has hip and knee flexion with standing. Gait training is mildly better with 2WRW and pt tends to lean to the left with hands on walker. 25', 50' Self-Care/Home Management Treatment Education Other Education Re-ed pt in PT for vestibular rehab, pt con't to state that back pain and tiredness are her biggest problems. PT ed pt that PT eval was sent to Dr. Rasheed after getting order from him d/t previous order from DPT. PT ed pt in benefits of RW for back pain and balance at home, took photo of her standing with it on pt phone for and ed pt in importance of follow-up with PCP re: back pain all all medical issues PT-OP-T Assessment and Plan Start: 03/20/20 16:52 Freq: Status: Active Protocol: Document 03/31/20 09:47 MB (Rec: 03/31/20 10:23 MB [id number]) Physical Therapy Assessment Rehab Potential Rehabilitation Potential Poor Evaluation Complexity Number of Personal Factors/Comorbidities 3 or More Number of Body Systems Impaired 4 or More Clinical Presentation at Evaluation Unstable Impairments Impairments Activity Tolerance,Balance, Functional Activities, Functional Mobility,Gait,Pain, Posture,ROM,Strength,Transfers ,Vestibular Other Impairments Body systems involved: musculoskeletal, vestibular, metabolic (DM), visceral (work -up for kidney has been going on since August 2019--8 months), cognitive impairment. Personal factors include: poor cognition, poor follow- through with PT exercises from last PT treatment, poor verbalizations, questionable home safety and awareness Goals 4 Centrifuge Operator Goal (LTG) Pt will perform all transfers supine<>sit, sit<>stand with I to improve I at home by 2019. LTG Duration 8 weeks 3 Care Home Goal (LTG) Pt will gait train at least 800 feet in 6 minutes with LRAD and SBA to improve safety with community ambulation by 05/21/2020. LTG Duration 8 weeks 2 Care Home Goal (LTG) Pt will perform progressive HEP with I including postural, alignment, balance, gait, transfer, VOR, flexibility and strengthening exercises to improve overall I and pain and to decrease fall risk by 05/21. LTG Duration 8 weeks 1 Centrifuge Operator Goal (LTG) Pt will perform 10 reps of sit to stands without UE support in 30 sec to improve functional transfers by 2019. LTG Duration 8 weeks Assessment Summary Assessment BP and HR in right UE sittin/68, 85; standing 115/66, 100; standing 119/74, 114. Pt has 6/10 left sided back pain with all activities today. She has 1/2 lift in left shoe today. Ed pt in benefits of using RW rather than walking stick. Consider checking orthostatics supine to stand next treatment date as well pelvic realignment exercises to help with posture with gait to decrease falls. Left index finger O2 sats 95% in sitting. Physical Therapy Plan Frequency and Duration Frequency of Treatment 2x/Week Duration of Treatment 8 weeks Plan of Care Start Date 03/21/20 Plan of Care End Date 05/21/20 Therapeutic Interventions Therapeutic Interventions Balance Training,Canalithic Repositioning,Coordination Training,Gait Training,Home Exercise Program,Manual Therapy,Neuromuscular Re- education,Patient/Caregiver Education,Self-Care/Home Management,Soft Tissue Mobilization,Taping, Therapeutic Activities, Therapeutic Exercises, Vestibular Rehabilitation Other Referrals/Consults Referrals/Consults Recommended Follow-up with PCP about all her medical concerns. Next Visit Focus/Plan Next Note Type Treatment Note Next Visit Plan Progress as able--check orthostatics supine to stand and pelvic realignment exercises to help with posture with gait
--- NOTE | 2020-03-31 11:19 | PT.OTN ---
Current Diagnoses Other symptoms and signs involving the musculoskeletal system (03/31/20) Dizziness and giddiness (03/31/20) Physical Therapy Treatment Note PT-OP-A Visit Information Start: 03/20/20 16:52 Freq: Status: Active Protocol: Document 03/31/20 09:47 MB (Rec: 03/31/20 10:23 MB [id number]) Out-Patient Physical Therapy Visit Information Visit Information Visit Type Treatment Note Visit Note Medicare Physical Therapy Visit Start Time 09:47 Visit Stop Time 10:30 Total Visit Minutes 43 Visit Number 2 PT-OP-B Current Condition Start: 03/20/20 16:52 Freq: Status: Active Protocol: Document 03/21/20 10:36 MB (Rec: 03/21/20 11:16 MB [id number]) Current Condition History of Current Condition Onset Date August 2019 Current Complaints Per patient is LBP that is inhibiting mobility History of Current Condition Pt arrives in / today. Her is present for evaluation. Pt was seen previously for dizziness by this PT after ED visit in August and she was dx with Meniere's. During PT course, she was found to have reaction to wood stove in house. She had ongoing coughing and nasal drainage is better since the wood stove has been off and windows have been open. Pt reports: light-headedness when standing up from lying down. She is sleepy and sleeping 1-2 hours in the morning, 1 hour in the afternoon and 11 pm to 9 am. She has trouble getting back to sleep when she wakes up to urinate at night. Pt reports numbness/tingling in her back that is new, opthamologist visit revealed stopping eye drops for eye pressure in thoughts that it being a beta jono might be dropping BP. The dizziness did not change but the eye pressure did go up . Pt reports anemia and unsure if controlled. She does not like following up with PCP. She is tired all the time and is loosing strength all over and in her hands. She has trouble carrying heavy [place]. Pt notices change in hearing on left ear. This is worsening but chronic. Pt reports no sinus or allergy issues. Pt may have B12 deficiency. Pt has background noise in left ear. Pt reports left sided posterior head pain and ringing at the top of left head. She starts out sleeping on her left side. Pt denies: double vision, blurred vision, falls, concussion, ear pressure, overhead lifting, whiplash injury, TMJ and customer care representative. Pt saw ENT and PT at ENT in interim of care here and PT gave her some exercises that pt did not do. She wanted pt to get idea of where her head is in space and gave her some shoulder and neck rolls. Pt saw a back doctor and had a x-ray. It was negative. She was known to have non-voiding of the bladder and saw a urologist who thought she might be having back up of the bladder. She will have further work-up next week. In August, she had catheterization in hospital to help empty bladder. She might get a back injection if not the kidneys. Pt reports constant right sided back pain . Prior Treatments and Tests See above, many tests, many providers and questionable coordination of provider communication with recommendations and findings. Treatment Goals Patient/Caregiver Goals Pt: Pt would like to decrease constant pain in right hip ([place]): that pt could go for a walk someplace Prior Functional Status Baseline Function- Other Pt states that she is getting up I at night to go to the BR but she cannot walk without asst today and her brings her back to gym in w/c Current Functional Impairments (Reported) Functional Limitations- Other All functional mobility is limited by pt's reports of pain Personal Factors Other Personal Factors That May Effect Pt has not been compliant with Therapy/Recovery going to PCP regularly, has many many medical issues (DM, dizziness, fatigue, sleeping many hours, new back pain, recent kidney issues, questionable anemia, etc) PT-OP-C Subjective Start: 03/20/20 16:52 Freq: Status: Active Protocol: Document 03/31/20 09:47 MB (Rec: 03/31/20 10:23 MB [id number]) OP-PT Subjective Patient Comments Patient Comments Pt states that she still has back pain. PT-OP-D Balance Start: 03/20/20 16:52 Freq: Status: Active Protocol: Document 03/21/20 10:36 MB (Rec: 03/21/20 15:32 MB [id number]) OP-PT Balance Assessment Sitting Balance Static Sitting Balance Ability Fair Dynamic Sitting Balance Ability Fair Sitting Balance Comments UE support for static and dynamic balance and pt holds onto w/c arms during LE MMT Standing Balance Static Standing Balance Ability Poor Dynamic Standing Balance Ability Poor Standing Balance Comments PT support left UE and pt uses walking stick for static standing Briseno Fall Scale Copyright Permission PT-OP-G Mobility & Gait Start: 03/20/20 16:52 Freq: Status: Active Protocol: Document 03/21/20 10:36 MB (Rec: 03/21/20 15:32 MB [id number]) OP Mobility Evaluation Transfers Sit to Stand Min A sit to stand from w/c OP Gait Assessment Gait Gait Assistance Required: Minimum Assistance Distance (Feet) 10 Gait Deviations General Gait Pattern Antalgic,Decreased Stride Length,Decreased Feet Clearance,Flexed Trunk,Lateral Trunk Lean,Narrow Based Gait, Step-to Gait Factors Limiting Gait Function Factors Limiting Gait Function Decreased Strength,Pain,Poor Balance,Poor Safety Awareness Comments Gait Comments Pt presents with functional leg length difference with left leg shorter than the right. She reports pain in her right back and hip and does not rate it. 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 Pt gait trains 10'x2 in clinic room PT-OP-K Range of Motion Start: 03/20/20 16:52 Freq: Status: Active Protocol: Document 03/21/20 10:36 MB (Rec: 03/21/20 15:32 MB [id number]) Cervical Spine Range of Motion Cervical Spine Active Testing Position Sitting Flexion 20 Extension 15 Rotation Left 20 Rotation Right 25 Lateral Flexion Left 5 Lateral Flexion Right 10 Shoulder Goniometric Range of Motion Shoulder ROM Limitations Comments In sitting, shoulder flexion and abduction is grossly equal and WNLs B Hip Goniometric Range of Motion Hip ROM Limitations Comments In sitting, pt can clear right thigh off of w/c but not the left. B knee extension, flexion, ankle DF and PF grossly WNLs B PT-OP-M Strength Start: 03/20/20 16:52 Freq: Status: Active Protocol: Document 03/21/20 10:36 MB (Rec: 03/21/20 15:32 MB [id number]) Shoulder Strength Shoulder Manual Muscle Testing Left Flexion 3 Fair Right Flexion 3 Fair Elbow/Forearm Strength Elbow and Forearm Manual Muscle Testing Left Flexion (C6) 4 Good Extension (C7) 4 Good Right Flexion (C6) 4 Good Extension (C7) 4 Good Hip Strength Hip Manual Muscle Testing Left Flexion (L2) 2+ Poor+ Right Flexion (L2) 3- Fair- Knee Strength Knee Manual Muscle Testing Left Flexion (S2) 5 Normal Extension (L3) 5 Normal Right Flexion (S2) 5 Normal Extension (L3) 5 Normal PT-OP-O Vestibular Start: 03/20/20 16:52 Freq: Status: Active Protocol: Document 03/21/20 10:36 MB (Rec: 03/21/20 15:32 MB [id number]) Vestibular Assessment Visual Testing Smooth Pursuits Horizontal Normal Smooth Pursuits Vertical Normal Saccades Horizontal Normal Gaze Evoked Nystagmus With Fixation Negative Convergence Test WNL Spontaneous Nystagmus Negative Comments Vestibular Comments B finger to nose, rapid supination and pronation and touching toe across opposite foot normal movement, slower on the left with finger to nose and slow B toes PT-OP-Q Treatments Start: 03/20/20 16:52 Freq: Status: Active Protocol: Document 03/31/20 09:47 MB (Rec: 03/31/20 10:23 MB [id number]) Gait Training Gait Activity Walking stick right hand vs RW Comments Pt arrives with walking stick right hand and she uses it like a cane. Ed to hold like a walking stick. Pt has very poor posture with spinal curvature changes, PT notices left leg anomalies such as varus, poor left foot DF and functional foot drop. Pt reports left LBP. 50'. Gait posture is very stooped and pt also has hip and knee flexion with standing. Gait training is mildly better with 2WRW and pt tends to lean to the left with hands on walker. 25', 50' Self-Care/Home Management Treatment Education Other Education Re-ed pt in PT for vestibular rehab, pt con't to state that back pain and tiredness are her biggest problems. PT ed pt that PT eval was sent to Dr. Rasheed after getting order from him d/t previous order from DPT. PT ed pt in benefits of RW for back pain and balance at home, took photo of her standing with it on pt phone for and ed pt in importance of follow-up with PCP re: back pain all all medical issues After treatment, pt's arrives and PT provides extensive education to him, similar to what PT discussed with pt including RW, need to return to PCP for medical management, need for order to treat back pain. PT and also discussed concern that pt is not taking medication and that opthalmologist was concerned about pt possibly not taking medication with regards to diabetic eye changes. PT also communicates to (as PT did to pt) about possible concern for depression d/t so much sleeping and poor self- care and compliance and that PCP can follow-up about total pt presentation PT-OP-T Assessment and Plan Start: 03/20/20 16:52 Freq: Status: Active Protocol: Document 03/31/20 09:47 MB (Rec: 03/31/20 10:23 MB [id number]) Physical Therapy Assessment Rehab Potential Rehabilitation Potential Poor Evaluation Complexity Number of Personal Factors/Comorbidities 3 or More Number of Body Systems Impaired 4 or More Clinical Presentation at Evaluation Unstable Impairments Impairments Activity Tolerance,Balance, Functional Activities, Functional Mobility,Gait,Pain, Posture,ROM,Strength,Transfers ,Vestibular Other Impairments Body systems involved: musculoskeletal, vestibular, metabolic (DM), visceral (work -up for kidney has been going on since August 2019--8 months), cognitive impairment. Personal factors include: poor cognition, poor follow- through with PT exercises from last PT treatment, poor verbalizations, questionable home safety and awareness Goals 4 Skilled Nursing Goal (LTG) Pt will perform all transfers supine<>sit, sit<>stand with I to improve I at home by 2019. LTG Duration 8 weeks 3 Skilled Nursing Goal (LTG) Pt will gait train at least 800 feet in 6 minutes with LRAD and SBA to improve safety with community ambulation by 05/21/2020. LTG Duration 8 weeks 2 Body Make Up Artist Goal (LTG) Pt will perform progressive HEP with I including postural, alignment, balance, gait, transfer, VOR, flexibility and strengthening exercises to improve overall I and pain and to decrease fall risk by 05/21. LTG Duration 8 weeks 1 Body Make Up Artist Goal (LTG) Pt will perform 10 reps of sit to stands without UE support in 30 sec to improve functional transfers by 2019. LTG Duration 8 weeks Assessment Summary Assessment BP and HR in right UE sittin/68, 85; standing 115/66, 100; standing 119/74, 114. Pt has 6/10 left sided back pain with all activities today. She has 1/2 lift in left shoe today. Ed pt in benefits of using RW rather than walking stick. Consider checking orthostatics supine to stand next treatment date as well pelvic realignment exercises to help with posture with gait to decrease falls. Left index finger O2 sats 95% in sitting. Ongoing medical issues with possible medication non-compliance are barriers to PT. Physical Therapy Plan Frequency and Duration Frequency of Treatment 2x/Week Duration of Treatment 8 weeks Plan of Care Start Date 03/21/20 Plan of Care End Date 05/21/20 Therapeutic Interventions Therapeutic Interventions Balance Training,Canalithic Repositioning,Coordination Training,Gait Training,Home Exercise Program,Manual Therapy,Neuromuscular Re- education,Patient/Caregiver Education,Self-Care/Home Management,Soft Tissue Mobilization,Taping, Therapeutic Activities, Therapeutic Exercises, Vestibular Rehabilitation Other Referrals/Consults Referrals/Consults Recommended Follow-up with PCP about all her medical concerns. Next Visit Focus/Plan Next Note Type Treatment Note Next Visit Plan Progress as able--check orthostatics supine to stand and pelvic realignment exercises to help with posture with gait
--- NOTE | 2020-04-02 10:27 | PT.OTN ---
Current Diagnoses Other symptoms and signs involving the musculoskeletal system (04/02/20) Dizziness and giddiness (04/02/20) Physical Therapy Treatment Note PT-OP-A Visit Information Start: 03/20/20 16:52 Freq: Status: Active Protocol: Document 04/02/20 09:50 MB (Rec: 04/02/20 10:26 MB [id number]) Out-Patient Physical Therapy Visit Information Visit Information Visit Type Treatment Note Visit Note Medicare Visit Start Time 09:48 Visit Stop Time 10:26 Total Visit Minutes 38 Visit Number 3 PT-OP-B Current Condition Start: 03/20/20 16:52 Freq: Status: Active Protocol: Document 03/21/20 10:36 MB (Rec: 03/21/20 11:16 MB [id number]) Current Condition History of Current Condition Onset Date August 2019 Current Complaints Per patient is LBP that is inhibiting mobility History of Current Condition Pt arrives in / today. Her is present for evaluation. Pt was seen previously for dizziness by this PT after ED visit in August and she was dx with Meniere's. During PT course, she was found to have reaction to wood stove in house. She had ongoing coughing and nasal drainage is better since the wood stove has been off and windows have been open. Pt reports: light-headedness when standing up from lying down. She is sleepy and sleeping 1-2 hours in the morning, 1 hour in the afternoon and 11 pm to 9 am. She has trouble getting back to sleep when she wakes up to urinate at night. Pt reports numbness/tingling in her back that is new, opthamologist visit revealed stopping eye drops for eye pressure in thoughts that it being a beta jono might be dropping BP. The dizziness did not change but the eye pressure did go up . Pt reports anemia and unsure if controlled. She does not like following up with PCP. She is tired all the time and is loosing strength all over and in her hands. She has trouble carrying heavy [place]. Pt notices change in hearing on left ear. This is worsening but chronic. Pt reports no sinus or allergy issues. Pt may have B12 deficiency. Pt has background noise in left ear. Pt reports left sided posterior head pain and ringing at the top of left head. She starts out sleeping on her left side. Pt denies: double vision, blurred vision, falls, concussion, ear pressure, overhead lifting, whiplash injury, TMJ and home care associate. Pt saw ENT and PT at ENT in interim of care here and PT gave her some exercises that pt did not do. She wanted pt to get idea of where her head is in space and gave her some shoulder and neck rolls. Pt saw a back doctor and had a x-ray. It was negative. She was known to have non-voiding of the bladder and saw a urologist who thought she might be having back up of the bladder. She will have further work-up next week. In August, she had catheterization in hospital to help empty bladder. She might get a back injection if not the kidneys. Pt reports constant right sided back pain . Prior Treatments and Tests See above, many tests, many providers and questionable coordination of provider communication with recommendations and findings. Treatment Goals Patient/Caregiver Goals Pt: Pt would like to decrease constant pain in right hip ([place]): that pt could go for a walk someplace Prior Functional Status Baseline Function- Other Pt states that she is getting up I at night to go to the BR but she cannot walk without asst today and her brings her back to gym in w/c Current Functional Impairments (Reported) Functional Limitations- Other All functional mobility is limited by pt's reports of pain Personal Factors Other Personal Factors That May Effect Pt has not been compliant with Therapy/Recovery going to PCP regularly, has many many medical issues (DM, dizziness, fatigue, sleeping many hours, new back pain, recent kidney issues, questionable anemia, etc) PT-OP-C Subjective Start: 03/20/20 16:52 Freq: Status: Active Protocol: Document 04/02/20 09:50 MB (Rec: 04/02/20 10:26 MB [id number]) OP-PT Subjective Patient Comments Patient Comments Pt arrives with . reports that she has an appointment with Dr. Lock ( PCP) early April. Pt also comes in with RW. PT-OP-D Balance Start: 03/20/20 16:52 Freq: Status: Active Protocol: Document 03/21/20 10:36 MB (Rec: 03/21/20 15:32 MB [id number]) OP-PT Balance Assessment Sitting Balance Static Sitting Balance Ability Fair Dynamic Sitting Balance Ability Fair Sitting Balance Comments UE support for static and dynamic balance and pt holds onto w/c arms during LE MMT Standing Balance Static Standing Balance Ability Poor Dynamic Standing Balance Ability Poor Standing Balance Comments PT support left UE and pt uses walking stick for static standing Briseno Fall Scale Copyright Permission PT-OP-G Mobility & Gait Start: 03/20/20 16:52 Freq: Status: Active Protocol: Document 03/21/20 10:36 MB (Rec: 03/21/20 15:32 MB [id number]) OP Mobility Evaluation Transfers Sit to Stand Min A sit to stand from w/c OP Gait Assessment Gait Gait Assistance Required: Minimum Assistance Distance (Feet) 10 Gait Deviations General Gait Pattern Antalgic,Decreased Stride Length,Decreased Feet Clearance,Flexed Trunk,Lateral Trunk Lean,Narrow Based Gait, Step-to Gait Factors Limiting Gait Function Factors Limiting Gait Function Decreased Strength,Pain,Poor Balance,Poor Safety Awareness Comments Gait Comments Pt presents with functional leg length difference with left leg shorter than the right. She reports pain in her right back and hip and does not rate it. 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 Pt gait trains 10'x2 in clinic room PT-OP-K Range of Motion Start: 03/20/20 16:52 Freq: Status: Active Protocol: Document 03/21/20 10:36 MB (Rec: 03/21/20 15:32 MB [id number]) Cervical Spine Range of Motion Cervical Spine Active Testing Position Sitting Flexion 20 Extension 15 Rotation Left 20 Rotation Right 25 Lateral Flexion Left 5 Lateral Flexion Right 10 Shoulder Goniometric Range of Motion Shoulder ROM Limitations Comments In sitting, shoulder flexion and abduction is grossly equal and WNLs B Hip Goniometric Range of Motion Hip ROM Limitations Comments In sitting, pt can clear right thigh off of w/c but not the left. B knee extension, flexion, ankle DF and PF grossly WNLs B PT-OP-M Strength Start: 03/20/20 16:52 Freq: Status: Active Protocol: Document 03/21/20 10:36 MB (Rec: 03/21/20 15:32 MB [id number]) Shoulder Strength Shoulder Manual Muscle Testing Left Flexion 3 Fair Right Flexion 3 Fair Elbow/Forearm Strength Elbow and Forearm Manual Muscle Testing Left Flexion (C6) 4 Good Extension (C7) 4 Good Right Flexion (C6) 4 Good Extension (C7) 4 Good Hip Strength Hip Manual Muscle Testing Left Flexion (L2) 2+ Poor+ Right Flexion (L2) 3- Fair- Knee Strength Knee Manual Muscle Testing Left Flexion (S2) 5 Normal Extension (L3) 5 Normal Right Flexion (S2) 5 Normal Extension (L3) 5 Normal PT-OP-O Vestibular Start: 03/20/20 16:52 Freq: Status: Active Protocol: Document 03/21/20 10:36 MB (Rec: 03/21/20 15:32 MB [id number]) Vestibular Assessment Visual Testing Smooth Pursuits Horizontal Normal Smooth Pursuits Vertical Normal Saccades Horizontal Normal Gaze Evoked Nystagmus With Fixation Negative Convergence Test WNL Spontaneous Nystagmus Negative Comments Vestibular Comments B finger to nose, rapid supination and pronation and touching toe across opposite foot normal movement, slower on the left with finger to nose and slow B toes PT-OP-Q Treatments Start: 03/20/20 16:52 Freq: Status: Active Protocol: Document 04/02/20 09:50 MB (Rec: 04/02/20 10:26 MB [id number]) Therapeutic Exercises Supine Exercises Pelvic realignment exercises Comments 5 reps, 3 sec hold each, handout given Gait Training Gait Activity Walking stick right hand vs RW Comments Lowered rollator, 75'x1, 25'x2 with cues to step closer to the walker Self-Care/Home Management Treatment Education Other Education Handout for proper sleep hygiene, ed pt that PT can teach her PRE before sleeping if she is interested and goal of not napping during the day to help sleep cycle at night and in order to have proper intake and medication use in setting of DM and reported weight loss Wrote on handout to consider putting medications in pill box with time so that she will take them at consistent time each day and to consider journaling sleep, medication and intake before seeing new PCP, Dr. Lock in Apr PT-OP-T Assessment and Plan Start: 03/20/20 16:52 Freq: Status: Active Protocol: Document 04/02/20 09:50 MB (Rec: 04/02/20 10:26 MB [id number]) Physical Therapy Assessment Rehab Potential Rehabilitation Potential Poor Evaluation Complexity Number of Personal Factors/Comorbidities 3 or More Number of Body Systems Impaired 4 or More Clinical Presentation at Evaluation Unstable Impairments Impairments Activity Tolerance,Balance, Functional Activities, Functional Mobility,Gait,Pain, Posture,ROM,Strength,Transfers ,Vestibular Other Impairments Body systems involved: musculoskeletal, vestibular, metabolic (DM), visceral (work -up for kidney has been going on since August 2019--8 months), cognitive impairment. Personal factors include: poor cognition, poor follow- through with PT exercises from last PT treatment, poor verbalizations, questionable home safety and awareness Goals 4 Garment Sewer Hand Goal (LTG) Pt will perform all transfers supine<>sit, sit<>stand with I to improve I at home by 2019. LTG Duration 8 weeks 3 Garment Sewer Hand Goal (LTG) Pt will gait train at least 800 feet in 6 minutes with LRAD and SBA to improve safety with community ambulation by 05/21/2020. LTG Duration 8 weeks 2 Garment Sewer Hand Goal (LTG) Pt will perform progressive HEP with I including postural, alignment, balance, gait, transfer, VOR, flexibility and strengthening exercises to improve overall I and pain and to decrease fall risk by 05/21. LTG Duration 8 weeks 1 Half-Way Goal (LTG) Pt will perform 10 reps of sit to stands without UE support in 30 sec to improve functional transfers by 2019. LTG Duration 8 weeks Assessment Summary Assessment Further ed today in setting of weight loss reports and going to see new PCP beginning of next month. Ed in pelvic realignment exercises to assist with posture today. PT will send PT eval to new PCP as well as today's note for continuation of care. Did ed pt that sleeping too much can increase her back pain d/t prolonged position and no muscle firing. Orthostatic assessment with BP and HR in RUE: supine 124/80, 87; standing 115/73, 95; standing 30 sec 130/84, 100. Physical Therapy Plan Frequency and Duration Frequency of Treatment 2x/Week Duration of Treatment 8 weeks Plan of Care Start Date 03/21/20 Plan of Care End Date 05/21/20 Therapeutic Interventions Therapeutic Interventions Balance Training,Canalithic Repositioning,Coordination Training,Gait Training,Home Exercise Program,Manual Therapy,Neuromuscular Re- education,Patient/Caregiver Education,Self-Care/Home Management,Soft Tissue Mobilization,Taping, Therapeutic Activities, Therapeutic Exercises, Vestibular Rehabilitation Other Referrals/Consults Referrals/Consults Recommended Follow-up with PCP about all her medical concerns. Next Visit Focus/Plan Next Note Type Treatment Note Next Visit Plan Con't progression, review ed and exercises
--- NOTE | 2020-04-02 10:28 | PT-OP ANOTE ---
states that pt goes to see new PCP, Dr. Lock, the beginning of Apr. PT sends today's note and eval note to Dr. Lock for coordination of care.
--- NOTE | 2020-04-07 10:25 | PT.OTN ---
Current Diagnoses Other symptoms and signs involving the musculoskeletal system (04/07/20) Dizziness and giddiness (04/07/20) Physical Therapy Treatment Note PT-OP-A Visit Information Start: 03/20/20 16:52 Freq: Status: Active Protocol: Document 04/07/20 09:56 MB (Rec: 04/07/20 10:18 MB [id number]) Out-Patient Physical Therapy Visit Information Visit Information Visit Type Treatment Note Visit Note Medicare Pt arrives late to appointment and cannot tolerate further PT d/t medical issues, fatigue and poor compliance Visit Start Time 09:56 Visit Stop Time 10:19 Total Visit Minutes 23 Visit Number 4 PT-OP-B Current Condition Start: 03/20/20 16:52 Freq: Status: Active Protocol: Document 03/21/20 10:36 MB (Rec: 03/21/20 11:16 MB [id number]) Current Condition History of Current Condition Onset Date August 2019 Current Complaints Per patient is LBP that is inhibiting mobility History of Current Condition Pt arrives in w/c today. Her is present for evaluation. Pt was seen previously for dizziness by this PT after ED visit in August and she was dx with Meniere's. During PT course, she was found to have reaction to wood stove in house. She had ongoing coughing and nasal drainage is better since the wood stove has been off and windows have been open. Pt reports: light-headedness when standing up from lying down. She is sleepy and sleeping 1-2 hours in the morning, 1 hour in the afternoon and 11 pm to 9 am. She has trouble getting back to sleep when she wakes up to urinate at night. Pt reports numbness/tingling in her back that is new, opthamologist visit revealed stopping eye drops for eye pressure in thoughts that it being a beta jono might be dropping BP. The dizziness did not change but the eye pressure did go up . Pt reports anemia and unsure if controlled. She does not like following up with PCP. She is tired all the time and is loosing strength all over and in her hands. She has trouble carrying heavy [place]. Pt notices change in hearing on left ear. This is worsening but chronic. Pt reports no sinus or allergy issues. Pt may have B12 deficiency. Pt has background noise in left ear. Pt reports left sided posterior head pain and ringing at the top of left head. She starts out sleeping on her left side. Pt denies: double vision, blurred vision, falls, concussion, ear pressure, overhead lifting, whiplash injury, TMJ and complex care nurse practitioner. Pt saw ENT and PT at ENT in interim of care here and PT gave her some exercises that pt did not do. She wanted pt to get idea of where her head is in space and gave her some shoulder and neck rolls. Pt saw a back doctor and had a x-ray. It was negative. She was known to have non-voiding of the bladder and saw a urologist who thought she might be having back up of the bladder. She will have further work-up next week. In August, she had catheterization in hospital to help empty bladder. She might get a back injection if not the kidneys. Pt reports constant right sided back pain . Prior Treatments and Tests See above, many tests, many providers and questionable coordination of provider communication with recommendations and findings. Treatment Goals Patient/Caregiver Goals Pt: Pt would like to decrease constant pain in right hip ([place]): that pt could go for a walk someplace Prior Functional Status Baseline Function- Other Pt states that she is getting up I at night to go to the BR but she cannot walk without asst today and her brings her back to gym in w/c Current Functional Impairments (Reported) Functional Limitations- Other All functional mobility is limited by pt's reports of pain Personal Factors Other Personal Factors That May Effect Pt has not been compliant with Therapy/Recovery going to PCP regularly, has many many medical issues (DM, dizziness, fatigue, sleeping many hours, new back pain, recent kidney issues, questionable anemia, etc) PT-OP-C Subjective Start: 03/20/20 16:52 Freq: Status: Active Protocol: Document 04/07/20 09:56 MB (Rec: 04/07/20 10:18 MB [id number]) OP-PT Subjective Patient Comments Patient Comments I lost another 5 lbs. Pt states that her back pain is better. Her dizziness is better. She is just sleeping all the time. PT-OP-D Balance Start: 03/20/20 16:52 Freq: Status: Active Protocol: Document 03/21/20 10:36 MB (Rec: 03/21/20 15:32 MB [id number]) OP-PT Balance Assessment Sitting Balance Static Sitting Balance Ability Fair Dynamic Sitting Balance Ability Fair Sitting Balance Comments UE support for static and dynamic balance and pt holds onto w/c arms during LE MMT Standing Balance Static Standing Balance Ability Poor Dynamic Standing Balance Ability Poor Standing Balance Comments PT support left UE and pt uses walking stick for static standing Briseno Fall Scale Copyright Permission PT-OP-G Mobility & Gait Start: 03/20/20 16:52 Freq: Status: Active Protocol: Document 03/21/20 10:36 MB (Rec: 03/21/20 15:32 MB [id number]) OP Mobility Evaluation Transfers Sit to Stand Min A sit to stand from w/c OP Gait Assessment Gait Gait Assistance Required: Minimum Assistance Distance (Feet) 10 Gait Deviations General Gait Pattern Antalgic,Decreased Stride Length,Decreased Feet Clearance,Flexed Trunk,Lateral Trunk Lean,Narrow Based Gait, Step-to Gait Factors Limiting Gait Function Factors Limiting Gait Function Decreased Strength,Pain,Poor Balance,Poor Safety Awareness Comments Gait Comments Pt presents with functional leg length difference with left leg shorter than the right. She reports pain in her right back and hip and does not rate it. 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 Pt gait trains 10'x2 in clinic room PT-OP-K Range of Motion Start: 03/20/20 16:52 Freq: Status: Active Protocol: Document 03/21/20 10:36 MB (Rec: 03/21/20 15:32 MB [id number]) Cervical Spine Range of Motion Cervical Spine Active Testing Position Sitting Flexion 20 Extension 15 Rotation Left 20 Rotation Right 25 Lateral Flexion Left 5 Lateral Flexion Right 10 Shoulder Goniometric Range of Motion Shoulder ROM Limitations Comments In sitting, shoulder flexion and abduction is grossly equal and WNLs B Hip Goniometric Range of Motion Hip ROM Limitations Comments In sitting, pt can clear right thigh off of w/c but not the left. B knee extension, flexion, ankle DF and PF grossly WNLs B PT-OP-M Strength Start: 03/20/20 16:52 Freq: Status: Active Protocol: Document 03/21/20 10:36 MB (Rec: 03/21/20 15:32 MB [id number]) Shoulder Strength Shoulder Manual Muscle Testing Left Flexion 3 Fair Right Flexion 3 Fair Elbow/Forearm Strength Elbow and Forearm Manual Muscle Testing Left Flexion (C6) 4 Good Extension (C7) 4 Good Right Flexion (C6) 4 Good Extension (C7) 4 Good Hip Strength Hip Manual Muscle Testing Left Flexion (L2) 2+ Poor+ Right Flexion (L2) 3- Fair- Knee Strength Knee Manual Muscle Testing Left Flexion (S2) 5 Normal Extension (L3) 5 Normal Right Flexion (S2) 5 Normal Extension (L3) 5 Normal PT-OP-O Vestibular Start: 03/20/20 16:52 Freq: Status: Active Protocol: Document 03/21/20 10:36 MB (Rec: 03/21/20 15:32 MB [id number]) Vestibular Assessment Visual Testing Smooth Pursuits Horizontal Normal Smooth Pursuits Vertical Normal Saccades Horizontal Normal Gaze Evoked Nystagmus With Fixation Negative Convergence Test WNL Spontaneous Nystagmus Negative Comments Vestibular Comments B finger to nose, rapid supination and pronation and touching toe across opposite foot normal movement, slower on the left with finger to nose and slow B toes PT-OP-Q Treatments Start: 03/20/20 16:52 Freq: Status: Active Protocol: Document 04/07/20 09:56 MB (Rec: 04/07/20 10:18 MB [id number]) Therapeutic Exercises Supine Exercises Pelvic realignment exercises Comments 5 reps, 3 sec hold each, handout given Gait Training Gait Activity Walking stick right hand vs RW Comments 75'x2 with training for upright posture, staying in the walker and pushing up from the chair or mat and reaching back for them to sit to prevent falls Self-Care/Home Management Treatment Education Other Education Ed to pt and : con't pelvic realignment exercises, what to talk with Dr. Lock about in appointment, inability to con't with PT at this time d/t fatigue and poor compliance PT-OP-T Assessment and Plan Start: 03/20/20 16:52 Freq: Status: Active Protocol: Document 04/07/20 09:56 MB (Rec: 04/07/20 10:18 MB [id number]) Physical Therapy Assessment Rehab Potential Rehabilitation Potential Poor Evaluation Complexity Number of Personal Factors/Comorbidities 3 or More Number of Body Systems Impaired 4 or More Clinical Presentation at Evaluation Unstable Impairments Impairments Activity Tolerance,Balance, Functional Activities, Functional Mobility,Gait,Pain, Posture,ROM,Strength,Transfers ,Vestibular Other Impairments Body systems involved: musculoskeletal, vestibular, metabolic (DM), visceral (work -up for kidney has been going on since August 2019--8 months), cognitive impairment. Personal factors include: poor cognition, poor follow- through with PT exercises from last PT treatment, poor verbalizations, questionable home safety and awareness Goals 4 Halfway Goal (LTG) Pt will perform all transfers supine<>sit, sit<>stand with I to improve I at home by 2019. LTG Duration 8 weeks 3 Halfway Goal (LTG) Pt will gait train at least 800 feet in 6 minutes with LRAD and SBA to improve safety with community ambulation by 05/21/2020. LTG Duration 8 weeks 2 Halfway Goal (LTG) Pt will perform progressive HEP with I including postural, alignment, balance, gait, transfer, VOR, flexibility and strengthening exercises to improve overall I and pain and to decrease fall risk by 05/21. LTG Duration 8 weeks 1 Activities Assistant Goal (LTG) Pt will perform 10 reps of sit to stands without UE support in 30 sec to improve functional transfers by 2019. LTG Duration 8 weeks Assessment Summary Assessment PT calls , Elkin, while pt in the pt room. PT educates pt and Elkin that pt cannot tolerate vestibular rehab at this point given her complaints of fatigue and poor tolerance and compliance with HEP. Pt states that she did some pelvic realignment exercises but states that she did not. Will d/c PT at this time. PT con't to encourage follow-up with new PCP and compliance with his recs, nutrition consult, sleeping hygiene with more activity and wake cycle during the day. Physical Therapy Plan Frequency and Duration Frequency of Treatment 2x/Week Duration of Treatment 8 weeks Plan of Care Start Date 03/21/20 Plan of Care End Date 05/21/20 Therapeutic Interventions Therapeutic Interventions Balance Training,Canalithic Repositioning,Coordination Training,Gait Training,Home Exercise Program,Manual Therapy,Neuromuscular Re- education,Patient/Caregiver Education,Self-Care/Home Management,Soft Tissue Mobilization,Taping, Therapeutic Activities, Therapeutic Exercises, Vestibular Rehabilitation Other Referrals/Consults Referrals/Consults Recommended Follow-up with PCP about all her medical concerns. Nutrition consult. Possible cognitive/psychosocial work-up if MD deems appropriate d/t memory trouble and decreased affect. Next Visit Focus/Plan Next Note Type Discharge Summary
== END 2020-04-09 08:33 | disposition home or self-care (01) ==
LOC: PHYS 09:45
PROVIDERS: PCP Student in an Organized Health Care Education/Training Program; Referring Provider Student in an Organized Health Care Education/Training Program; Visit Provider Student in an Organized Health Care Education/Training Program
DX: R42 Dizziness and giddiness (principal); R29.898 Other symptoms and signs involving the musculoskeletal system
CPT/HCPCS: 97110; 97116; 97163; 97535

== ENCOUNTER → 2020-04-26 10:16 | Outpatient (CLI) | payer MEDICARE, OTHER, SELFPAY ==
[2020-04-18 09:06] VITALS: BMI 23.8
[2020-04-26 12:27] LABS: Alanine Aminotransferase 15 IU/L (<35); Albumin 4.5 g/dL (3.5-5.0); Albumin Globulin Ratio 1.5 (1.0-2.8); Alkaline Phosphatase 93 U/L (38-126); Aspartate Aminotransferase 22 IU/L (14-36); BUN Creatinine Ratio 21.3 (6-22); Bilirubin Total 1.3 mg/dL (0.2-1.3); Blood Urea Nitrogen 29 mg/dL (7-17); Calcium 9.9 mg/dL (8.4-10.2); Carbon Dioxide 31 mmol/L (22-32); Chloride 94 mmol/L (98-107); Cholesterol 130 mg/dL (140-199); Globulin 3.1 g/dL (1.7-4.1); Glucose 181 mg/dL (80-110); HDL Cholesterol 28 mg/dL (40-60); HEMOLYSIS < 15 (0-50); Hematocrit 38.7 % (36-46); Hemoglobin 13.4 g/dL (12.0-16.0); LDL Cholesterol Calculated 61 mg/dL (<100); Mean Corpuscular HGB Conc 34.5 % (30-36); Mean Corpuscular Hemoglobin 31.8 PG (26-34); Platelet Count 306 X10^3/uL (150-400); Potassium 3.2 mmol/L (3.4-5.1); Red Blood Cell Count 4.21 X10^6/uL (4.0-5.2); Red Cell Distribution Width 14.6 % (11.6-14.8); Sodium 139 mmol/L (137-145); Total Protein 7.6 g/dL (6.3-8.2); Triglycerides 206 mg/dL (35-150); White Blood Cell Count 17.2 X10^3/uL (4.5-11.0)
[2020-04-26 12:29] LABS: Add Manual Diff / Slide Review YES; Hemoglobin A1C% w Est Avg Glu 6.5 % (4.0-6.0)
[2020-04-26 12:58] LABS: Testosterone 32.1 ng/dL (5.71-77.0)
[2020-04-26 13:02] LABS: Neutrophils Absolute Manual 5676 /uL (3000-5900); Smudge Cells 2+; Total Cells Counted 100
[2020-04-26 13:12] LABS: Free T3, Triiodothyronine Free 3.47 pg/mL (2.77-5.27); Free T4, Direct Thyroxine 2.78 ng/dL (0.78-2.19)
[2020-04-26 13:14] LABS: Vitamin B12 405 pg/mL (239-931)
[2020-04-26 13:26] LABS: Thyroid Stimulating Hormone 0.059 uIU/mL (0.47-4.68)
[2020-04-26 13:34] LABS: Vitamin D 25 Hydroxy (D3) 51.6 ng/mL (30.0-100.0)
[2020-04-28 13:41] LABS: ANA Screen, IFA Negative (.)
[2020-05-01 09:31] LABS: Estrogen 71 pg/mL (.)
== END ==
PROVIDERS: PCP Family Medicine; Referring Provider Family Medicine; Visit Provider Family Medicine
DX: E03.9 Hypothyroidism, unspecified (principal); E11.9 Type 2 diabetes mellitus without complications; R63.4 Abnormal weight loss
CPT/HCPCS: 80053; 80061; 82306; 82607; 82672; 83036; 84403; 84439; 84443; 84481; 85025; 86038

== ENCOUNTER 2020-05-05 18:20 | Emergency (ER) | payer MEDICARE, OTHER, SELFPAY ==
[2020-04-18 09:06] VITALS: BMI 23.8
[2020-05-05] VITALS (16 sets, daily range): BP systolic 96–131; BP diastolic 55–69; PULSE 60–104; RESP 12–18; TEMP 36.7; O2SAT 78–100; BMI 20.1
--- NOTE | 2020-05-05 18:31 | DI.RAD.S_ITS ---
PROCEDURE: XR ACUTE ABDOMEN SERIES INDICATIONS: no BM or flatus for multiple days TECHNIQUE: One view chest and two views of the abdomen were acquired. COMPARISON: None. FINDINGS: Surgical changes and devices: None. Chest: Lungs are clear. Heart size is normal. No pleural effusions. No pneumoperitoneum. Abdomen: Bowel gas pattern is nonspecific. Significant fecal stasis throughout the colon is seen. No suspicious calcifications. Visualized solid organ contours appear normal. Bones: No suspicious bony lesions. IMPRESSION: No evidence of bowel obstruction or gross free air. Suggestion of constipation. No acute cardiopulmonary pathology. Dictated by: Martinez Canada M.D. on 05/05/2020 at 19:34 Approved by: Martinez Canada M.D. on 05/05/2020 at 19:35
--- NOTE | 2020-05-05 18:47 | ED_ITS ---
HPI - Abdominal Pain General Chief Complaint: Abdominal Pain Stated Complaint: CONSTIPATION 2 DAY BACK ACHE UPSET STOMACH Time Seen by Provider: 05/05/20 18:20 Source: patient Mode of arrival: Ambulatory Limitations: no limitations History of Present Illness HPI narrative: 74F non smoker with diet controlled diabetes, HTN, and being worked up for abnormal blood counts (referred to oncology) presents with her and the chief complaint of constipation for the past two days. She denies much in the way of pain and has no nausea or vomiting. She has had an unexplained 30lb weight loss over the past few months. She denies fever, chills, sore throat or head ache. She denies any new medications or dietary change. MD complaint: other Onset (ago): day(s) Relieving factors: nothing Exacerbating factors: nothing Related Data Home Medications Medication Instructions Recorded Confirmed latanoprost 1 drp EYE-BOTH BEDTIME #0 02/18/09 04/25/20 metformin 1,000 mg PO BID #0 02/18/09 04/25/20 multivitamin 1 cap PO DAILY #0 02/18/09 04/25/20 glimepiride 4 mg PO BID 05/16/19 04/25/20 timolol maleate 1 drp EYE-BOTH BID 05/16/19 04/25/20 Trulicity 1.5 mg SUBCUT WEEKLY 09/03/19 04/25/20 hydrochlorothiazide 25 mg tablet 25 mg PO DAILY 04/25/20 04/25/20 levothyroxine 75 mcg tablet 75 mcg PO DAILY 04/25/20 04/25/20 Previous Rx's Medication Instructions Recorded polyethylene glycol 3350 [Miralax] 17 gram PO DAILY PRN #119 gram 09/04/19 lovastatin 40 mg tablet 40 mg PO QPM #90 tab 12/31/19 Disabled Parking Permit #1 ea 04/25/20 cephalexin [Keflex] 500 mg PO QID 7 Days #28 cap 05/05/20 Allergies Allergy/AdvReac Type Severity Reaction Status Date / Time No Known Drug Allergies Allergy Verified 04/25/20 10:00 Review of Systems Constitutional Constitutional: Denies chills, Denies fatigue, Denies fever(s), Denies frequent falls, Denies lethargy and Reports weakness Eyes Eyes: Denies change in vision, Denies eye discharge, Denies irritation and Denies loss of vision ENT Ears, Nose, Mouth, and Throat: Denies change in voice, Denies dizziness, Denies neck pain, Denies sore throat and Denies throat swelling Cardiovascular Cardiovascular: Denies chest pain, Denies irregular heart rhythm, Denies lightheadedness, Denies palpitations, Denies dyspnea, Denies dyspnea on exertion and Denies orthopnea Respiratory Respiratory: Denies cough, Denies dyspnea, Denies dyspnea on exertion and Denies wheezing Gastrointestinal Gastrointestinal: Denies abdominal pain, Denies change in bowel habits, Reports constipation, Denies diarrhea, Denies nausea and Denies vomiting Musculoskeletal Musculoskeletal: Denies neck pain and Denies numbness Integumentary/Breasts Skin/Breast: Denies pruritus, Denies erythema, Denies rash and Denies wounds Neurologic Neurologic: Denies behavioral changes, Denies confusion, Denies dizziness, Denies frequent falls, Denies loss of vision, Denies numbness and Reports weakness Psychiatric Psychiatric: Denies anxiety, Denies behavioral changes, Denies confusion, Denies depression, Denies homicidal ideation and Denies suicidal ideation Endocrine Endocrine: Denies fatigue, Denies flushing and Denies palpitations Hematologic/Lymphatic Hematologic/Lymphatic: Denies easy bruising Allergic/Immunologic Allergic/Immunologic: Denies urticaria, Denies throat swelling and Denies wheezing Patient History Medical History Bladder incontinence (Acute) Diabetes type 2, controlled (Chronic) Excessive daytime sleepiness (Acute) Fatigue (Acute) Hearing aid worn (Chronic) Hypothyroidism (Chronic) Lymphocytosis (symptomatic) (Acute) Unintended weight loss (Acute) Family History Mother Myocardial infarct Father CVA (cerebral vascular accident) Sister Thyroid disease Brother Thyroid disease Social History household members: spouse Smoking Status: Never smoker alcohol intake: current Smoking Status: Never smoker alcohol intake frequency: holidays/special occasions only Substance Use Type: does not use Exam Narrative Exam Narrative: GENERAL: [74] year old patient appears older than stated age. Thin an ill-appearing HEAD: Atraumatic. Normocephalic. EYES: Pupils equal round and reactive. Extraocular motions intact. No scleral icterus. No injection or drainage. ENT: Dry mucous membranes. Nose without bleeding, purulent drainage. Throat without erythema, tonsillar hypertrophy or exudate. Airway patent. NECK: Trachea midline. Non tender CARDIOVASCULAR: Regular rate and rhythm without murmurs, gallops, or rubs. RESPIRATORY: Clear to auscultation. Breath sounds equal bilaterally. No wheezes, rales, or rhonchi. GASTROINTESTINAL: Abdomen soft, non-tender, nondistended. Decreased bowel sounds EXTREMITIES: No edema or joint tenderness. BACK: Nontender without deformity or crepitance. No flank tenderness. NEURO: AOx3. SKIN: Poor skin turgor. No rash or erythema of visible areas Initial Vital Signs Initial Vital Signs: Vital Signs Temperature 98.1 F 05/05/20 18:30 Pulse Rate 103 H 05/05/20 18:30 Respiratory Rate 12 05/05/20 18:30 Blood Pressure 127/69 05/05/20 18:30 Pulse Oximetry 98 05/05/20 18:30 Course Orders Ordered: ED Orders 05/05/20 18:31 XR acute abdomen series Stat 05/05/20 18:46 Complete Blood Count AUTO DIFF Stat Comprehensive Metabolic Panel Stat Lipase Stat 05/05/20 19:25 CT chest abd pel w con Stat 05/05/20 20:15 Urinalysis and Microscopic Stat Urine Culture Stat Discontinued Medications Cefazolin Sodium (Keflex 250 Mg Prepack) 1 bottle MISC SEEINSTR ONE Stop: 05/05/20 21:35 Last Admin: 05/05/20 22:00 Dose: 7 bau Documented by: TANNER Sodium Chloride (Normal Saline 0.9%) 1,000 mls @ 1,000 mls/hr IV BOLUS ONE Stop: 05/05/20 19:29 Last Infusion: 05/05/20 21:00 Dose: 1,000 mls/hr Documented by: Admin: 05/05/20 19:28 Dose: 1,000 mls/hr Documented by: TANNER Vital Signs Vital signs: Vital Signs - 8 hr 05/05/20 18:30 05/05/20 18:42 05/05/20 19:13 Temperature 98.1 F Pulse Rate 103 H 103 H 60 Respiratory Rate 12 Blood Pressure 127/69 Pulse Oximetry 98 96 78 L 05/05/20 19:15 05/05/20 19:27 05/05/20 19:30 Temperature Pulse Rate 97 H 96 H Respiratory Rate Blood Pressure 107/58 L 109/56 L 109/55 L Pulse Oximetry 96 99 100 05/05/20 20:00 05/05/20 20:16 05/05/20 20:30 Temperature Pulse Rate 95 H 98 H 104 H Respiratory Rate Blood Pressure 117/58 L Pulse Oximetry 99 100 99 05/05/20 20:31 05/05/20 21:00 05/05/20 21:18 Temperature Pulse Rate 102 H 96 H 102 H Respiratory Rate Blood Pressure 124/67 96/55 L 131/69 Pulse Oximetry 100 96 98 05/05/20 21:19 05/05/20 21:30 05/05/20 22:00 Temperature Pulse Rate 100 H 97 H 99 H Respiratory Rate 18 Blood Pressure 131/69 117/59 L 128/65 Pulse Oximetry 99 98 100 05/05/20 22:15 Temperature Pulse Rate 93 H Respiratory Rate 18 Blood Pressure 114/65 Pulse Oximetry 97 MDM - Abdominal Pain Lab Data Result diagrams: 05/05/20 18:46 05/05/20 18:46 Labs: Lab Results 05/05/20 05/05/20 05/05/20 Range/Units 18:46 18:46 20:15 WBC 18.9 H (4.5-11.0) X10^3/uL RBC 4.03 (4.0-5.2) X10^6/uL Hgb 12.6 (12.0-16.0) g/dL Hct 37.3 (36-46) % MCV 92.5 (80-100) fL MCH 31.2 (26-34) PG MCHC 33.7 (30-36) % RDW 15.2 H (11.6-14.8) % Plt Count 287 (150-400) X10^3/uL Neut % (Auto) Not Reportable Lymph % (Auto) Not Reportable [place] % (Auto) Not Reportable Eos % (Auto) Not Reportable Baso % (Auto) Not Reportable Lymph # (Auto) Not Reportable [place] # (Auto) Not Reportable Baso # (Auto) Not Reportable Total Counted 100 Seg Neutrophils % 45.0 (38-70) % Band Neutrophils % 1.0 L (3-7) % Lymphocytes % (Manual) 28.0 (25-45) % Atypical Lymphs % 15.0 H ( - 0) % Monocytes % (Manual) 9.0 (2-11) % Eosinophils % (Manual) 2.0 (2-4) % Neutrophils # (Manual) 8694 H (3010-9188) /uL Smudge Cells 2+ H RBC Morphology See below Polychromasia 1+ H Sodium 138 (137-145) mmol/L Potassium 5.1 D (3.4-5.1) mmol/L Chloride 100 (98-107) mmol/L Carbon Dioxide 31 (22-32) mmol/L BUN 25 H (7-17) mg/dL Creatinine 1.10 H (0.52-1.04) mg/dL Estimated GFR 48.6 L (>60) mL/min BUN/Creatinine Ratio 22.7 H (6-22) Glucose 112 H (80-110) mg/dL Calcium 9.5 (8.4-10.2) mg/dL Total Bilirubin 1.2 (0.2-1.3) mg/dL AST 31 (14-36) IU/L ALT 22 (<35) IU/L Alkaline Phosphatase 69 (38-126) U/L Total Protein 6.9 (6.3-8.2) g/dL Albumin 3.7 (3.5-5.0) g/dL Globulin 3.2 (1.7-4.1) g/dL Albumin/Globulin Ratio 1.2 (1.0-2.8) Lipase 223 (23-300) U/L Urine Color Yellow Urine Appearance Cloudy Urine pH 7.0 (4.5-8.0) Ur Specific [place] 1.010 (1.000-1.035) Urine Protein Trace H (Negative) Urine Glucose (UA) Negative (Negative) g/dL Urine Ketones Negative (NEGATIVE) Urine Occult Blood 2+ H (Negative) Urine Nitrate Positive H (Negative) Urine Bilirubin Negative (NEGATIVE) Urine Urobilinogen 0.2 (0.2) E.U./dL Ur Leukocyte Esterase 2+ H (NEGATIVE) Urine RBC 1-5/hpf (0-5/HPF) Urine WBC >100/hpf H (0-5/HPF) Urine Bacteria Many (>30) H (None) Ur Culture Indicated? Specimen cultured Imaging Data CT scan - chest: Radiologist's Impression: [address] [address] [address] Scan Report Signed Patient: Jennifer Tubbs FMR#: [id number] : 6Acct:[id number] Age/Sex: 74 / FDate of Service: 05/05/20 Loc: ED Accession Number: [id number] Procedure: CT chest abd pel w con Ordering Provider: James Campos D.O. PROCEDURE: CT CHEST ABD PEL W CON INDICATIONS: weight loss, fatigue, no BMs, no flatus, meets with oncology TECHNIQUE: After the administration of intravenous contrast, 5 mm thick sections acquired from the lung apices to the symphysis. 5 mm coronal and sagittal reformats were performed, with additional 7 mm MIP reformats through the lungs. For radiation dose reduction, the following was used: automated exposure control, adjustment of mA and/or kV according to patient size. COMPARISON: [facility], CT, CT ABDOMEN PELVIS W CON, 10/10/2019, 13:55. FINDINGS: Image quality: Excellent. CHEST: Lungs and pleura: No acute airspace opacities. Mild scattered atelectasis in periphery of bilateral lung muñoz are seen. Tiny calcified granuloma are seen in periphery of bilateral upper lobes and measures up to 2 millimeters in size in lateral aspect of left upper lobe series 3, image 82 and 2 millimeters in size in anterior aspect of right upper lobe series 3 image 98. No pleural effusions or pneumothorax. Central and peripheral airways appear patent and normal in caliber. Mediastinum: Heart size is enlarged. No pericardial effusion. No mediastinal or hilar adenopathy by size criteria. Moderate atherosclerotic calcifications are seen. Thoracic aorta and central pulmonary arteries are normal in size. Esophagus is normal in caliber. No hiatal hernia. Chest wall: No axillary or supraclavicular adenopathy by size criteria. Left thyroid lobe is asymmetrically enlarged with heterogeneous enhancement. Suggestion of a 9 millimeter hypodense left thyroid nodule is likely present. ABDOMEN: Solid organs: Liver is normal in size and enhancement. 7 millimeters cyst in right hepatic lobe is again seen and unchanged. Gallbladder is within normal limits.. Biliary system is non dilated. Pancreas enhances normally. Spleen is normal in size and enhancement. No adrenal nodules. Kidneys demonstrate normal size and enhancement, without hydronephrosis. Nonobstructing stones are again noted in upper to mid pole of left kidney unchanged from prior study. Bilateral renal cysts are also noted and are unchanged in size and appearance. Peritoneum and bowel: There is no evidence of bowel obstruction. Significant fecal stasis throughout the colon is seen extending to rectum. There is suggestion of asymmetric wall thickening involving posterior and left rectal wall, concerning for a rectal wall mass. Appendix is visualized and is within normal limits. No abno rmal gastric or small wall wall thickening. No free fluid or free air. Nodes and vessels: No retroperitoneal or mesenteric adenopathy by size criteria. Aorta and inferior vena cava are normal in size. Miscellaneous: No ventral hernias. PELVIS: Genitourinary: Bladder is well distended. Asymmetric bladder wall thickening is seen measures up to 7 millimeters in thickness anteriorly. No definite bladder wall mass is seen. Miscellaneous: No inguinal hernias or adenopathy. Bones: No suspicious bony lesions. No vertebral body compression fractures. Degenerative disc disease throughout lumbar spine is seen. IMPRESSION: 1. Significant fecal stasis throughout the colon extending to the level of lower sigmoid colon/rectum. This could represent significant constipation and fecal impaction. Questionable lower rectal wall thickening, a rectal wall mass cannot be exclude d. GI correlation is recommended. 2. Normal appendix. No abnormal gastric or small bowel wall thickening. No free fluid or free air. 3. Nonobstructing left renal calculi. Bilateral renal cysts. No renal stone or hydronephrosis. 3. Suggestion of tiny right hepatic lobe cysts unchanged from prior study. 4. Calcified granuloma are noted in bilateral upper lobes. No definite soft tissue density nodules. No airspace opacity, pleural effusion or pneumothorax. Airway is patent. 5. Extensive atherosclerotic disease throughout thoracic and abdominal aorta. 6. Enlarged left thyroid lobe with suggestion of left thyroid lobe nodules and may indicate nodular goiter. Dictated by: Martinez Canada M.D. on 05/05/2020 at 20:07 Approved by: Martinez Canada M.D. on 05/05/2020 at 20:17 MDM Narrative Medical decision making narrative: Patient with gradual decline in overall health over past few months complains of decreased BM over the past few days. She is clinically dry and given fluids and feels improvement. No obvious need fo r admission. She will benefit from oncologic appointment tomorrow. Discharge Plan Departure Patient Disposition: Home Clinical Impression: Acute urinary retention Constipation Qualifiers: Constipation type: unspecified constipation type Qualified Code(s): K59.00 - Constipation, unspecified Instructions: DI for Constipation, DI for Urinary Retention in Women Activity Restrictions/Additional Instructions: *You have been diagnosed with [constipation without signs of obstruction and UTI with urinary retention. There is evidence of some nonspecific thickening of the wall of your colon and radiology suggest the malignancy cannot be ruled out] *What to do: *Take medications as directed *Follow up with oncology tomorrow as planned. You will also likely need to meet with urology given your urinary retention and general surgery or GI to evaluate the bowel thickening *Return to ER if you should have any new, worsening or concerning symptoms *You have been diagnosed with [ abdominal pain due to constipation ] *What to do: *Take over the counter medications as directed: 1. Metamucil - is a bulk forming laxative and adds fiber 2. Colace - softens your stool 3. Dulcolax suppository - stimulates your bowels *Follow up with your primary care provider in 2-3 days, call for appointment *Return to ER if you should have any new, worsening or concerning symptoms *Drink plenty of water and eat foods high in fiber *Stay as active as you can as this helps move your bowels as well Prescriptions: New cephalexin [Keflex] 500 mg capsule 500 mg PO QID 7 Days Qty: 28 RF: 0 No Action latanoprost 0.005 % Drops 1 drp EYE-BOTH BEDTIME Qty: 0 RF: 0 metformin 1,000 mg Tablet 1,000 mg PO BID Qty: 0 RF: 0 multivitamin Capsule 1 cap PO DAILY Qty: 0 RF: 0 lovastatin 40 mg tablet 40 mg PO QPM Qty: 90 RF: 1 levothyroxine 75 mcg tablet 75 mcg PO DAILY RF: 0 hydrochlorothiazide 25 mg tablet 25 mg PO DAILY RF: 0 Hold Instructions: per ([facility] [place]) Disabled Parking Permit Qty: 1 RF: 0 Trulicity 1.5 mg/0.5 mL Pen Injector 1.5 mg SUBCUT WEEKLY RF: 0 polyethylene glycol 3350 [Miralax] 17 gram/dose powder 17 gram PO DAILY PRN (Reason: constipation) Qty: 119 RF: 0 timolol maleate 0.25 % Drops 1 drp EYE-BOTH BID RF: 0 glimepiride 4 mg Tablet 4 mg PO BID RF: 0 Referrals: Jefferson Graham MD [Physician] - Femi Main MD [Physician] - Wicho Lock DO [Primary Care Provider] -
[2020-05-05 19:01] LABS: Hematocrit 37.3 % (36-46); Hemoglobin 12.6 g/dL (12.0-16.0); Mean Corpuscular HGB Conc 33.7 % (30-36); Mean Corpuscular Hemoglobin 31.2 PG (26-34); Mean Corpuscular Volume 92.5 fL (80-100); Platelet Count 287 X10^3/uL (150-400); Red Blood Cell Count 4.03 X10^6/uL (4.0-5.2); Red Cell Distribution Width 15.2 % (11.6-14.8); White Blood Cell Count 18.9 X10^3/uL (4.5-11.0)
[2020-05-05 19:02] LABS: Add Manual Diff / Slide Review YES
[2020-05-05 19:05] LABS: Alanine Aminotransferase 22 IU/L (<35); Albumin 3.7 g/dL (3.5-5.0); Albumin Globulin Ratio 1.2 (1.0-2.8); Alkaline Phosphatase 69 U/L (38-126); Aspartate Aminotransferase 31 IU/L (14-36); BUN Creatinine Ratio 22.7 (6-22); Bilirubin Total 1.2 mg/dL (0.2-1.3); Blood Urea Nitrogen 25 mg/dL (7-17); Calcium 9.5 mg/dL (8.4-10.2); Carbon Dioxide 31 mmol/L (22-32); Chloride 100 mmol/L (98-107); Estimated Glomerular Filt Rate 48.6 mL/min (>60); Globulin 3.2 g/dL (1.7-4.1); Glucose 112 mg/dL (80-110); Lipase 223 U/L (23-300); Sodium 138 mmol/L (137-145); Total Protein 6.9 g/dL (6.3-8.2)
[2020-05-05 19:14] LABS: HEMOLYSIS 121 (0-50); Potassium 5.1 mmol/L (3.4-5.1)
[2020-05-05 19:22] LABS: Neutrophils Absolute Manual 8694 /uL (3000-5900); Smudge Cells 2+; Total Cells Counted 100
[2020-05-05 19:24] LABS: Polychromasia 1+
--- NOTE | 2020-05-05 19:25 | DI.CT.S_ITS ---
PROCEDURE: CT CHEST ABD PEL W CON INDICATIONS: weight loss, fatigue, no BMs, no flatus, meets with oncology TECHNIQUE: After the administration of intravenous contrast, 5 mm thick sections acquired from the lung apices to the symphysis. 5 mm coronal and sagittal reformats were performed, with additional 7 mm MIP reformats through the lungs. For radiation dose reduction, the following was used: automated exposure control, adjustment of mA and/or kV according to patient size. COMPARISON: [facility], CT, CT ABDOMEN PELVIS W CON, 10/10/2019, 13:55. FINDINGS: Image quality: Excellent. CHEST: Lungs and pleura: No acute airspace opacities. Mild scattered atelectasis in periphery of bilateral lung muñoz are seen. Tiny calcified granuloma are seen in periphery of bilateral upper lobes and measures up to 2 millimeters in size in lateral aspect of left upper lobe series 3, image 82 and 2 millimeters in size in anterior aspect of right upper lobe series 3 image 98. No pleural effusions or pneumothorax. Central and peripheral airways appear patent and normal in caliber. Mediastinum: Heart size is enlarged. No pericardial effusion. No mediastinal or hilar adenopathy by size criteria. Moderate atherosclerotic calcifications are seen. Thoracic aorta and central pulmonary arteries are normal in size. Esophagus is normal in caliber. No hiatal hernia. Chest wall: No axillary or supraclavicular adenopathy by size criteria. Left thyroid lobe is asymmetrically enlarged with heterogeneous enhancement. Suggestion of a 9 millimeter hypodense left thyroid nodule is likely present. ABDOMEN: Solid organs: Liver is normal in size and enhancement. 7 millimeters cyst in right hepatic lobe is again seen and unchanged. Gallbladder is within normal limits.. Biliary system is non dilated. Pancreas enhances normally. Spleen is normal in size and enhancement. No adrenal nodules. Kidneys demonstrate normal size and enhancement, without hydronephrosis. Nonobstructing stones are again noted in upper to mid pole of left kidney unchanged from prior study. Bilateral renal cysts are also noted and are unchanged in size and appearance. Peritoneum and bowel: There is no evidence of bowel obstruction. Significant fecal stasis throughout the colon is seen extending to rectum. There is suggestion of asymmetric wall thickening involving posterior and left rectal wall, concerning for a rectal wall mass. Appendix is visualized and is within normal limits. No abnormal gastric or small wall wall thickening. No free fluid or free air. Nodes and vessels: No retroperitoneal or mesenteric adenopathy by size criteria. Aorta and inferior vena cava are normal in size. Miscellaneous: No ventral hernias. PELVIS: Genitourinary: Bladder is well distended. Asymmetric bladder wall thickening is seen measures up to 7 millimeters in thickness anteriorly. No definite bladder wall mass is seen. Miscellaneous: No inguinal hernias or adenopathy. Bones: No suspicious bony lesions. No vertebral body compression fractures. Degenerative disc disease throughout lumbar spine is seen. IMPRESSION: 1. Significant fecal stasis throughout the colon extending to the level of lower sigmoid colon/rectum. This could represent significant constipation and fecal impaction. Questionable lower rectal wall thickening, a rectal wall mass cannot be excluded. GI correlation is recommended. 2. Normal appendix. No abnormal gastric or small bowel wall thickening. No free fluid or free air. 3. Nonobstructing left renal calculi. Bilateral renal cysts. No renal stone or hydronephrosis. 3. Suggestion of tiny right hepatic lobe cysts unchanged from prior study. 4. Calcified granuloma are noted in bilateral upper lobes. No definite soft tissue density nodules. No airspace opacity, pleural effusion or pneumothorax. Airway is patent. 5. Extensive atherosclerotic disease throughout thoracic and abdominal aorta. 6. Enlarged left thyroid lobe with suggestion of left thyroid lobe nodules and may indicate nodular goiter. Dictated by: Martinez Canada M.D. on 05/05/2020 at 20:07 Approved by: Martinez Canada M.D. on 05/05/2020 at 20:17
[2020-05-05] MEDS: SODIUM CHLORIDE 0.9% 1,000 ML 1000 ML IV (19:28)
[2020-05-05 20:32] LABS: Appearance Urine UA CLOUDY; Bilirubin Urine UA NEGATIVE (NEGATIVE); Color Urine UA YELLOW; Glucose Urine UA NEGATIVE (Negative); Ketones Urine UA NEGATIVE (NEGATIVE); Leukocyte Esterase Urine UA 2+ (NEGATIVE); Nitrite Urine UA POSITIVE (Negative); Occult Blood Urine UA 2+ (Negative); Protein Urine UA TRACE (Negative); Urobilinogen Urine UA 0.2 E.U./dL (0.2)
[2020-05-05 20:43] LABS: Bacteria Urine Many (>30); Culture Indicated Urine Specimen Cultured; RBC Urine 1-5/HPF (0-5/HPF); WBC Urine >100/HPF (0-5/HPF)
[2020-05-05] MEDS: cephALEXin 250 MG PREPACK 1 BOTTLE MISC (22:00)
== END 2020-05-05 22:41 | disposition home or self-care (01) ==
PROVIDERS: Emergency Provider Emergency Medicine; PCP Family Medicine
DX: R33.8 Other retention of urine (principal); K59.00 Constipation, unspecified; E11.9 Type 2 diabetes mellitus without complications; I10 Essential (primary) hypertension
CPT/HCPCS: 36415; 51798; 71260; 74022; 74177; 80053; 81001; 83690; 85025; 87077; 87086; 87186; 96360; 96361; 99284; Q9967

== ENCOUNTER → 2020-05-08 16:46 | Outpatient (CLI) | payer MEDICARE, OTHER, SELFPAY ==
[2020-04-18 09:06] VITALS: BMI 23.8
--- NOTE | 2020-05-08 16:50 | DI.MRI.S_ITS ---
PROCEDURE: MR HEAD/BRAIN WO/W CON INDICATIONS: Leukocytosis, right-sided weakness, diplopia TECHNIQUE: Noncontrast axial T1 spin echo, axial T2 fast spin echo, sagittal and axial FLAIR, coronal T2 fast spin echo, axial gradient echo, axial diffusion and ADC through the brain. After the administration of contrast, axial and coronal 3D VIBE or T1 spin echo with fat saturation through the brain. COMPARISON: None. FINDINGS: Image quality: Excellent. CSF Spaces: Basal cisterns are patent. No extra-axial fluid collections. Ventricles are normal in size and shape. Brain: No midline shift. No intracranial bleeds or masses. No abnormal intracranial enhancement. The brainstem appears normal. Diffusion-weighted images demonstrate no acute ischemic insults. No chronic ischemic insults. Age-related volume loss and mild small vessel ischemic change. Normal intravascular flow voids are present. Skull and face: Calvarial marrow is normal in signal. Orbits appear normal. Sinuses: Sinuses and mastoids appear clear. IMPRESSION: 1. Age related volume loss and mild small vessel ischemic change, within normal limits for patient age. 2. No evidence acute stroke, hemorrhage, or mass. Dictated by: Antonio Dolan M.D. on 05/08/2020 at 21:13 Approved by: Antonio Dolan M.D. on 05/08/2020 at 21:17
== END ==
PROVIDERS: PCP Family Medicine; Referring Provider Internal Medicine; Visit Provider Internal Medicine
DX: D72.820 Lymphocytosis (symptomatic) (principal); H53.2 Diplopia; R63.4 Abnormal weight loss; R53.1 Weakness
CPT/HCPCS: 70553; A9579

== ENCOUNTER 2020-05-09 16:54 | Emergency (ER) | payer MEDICARE, OTHER, SELFPAY ==
[2020-04-18 09:06] VITALS: BMI 23.8
[2020-05-09] VITALS (10 sets, daily range): BP systolic 128–151; BP diastolic 64–79; PULSE 87–125; RESP 16–19; TEMP 35.9–37; O2SAT 95–99; BMI 20.6
[2020-05-09 18:27] LABS: Add Manual Diff / Slide Review NO; Basophils Absolute Auto 100 /uL (0-100); Basophils Percent Auto 0.4 % (0-2); Eosinophils Absolute Auto 200 /uL (0-450); Eosinophils Percent Auto 0.8 % (2-4); Hematocrit 35.8 % (36-46); Hemoglobin 12.1 g/dL (12.0-16.0); Lymphocytes Absolute Auto 10900 /uL (1100-4500); Lymphocytes Percent Auto 54.1 % (25-40); Mean Corpuscular HGB Conc 33.7 % (30-36); Mean Corpuscular Hemoglobin 31.3 PG (26-34); Monocytes Absolute Auto 800 /uL (0-900); Neutrophils Absolute Auto 8200 /uL (1500-7000); Neutrophils Percent Auto 40.7 % (50-75); Platelet Count 246 X10^3/uL (150-400); Red Blood Cell Count 3.85 X10^6/uL (4.0-5.2); Red Cell Distribution Width 14.5 % (11.6-14.8); White Blood Cell Count 20.1 X10^3/uL (4.5-11.0)
--- NOTE | 2020-05-09 18:28 | DI.RAD.S_ITS ---
PROCEDURE: XR ABDOMEN 1V INDICATIONS: abd pain TECHNIQUE: One view of the abdomen acquired. COMPARISON: [facility], CT, CT CHEST ABD PEL W CON, 05/05/2020, 19:43. FINDINGS: Surgical changes and devices: None. Bowel: Bowel gas pattern is nonspecific with gaseous distention of colon in the right upper quadrant. Soft tissues: No suspicious abdominal calcifications. Visualized solid organ contours appear normal in size. Bones: No suspicious bony lesions. IMPRESSION: Nonspecific bowel gas pattern with distention of colon in the right upper quadrant which could be related to redundancy versus less likely volvulus. Recommend CT scan of the abdomen and pelvis with contrast for further evaluation. Dictated by: Tanya Gupta MD, PhD on 05/09/2020 at 18:51 Approved by: Tanya Gupta MD, PhD on 05/09/2020 at 18:53
--- NOTE | 2020-05-09 18:31 | ED.ABDPAIN ---
HPI - Abdominal Pain General Chief Complaint: Abdominal Pain Stated Complaint: IMPACTED GI TRACK Time Seen by Provider: 05/09/20 18:09 Source: patient Mode of arrival: Wheelchair History of Present Illness HPI narrative: Patient here for continued on pain and constipation. Seen here 4 days ago for the same. CT scan chest abdomen pelvis was completed. Suspect rectal mass and also showed constipation fecal impaction. Still not had a bowel movement. At this time primary care has been setting up for GI consult with [facility] as well as with oncology. Has no appetite. Poor oral intake. Has bladder catheter due to retention. Related Data Home Medications Medication Instructions Recorded Confirmed latanoprost 1 drp EYE-BOTH BEDTIME #0 02/18/09 05/06/20 metformin 1,000 mg PO BID #0 02/18/09 05/06/20 multivitamin 1 cap PO DAILY #0 02/18/09 05/06/20 glimepiride 4 mg PO BID 05/16/19 05/06/20 timolol maleate 1 drp EYE-BOTH BID 05/16/19 05/06/20 Trulicity 1.5 mg SUBCUT WEEKLY 09/03/19 05/06/20 hydrochlorothiazide 25 mg tablet 25 mg PO DAILY 04/25/20 05/06/20 levothyroxine 75 mcg tablet 75 mcg PO DAILY 04/25/20 05/06/20 Previous Rx's Medication Instructions Recorded polyethylene glycol 3350 [Miralax] 17 gram PO DAILY PRN #119 gram 09/04/19 lovastatin 40 mg tablet 40 mg PO QPM #90 tab 12/31/19 Disabled Parking Permit #1 ea 04/25/20 cephalexin [Keflex] 500 mg PO QID 7 Days #28 cap 05/05/20 Allergies Allergy/AdvReac Type Severity Reaction Status Date / Time No Known Drug Allergies Allergy Verified 04/25/20 10:00 Review of Systems Review of Systems Narrative: GENERAL: Denies chills, fatigue, malaise, fever, sweats. HEENT: Denies sinus pain, ear pain, sore throat, difficulty swallowing, dizziness. RESPIRATORY: Denies dyspnea, cough, wheezing, hemoptysis, sputum. CARDIOVASCULAR: Denies chest pain, palpitations, orthopnea, edema, GASTROINTESTINAL: Denies nausea, vomiting, complains of abdominal pain, denies diarrhea, complains of constipation, denies melena. : Denies dysuria, frequency, incontinence, hematuria, urinary retention. MUSCULOSKELETAL: denies weakness, joint pain, or bony pain SKIN: Denies rash, skin lesions NEUROLOGIC: Denies weakness, headache, numbness, change in speech, confusion, seizures, incoordination. PSYCHIATRIC: No concerning psychosocial issues. ROS Unobtainable: All systems reviewed & are unremarkable except as noted in HPI and below Patient History Medical History Bladder incontinence (Acute) Diabetes type 2, controlled (Chronic) Excessive daytime sleepiness (Acute) Fatigue (Acute) Hearing aid worn (Chronic) Hypothyroidism (Chronic) Lymphocytosis (symptomatic) (Acute) Unintended weight loss (Acute) Family History Mother Myocardial infarct Father CVA (cerebral vascular accident) Cancer Sister Thyroid disease Cancer Brother Thyroid disease Social History household members: spouse Smoking Status: Never smoker alcohol intake: current Smoking Status: Never smoker alcohol intake frequency: holidays/special occasions only Substance Use Type: does not use Exam Narrative Exam Narrative: GENERAL: patient appears stated age. Well-nourished, well-developed patient, in no distress, not toxic HEAD: Atraumatic. Normocephalic. EYES: Pupils equal round and reactive. Extraocular motions intact. No scleral icterus. No injection or drainage. ENT: Nose without bleeding, purulent drainage. Throat without erythema, tonsillar hypertrophy or exudate. Airway patent. NECK: Trachea midline. Non tender CARDIOVASCULAR: Regular rate and rhythm without murmurs, gallops, or rubs. RESPIRATORY: Clear to auscultation. Breath sounds equal bilaterally. No wheezes, rales, or rhonchi. GASTROINTESTINAL: Abdomen soft, decreased bowel sounds. Diffuse tenderness. No peritoneal signs, nondistended. EXTREMITIES: No edema or joint tenderness. BACK: Nontender without deformity or crepitance. No flank tenderness. NEURO: AOx4. SKIN: No rash or erythema of visible areas PSYCH: Not anxious, is cooperative Initial Vital Signs Initial Vital Signs: Vital Signs Temperature 96.6 F L 05/09/20 17:02 Pulse Rate 107 H 05/09/20 17:02 Respiratory Rate 18 09/25/20 17:02 Blood Pressure 137/79 05/09/20 17:02 Pulse Oximetry 99 05/09/20 17:02 Course Course Course Narrative: No new issues while here. Repeating EKG as artifact on the original EKG. No history atrial fibrillation. I do see P waves on the 1st EKG. Orders Ordered: ED Orders 05/09/20 18:12 Complete Blood Count AUTO DIFF Stat Comprehensive Metabolic Panel Stat Lipase Stat Partial Thromboplastin Time Stat Prothrombin Time INR Stat 05/09/20 18:28 XR abdomen 1V Stat 05/09/20 19:11 EKG-12 Lead Stat 05/09/20 20:00 COVID19 -ED/INPAT/OR/L&D Stat Discontinued Medications Sodium Chloride (Normal Saline 0.9%) 1,000 mls @ 1,000 mls/hr IV BOLUS ONE Stop: 05/09/20 19:27 Last Admin: 05/09/20 19:14 Dose: 1,000 mls/hr Documented by: EFRAÍN Reevaluation(s) Reevaluation #1: Spoke with patient and regarding results. At this time holding on enemas or laxatives until repeat CT scan to be completed. Our CAT scan machine is inoperable. The surfaces that she needs is best suited at [facility]. The agree with plan for transfer Time: 19:19 Consultations Consultation #1: Spoke with [facility] Dr. Munguia, agrees patient would likely benefit transferred to [facility]. Hold on an until CT scan repeated to evaluate for volvulus Time: 19:11 Consultation #2: Spoke with Dr. Cooley, hospitalist [facility] will accept patient Time: 19:41 Vital Signs Vital signs: Vital Signs - 8 hr 05/09/20 18:25 05/09/20 18:30 05/09/20 18:52 Temperature Pulse Rate 99 H 95 H 97 H Respiratory Rate 18 18 19 Blood Pressure 133/73 132/68 Pulse Oximetry 99 98 97 05/09/20 19:00 05/09/20 19:30 05/09/20 20:00 Temperature Pulse Rate 96 H 125 H 92 H Respiratory Rate 17 17 19 Blood Pressure 128/72 134/67 151/67 H Pulse Oximetry 96 96 97 05/09/20 20:30 05/09/20 21:00 05/09/20 21:40 Temperature 98.6 F Pulse Rate 91 H 89 87 Respiratory Rate 19 18 16 Blood Pressure 136/74 136/64 136/69 Pulse Oximetry 95 95 97 MDM - Abdominal Pain Differential Diagnosis Differential diagnosis: Likely abdominal pain and other (Constipation/obstipation/fecal impaction/rectal mass) Medical Records Attestation: I reviewed the patient's medical records. Lab Data Attestation: I reviewed the patient's lab results. Result diagrams: 05/09/20 18:12 05/09/20 18:12 Labs: Lab Results 05/09/20 05/09/20 05/09/20 Range/Units 18:12 18:12 18:12 WBC 20.1 H (4.5-11.0) X10^3/uL RBC 3.85 L (4.0-5.2) X10^6/uL Hgb 12.1 (12.0-16.0) g/dL Hct 35.8 L (36-46) % MCV 93.0 (80-100) fL MCH 31.3 (26-34) PG MCHC 33.7 (30-36) % RDW 14.5 (11.6-14.8) % Plt Count 246 (150-400) X10^3/uL Neut % (Auto) 40.7 L (50-75) % Lymph % (Auto) 54.1 H (25-40) % [place] % (Auto) 4.0 (3-14) % Eos % (Auto) 0.8 L (2-4) % Baso % (Auto) 0.4 (0-2) % Neut # (Auto) 8200 H (4831-4362) /uL Lymph # (Auto) 50775 H (7853-7056) /uL [place] # (Auto) 800 (0-900) /uL Eos # (Auto) 200 (0-450) /uL Baso # (Auto) 100 (0-100) /uL PT 11.8 (10.1-12.7) SECONDS INR 1.0 (0.9-1.3) APTT 30 (26.4-36.2) SECONDS Sodium 139 (137-145) mmol/L Potassium 4.9 (3.4-5.1) mmol/L Chloride 102 (98-107) mmol/L Carbon Dioxide 31 (22-32) mmol/L BUN 21 H (7-17) mg/dL Creatinine 1.02 (0.52-1.04) mg/dL Estimated GFR 53.0 L (>60) mL/min BUN/Creatinine Ratio 20.6 (6-22) Glucose 127 H (80-110) mg/dL Calcium 9.5 (8.4-10.2) mg/dL Total Bilirubin 0.8 (0.2-1.3) mg/dL AST 20 (14-36) IU/L ALT 17 (<35) IU/L Alkaline Phosphatase 82 (38-126) U/L Total Protein 6.5 (6.3-8.2) g/dL Albumin 3.6 (3.5-5.0) g/dL Globulin 2.9 (1.7-4.1) g/dL Albumin/Globulin Ratio 1.2 (1.0-2.8) Lipase 142 (23-300) U/L COVID-19 PCR (Negative) 05/09/20 Range/Units 20:00 WBC (4.5-11.0) X10^3/uL RBC (4.0-5.2) X10^6/uL Hgb (12.0-16.0) g/dL Hct (36-46) % MCV (80-100) fL MCH (26-34) PG MCHC (30-36) % RDW (11.6-14.8) % Plt Count (150-400) X10^3/uL Neut % (Auto) (50-75) % Lymph % (Auto) (25-40) % [place] % (Auto) (3-14) % Eos % (Auto) (2-4) % Baso % (Auto) (0-2) % Neut # (Auto) (8543-0853) /uL Lymph # (Auto) (7336-8903) /uL [place] # (Auto) (0-900) /uL Eos # (Auto) (0-450) /uL Baso # (Auto) (0-100) /uL PT (10.1-12.7) SECONDS INR (0.9-1.3) APTT (26.4-36.2) SECONDS Sodium (137-145) mmol/L Potassium (3.4-5.1) mmol/L Chloride (98-107) mmol/L Carbon Dioxide (22-32) mmol/L BUN (7-17) mg/dL Creatinine (0.52-1.04) mg/dL Estimated GFR (>60) mL/min BUN/Creatinine Ratio (6-22) Glucose (80-110) mg/dL Calcium (8.4-10.2) mg/dL Total Bilirubin (0.2-1.3) mg/dL AST (14-36) IU/L ALT (<35) IU/L Alkaline Phosphatase (38-126) U/L Total Protein (6.3-8.2) g/dL Albumin (3.5-5.0) g/dL Globulin (1.7-4.1) g/dL Albumin/Globulin Ratio (1.0-2.8) Lipase (23-300) U/L COVID-19 PCR Negative (Negative) Imaging Data Abdominal x-ray: Radiologist's Impression: [address] [address] XRay Report Signed Patient: Jennifer Tubbs FMR#: [id number] : 6Acct:[id number] Age/Sex: 74 / FDate of Service: 05/09/20 Loc: ED Accession Number: [id number] Procedure: XR abdomen 1V Ordering Provider: Dilip Bhatt MD PROCEDURE: XR ABDOMEN 1V INDICATIONS: abd pain TECHNIQUE: One view of the abdomen acquired. COMPARISON: [facility], CT, CT CHEST ABD PEL W CON, 05/05/2020, 19:43. FINDINGS: Surgical changes and devices: None. Bowel: Bowel gas pattern is nonspecific with gaseous distention of colon in the right upper quadrant. Soft tissues: No suspicious abdominal calcifications. Visualized solid organ contours appear normal in size. Bones: No suspicious bony lesions. IMPRESSION: Nonspecific bowel gas pattern with distention of colon in the right upper quadrant which could be related to redundancy versus less likely volvulus. Recommend CT scan of the abdomen and pelvis with contrast for further evaluation. Dictated by: Tanya Gupta MD, PhD on 05/09/2020 at 18:51 Approved by: Tanya Gupta MD, PhD on 05/09/2020 at 18:53 ECG Data Attestation: I personally reviewed and interpreted this ECG as follows: Interpretation: First EKG reads as atrial fibrillation. I disagree. P waves present. Ventricular rate 91. Repeat EKG at 7:14 p.m. shows normal sinus rhythm rate 95. No ST elevation. MDM Narrative Medical decision making narrative: Will need to transfer to [facility]. Needs GI as well as Oncology as well as CT scan. CT scan machine is broken here today. Discharge Plan Departure Patient Disposition: [facility] Clinical Impression: Abdominal pain Qualifiers: Abdominal location: generalized Qualified Code(s): R10.84 - Generalized abdominal pain Discharge Date/Time: 05/09/20 21:44 Prescriptions: No Action latanoprost 0.005 % Drops 1 drp EYE-BOTH BEDTIME Qty: 0 RF: 0 metformin 1,000 mg Tablet 1,000 mg PO BID Qty: 0 RF: 0 multivitamin Capsule 1 cap PO DAILY Qty: 0 RF: 0 lovastatin 40 mg tablet 40 mg PO QPM Qty: 90 RF: 1 levothyroxine 75 mcg tablet 75 mcg PO DAILY RF: 0 hydrochlorothiazide 25 mg tablet 25 mg PO DAILY RF: 0 Hold Instructions: per ([facility]) Disabled Parking Permit Qty: 1 RF: 0 Trulicity 1.5 mg/0.5 mL Pen Injector 1.5 mg SUBCUT WEEKLY RF: 0 polyethylene glycol 3350 [Miralax] 17 gram/dose powder 17 gram PO DAILY PRN (Reason: constipation) Qty: 119 RF: 0 cephalexin [Keflex] 500 mg capsule 500 mg PO QID 7 Days Qty: 28 RF: 0 timolol maleate 0.25 % Drops 1 drp EYE-BOTH BID RF: 0 glimepiride 4 mg Tablet 4 mg PO BID RF: 0 Referrals: Wicho Lock DO [Primary Care Provider] -
[2020-05-09 18:34] LABS: Prothrombin Time 11.8 SECONDS (10.1-12.7)
[2020-05-09 18:37] LABS: PTT Partial Thromboplastin Tim 30 SECONDS (26.4-36.2)
[2020-05-09 18:40] LABS: Alanine Aminotransferase 17 IU/L (<35); Albumin 3.6 g/dL (3.5-5.0); Albumin Globulin Ratio 1.2 (1.0-2.8); Alkaline Phosphatase 82 U/L (38-126); Aspartate Aminotransferase 20 IU/L (14-36); BUN Creatinine Ratio 20.6 (6-22); Bilirubin Total 0.8 mg/dL (0.2-1.3); Blood Urea Nitrogen 21 mg/dL (7-17); Calcium 9.5 mg/dL (8.4-10.2); Carbon Dioxide 31 mmol/L (22-32); Chloride 102 mmol/L (98-107); Globulin 2.9 g/dL (1.7-4.1); Glucose 127 mg/dL (80-110); HEMOLYSIS < 15 (0-50); Lipase 142 U/L (23-300); Potassium 4.9 mmol/L (3.4-5.1); Sodium 139 mmol/L (137-145); Total Protein 6.5 g/dL (6.3-8.2)
[2020-05-09] MEDS: SODIUM CHLORIDE 0.9% 1,000 ML 1000 ML IV (19:14)
[2020-05-09 20:35] LABS: COVID19 -Nasal RAPID Negative (Negative)
== END 2020-05-09 21:44 | disposition short-term general hospital (02) ==
PROVIDERS: Emergency Medicine; Emergency Provider Emergency Medicine; PCP Family Medicine
DX: R10.84 Generalized abdominal pain (principal)
CPT/HCPCS: 36415; 74018; 80053; 83690; 85025; 85610; 85730; 87635; 93005; 96360; 99284

== ENCOUNTER → 2020-05-22 12:55 | Outpatient (CLI) | payer MEDICARE, OTHER, SELFPAY ==
[2020-04-18 09:06] VITALS: BMI 23.8
--- NOTE | 2020-05-22 13:00 | DI.US.S_ITS ---
PROCEDURE: US RENAL COMPLETE INDICATIONS: hx of urinary retention TECHNIQUE: Real-time scanning was performed of the kidneys and bladder, with image documentation. COMPARISON: [facility], , RENAL COMPLETE, 09/04/2019, 8:59. FINDINGS: Kidneys: Kidneys are normal in size. Right kidney measures 10.4 cm long; left kidney measures 9.9 cm long. Right renal cortical thickness is 1.7 cm; left renal cortical thickness is 1.9 cm. Renal cortical echotexture is normal. No hydronephrosis or nephrolithiasis. No suspicious solid mass lesions. Multiple bilateral renal cysts. Largest cyst in the right kidney measures 2.0 x 1.5 x 1.5 centimeters. Largest cyst in the left kidney measures 2.2 x 1.9 x 2.4 centimeters. Bladder: Pre-void bladder volume is 682 mL. Post-void residual is 679 mL. Pre-void images demonstrate no intraluminal masses or stones. Urinary bladder wall is diffusely thickened to 5.7 millimeters. On pre-void images, both the right and left ureteral jets are noted with color Doppler interrogation. (Of note, ureteral jets may not be detectable in up to 25% of cases due to insufficient differences in specific gravity between ureteral and bladder urine). Miscellaneous: No free pelvic fluid. IMPRESSION: 1. Bilateral renal cysts. 2. Large postvoid residual urinary bladder volume of 679 milliliters. 3. Diffuse urinary bladder wall thickening which could be due to chronic inflammatory process versus infiltrating neoplasm. Dictated by: Tanya Gupta MD, PhD on 05/22/2020 at 15:35 Approved by: Tanya Gupta MD, PhD on 05/22/2020 at 15:37
== END ==
PROVIDERS: PCP Family Medicine; Referring Provider Family Medicine; Visit Provider Family Medicine
DX: R32 Unspecified urinary incontinence (principal); N28.1 Cyst of kidney, acquired; Z87.898 Personal history of other specified conditions
CPT/HCPCS: 76770

== ENCOUNTER 2020-05-22 18:11 | Emergency (ER) | payer MEDICARE, OTHER, SELFPAY ==
[2020-04-18 09:06] VITALS: BMI 23.8
[2020-05-22 18:15] VITALS: BP 119/58; PULSE 81; RESP 15; TEMP 37.1; O2SAT 99; BMI 21.4
[2020-05-22 20:18] VITALS: BP 130/60; O2SAT 100
[2020-05-22 20:30] VITALS: BP 128/63; PULSE 85; O2SAT 100
[2020-05-22 20:39] LABS: Appearance Urine UA CLOUDY; Bilirubin Urine UA NEGATIVE (NEGATIVE); Color Urine UA YELLOW; Glucose Urine UA NEGATIVE (Negative); Ketones Urine UA NEGATIVE (NEGATIVE); Leukocyte Esterase Urine UA 2+ (NEGATIVE); Nitrite Urine UA POSITIVE (Negative); Occult Blood Urine UA 1+ (Negative); Protein Urine UA TRACE (Negative); Urobilinogen Urine UA 0.2 E.U./dL (0.2)
[2020-05-22 20:41] LABS: pH Urine UA 6.5 (4.5-8.0)
[2020-05-22 20:44] LABS: Amorphous Sediment Urine 1+; Bacteria Urine Many (>30); Culture Indicated Urine Specimen Cultured; RBC Urine 1-5/HPF (0-5/HPF); Squamous Epithelial Cell Urine 0-1 /HPF (0-5/HPF); WBC Urine >100/HPF (0-5/HPF)
--- NOTE | 2020-05-22 21:10 | ED.FEMALEGU ---
HPI - Female Genitourinary General Chief complaint: Urogenital-Female Stated complaint: Urinary retention, renal US 100% full,cant void Time Seen by Provider: 05/22/20 20:20 Source: patient and family Mode of arrival: Wheelchair Limitations: no limitations History of Present Illness HPI Narrative: Patient has had ongoing decreased urination output. Ultrasound done today. See report below. Also seen by Oncology yesterday. See report below. Has relief with Flor catheter placed. Had seen Neurology in [place] in the past dr garcia. Has a new urology locally however not tell and of the month. Urine culture from May 05, 2020 below. [facility] CLIA ID [id number] [address] [place] [id number] RUN DATE: 05/22/20 Specimen Inquiry PAGE 1 RUN TIME: 2111 Name: Jennifer Tubbs Age/Sex: 74/F Attend Dr: James Campos D.O. Unit#: [id number] : 1945Location: ED Re05/05/20 Disch: Status: DEP ER SPEC #: [id number] LOUIE: 05/05/20 STATUS: COMP REQ #: [id number] SPDESC: RECD: 05/05/20 [facility] DR: James Campos D.O. SOURCE: UA Reflex ENTR: 05/05/[address]: Wicho Lock D.O. FAX TO: ORDERED: URINE CULTURE Procedure Result Verified Site Urine Culture Final 05/07/20 Organism 1 Citrobacter freundii [place] Count >100,000 CFU/ml 1. Citrobacter freundii M.I.C. RX --------- --- * Amoxicillin/Clavulanate R * Cefazolin R * Cefepime S * Ceftriaxone I * Ciprofloxacin S * Ertapenem S * Gentamicin S * Imipenem S * Levofloxacin S * Nitrofurantoin S * Tobramycin S * Trimethoprim/Sulfamethoxazole S * Piperacillin/Tazobactam R END OF REPORT [address] [address] Ultrasound Report Signed Patient: Jennifer Tubbs FMR#: [id number] : 6Acct:[id number] Age/Sex: 74 / FDate of Service: 05/22/20 Loc: US Accession Number: [id number] Procedure: US renal complete Ordering Provider: Wicho Lock D.O. PROCEDURE: US RENAL COMPLETE INDICATIONS: hx of urinary retention TECHNIQUE: Real-time scanning was performed of the kidneys and bladder, with image documentation. COMPARISON: [facility], RENAL COMPLETE, 09/04/2019, 8:59. FINDINGS: Kidneys: Kidneys are normal in size. Right kidney measures 10.4 cm long; left kidney measures 9.9 cm long. Right renal cortical thickness is 1.7 cm; left renal cortical thickness is 1.9 cm. Renal cortical echotexture is normal. No hydronephrosis or nephrolithiasis. No suspicious solid mass lesions. Multiple bilateral renal cysts. Largest cyst in the right kidney measures 2.0 x 1.5 x 1.5 centimeters. Largest cyst in the left kidney measures 2.2 x 1.9 x 2.4 centimeters. Bladder: Pre-void bladder volume is 682 mL. Post-void residual is 679 mL. Pre-void images demonstrate no intraluminal masses or stones. Urinary bladder wall is diffusely thickened to 5.7 millimeters. On pre-void images, both the right and left ureteral jets are noted with color Doppler interrogation. (Of note, ureteral jets may not be detectable in up to 25% of cases due to insufficient differences in specific gravity between ureteral and bladder urine). Miscellaneous: No free pelvic fluid. IMPRESSION: 1. Bilateral renal cysts. 2. Large postvoid residual urinary bladder volume of 679 milliliters. 3. Diffuse urinary bladder wall thickening which could be due to chronic inflammatory process versus infiltrating neoplasm. Dictated by: Tanya Gupta MD, PhD on 05/22/2020 at 15:35 Approved by: Tanya Gupta MD, PhD on 05/22/2020 at 15:37 Complaint: UTI Related Data Home Medications Medication Instructions Recorded Confirmed latanoprost 1 drp EYE-BOTH BEDTIME #0 02/18/09 05/20/20 metformin 1,000 mg PO BID #0 02/18/09 05/20/20 multivitamin 1 cap PO DAILY #0 02/18/09 05/20/20 glimepiride 4 mg PO BID 05/16/19 05/20/20 Trulicity 1.5 mg SUBCUT WEEKLY 09/03/19 05/20/20 levothyroxine 75 mcg tablet 75 mcg PO DAILY 04/25/20 05/20/20 probiotic PO 05/20/20 Previous Rx's Medication Instructions Recorded polyethylene glycol 3350 [Miralax] 17 gram PO DAILY PRN #119 gram 09/04/19 lovastatin 40 mg tablet 40 mg PO QPM #90 tab 12/31/19 Disabled Parking Permit #1 ea 04/25/20 nitrofurantoin monohyd/m-cryst 100 mg PO BID #14 cap 05/22/20 [Macrobid] Allergies Allergy/AdvReac Type Severity Reaction Status Date / Time No Known Drug Allergies Allergy Verified 05/22/20 18:20 Review of Systems Review of Systems Narrative: GENERAL: Denies chills, fatigue, malaise, fever, sweats. HEENT: Denies sinus pain, ear pain, sore throat, difficulty swallowing, dizziness. RESPIRATORY: Denies dyspnea, cough, wheezing, hemoptysis, sputum. CARDIOVASCULAR: Denies chest pain, palpitations, orthopnea, edema, GASTROINTESTINAL: Denies nausea, vomiting, abdominal pain, diarrhea, constipation, melena. : Denies dysuria, frequency, incontinence, hematuria, complains of urinary retention. MUSCULOSKELETAL: denies weakness, joint pain, or bony pain SKIN: Denies rash, skin lesions NEUROLOGIC: Denies weakness, headache, numbness, change in speech, confusion, seizures, incoordination. PSYCHIATRIC: No concerning psychosocial issues. ROS Unobtainable: All systems reviewed & are unremarkable except as noted in HPI and below Patient History Medical History Bladder incontinence (Acute) Constipation, chronic (Acute) Diabetes type 2, controlled (Chronic) Excessive daytime sleepiness (Acute) Fatigue (Acute) Hearing aid worn (Chronic) Hypothyroidism (Chronic) Lymphocytosis (symptomatic) (Acute) Unintended weight loss (Acute) Urinary retention with incomplete bladder emptying (Acute) Family History Mother Myocardial infarct Father CVA (cerebral vascular accident) Cancer Sister Thyroid disease Cancer Brother Thyroid disease alcohol intake frequency: holidays/special occasions only Substance Use Type: does not use Exam Narrative Exam Narrative: GENERAL: patient appears stated age. Well-nourished, well-developed patient, in no distress, not toxic HEAD: Atraumatic. Normocephalic. GASTROINTESTINAL: Abdomen soft, non-tender, nondistended. BACK: Nontender without deformity or crepitance. No flank tenderness. NEURO: AOx4. PSYCH: Not anxious, is cooperative Initial Vital Signs Initial Vital Signs: Vital Signs Temperature 98.7 F 05/22/20 18:15 Pulse Rate 81 05/22/20 18:15 Respiratory Rate 15 05/22/20 18:15 Blood Pressure 119/58 L 05/22/20 18:15 Pulse Oximetry 99 05/22/20 18:15 Course Orders Ordered: ED Orders 05/22/20 20:32 Urinalysis and Microscopic Stat Urine Culture Stat Reevaluation(s) Reevaluation #1: Feels relief with Flor catheter. Reviewed results with patient and . They agree with follow-up with Dr. Voss Time: 21:24 Vital Signs Vital signs: Vital Signs - 8 hr 05/22/20 18:15 05/22/20 20:18 05/22/20 20:30 Temperature 98.7 F Pulse Rate 81 85 Respiratory Rate 15 Blood Pressure 119/58 L 130/60 128/63 Pulse Oximetry 99 100 100 MDM - Female Genitourinary Differential Diagnosis Differential diagnosis: Likely urinary tract infection and other (Urinary retention) Medical Records Attestation: I reviewed the patient's medical records. Medical records narrative: Ms. Tubbs has a lymphocytosis dating back to and a leukocytosis dating to August of 2019. She has a strong family history of chronic lymphocytic leukemia. 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 I explained to her this is a form of cancer. We do not need to treated just because it is there. Rather, therapy would be initiated if an indication for treatment were to arise. By far the most common indication for treatment is low blood counts including neutropenia, anemia and thrombocytopenia. Symptomatic organomegaly parentheses lymphadenopathy or splenomegaly) would also be a potential indication for therapy. Constitutional symptoms can occur with CLL, but are rare in isolation. In the absence of any other indication for treatment, I do not think her current symptoms are related to her chronic lymphocytic leukemia. We also reviewed the fact that in patients who present without an indication for treatment, the average time to require treatment is measured in years as opposed to months. We will send a CLL fish to confirm that there is no mantle cell lymphoma related translocation. Will also check an IgG level since she has had problems with recurrent urinary tract infections. On the assumption that the studies will be unrevealing, will plan to get her back here for follow-up in about 3 months with a blood count and chemistry panel prior. We would watch her off treatment unless she developed a standard indication for therapy. I also explained that as time goes by, if her condition remains stable, we would typically lengthen the follow-up interval. Impression: 1. Lymphocytosis dating to 2015, leukocytosis dating to August of 2019 with preservation of what red cells and platelets, small right mid cervical lymph node, but no other organomegaly noted on exam or CT scan of the chest, abdomen and pelvis 2. Strong family history of chronic lymphocytic leukemia 3. Progressive and severe constitutional symptoms as outlined above 4. Focal neurologic exam with diplopia on extreme left lateral gaze and right-sided weakness and decreased coordination in a right-handed patient with negative MRI 5. Flow cytometry confirms CLL/SLL Recommendations: 1. CLL fish 2. IgG level 3. Follow-up in 3 months with CBC and CMP prior 4. She will be watched off treatment unless she develops a standard indication to initiate therapy Signed By:<Electronically signed by Sander Pérez MD>05/21/20 4399 Lab Data Attestation: I reviewed the patient's lab results. Labs: Lab Results 05/22/20 Range/Units 20:32 Urine Color Yellow Urine Appearance Cloudy Urine pH 6.5 (4.5-8.0) Ur Specific [place] 1.010 (1.000-1.035) Urine Protein Trace H (Negative) Urine Glucose (UA) Negative (Negative) g/dL Urine Ketones Negative (NEGATIVE) Urine Occult Blood 1+ H (Negative) Urine Nitrate Positive H (Negative) Urine Bilirubin Negative (NEGATIVE) Urine Urobilinogen 0.2 (0.2) E.U./dL Ur Leukocyte Esterase 2+ H (NEGATIVE) Urine RBC 1-5/hpf (0-5/HPF) Urine WBC >100/hpf H (0-5/HPF) Ur Squamous Epith Cells 0-1 /hpf (0-5/HPF) Amorphous Sediment 1+ Urine Bacteria Many (>30) H (None) Ur Culture Indicated? Specimen cultured MDM Narrative Medical decision making narrative: Will start patient on antibiotics. Patient does have urology services. Appropriate for discharge home. 650 mL of urine in the Flor bag Discharge Plan Departure Patient Disposition: Home Clinical Impression: Urinary retention with incomplete bladder emptying Instructions: How to Care for Your Flor Catheter -- Female, DI for Urinary Retention in Women Activity Restrictions/Additional Instructions: Called provided urology office in the morning for office recheck next week. Return if worse or if any questions or concerns. Flor catheter bag to remain in place until instructed by urologist. Prescription has been sent to [facility] Prescriptions: New nitrofurantoin monohyd/m-cryst [Macrobid] 100 mg capsule 100 mg PO BID Qty: 14 RF: 0 No Action latanoprost 0.005 % Drops 1 drp EYE-BOTH BEDTIME Qty: 0 RF: 0 metformin 1,000 mg Tablet 1,000 mg PO BID Qty: 0 RF: 0 multivitamin Capsule 1 cap PO DAILY Qty: 0 RF: 0 lovastatin 40 mg tablet 40 mg PO QPM Qty: 90 RF: 1 levothyroxine 75 mcg tablet 75 mcg PO DAILY RF: 0 (DME) Disabled Parking Permit Qty: 1 RF: 0 probiotic PO RF: 0 Trulicity 1.5 mg/0.5 mL Pen Injector 1.5 mg SUBCUT WEEKLY RF: 0 polyethylene glycol 3350 [Miralax] 17 gram/dose powder 17 gram PO DAILY PRN (Reason: constipation) Qty: 119 RF: 0 glimepiride 4 mg Tablet 4 mg PO BID RF: 0 Referrals: Meenakshi Garcia MD [Non-Staff] - Wicho Lock DO [Primary Care Provider] -
[2020-05-22] MEDS: NITROFURANTOIN ER 100 MG CAPSULE PO (21:23)
[2020-05-22 21:34] VITALS: BP 132/63; PULSE 87; RESP 16; O2SAT 98
== END 2020-05-22 21:30 | disposition home or self-care (01) ==
PROVIDERS: Emergency Medicine; Emergency Provider Emergency Medicine; PCP Family Medicine
DX: R33.8 Other retention of urine (principal); R32 Unspecified urinary incontinence; N28.1 Cyst of kidney, acquired; Z87.898 Personal history of other specified conditions
CPT/HCPCS: 51701; 76770; 81001; 87077; 87086; 87186; 99283; 99284

== ENCOUNTER → 2020-07-23 15:05 | Outpatient (CLI) | payer MEDICARE, OTHER, SELFPAY ==
[2020-06-10 12:01] VITALS: BMI 23.8
[2020-07-23 16:12] LABS: Bacteria Urine None Seen; RBC Urine None Seen (0-5/HPF); WBC Urine None Seen (0-5/HPF)
[2020-07-23 16:22] LABS: Appearance Urine UA SL CLOUDY; Bilirubin Urine UA NEGATIVE (NEGATIVE); Color Urine UA YELLOW; Glucose Urine UA NEGATIVE (Negative); Ketones Urine UA NEGATIVE (NEGATIVE); Leukocyte Esterase Urine UA NEGATIVE (NEGATIVE); Nitrite Urine UA NEGATIVE (Negative); Occult Blood Urine UA NEGATIVE (Negative); Protein Urine UA NEGATIVE (Negative); Specific Gravity Urine UA 1.015 (1.000-1.035); Urobilinogen Urine UA 0.2 E.U./dL (0.2)
[2020-07-23 16:26] LABS: Amorphous Sediment Urine 1+; Culture Indicated Urine Cult Not Indicated
== END ==
PROVIDERS: PCP Family Medicine; Referring Provider Family Medicine; Visit Provider Family Medicine
DX: R35.0 Frequency of micturition (principal)
CPT/HCPCS: 81001

== ENCOUNTER → 2020-09-02 16:00 | Oncology outpatient (ONC) | payer MEDICARE, OTHER, SELFPAY ==
[2020-04-18 09:06] VITALS: BMI 23.8
--- NOTE | 2020-04-30 10:47 | ONC.MSW ---
Description: New Referral Navigation T/C Reason for Referral: Lymphocytosis (symptomatic), Abnormal Weight Loss, Hypersomnia Activity: Called and spoke with pt's spouse to confirm that we've received the referral, assessed medical status and immediate needs, and introduced myself as the DIRECTOR TALENT MANAGEMENT/[employer]ORALES. Pt just recently established with Dr. Lock at [facility], and was immediately referred after having an abnormal CBC. Patient has reportedly become very debilitated, has lost 30-lbs in the last 2-months, and is sleeping approximately 16-hours per day. She also has had 2-episodes of being so sick that she was brought in to the ER, however no clear diagnosis has been made. Spouse states that they are both feeling scared and anxious in getting this news on their fist provider visit. DIRECTOR TALENT MANAGEMENT offered emotional and coping support, and well as education re: what to expect with their first visit here. Confirmed initial consult time for 05/06 at 11:00am.
[2020-05-06 11:37] VITALS: BP 95/58; PULSE 83; RESP 18; TEMP 36.8; O2SAT 100
--- NOTE | 2020-05-06 13:16 | ONC.CONS ---
History of Present Illness - Data of Consult Requesting Physician: Dr. Lock Primary Care Provider: Wicho Lock, DO - Consult Narrative Narrative: Jennifer Tubbs is a 74 year old female referred for further evaluation of leukocytosis and constitutional symptoms. Review of her records shows that in May of 2016 she had a white count of 8700 with 56% lymphocytes. Hemoglobin, platelets, and absolute neutrophil count were all normal at that time. In August of 2019 she presented with mental status changes and vomiting. Blood count at that time showed hemoglobin of 13.5 hematocrit 38 platelets a [id number] white count 11922 with an absolute lymphocyte ptosis of 9300 and smudge cells present. A renal ultrasound showed fatty infiltration of the liver but no hydronephrosis. Head CT scan and neck CT scan were negative. Echocardiogram was normal. In September of [address] scan of the abdomen pelvis that was negative. On April [address] Duncan with a hemoglobin of 13.4 hematocrit 38.7 platelets [id number] white count 96569 with 56% lymphocytes (19% atypical lymphocytes), smudge cells, a negative ESTEPHANIA, estrogen level of 71, a low TSH of 0.059, an elevated T4 2.78, hemoglobin A1c of 6.5%, potassium 3.2 BUN 29 creatinine 1.36. She was in the emergency room yesterday with urinary retention. At that time she had hemoglobin of 12.6 hematocrit 37.3 platelets [id number] with 43% lymphocytes and absolute lymphocytes and smudge cells present. Repeat creatinine was 1.10. She had a CT scan of the chest, abdomen and pelvis done that showed possible rectal wall thickening. Of note is that she had a negative colonoscopy in May of 2019. Because of her leukocytosis she is now referred for hematology consultation. Review of systems is remarkable for low back pain. This has been present for years. It is typically worse when she stands or thick over a bump on the riding in the car. It does not radiate. It has become progressively worse over the last 3-6 months and she now has trouble standing up straight as a consequence of this. She sometimes wakes up with pain but does not feel like it is the pain itself that makes her wake up. There is no associated numbness or tingling. She does not have any Clif in a shins or burning quality to the pain. She also has had a 30-35 lb weight loss over the last 6 months. This is accompanied by anorexia. She has noted some blurry vision for which she has seen Dr. Kristine lopez and is on drops for glaucoma. She has had a cough for 6-12 months that is been nonproductive but she has not been short of breath. She feels generally dizzy and lightheaded. She has not had any recent falls although she notes that she trips occasionally. She has been quite constipated and has some episodic abdominal pain. She has had urinary incontinence and was found to have urinary retention at the emergency room yesterday. She has a urology appointment pending. She has a bladder catheter in place. She was previously seen by Urology in [place] and advised to undergo physical therapy for her urinary retention. She does not think she had an MRI scan as part of that workup. She feels generally weak and tired. She feels like her right side is weaker than her left side. She is right handed. She has had some trouble concentrating and some trouble with short-term memory. She denies any itching, lumps or bumps, fever, chills, night sweats, nausea, vomiting, diarrhea, bleeding from anywhere, mouth sores, trouble swallowing, orthostatic dizziness. All other systems are negative. Past medical history 1. Family history is remarkable for her father, sister, and brother all diagnosed with chronic lymphocytic leukemia. Her maternal grandmother was diagnosed with colon cancer. A cousin had melanoma. 2. Previous surgeries include a tonsillectomy, 2 sections, tubal ligation, cataract extractions, thyroid surgery in left knee surgery. 3. No known drug allergies 4. Current medications include glimepiride 4 mg twice a day, ANTONIO mehta 0 ProStat I drops, Synthroid 0.075 mg daily, lovastatin 40 mg daily, metformin a 1000 mg twice a day, multiple vitamin, as needed MiraLax, timolol eyedrops, and Trulicity 1.5 mg subcutaneously once a week. She was also started on Keflex 500 mg 4 times a day for 7 days yesterday when she was in the emergency room due to a urinary tract infection. 5. Recent urinary tract infection, diagnosed yesterday, on antibiotics 6. Adult onset diabetes 7. Hypothyroidism, on replacement 8. She denies high blood pressure, diabetes, rheumatic fever, tuberculosis, heart attacks, strokes, stomach ulcers, pneumonia or any kind of cancer 9. Presbycusis 10. Hyperlipidemia 11. She is accompanied by is very supportive. Her daughter is also supportive in his on the phone. She is not a smoker or drinker. 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 CC: Sander Pérez MD Home Medications and Allergies Home Medications Medication Instructions Recorded Confirmed Type latanoprost 1 drp EYE-BOTH BEDTIME #0 02/18/09 05/06/20 History metformin 1,000 mg PO BID #0 02/18/09 05/06/20 History multivitamin 1 cap PO DAILY #0 02/18/09 05/06/20 History glimepiride 4 mg PO BID 05/16/19 05/06/20 History timolol maleate 1 drp EYE-BOTH BID 05/16/19 05/06/20 History Trulicity 1.5 mg SUBCUT WEEKLY 09/03/19 05/06/20 History polyethylene glycol 3350 [Miralax] 17 gram PO DAILY PRN #119 gram 09/04/19 05/06/20 Rx lovastatin 40 mg tablet 40 mg PO QPM #90 tab 12/31/19 05/06/20 Rx Disabled Parking Permit #1 ea 04/25/20 05/06/20 Rx hydrochlorothiazide 25 mg tablet 25 mg PO DAILY 04/25/20 05/06/20 History levothyroxine 75 mcg tablet 75 mcg PO DAILY 04/25/20 05/06/20 History cephalexin [Keflex] 500 mg PO QID 7 Days #28 cap 05/05/20 05/06/20 Rx Allergies Allergy/AdvReac Type Severity Reaction Status Date / Time No Known Drug Allergies Allergy Verified 04/25/20 10:00 Medical History - Medical, Surgical, Family History Medical History: Medical History (Last Reviewed 05/05/20 @ 19:03 by James Campos DO) Bladder incontinence Diabetes type 2, controlled Excessive daytime sleepiness Fatigue Hearing aid worn Hypothyroidism Lymphocytosis (symptomatic) Unintended weight loss Family History: Family History (Last Reviewed 05/05/20 @ 19:03 by James Campos DO) Mother Myocardial infarct Father CVA (cerebral vascular accident) Sister Thyroid disease Brother Thyroid disease - Social History Smoking Status: Never smoker Review of Systems - Patient Self-Reported Symptoms SR Constitution: Weight loss/gain, Fatigue/Malaise SR ears, nose, mouth, throat issues: Cough, Changes in taste SR respiratory issues: Cough SR Cardiovascular issues: Dizzy/lightheaded SR Gastrointestinal issues: Poor or no appetite, Change in bowel pattern, Constipation, Abdominal pain SR Genitourinary issues: Frequent urination, Incontinence SR Musculoskeletal issues: Muscle weakness, Back or neck pain, Difficulty walking SR Neuro issues: Lightheaded/dizzy SR Endocrine issues: Excessive urination Exam Vital signs: Vital Signs Temp Pulse Resp BP Pulse Ox 05/06/20 11:37 98.2 F 83 18 95/58 L 100 Intake and Output 05/05/20 05/06/20 05/06/20 23:59 07:59 15:59 Other: Weight 51.7 kg Patient Weight 05/06/20 23:59 Weight 51.7 kg Narrative: She was awake and alert. She answers questions appropriately. She needed assistance to get from her wheelchair to the examination table. She was in no acute distress. There was a 0.5 cm right mid cervical lymph node. There was no other palpable lymphadenopathy in the cervical, supraclavicular, axillary, inguinal or femoral regions. Lungs were clear. The heart was negative. The abdomen was soft and nontender without organomegaly or masses. Neurologic exam showed her to be somewhat slow answering questions. She had a wide-based unsteady gait. Romberg was not tested. Cranial nerves showed diplopia on extreme left lateral gaze. Cranial nerves were otherwise normal. Motor strength was 4/5 diffusely but 4-over 5 on the right side. She is right handed in the right side was slightly weaker than the left. Rapid alternating movements were slightly worse on the right than the left. There were no oropharyngeal lesions. There was no evidence of phlebitis in the lower extremities. There were no suspicious skin lesions. Results - Imaging Additional studies: Procedures Injection of antibiotic (06/05/14) Injection or infusion of other therapeutic or prophylactic substance (06/05/14) Insertion of intraocular lens prosthesis at time of cataract extraction, one-stage (07/01/10) Phacoemulsification and aspiration of cataract (07/01/10) Assessment and Plan (1) Lymphocytosis (symptomatic) Status: Acute Ms. Tubbs has a lymphocytosis dating back to and a leukocytosis dating to August of 2019. She has a strong family history of chronic lymphocytic leukemia. Her red cells and platelets are preserved as is her absolute neutrophil count. Her presentation is consistent with chronic lymphocytic leukemia. Will send flow cytometry to confirm the diagnosis. We also discussed the fact that even if she has chronic lymphocytic leukemia, that entity, in and of itself, would not be a likely explanation for the symptoms she is experiencing. Histologic transformation scan occur. However, she has had significant symptoms for 8 months without a deterioration in her counts or the development of significant lymphadenopathy or organomegaly. Other lymphoproliferative disorders can also cause constitutional symptoms and lymphocytosis and flow cytometry could help to clarify whether or not any other conditions are present. Will also send an LDH which is often elevated in more aggressive lymphoproliferative disorders. She also has increasing trouble with her gait and focal neurologic findings. She has diplopia on extreme left lateral gaze and she also has right-sided weakness and poor coordination compared with the left side. She is right handed. She did have a brain MRI in January of 2019 that was negative and a noncontrast head CT in August of 2019. However, her symptoms have progressed and these focal neurologic findings have not been mentioned in previous examinations. Accordingly, I think another MRI of the brain would be an appropriate study and this was ordered today, with and without contrast. New She will return after these studies have been completed and further plans will be made at that time. She will call if any other problems should develop in the interim. I personally spent 72 minutes in today's [id number] visit with greater than 50% of the time spent in counseling regarding the issues outlined above. Thank Dr. Wicho Lock for for his very pleasant interesting patient. Impression: 1. Lymphocytosis dating to 2016, leukocytosis dating to August of 2019 with preservation of what red cells and platelets, small right mid cervical lymph node, but no other organomegaly noted on exam or CT scan of the chest, abdomen and pelvis 2. Strong family history of chronic lymphocytic leukemia 3. Progressive and severe constitutional symptoms as outlined above 4. Focal neurologic exam with diplopia on extreme left lateral gaze and right-sided weakness and decreased coordination in a right-handed patient 5. Other medical problems as listed above Recommendations: 1. Flow cytometry for leukemia lymphoma profile 2. LDH 3. MRI of the brain with and without contrast 4. Return afterwards for review of results with further plans dependent upon these findings.
[2020-05-06 14:16] LABS: Lactate Dehydrogenase 301 U/L (313-618)
--- NOTE | 2020-05-12 13:41 | ONC.MSW ---
Description: T/C from spouse re: inpt status at [facility] Activity: Pt's spouse called to inform us that pt is inpt at [facility] due to an emergency constipation episode. She is being worked up and should be released by late tomorrow, however he requested that her appt. on Tuesday be rescheduled for a week, he requested return call from scheduling today to do this. COPY DIRECTOR updated schedulers, cc'd Dr. Pérez on her status.
[2020-05-21 14:19] VITALS: BP 113/60; PULSE 75; RESP 18; TEMP 36.9; O2SAT 99
--- NOTE | 2020-05-21 14:42 | P.PNONC_ITS ---
PN -Subjective Interval history: Jennifer Tubbs is a 74 year old female presents for follow-up evaluation of leukocytosis and constitutional symptoms. Review of her records shows that in May of 2016 she had a white count of 8700 with 56% lymphocytes. Hemoglobin, platelets, and absolute neutrophil count were all normal at that time. In August of 2019 she presented with mental status changes and vomiting. Blood count at that time showed hemoglobin of 13.5 hematocrit 38 platelets a [id number] white count 47731 with an absolute lymphocyte ptosis of 9300 and smudge cells present. A renal ultrasound showed fatty infiltration of the liver but no hydronephrosis. Head CT scan and neck CT scan were negative. Echocardiogram was normal. In September of [address] scan of the abdomen pelvis that was negative. On April [address] Duncan with a hemoglobin of 13.4 hematocrit 38.7 platelets [id number] white count 98745 with 56% lymphocytes (19% atypical lymphocytes), smudge cells, a negative ESTEPHANIA, estrogen level of 71, a low TSH of 0.059, an elevated T4 2.78, hemoglobin A1c of 6.5%, potassium 3.2 BUN 29 creatinine 1.36. She was in the emergency room yesterday with urinary retention. At that time she had hemoglobin of 12.6 hematocrit 37.3 platelets [id number] with 43% lymphocytes and absolute lymphocytes and smudge cells present. Repeat creatinine was 1.10. She had a CT scan of the chest, abdomen and pelvis done that showed possible rectal wall thickening. Of note is that she had a negative colonoscopy in May of 2019. Because of her leukocytosis she was referred for hematology consultation about 2 weeks ago.. At the time of her initial consultation review of systems was remarkable for low back pain. This has been present for years. It is typically worse when she stands or thick over a bump on the riding in the car. It does not radiate. It has become progressively worse over the last 3-6 months and she now has trouble standing up straight as a consequence of this. She sometimes wakes up with pain but does not feel like it is the pain itself that makes her wake up. There is no associated numbness or tingling. She does not have any Clif in a shins or burning quality to the pain. She also has had a 30-35 lb weight loss over the last 6 months. This is accompanied by anorexia. She has noted some blurry vision for which she has seen Dr. Kristine lopez and is on drops for glaucoma. She has had a cough for 6-12 months that is been nonproductive but she has not been short of breath. She feels generally dizzy and lightheaded. She has not had any recent falls although she notes that she trips occasionally. She has been quite constipated and has some episodic abdominal pain. She has had urinary incontinence and was found to have urinary retention at the emergency room yesterday. She has a urology appointment pending. She has a bladder catheter in place. She was previously seen by Urology in [place] and advised to undergo physical therapy for her urinary retention. She does not think she had an MRI scan as part of that workup. She feels generally weak and tired. She feels like her right side is weaker than her left side. She is right handed. She has had some trouble concentrating and some trouble with short-term memory. At the time of her visit here she was scheduled for an MRI that showed age- related changes and volume loss. Her LDH was normal. She had flow cytometry done that was consistent with chronic lymphocytic leukemia/small lymphocytic lymphoma. She subsequently ended up getting admitted to [facility] on May 09 with constipation and urinary retention. CT scan showed rectal wall thickening. Acute she had a GI consultation had a colonoscopy a an upper endoscopy. She was found to have nonerosive gastritis, mild duodenal erosions in the 2nd portion, and a negative colonoscopy. Biopsies of the duodenum, antrum, gastric body and rectum were all negative for malignancy. She was able to be discharged home. She comes today for a follow-up visit. She denies any itching, lumps or bumps, fever, chills, night sweats, nausea, vomiting, diarrhea, bleeding from anywhere, mouth sores, trouble swallowing, orthostatic dizziness. All other systems are negative. Past medical history 1. Family history is remarkable for her father, sister, and brother all diagnosed with chronic lymphocytic leukemia. Her maternal grandmother was diagnosed with colon cancer. A cousin had melanoma. 2. Previous surgeries include a tonsillectomy, 2 sections, tubal ligation, cataract extractions, thyroid surgery in left knee surgery. 3. No known drug allergies 4. Current medications include glimepiride 4 mg twice a day, ANTONIO mehta 0 ProStat I drops, Synthroid 0.075 mg daily, lovastatin 40 mg daily, metformin a 1000 mg twice a day, multiple vitamin, as needed MiraLax, timolol eyedrops, and Trulicity 1.5 mg subcutaneously once a week. She was also started on Keflex 500 mg 4 times a day for 7 days yesterday when she was in the emergency room due to a urinary tract infection. 5. Recent urinary tract infection, diagnosed yesterday, on antibiotics 6. Adult onset diabetes 7. Hypothyroidism, on replacement 8. She denies high blood pressure, diabetes, rheumatic fever, tuberculosis, heart attacks, strokes, stomach ulcers, pneumonia or any kind of cancer 9. Presbycusis 10. Hyperlipidemia 11. She is accompanied by is very supportive. Her daughter is also supportive in his on the phone. She is not a smoker or drinker. 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 - Patient Self-Reported Symptoms SR Constitution: Weight loss/gain SR ears, nose, mouth, throat issues: Cough, Changes in taste SR respiratory issues: Cough SR Cardiovascular issues: Dizzy/lightheaded SR Gastrointestinal issues: Poor or no appetite, Change in bowel pattern, Constipation, Abdominal pain SR Genitourinary issues: Frequent urination, Incontinence SR Musculoskeletal issues: Muscle weakness, Back or neck pain, Difficulty walking SR Neuro issues: Lightheaded/dizzy SR Endocrine issues: Excessive urination Home Medications and Allergies Home Medications Medication Instructions Recorded Confirmed Type latanoprost 1 drp EYE-BOTH BEDTIME #0 02/18/09 05/20/20 History metformin 1,000 mg PO BID #0 02/18/09 05/20/20 History multivitamin 1 cap PO DAILY #0 02/18/09 05/20/20 History glimepiride 4 mg PO BID 05/16/19 05/20/20 History Trulicity 1.5 mg SUBCUT WEEKLY 09/03/19 05/20/20 History polyethylene glycol 3350 [Miralax] 17 gram PO DAILY PRN #119 gram 09/04/19 05/06/20 Rx lovastatin 40 mg tablet 40 mg PO QPM #90 tab 12/31/19 05/20/20 Rx Disabled Parking Permit #1 ea 04/25/20 05/20/20 Rx levothyroxine 75 mcg tablet 75 mcg PO DAILY 04/25/20 05/20/20 History probiotic PO 05/20/20 History Allergies Allergy/AdvReac Type Severity Reaction Status Date / Time No Known Drug Allergies Allergy Verified 05/20/20 11:43 Exam Vital signs: Vital Signs Temp Pulse Resp BP Pulse Ox 05/21/20 14:19 98.4 F 75 18 113/60 99 Intake and Output 05/20/20 05/21/20 05/21/20 23:59 07:59 15:59 Other: Weight 53 kg Patient Weight 05/21/20 23:59 Weight 53 kg Narrative: She was awake and alert. She answers questions appropriately. She was in a wheelchair. Results - Labs Laboratory Last Values Lactate Dehydrogenase 301 U/L (313-618) L 05/06/20 13:47 Leuk/Lymph Viability . 05/06/20 13:47 Leuk/Lym Sample Descrip Comment (.) 05/06/20 13:47 Leuk/Lym Gating Strategy . 05/06/20 13:47 Leuk/Lym Comment Comment (.) 05/06/20 13:47 Leuk/Lym Immunophen Prof . 05/06/20 13:47 Leuk/Lym Phenotype Chart See scanned report 05/06/20 13:47 L/L Sign Pathologist Comment (.) 05/06/20 13:47 CLL Flow Interpret Comment (.) 05/06/20 13:47 Leuk/Lymph Case # TNP 05/06/20 13:47 Leuk/Lymph Ind for Study Comment (.) 05/06/20 13:47 Leuk/Lymph Flow Com Comment (.) 05/06/20 13:47 CLL (FISH) Add Info TNP 05/06/20 13:47 CLL Prog Comp Assess . 05/06/20 13:47 Ref Test (Refrig) Cancelled 05/06/20 13:47 - Imaging Additional studies: Procedures Injection of antibiotic (06/05/14) Injection or infusion of other therapeutic or prophylactic substance (06/05/14) Insertion of intraocular lens prosthesis at time of cataract extraction, one- stage (07/01/10) Phacoemulsification and aspiration of cataract (07/01/10) Assessment and Plan (1) Lymphocytosis (symptomatic) Status: Acute Ms. Tubbs has a lymphocytosis dating back to and a leukocytosis dating to August of 2019. She has a strong family history of chronic lymphocytic leukemia. 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 I explained to her this is a form of cancer. We do not need to treated just because it is there. Rather, therapy would be initiated if an indication for treatment were to arise. By far the most common indication for treatment is low blood counts including neutropenia, anemia and thrombocytopenia. Symptomatic organomegaly parentheses lymphadenopathy or splenomegaly) would also be a potential indication for therapy. Constitutional symptoms can occur with CLL, but are rare in isolation. In the absence of any other indication for treatment, I do not think her current symptoms are related to her chronic lymphocytic leukemia. We also reviewed the fact that in patients who present without an indication for treatment, the average time to require treatment is measured in years as opposed to months. We will send a CLL fish to confirm that there is no mantle cell lymphoma related translocation. Will also check an IgG level since she has had problems with recurrent urinary tract infections. On the assumption that the studies will be unrevealing, will plan to get her back here for follow-up in about 3 months with a blood count and chemistry panel prior. We would watch her off treatment unless she developed a standard indication for therapy. I also explained that as time goes by, if her condition remains stable, we would typically lengthen the follow-up interval. Impression: 1. Lymphocytosis dating to 2016, leukocytosis dating to August of 2019 with preservation of what red cells and platelets, small right mid cervical lymph node, but no other organomegaly noted on exam or CT scan of the chest, abdomen and pelvis 2. Strong family history of chronic lymphocytic leukemia 3. Progressive and severe constitutional symptoms as outlined above 4. Focal neurologic exam with diplopia on extreme left lateral gaze and right- sided weakness and decreased coordination in a right-handed patient with negat tamanna MRI 5. Flow cytometry confirms CLL/SLL Recommendations: 1. CLL fish 2. IgG level 3. Follow-up in 3 months with CBC and CMP prior 4. She will be watched off treatment unless she develops a standard indication to initiate therapy
[2020-05-22 04:36] LABS: Immunoglobulin G, Quantitative 692 mg/dL (586-1602)
[2020-05-25 23:48] LABS: Cells Analyzed Comment: (.); Cells Counted Comment: (.); Interpretation Comment: (.); Specimen Type Comment: (.)
[2020-08-19 15:02] LABS: Hematocrit 37.6 % (36-46); Hemoglobin 12.3 g/dL (12.0-16.0); Mean Corpuscular HGB Conc 32.7 % (30-36); Mean Corpuscular Hemoglobin 31.1 PG (26-34); Platelet Count 210 X10^3/uL (150-400); Red Blood Cell Count 3.96 X10^6/uL (4.0-5.2); Red Cell Distribution Width 15.4 % (11.6-14.8); White Blood Cell Count 15.5 X10^3/uL (4.5-11.0)
[2020-08-19 15:04] LABS: Add Manual Diff / Slide Review YES
[2020-08-19 15:16] LABS: Alanine Aminotransferase 12 IU/L (<35); Albumin 3.9 g/dL (3.5-5.0); Albumin Globulin Ratio 1.3 (1.0-2.8); Alkaline Phosphatase 65 U/L (38-126); Anisocytosis 1+; Aspartate Aminotransferase 20 IU/L (14-36); BUN Creatinine Ratio 25.3 (6-22); Blood Urea Nitrogen 23 mg/dL (7-17); Calcium 9.3 mg/dL (8.4-10.2); Carbon Dioxide 33 mmol/L (22-32); Chloride 103 mmol/L (98-107); Estimated Glomerular Filt Rate > 60.0 mL/min (>60); Globulin 2.9 g/dL (1.7-4.1); Glucose 135 mg/dL (80-110); HEMOLYSIS < 15 (0-50); Neutrophils Absolute Manual 5270 /uL (3000-5900); Poikilocytosis 1+; Potassium 4.3 mmol/L (3.4-5.1); Smudge Cells 1+; Sodium 138 mmol/L (137-145); Total Cells Counted 100; Total Protein 6.8 g/dL (6.3-8.2)
--- NOTE | 2020-09-02 17:54 | P.PNONC_ITS ---
PN -Subjective Interval history: Jennifer Tubbs is a 74 year old female presents for follow-up evaluation of leukocytosis and constitutional symptoms. Review of her records shows that in May of 2016 she had a white count of 8700 with 56% lymphocytes. Hemoglobin, platelets, and absolute neutrophil count were all normal at that time. In August of 2019 she presented with mental status changes and vomiting. Blood count at that time showed hemoglobin of 13.5 hematocrit 38 platelets a [id number] white count 76495 with an absolute lymphocyte ptosis of 9300 and smudge cells present. A renal ultrasound showed fatty infiltration of the liver but no hydronephrosis. Head CT scan and neck CT scan were negative. Echocardiogram was normal. In September of [address] scan of the abdomen pelvis that was negative. On April [address] Duncan with a hemoglobin of 13.4 hematocrit 38.7 platelets [id number] white count 19459 with 56% lymphocytes (19% atypical lymphocytes), smudge cells, a negative ESTEPHANIA, estrogen level of 71, a low TSH of 0.059, an elevated T4 2.78, hemoglobin A1c of 6.5%, potassium 3.2 BUN 29 creatinine 1.36. She was in the emergency room yesterday with urinary retention. At that time she had hemoglobin of 12.6 hematocrit 37.3 platelets [id number] with 43% lymphocytes and absolute lymphocytes and smudge cells present. Repeat creatinine was 1.10. She had a CT scan of the chest, abdomen and pelvis done that showed possible rectal wall thickening. Of note is that she had a negative colonoscopy in May of 2019. Because of her leukocytosis she was referred for hematology consultation about 2 weeks ago.. At the time of her initial consultation review of systems was remarkable for low back pain. This has been present for years. It is typically worse when she stands or thick over a bump on the riding in the car. It does not radiate. It has become progressively worse over the last 3-6 months and she now has trouble standing up straight as a consequence of this. She sometimes wakes up with pain but does not feel like it is the pain itself that makes her wake up. There is no associated numbness or tingling. She does not have any Clif in a shins or burning quality to the pain. She also has had a 30-35 lb weight loss over the last 6 months. This is accompanied by anorexia. She has noted some blurry vision for which she has seen Dr. Kristine lopez and is on drops for glaucoma. She has had a cough for 6-12 months that is been nonproductive but she has not been short of breath. She feels generally dizzy and lightheaded. She has not had any recent falls although she notes that she trips occasionally. She has been quite constipated and has some episodic abdominal pain. She has had urinary incontinence and was found to have urinary retention at the emergency room yesterday. She has a urology appointment pending. She has a bladder catheter in place. She was previously seen by Urology in [place] and advised to undergo physical therapy for her urinary retention. She does not think she had an MRI scan as part of that workup. She feels generally weak and tired. She feels like her right side is weaker than her left side. She is right handed. She has had some trouble concentrating and some trouble with short-term memory. At the time of her visit here she was scheduled for an MRI that showed age- related changes and volume loss. Her LDH was normal. She had flow cytometry done that was consistent with chronic lymphocytic leukemia/small lymphocytic lymphoma. She subsequently ended up getting admitted to [facility] on May 09 with constipation and urinary retention. CT scan showed rectal wall thickening. Acute she had a GI consultation had a colonoscopy a an upper endoscopy. She was found to have nonerosive gastritis, mild duodenal erosions in the 2nd portion, and a negative colonoscopy. Biopsies of the duodenum, antrum, gastric body and rectum were all negative for malignancy. She was able to be discharged home. She was seen for follow-up 3 months ago and her counts were stable. Her left cervical lymph node was stable. She comes today for a follow-up visit. She denies any itching, lumps or bumps, fever, chills, night sweats, nausea, vomiting, diarrhea, bleeding from anywhere, mouth sores, trouble swallowing, orthostatic dizziness. She still feels generally weak and tired with a chronic cough, anorexia, trouble with her balance and ongoing but stable pain. All other systems are negative. Past medical history 1. Family history is remarkable for her father, sister, and brother all diagnosed with chronic lymphocytic leukemia. Her maternal grandmother was diagnosed with colon cancer. A cousin had melanoma. 2. Previous surgeries include a tonsillectomy, 2 sections, tubal ligation, cataract extractions, thyroid surgery in left knee surgery. 3. No known drug allergies 4. Current medications include glimepiride 4 mg twice a day, ANTONIO mehta 0 ProStat I drops, Synthroid 0.075 mg daily, lovastatin 40 mg daily, metformin a 1000 mg twice a day, multiple vitamin, as needed MiraLax, timolol eyedrops, and Trulicity 1.5 mg subcutaneously once a week. She was also started on Keflex 500 mg 4 times a day for 7 days yesterday when she was in the emergency room due to a urinary tract infection. 5. Recent urinary tract infection, diagnosed yesterday, on antibiotics 6. Adult onset diabetes 7. Hypothyroidism, on replacement 8. She denies high blood pressure, diabetes, rheumatic fever, tuberculosis, heart attacks, strokes, stomach ulcers, pneumonia or any kind of cancer 9. Presbycusis 10. Hyperlipidemia 11. She is accompanied by is very supportive. Her daughter is also supportive in his on the phone. She is not a smoker or drinker. 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 - Patient Self-Reported Symptoms SR Constitution: Weight loss/gain SR ears, nose, mouth, throat issues: Cough, Changes in taste SR respiratory issues: Cough SR Cardiovascular issues: Dizzy/lightheaded SR Gastrointestinal issues: Poor or no appetite, Change in bowel pattern, Constipation, Abdominal pain SR Genitourinary issues: Frequent urination, Incontinence SR Musculoskeletal issues: Muscle weakness, Back or neck pain, Difficulty walking SR Neuro issues: Lightheaded/dizzy SR Endocrine issues: Excessive urination Home Medications and Allergies Home Medications Medication Instructions Recorded Confirmed Type latanoprost 1 drp EYE-BOTH BEDTIME #0 02/18/09 07/04/20 History metformin 1,000 mg PO BID #0 02/18/09 07/04/20 History multivitamin 1 cap PO DAILY #0 02/18/09 07/04/20 History glimepiride 4 mg PO BID 05/16/19 07/04/20 History Trulicity 1.5 mg SUBCUT WEEKLY 09/03/19 07/04/20 History polyethylene glycol 3350 [Miralax] 17 gram PO DAILY PRN #119 gram 09/04/19 07/04/20 Rx lovastatin 40 mg tablet 40 mg PO QPM #90 tab 12/31/19 07/04/20 Rx Disabled Parking Permit #1 ea 04/25/20 07/04/20 Rx probiotic PO 05/20/20 07/04/20 History nitrofurantoin monohyd/m-cryst 100 mg PO BID #14 cap 05/22/20 07/04/20 Rx [Macrobid] brimonidine 0.2 %-timolol 0.5 % EYE-BOTH 05/27/20 07/04/20 History eye drops ciprofloxacin HCl 250 mg tablet 250 mg PO BID #6 tab 05/27/20 07/04/20 Rx ospemifene 60 mg tablet 60 mg PO DAILY #90 tab 05/27/20 07/04/20 Rx levothyroxine 75 mcg tablet 75 mcg PO DAILY #90 tab 07/31/20 Rx ondansetron HCl 4 mg tablet 4 mg PO Q6H PRN #10 tab 08/20/20 Rx Allergies Allergy/AdvReac Type Severity Reaction Status Date / Time No Known Drug Allergies Allergy Verified 07/04/20 11:50 Exam Narrative: She was awake and alert. She answers questions appropriately. She was in a wheelchair. A left-sided mid cervical lymph node was barely palpable, smaller than at the time of her previous visit when it measured 0.5 cm. Results - Labs Laboratory Last Values WBC 15.5 X10^3/uL (4.5-11.0) H 08/19/20 14:42 RBC 3.96 X10^6/uL (4.0-5.2) L 08/19/20 14:42 Hgb 12.3 g/dL (12.0-16.0) 08/19/20 14:42 Hct 37.6 % (36-46) 08/19/20 14:42 MCV 95.0 fL (80-100) 08/19/20 14:42 MCH 31.1 PG (26-34) 08/19/20 14:42 MCHC 32.7 % (30-36) 08/19/20 14:42 RDW 15.4 % (11.6-14.8) H 08/19/20 14:42 Plt Count 210 X10^3/uL (150-400) 08/19/20 14:42 Neut % (Auto) Not Reportable 08/19/20 14:42 Lymph % (Auto) Not Reportable 08/19/20 14:42 Stephens % (Auto) Not Reportable 08/19/20 14:42 Eos % (Auto) Not Reportable 08/19/20 14:42 Baso % (Auto) Not Reportable 08/19/20 14:42 Lymph # (Auto) Not Reportable 08/19/20 14:42 Stephens # (Auto) Not Reportable 08/19/20 14:42 Baso # (Auto) Not Reportable 08/19/20 14:42 Total Counted 100 08/19/20 14:42 Seg Neutrophils % 34.0 % (38-70) L 08/19/20 14:42 Lymphocytes % (Manual) 22.0 % (25-45) L 08/19/20 14:42 Atypical Lymphs % 41.0 % (-0) H 08/19/20 14:42 Monocytes % (Manual) 3.0 % (2-11) 08/19/20 14:42 Neutrophils # (Manual) 5270 /uL (9716-1778) 08/19/20 14:42 Smudge Cells 1+ H 08/19/20 14:42 RBC Morphology Not Reportable 08/19/20 14:42 Poikilocytosis 1+ H 08/19/20 14:42 Anisocytosis 1+ H 08/19/20 14:42 Sodium 138 mmol/L (137-145) 08/19/20 14:42 Potassium 4.3 mmol/L (3.4-5.1) 08/19/20 14:42 Chloride 103 mmol/L (98-107) 08/19/20 14:42 Carbon Dioxide 33 mmol/L (22-32) H 08/19/20 14:42 BUN 23 mg/dL (7-17) H 08/19/20 14:42 Creatinine 0.91 mg/dL (0.52-1.04) 08/19/20 14:42 Estimated GFR > 60.0 mL/min (>60) 08/19/20 14:42 BUN/Creatinine Ratio 25.3 (6-22) H 08/19/20 14:42 Glucose 135 mg/dL (80-110) H 08/19/20 14:42 Calcium 9.3 mg/dL (8.4-10.2) 08/19/20 14:42 Total Bilirubin 1.0 mg/dL (0.2-1.3) 08/19/20 14:42 AST 20 IU/L (14-36) 08/19/20 14:42 ALT 12 IU/L (<35) 08/19/20 14:42 Alkaline Phosphatase 65 U/L (38-126) 08/19/20 14:42 Lactate Dehydrogenase 301 U/L (313-618) L 05/06/20 13:47 Total Protein 6.8 g/dL (6.3-8.2) 08/19/20 14:42 Albumin 3.9 g/dL (3.5-5.0) 08/19/20 14:42 Globulin 2.9 g/dL (1.7-4.1) 08/19/20 14:42 Albumin/Globulin Ratio 1.3 (1.0-2.8) 08/19/20 14:42 IgG, Serum (MS) 692 mg/dL (586-1602) 05/21/20 15:12 Leuk/Lymph Viability . 05/06/20 13:47 Leuk/Lym Sample Descrip Comment (.) 05/06/20 13:47 Leuk/Lym Gating Strategy . 05/06/20 13:47 Leuk/Lym Comment Comment (.) 05/06/20 13:47 Leuk/Lym Immunophen Prof . 05/06/20 13:47 Leuk/Lym Phenotype Chart See scanned report 05/06/20 13:47 L/L Sign Pathologist Comment (.) 05/06/20 13:47 CLL Flow Interpret Comment (.) 05/06/20 13:47 Leuk/Lymph Case # TNP 05/06/20 13:47 Leuk/Lymph Ind for Study Comment (.) 05/06/20 13:47 Leuk/Lymph Flow Com Comment (.) 05/06/20 13:47 CML (FISH) Result Comment: (.) 05/21/20 15:12 CLL (FISH) Specimen Comment: (.) 05/21/20 15:12 CLL (FISH) Cell Counted Comment: (.) 05/21/20 15:12 CLL (FISH) Cell Analyzd Comment: (.) 05/21/20 15:12 CLL (FISH) Result Sum See scanned report 05/21/20 15:12 CLL (FISH) Add Info TNP 09/22/20 13:47 CLL (FISH) Interp Comment: (.) 05/21/20 15:12 CLL (FISH) Director Rev Comment: (.) 05/21/20 15:12 CLL Prog Comp Assess . 05/06/20 13:47 Ref Test (Refrig) Cancelled 05/06/20 13:47 - Imaging Additional studies: Procedures Injection of antibiotic (06/05/14) Injection or infusion of other therapeutic or prophylactic substance (06/05/14) Insertion of intraocular lens prosthesis at time of cataract extraction, one- stage (07/01/10) Phacoemulsification and aspiration of cataract (07/01/10) Assessment and Plan (1) Lymphocytosis (symptomatic) Status: Acute Ms. Tubbs has a lymphocytosis dating back to and a leukocytosis dating to August of 2019. She has a strong family history of chronic lymphocytic leukemia. 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 I explained to her this is a form of cancer. We do not need to treated just because it is there. Rather, therapy would be initiated if an indication for treatment were to arise. By far the most common indication for treatment is low blood counts including neutropenia, anemia and thrombocytopenia. Symptomatic organomegaly parentheses lymphadenopathy or splenomegaly) would also be a potential indication for therapy. Constitutional symptoms can occur with CLL, but are rare in isolation. In the absence of any other indication for treatment, I do not think her current symptoms are related to her chronic lymphocytic leukemia. We also reviewed the fact that in patients who present without an indication for treatment, the average time to require treatment is measured in years as opposed to months. Her CLL fish was negative. Her IgG level was normal. Her blood counts are stable and her white counts actually a bit lower than it was. Her lymphadenopathy is minimal but is also less than it was. Accordingly, she does not have an indication for therapy at this time. We discussed the fact that I do not think her CLL is contributing to her current set of symptoms. Will plan to watch her off treatment. She will return in 6 months for follow-up with labs prior. I would be happy see her any time if I could be of assistance in her care in the interim. Impression: 1. Lymphocytosis dating to 2015, leukocytosis dating to August of 2019 with preservation of what red cells and platelets, small right mid cervical lymph node, but no other organomegaly noted on exam or CT scan of the chest, abdomen and pelvis 2. Strong family history of chronic lymphocytic leukemia 3. Progressive and severe constitutional symptoms as outlined above 4. Focal neurologic exam with diplopia on extreme left lateral gaze and right- sided weakness and decreased coordination in a right-handed patient with negative MRI 5. Flow cytometry confirms CLL/SLL 6. CLL fish and IgG level were both normal 7. Blood counts and exam are stable or improved on 3 month follow-up Recommendations: 1. No treatment is indicated at this time 2. Patient and were counseled that her CLL is not the likely source of her symptoms 3. Return in 6 months for follow-up with labs prior
--- NOTE | 2021-03-12 09:57 | ONC.SCHED ---
Spoke to to confirm appointment for 03/17 and he informed us that Jennifer is now on Hospice. I cancelled her appointment.
== END ==
PROVIDERS: Internal Medicine; PCP Family Medicine; Referring Provider Family Medicine; Visit Provider Internal Medicine Medical Oncology
DX: C91.10 Chronic lymphocytic leukemia of B-cell type not having achieved remission (principal); E11.9 Type 2 diabetes mellitus without complications; E03.9 Hypothyroidism, unspecified; E78.5 Hyperlipidemia, unspecified; Z79.84 Long term (current) use of oral hypoglycemic drugs
CPT/HCPCS: 36415; 80053; 82784; 83615; 85007; 85025; 99205; 99213; 99214; 99215

== ENCOUNTER → 2020-09-19 12:16 | Outpatient (CLI) | payer MEDICARE, OTHER, SELFPAY ==
[2020-06-10 12:01] VITALS: BMI 23.8
--- NOTE | 2020-09-19 12:17 | DI.US.S_ITS ---
PROCEDURE: US RENAL COMPLETE INDICATIONS: POSSIBLE HYDRONEPHROSIS TECHNIQUE: Real-time scanning was performed of the kidneys and bladder, with image documentation. COMPARISON: [facility], CT, CT ABDOMEN PELVIS WITH CONTRAST, 05/10/2020, 9:38. [facility], US, US RENAL COMPLETE, 05/22/2020, 13:12. FINDINGS: Kidneys: Kidneys are normal in size. Right kidney measures 9.8 cm long; left kidney measures 9.8 cm long. Right renal cortical thickness is 0.6 cm; left renal cortical thickness is 0.7 cm. Renal cortical echotexture is normal. No hydronephrosis or nephrolithiasis. No suspicious solid mass lesions. Several bilateral renal cysts are seen, which demonstrates a simple appearance. The largest on the right measures up to 1.6 cm and the largest on the left measures up to 1.7 cm. Bladder: Pre-void bladder volume is 760 mL. Post-void residual is 616 mL. Pre-void images demonstrate no intraluminal masses or stones. The bladder demonstrates a generalized irregular appearance, however. On pre-void images, neither of the ureteral jets are noted with color Doppler interrogation. (Of note, ureteral jets may not be detectable in up to 25% of cases due to insufficient differences in specific gravity between ureteral and bladder urine). Miscellaneous: No free pelvic fluid. IMPRESSION: Large postvoid residual again seen, measuring 616 cc. Negative for hydronephrosis. Simple appearing bilateral renal cysts are again seen. The bladder wall again appears irregular. Dictated by: Rafael Gerber M.D. on 09/19/2020 at 12:26 Approved by: Rafael Gerber M.D. on 09/19/2020 at 12:28
== END ==
PROVIDERS: PCP Family Medicine; Referring Provider Specialist; Visit Provider Specialist
DX: N13.30 Unspecified hydronephrosis (principal); N28.1 Cyst of kidney, acquired
CPT/HCPCS: 76770

== ENCOUNTER 2020-09-28 17:09 | Observation (INO) | payer MEDICARE, OTHER, SELFPAY ==
[2020-06-10 12:01] VITALS: BMI 23.8
[2020-09-28] VITALS (19 sets, daily range): BP systolic 145–174; BP diastolic 67–86; PULSE 80–109; RESP 16–30; TEMP 36.5; O2SAT 96–99; BMI 20.6
[2020-09-28 17:50] LABS: Add Manual Diff / Slide Review YES; Hematocrit 40.3 % (36-46); Hemoglobin 13.4 g/dL (12.0-16.0); Mean Corpuscular HGB Conc 33.2 % (30-36); Mean Corpuscular Hemoglobin 31.6 PG (26-34); Mean Corpuscular Volume 95.4 fL (80-100); Platelet Count 222 X10^3/uL (150-400); Red Blood Cell Count 4.23 X10^6/uL (4.0-5.2); Red Cell Distribution Width 16.4 % (11.6-14.8); White Blood Cell Count 18.3 X10^3/uL (4.5-11.0)
[2020-09-28 17:54] LABS: Alanine Aminotransferase 13 IU/L (<35); Albumin 4.3 g/dL (3.5-5.0); Albumin Globulin Ratio 1.4 (1.0-2.8); Alkaline Phosphatase 70 U/L (38-126); Aspartate Aminotransferase 19 IU/L (14-36); BUN Creatinine Ratio 24.7 (6-22); Blood Urea Nitrogen 24 mg/dL (7-17); Calcium 9.8 mg/dL (8.4-10.2); Carbon Dioxide 32 mmol/L (22-32); Chloride 101 mmol/L (98-107); Estimated Glomerular Filt Rate 56.1 mL/min (>60); Glucose 184 mg/dL (80-110); HEMOLYSIS < 15 (0-50); Lipase 124 U/L (23-300); Magnesium 1.8 mg/dL (1.6-2.3); Sodium 139 mmol/L (137-145); Total Protein 7.3 g/dL (6.3-8.2)
[2020-09-28 17:55] LABS: Lactate (Lactic Acid) 3.2 mmol/L (0.7-2.1)
[2020-09-28] MEDS: SODIUM CHLORIDE 0.9% 1,000 ML 1000 ML IV ×2 (17:59→21:45)
[2020-09-28 18:14] LABS: Neutrophils Absolute Manual 6954 /uL (3000-5900); Total Cells Counted 100
[2020-09-28 18:15] LABS: RBC Morphology Normal Morphology
--- NOTE | 2020-09-28 18:34 | ED_ITS ---
HPI - Abdominal Pain <James Campos - Last Filed: 09/29/20 06:59> General Chief Complaint: Abdominal Pain Stated Complaint: abdominal pain Time Seen by Provider: 09/28/20 17:10 Source: patient Mode of arrival: Family Vehicle Limitations: no limitations History of Present Illness HPI narrative: 74F nonsmoker with extensive history of flaccid bladder and prior episodes of urinary retention as well as chronic constipation, CLL presents with her a chief complaint of increasing episodes of abdominal pain over the past 2 weeks. She states these episodes are diffuse, crampy in nature and are increasing in severity and duration. She denies any provocation or palliation of her symptoms. She has had no fever chills. She is nauseated and has a terrible appetite but denies any vomiting. She has chronic constipation and denies any obvious change in that pattern. She denies any exposure to persons known to have COVID. She has had no runny nose, sore throat or cough. She has seen a urologist in the past who has recommended either manual suprapubic pressure to help increase bladder emptying versus self catheterization versus suprapubic catheters. MD complaint: abdominal pain Related Data Home Medications Medication Instructions Recorded Confirmed latanoprost 1 drp EYE-BOTH BEDTIME #0 02/18/09 09/23/20 metformin 1,000 mg PO BID #0 02/18/09 09/23/20 multivitamin 1 cap PO DAILY #0 02/18/09 09/23/20 glimepiride 4 mg PO BID 05/16/19 09/23/20 Trulicity 1.5 mg SUBCUT WEEKLY 09/03/19 09/23/20 probiotic PO 05/20/20 09/23/20 brimonidine 0.2 %-timolol 0.5 % EYE-BOTH 05/27/20 09/23/20 eye drops Previous Rx's Medication Instructions Recorded polyethylene glycol 3350 [Miralax] 17 gram PO DAILY PRN #119 gram 09/04/19 lovastatin 40 mg tablet 40 mg PO QPM #90 tab 12/31/19 Disabled Parking Permit #1 ea 04/25/20 nitrofurantoin monohyd/m-cryst 100 mg PO BID #14 cap 05/22/20 [Macrobid] ciprofloxacin HCl 250 mg tablet 250 mg PO BID #6 tab 05/27/20 ospemifene 60 mg tablet 60 mg PO DAILY #90 tab 05/27/20 levothyroxine 75 mcg tablet 75 mcg PO DAILY #90 tab 07/31/20 ondansetron HCl 4 mg tablet 4 mg PO Q6H PRN #10 tab 08/20/20 Allergies Allergy/AdvReac Type Severity Reaction Status Date / Time No Known Drug Allergies Allergy Verified 09/23/20 13:53 Review of Systems <James Campos DO - Last Filed: 09/29/20 06:59> Constitutional Constitutional: Denies chills, Denies fatigue, Denies fever(s), Denies frequent falls, Denies lethargy and Denies weakness Eyes Eyes: Denies change in vision, Denies eye discharge, Denies irritation and Denies loss of vision ENT Ears, Nose, Mouth, and Throat: Denies change in voice, Denies dizziness, Denies neck pain, Denies sore throat and Denies throat swelling Cardiovascular Cardiovascular: Denies chest pain, Denies irregular heart rhythm, Denies lighthe adedness, Denies palpitations, Denies dyspnea, Denies dyspnea on exertion and Denies orthopnea Respiratory Respiratory: Denies cough, Denies dyspnea, Denies dyspnea on exertion and Denies wheezing Gastrointestinal Gastrointestinal: Reports abdominal pain, Denies change in bowel habits, Denies diarrhea, Reports nausea and Denies vomiting Musculoskeletal Musculoskeletal: Denies neck pain and Denies numbness Integumentary/Breasts Skin/Breast: Denies pruritus, Denies erythema, Denies rash and Denies wounds Neurologic Neurologic: Denies behavioral changes, Denies confusion, Denies dizziness, Denies frequent falls, Denies loss of vision, Denies numbness and Denies weakness Psychiatric Psychiatric: Denies anxiety, Denies behavioral changes, Denies confusion, Denies depression, Denies homicidal ideation and Denies suicidal ideation Endocrine Endocrine: Denies fatigue, Denies flushing and Denies palpitations Hematologic/Lymphatic Hematologic/Lymphatic: Denies easy bruising Allergic/Immunologic Allergic/Immunologic: Denies urticaria, Denies throat swelling and Denies wheezing Patient History <James Campos DO - Last Filed: 09/29/20 06:59> Medical History Bladder incontinence Cervical somatic dysfunction Chronic low back pain without sciatica Constipation, chronic Cranial somatic dysfunction Diabetes type 2, controlled Excessive daytime sleepiness Fatigue Flaccid bladder GERD (gastroesophageal reflux disease) Hearing aid worn History of recurrent UTI (urinary tract infection) Hypothyroidism Lumbar region somatic dysfunction Lymphocytosis (symptomatic) Pelvic somatic dysfunction Physical deconditioning Postmenopausal atrophic vaginitis Sacral region somatic dysfunction Thoracic region somatic dysfunction Unintended weight loss Urinary retention Urinary retention with incomplete bladder emptying Surgical History H/O section Hx of tubal ligation Family History Mother Myocardial infarct Father CVA (cerebral vascular accident) Cancer Sister Thyroid disease Cancer Brother Thyroid disease Social History household members: spouse Smoking Status: Never smoker alcohol intake: current Smoking Status: Never smoker alcohol intake frequency: holidays/special occasions only Substance Use Type: does not use Exam <James Campos DO - Last Filed: 09/29/20 06:59> Narrative Exam Narrative: GENERAL: [74] year old patient appears stated age. Well- nourished, well-developed patient, in moderate distress, obviously very uncomfortable HEAD: Atraumatic. Normocephalic. EYES: Pupils equal round and reactive. Extraocular motions intact. No scleral icterus. No injection or drainage. ENT: Nose without bleeding, purulent drainage. Throat without erythema, tonsillar hypertrophy or exudate. Airway patent. NECK: Trachea midline. Non tender CARDIOVASCULAR: Regular rate and rhythm without murmurs, gallops, or rubs. RESPIRATORY: Clear to auscultation. Breath sounds equal bilaterally. No wheezes, rales, or rhonchi. GASTROINTESTINAL: Abdomen firm and tender, no rebound. Decreased bowel sounds RECTAL: large amount of firm stool in rectal vault, manual disimpaction performed with patient permission and female nursing engineering agent at the bedside EXTREMITIES: No edema or joint tenderness. BACK: Nontender without deformity or crepitance. No flank tenderness. NEURO: AOx3. SKIN: No rash or erythema of visible areas Initial Vital Signs Initial Vital Signs: Vital Signs Temperature 97.7 F 09/28/20 17:18 Pulse Rate 83 09/28/20 17:18 Respiratory Rate 16 09/28/20 17:18 Blood Pressure 166/78 H 09/28/20 17:18 Pulse Oximetry 98 09/28/20 17:18 <Estefany Sears MD - Last Filed: 09/29/20 00:23> Initial Vital Signs Initial Vital Signs: Vital Signs Temperature 97.7 F 09/28/20 17:18 Pulse Rate 83 09/28/20 17:18 Respiratory Rate 16 09/28/20 17:18 Blood Pressure 166/78 H 09/28/20 17:18 Pulse Oximetry 98 09/28/20 17:18 Course <James Campos DO - Last Filed: 09/29/20 06:59> Orders Ordered: Acetaminophen (Acetaminophen 325 Mg Tablet) 650 mg PO Q6HR PRN PRN Reason: Fever/Mild Pain (1-3) Bisacodyl (Bisacodyl 10 Mg Supp) 10 mg SC DAILY PRN PRN Reason: Constipation Last Admin: 09/29/20 05:25 Dose: 10 mg Documented by: Docusate Sodium (Docusate 100 Mg Capsule) 100 mg PO BID [facility] Last Admin: 09/29/20 01:59 Dose: 100 mg Documented by: Lactated Ringer's (Lactated Ringers) 1,000 mls @ 100 mls/hr IV CONT [facility] Last Admin: 09/29/20 00:57 Dose: Not Given Documented by: Lactulose (Lactulose 20 Gm/30 Ml Solution) 20 gm PO BID [facility] Latanoprost (Latanoprost 0.005% Ophth 2.5 Ml) 1 drops EYE-BOTH BEDTIME [facility] Levofloxacin (Levofloxacin 250 Mg Tablet) 750 mg PO Q48H [facility] Levothyroxine Sodium (Levothyroxine 75 Mcg Tablet) 75 mcg PO DAILY [facility] Lovastatin (Lovastatin 20 Mg Tablet) 40 mg PO QPM [facility] Naloxone HCl (Naloxone 0.4 Mg/Ml Vial) 0.2 mg IV Q2MIN PRN PRN Reason: Opiate Reversal Ondansetron HCl (Ondansetron 4 Mg Odt) 4 mg PO Q8HR PRN PRN Reason: Nausea And Vomiting Last Admin: 09/29/20 03:10 Dose: 4 mg Documented by: Pantoprazole Sodium (Pantoprazole 20 Mg Tablet) 20 mg PO 0600 [facility] Last Admin: 09/29/20 05:15 Dose: Not Given Documented by: Sennosides (Sennosides 8.6 Mg Tablet) 17.2 mg PO BEDTIME [facility] Last Admin: 09/29/20 02:00 Dose: 17.2 mg Documented by: Sodium Biphosphate/Sodium Phosphate (Fleets Enema) 1 each SC PRN PRN PRN Reason: Constipation Discontinued Medications Sodium Chloride (Normal Saline 0.9%) 1,000 mls @ 1,000 mls/hr IV BOLUS ONE Stop: 09/28/20 18:19 Last Infusion: 09/28/20 19:14 Dose: Infused Documented by: Sodium Chloride (Normal Saline 0.9%) 1,537.68 mls @ 512.56 mls/hr 30 ml/kg infuse over 3 hr (1537.68 ml) IV NOW ONE Stop: 09/28/20 21:50 Last Titration: 09/28/20 22:06 Dose: Infused Documented by: Levofloxacin (Levaquin) 500 mg in 100 mls @ 100 mls/hr IV NOW ONE Stop: 09/28/20 19:53 Last Titration: 09/28/20 20:32 Dose: Infused Documented by: Sodium Chloride (Normal Saline 0.9%) 1,000 mls @ 1,000 mls/hr IV BOLUS ONE Stop: 09/28/20 21:31 Last Titration: 09/28/20 23:13 Dose: Infused Documented by: Lactulose (Lactulose 20 Gm/30 Ml Solution) 40 gm PO NOW ONE Stop: 09/28/20 20:20 Last Admin: 09/28/20 20:48 Dose: 40 gm Documented by: Lidocaine HCl (Lidocaine 2% (Urojet) 5 Ml Gel) 5 ml TOP NOW ONE Stop: 09/28/20 19:36 Last Admin: 09/28/20 19:39 Dose: Not Given Documented by: Ondansetron HCl (Ondansetron 4 Mg/2 Ml Inj) 4 mg IV NOW ONE Stop: 09/28/20 20:51 Last Admin: 09/28/20 21:51 Dose: Not Given Documented by: Pantoprazole Sodium (Pantoprazole 40 Mg Vial) 40 mg IV NOW ONE Stop: 09/29/20 03:48 Last Admin: 09/29/20 04:18 Dose: 40 mg Documented by: Polyethylene Glycol/Electrolytes ([id number]/Sod Sulf,Bicarb,Cl/Kcl 4,000 Ml Solution) 4,000 ml PO NOW ONE Stop: 09/29/20 00:15 Last Admin: 09/29/20 01:52 Dose: 4,000 ml Documented by: Reevaluation(s) Reevaluation #1: bladder scan notes over 500mL. After much discussion she agrees to jernigan which notes at least 800mL out. She has minimal relief at which point CT is ordered given elevated WBC count (likely chronic) and elevated lactate. patient prepped for enema, will transfer care to Dr. Sears for final disposition, dependent on repeat labs, response to enema Vital Signs Vital signs: Vital Signs - 8 hr 09/28/20 23:00 Pulse Rate 92 H Respiratory Rate 23 Blood Pressure 150/67 H Pulse Oximetry 97 <Estefany Sears MD - Last Filed: 09/29/20 00:23> Orders Ordered: Acetaminophen (Acetaminophen 325 Mg Tablet) 650 mg PO Q6HR PRN PRN Reason: Fever/Mild Pain (1-3) Bisacodyl (Bisacodyl 10 Mg Supp) 10 mg SC DAILY PRN PRN Reason: Constipation Last Admin: 09/29/20 05:25 Dose: 10 mg Documented by: Docusate Sodium (Docusate 100 Mg Capsule) 100 mg PO BID [facility] Last Admin: 09/29/20 01:59 Dose: 100 mg Documented by: Lactated Ringer's (Lactated Ringers) 1,000 mls @ 100 mls/hr IV CONT [facility] Last Admin: 09/29/20 00:57 Dose: Not Given Documented by: Lactulose (Lactulose 20 Gm/30 Ml Solution) 20 gm PO BID [facility] Latanoprost (Latanoprost 0.005% Ophth 2.5 Ml) 1 drops EYE-BOTH BEDTIME [facility] Levofloxacin (Levofloxacin 250 Mg Tablet) 750 mg PO Q48H [facility] Levothyroxine Sodium (Levothyroxine 75 Mcg Tablet) 75 mcg PO DAILY [facility] Lovastatin (Lovastatin 20 Mg Tablet) 40 mg PO QPM [facility] Naloxone HCl (Naloxone 0.4 Mg/Ml Vial) 0.2 mg IV Q2MIN PRN PRN Reason: Opiate Reversal Ondansetron HCl (Ondansetron 4 Mg Odt) 4 mg PO Q8HR PRN PRN Reason: Nausea And Vomiting Last Admin: 09/29/20 03:10 Dose: 4 mg Documented by: Pantoprazole Sodium (Pantoprazole 20 Mg Tablet) 20 mg PO 0600 [facility] Last Admin: 09/29/20 05:15 Dose: Not Given Documented by: Sennosides (Sennosides 8.6 Mg Tablet) 17.2 mg PO BEDTIME [facility] Last Admin: 09/29/20 02:00 Dose: 17.2 mg Documented by: Sodium Biphosphate/Sodium Phosphate (Fleets Enema) 1 each SC PRN PRN PRN Reason: Constipation Discontinued Medications Sodium Chloride (Normal Saline 0.9%) 1,000 mls @ 1,000 mls/hr IV BOLUS ONE Stop: 09/28/20 18:19 Last Infusion: 09/28/20 19:14 Dose: Infused Documented by: Sodium Chloride (Normal Saline 0.9%) 1,537.68 mls @ 512.56 mls/hr 30 ml/kg infuse over 3 hr (1537.68 ml) IV NOW ONE Stop: 09/28/20 21:50 Last Titration: 09/28/20 22:06 Dose: Infused Documented by: Levofloxacin (Levaquin) 500 mg in 100 mls @ 100 mls/hr IV NOW ONE Stop: 09/28/20 19:53 Last Titration: 09/28/20 20:32 Dose: Infused Documented by: Sodium Chloride (Normal Saline 0.9%) 1,000 mls @ 1,000 mls/hr IV BOLUS ONE Stop: 09/28/20 21:31 Last Titration: 09/28/20 23:13 Dose: Infused Documented by: Lactulose (Lactulose 20 Gm/30 Ml Solution) 40 gm PO NOW ONE Stop: 09/28/20 20:20 Last Admin: 09/28/20 20:48 Dose: 40 gm Documented by: Lidocaine HCl (Lidocaine 2% (Urojet) 5 Ml Gel) 5 ml TOP NOW ONE Stop: 09/28/20 19:36 Last Admin: 09/28/20 19:39 Dose: Not Given Documented by: Ondansetron HCl (Ondansetron 4 Mg/2 Ml Inj) 4 mg IV NOW ONE Stop: 09/28/20 20:51 Last Admin: 09/28/20 21:51 Dose: Not Given Documented by: Pantoprazole Sodium (Pantoprazole 40 Mg Vial) 40 mg IV NOW ONE Stop: 09/29/20 03:48 Last Admin: 09/29/20 04:18 Dose: 40 mg Documented by: Polyethylene Glycol/Electrolytes ([id number]/Sod Sulf,Bicarb,Cl/Kcl 4,000 Ml Solution) 4,000 ml PO NOW ONE Stop: 09/29/20 00:15 Last Admin: 09/29/20 01:52 Dose: 4,000 ml Documented by: Vital Signs Vital signs: Vital Signs - 8 hr 09/28/20 23:00 Pulse Rate 92 H Respiratory Rate 23 Blood Pressure 150/67 H Pulse Oximetry 97 MDM - Abdominal Pain <James Campos DO - Last Filed: 09/29/20 06:59> Lab Data Result diagrams: 09/29/20 03:55 09/29/20 03:55 Labs: Lab Results 09/28/20 09/28/20 09/28/20 Range/Units 17:32 17:32 17:32 WBC 18.3 H (4.5-11.0) X10^3/uL RBC 4.23 (4.0-5.2) X10^6/uL Hgb 13.4 (12.0-16.0) g/dL Hct 40.3 (36-46) % MCV 95.4 (80-100) fL MCH 31.6 (26-34) PG MCHC 33.2 (30-36) % RDW 16.4 H (11.6-14.8) % Plt Count 222 (150-400) X10^3/uL Neut % (Auto) Not Reportable Lymph % (Auto) Not Reportable [place] % (Auto) Not Reportable Eos % (Auto) Not Reportable Baso % (Auto) Not Reportable Lymph # (Auto) Not Reportable [place] # (Auto) Not Reportable Baso # (Auto) Not Reportable Total Counted 100 Seg Neutrophils % 38.0 (38-70) % Lymphocytes % (Manual) 43.0 (25-45) % Atypical Lymphs % 14.0 H ( - 0) % Monocytes % (Manual) 3.0 (2-11) % Basophils % (Manual) 2.0 H (0-1) % Neutrophils # (Manual) 6954 H (9455-2707) /uL Nucleated RBCs Not Reportable RBC Morphology Normal morphology Sodium 139 (137-145) mmol/L Potassium 4.0 (3.4-5.1) mmol/L Chloride 101 (98-107) mmol/L Carbon Dioxide 32 (22-32) mmol/L BUN 24 H (7-17) mg/dL Creatinine 0.97 (0.52-1.04) mg/dL Estimated GFR 56.1 L (>60) mL/min BUN/Creatinine Ratio 24.7 H (6-22) Glucose 184 H (80-110) mg/dL Lactate 3.2 H (0.7-2.1) mmol/L Calcium 9.8 (8.4-10.2) mg/dL Magnesium 1.8 (1.6-2.3) mg/dL Total Bilirubin 1.0 (0.2-1.3) mg/dL AST 19 (14-36) IU/L ALT 13 (<35) IU/L Alkaline Phosphatase 70 (38-126) U/L Troponin I (0.01-0.034) ng/mL C-Reactive Protein (<1.0) mg/dL Total Protein 7.3 (6.3-8.2) g/dL Albumin 4.3 (3.5-5.0) g/dL Globulin 3.0 (1.7-4.1) g/dL Albumin/Globulin Ratio 1.4 (1.0-2.8) Lipase 124 (23-300) U/L SARS-CoV-2 (PCR) (Negative) 09/28/20 09/28/20 09/28/20 Range/Units 17:32 20:04 20:27 WBC (4.5-11.0) X10^3/uL RBC (4.0-5.2) X10^6/uL Hgb (12.0-16.0) g/dL Hct (36-46) % MCV (80-100) fL MCH (26-34) PG MCHC (30-36) % RDW (11.6-14.8) % Plt Count (150-400) X10^3/uL Neut % (Auto) Lymph % (Auto) [place] % (Auto) Eos % (Auto) Baso % (Auto) Lymph # (Auto) [place] # (Auto) Baso # (Auto) Total Counted Seg Neutrophils % (38-70) % Lymphocytes % (Manual) (25-45) % Atypical Lymphs % ( - 0) % Monocytes % (Manual) (2-11) % Basophils % (Manual) (0-1) % Neutrophils # (Manual) (5957-8581) /uL Nucleated RBCs RBC Morphology Sodium (137-145) mmol/L Potassium (3.4-5.1) mmol/L Chloride (98-107) mmol/L Carbon Dioxide (22-32) mmol/L BUN (7-17) mg/dL Creatinine (0.52-1.04) mg/dL Estimated GFR (>60) mL/min BUN/Creatinine Ratio (6-22) Glucose (80-110) mg/dL Lactate 4.1 H* (0.7-2.1) mmol/L Calcium (8.4-10.2) mg/dL Magnesium (1.6-2.3) mg/dL Total Bilirubin (0.2-1.3) mg/dL AST (14-36) IU/L ALT (<35) IU/L Alkaline Phosphatase (38-126) U/L Troponin I < 0.012 (0.01-0.034) ng/mL C-Reactive Protein < 0.5 (<1.0) mg/dL Total Protein (6.3-8.2) g/dL Albumin (3.5-5.0) g/dL Globulin (1.7-4.1) g/dL Albumin/Globulin Ratio (1.0-2.8) Lipase (23-300) U/L SARS-CoV-2 (PCR) Negative (Negative) Point of care testing: Urine Dip Bedside Urine Glucose Negative Bedside Urine Bilirubin - Negative Bedside Urine Ketone - Negative Urine Specific [place] 1.020 Bedside Urine Occult Blood - Negative Bedside Urine pH 6.0 Bedside Urine Protein - Negative Bedside Urine Urobilinogen - Negative Bedside Urine Nitrite - Negative Bedside Urine Leukocytes - Negative Esterase <Estefany Sears MD - Last Filed: 09/29/20 00:23> Medical Records Attestation: I reviewed the patient's medical records. Lab Data Attestation: I reviewed the patient's lab results. Labs: Lab Results 09/28/20 09/28/20 09/28/20 Range/Units 17:32 17:32 17:32 WBC 18.3 H (4.5-11.0) X10^3/uL RBC 4.23 (4.0-5.2) X10^6/uL Hgb 13.4 (12.0-16.0) g/dL Hct 40.3 (36-46) % MCV 95.4 (80-100) fL MCH 31.6 (26-34) PG MCHC 33.2 (30-36) % RDW 16.4 H (11.6-14.8) % Plt Count 222 (150-400) X10^3/uL Neut % (Auto) Not Reportable Lymph % (Auto) Not Reportable [place] % (Auto) Not Reportable Eos % (Auto) Not Reportable Baso % (Auto) Not Reportable Lymph # (Auto) Not Reportable [place] # (Auto) Not Reportable Baso # (Auto) Not Reportable Total Counted 100 Seg Neutrophils % 38.0 (38-70) % Lymphocytes % (Manual) 43.0 (25-45) % Atypical Lymphs % 14.0 H ( - 0) % Monocytes % (Manual) 3.0 (2-11) % Basophils % (Manual) 2.0 H (0-1) % Neutrophils # (Manual) 6954 H (1614-7229) /uL Nucleated RBCs Not Reportable RBC Morphology Normal morphology Sodium 139 (137-145) mmol/L Potassium 4.0 (3.4-5.1) mmol/L Chloride 101 (98-107) mmol/L Carbon Dioxide 32 (22-32) mmol/L BUN 24 H (7-17) mg/dL Creatinine 0.97 (0.52-1.04) mg/dL Estimated GFR 56.1 L (>60) mL/min BUN/Creatinine Ratio 24.7 H (6-22) Glucose 184 H (80-110) mg/dL Lactate 3.2 H (0.7-2.1) mmol/L Calcium 9.8 (8.4-10.2) mg/dL Magnesium 1.8 (1.6-2.3) mg/dL Total Bilirubin 1.0 (0.2-1.3) mg/dL AST 19 (14-36) IU/L ALT 13 (<35) IU/L Alkaline Phosphatase 70 (38-126) U/L Troponin I (0.01-0.034) ng/mL C-Reactive Protein (<1.0) mg/dL Total Protein 7.3 (6.3-8.2) g/dL Albumin 4.3 (3.5-5.0) g/dL Globulin 3.0 (1.7-4.1) g/dL Albumin/Globulin Ratio 1.4 (1.0-2.8) Lipase 124 (23-300) U/L SARS-CoV-2 (PCR) (Negative) 09/28/20 09/28/20 09/28/20 Range/Units 17:32 20:04 20:27 WBC (4.5-11.0) X10^3/uL RBC (4.0-5.2) X10^6/uL Hgb (12.0-16.0) g/dL Hct (36-46) % MCV (80-100) fL MCH (26-34) PG MCHC (30-36) % RDW (11.6-14.8) % Plt Count (150-400) X10^3/uL Neut % (Auto) Lymph % (Auto) [place] % (Auto) Eos % (Auto) Baso % (Auto) Lymph # (Auto) [place] # (Auto) Baso # (Auto) Total Counted Seg Neutrophils % (38-70) % Lymphocytes % (Manual) (25-45) % Atypical Lymphs % ( - 0) % Monocytes % (Manual) (2-11) % Basophils % (Manual) (0-1) % Neutrophils # (Manual) (4924-4164) /uL Nucleated RBCs RBC Morphology Sodium (137-145) mmol/L Potassium (3.4-5.1) mmol/L Chloride (98-107) mmol/L Carbon Dioxide (22-32) mmol/L BUN (7-17) mg/dL Creatinine (0.52-1.04) mg/dL Estimated GFR (>60) mL/min BUN/Creatinine Ratio (6-22) Glucose (80-110) mg/dL Lactate 4.1 H* (0.7-2.1) mmol/L Calcium (8.4-10.2) mg/dL Magnesium (1.6-2.3) mg/dL Total Bilirubin (0.2-1.3) mg/dL AST (14-36) IU/L ALT (<35) IU/L Alkaline Phosphatase (38-126) U/L Troponin I < 0.012 (0.01-0.034) ng/mL C-Reactive Protein < 0.5 (<1.0) mg/dL Total Protein (6.3-8.2) g/dL Albumin (3.5-5.0) g/dL Globulin (1.7-4.1) g/dL Albumin/Globulin Ratio (1.0-2.8) Lipase (23-300) U/L SARS-CoV-2 (PCR) Negative (Negative) Point of care testing: Urine Dip Bedside Urine Glucose Negative Bedside Urine Bilirubin - Negative Bedside Urine Ketone - Negative Urine Specific [place] 1.020 Bedside Urine Occult Blood - Negative Bedside Urine pH 6.0 Bedside Urine Protein - Negative Bedside Urine Urobilinogen - Negative Bedside Urine Nitrite - Negative Bedside Urine Leukocytes - Negative Esterase MDM Narrative Medical decision making narrative: Care is assumed from Dr Campos. Patient is examined and notes reviewed. Initial plan was to decompress her bladder which is gone nicely with Jernigan catheter almost 1400 cc out. Because of the elevated white blood cell count slightly elevated lactic acid concerns for sepsis were entertained. Thirty per kilos fluid bolus was given and she was started on Levaquin. For her severe obstipation/constipation and enema was given after manual disimpaction. Will follow that up with lactulose to see if we can get entire bowel to move. The hope was that her repeat lactic acid would come down and to have a large bowel movement and she would be safe for home discharge. Unfortunately, her lactic acid level has increased after a L of fluid. Clearly she is making adequate urine at this time. Source of infection remains unclear at this time. Does not appear to be a pneumonia, point of care urine was negative in urinalysis from 2 days ago was unremarkable as well. CT scan of the abdomen does not point to any obvious etiology. She is not complaining of fevers neck pain or having any change in level of consciousness or headaches to suggest a meningitis etiology. Skin is examined and there is no obvious cellulitis. Given the significant stool loading noted on CT scan possibility of infectious source from the got certainly remains. Her abdomen is tender, certainly not a surgical abdomen at this time. Reviewed with her the recommendation for hospital admission and she is amenable. Blood pressure remains stable no evidence of severe sepsis will repeat lactic and give her an additional L of fluid after the 30 per kilos bolus. Discharge Plan Departure Patient Disposition: Admitted as Observation Clinical Impression: Obstipation, Elevated lactic acid level Abdominal pain Qualifiers: Abdominal location: generalized Qualified Code(s): R10.84 - Generalized abdomi nal pain Leukocytosis Qualifiers: Leukocytosis type: unspecified Qualified Code(s): D72.829 - Elevated white blood cell count, unspecified Admit Date/Time: 09/28/20 23:09 Admit Provider: Maggie Kessler
--- NOTE | 2020-09-28 18:55 | DI.CT.S_ITS ---
PROCEDURE: CT ABDOMEN PELVIS W CON INDICATIONS: severe abdominal pain TECHNIQUE: After the administration of intravenous contrast, 5 mm thick sections acquired from the diaphragm to the symphysis. 5 mm coronal and sagittal reformats were acquired. For radiation dose reduction, the following was used: automated exposure control, adjustment of mA and/or kV according to patient size. COMPARISON: [facility], CT, CT ABDOMEN PELVIS W CON, 10/10/2019, 13:55. [facility], CT, ABDOMEN/PELVIS WITH CONTRAST, 06/05/2014, 20:40. [facility], CT, CT ABDOMEN PELVIS WITH CONTRAST, 05/10/2020, 9:38. FINDINGS: Image quality: Excellent. ABDOMEN: Lung bases: Mild bibasilar atelectasis. Heart size is normal. Small hiatal hernia with minimal circumferential wall thickening of the distal esophagus possibly related to esophagitis. Solid organs: Liver is normal in size and enhancement. Stable appearance of multiple small hepatic hypodensities which are too small to characterize but likely representing cysts versus hemangiomas. Gallbladder is unremarkable. Biliary system is non dilated. Pancreas enhances normally. Spleen is normal in size and enhancement. No adrenal nodules. Kidneys are stable in size and enhancement without hydronephrosis. Stable appearance of multiple bilateral renal hypodensities likely representing cysts. Cortical thinning and irregularity of the bilateral kidneys likely representing sequela of prior infection, trauma or infarct. A few small punctate densities within the bilateral kidneys a compatible with nonobstructing renal stones. Visualized course of the bilateral ureters are normal. No ureteral stones seen. Peritoneum and bowel: There is a marked amount of fecal material seen throughout the colon and rectum. There is distension of the rectum by fecal material suggesting impaction. There is also mild distention of the entire colon secondary to marked amount of fecal material. Visualized small bowel appear normal in caliber and wall thickness. No free fluid or air. Nodes and vessels: No retroperitoneal or mesenteric adenopathy by size criteria. Aorta and inferior vena cava are normal in size. Moderate atherosclerotic calcifications of the abdominal aorta and iliac vessels without aneurysmal dilatation. Miscellaneous: No ventral hernias. PELVIS: Genitourinary: Urinary bladder is decompressed by Flor catheter as before. There is also marked concentric urinary bladder wall thickening. Previously noted perivesicular stranding is not as conspicuous on today's evaluation. Miscellaneous: No inguinal hernias. No pelvic adenopathy. Bones: No suspicious bony lesions. No acute vertebral body compression fractures. Moderate multilevel lumbar spondylosis. IMPRESSION: 1. Marked amount of fecal material seen throughout the colon and rectum. There is distention of the rectum, suggesting fecal impaction. Findings may also represent sequela of functional distal colonic obstruction. 2. Urinary bladder decompressed by Flor catheter with persistent marked circumferential wall thickening. Concurrent cystitis not completely excluded. Recommend clinical/laboratory correlation. Other chronic findings as above, not significantly changed. Dictated by: Pito España M.D. on 09/28/2020 at 19:37 Approved by: Pito España M.D. on 09/28/2020 at 19:50
[2020-09-28] MEDS: levoFLOXacin 500 MG/100 ML PIGGYBACK 100 MG IV (19:00)
[2020-09-28] MEDS: SODIUM CHLORIDE 0.9% 512.56 ML IV (19:01)
[2020-09-28 19:37] LABS: Reflexed Lactate in 2 Hours Y
[2020-09-28 20:21] LABS: Lactate 2HR (Lactic Acid Rflx) 4.1 mmol/L (0.7-2.1)
--- NOTE | 2020-09-28 20:33 | DI.RAD.S_ITS ---
PROCEDURE: XR CHEST 1V INDICATIONS: increasing lactic acid, leukocytosis TECHNIQUE: One view of the chest was acquired. COMPARISON: [facility], GI, XR ACUTE ABDOMEN SERIES, 05/05/2020, 18:41. [facility], GI, CHEST 2 VIEW, 06/14/2016, 11:53. FINDINGS: Surgical changes and devices: None. Lungs and pleura: Lungs are clear. No pleural effusions or pneumothorax. Mediastinum: Mediastinal contours appear normal. Heart size is normal. Bones and chest wall: No suspicious bony lesions. Overlying soft tissues appear unremarkable. IMPRESSION: Chest without acute cardiopulmonary abnormalities. No focal airspace disease. Dictated by: Pito España M.D. on 09/28/2020 at 21:45 Approved by: Pito España M.D. on 09/28/2020 at 21:47
[2020-09-28] MEDS: LACTULOSE 20 GM/30 ML SOLUTION 40 GM PO (20:48)
[2020-09-28 21:24] LABS: COVID19 -Nasal RAPID Negative (Negative)
[2020-09-29] VITALS (12 sets, daily range): BP systolic 107–194; BP diastolic 75–97; PULSE 68–96; RESP 14–22; TEMP 36.9–37.2; O2SAT 95–99; BMI 20.6
[2020-09-29 00:41] LABS: C-Reactive Protein Quant < 0.5 mg/dL (<1.0)
[2020-09-29 00:43] LABS: Troponin I < 0.012 ng/mL (0.01-0.034)
[2020-09-29 00:45] LABS: Erythrocyte Sedimentation Rate 6 MM/HR (0-20)
[2020-09-29] MEDS: LACTATED RINGERS 1,000 ML 100 ML IV (00:56)
[2020-09-29 01:03] LABS: D Dimer < 200 ng/mL (<230)
[2020-09-29] MEDS: PEG3350/SOD SULF,BICARB,CL/KCL 4,000 ML SOLUTION 4000 ML PO (01:52)
[2020-09-29 01:57] LABS: Appearance Urine UA CLEAR; Bilirubin Urine UA NEGATIVE (NEGATIVE); Color Urine UA YELLOW; Glucose Urine UA NEGATIVE (Negative); Ketones Urine UA NEGATIVE (NEGATIVE); Leukocyte Esterase Urine UA TRACE (NEGATIVE); Nitrite Urine UA NEGATIVE (Negative); Occult Blood Urine UA TRACE-LYSED (Negative); Protein Urine UA NEGATIVE (Negative); Urobilinogen Urine UA 0.2 E.U./dL (0.2)
[2020-09-29 01:58] LABS: RBC Urine 0-1/HPF (0-5/HPF); Squamous Epithelial Cell Urine 0-1 /HPF (0-5/HPF); WBC Urine 0-1/HPF (0-5/HPF); pH Urine UA 6.5 (4.5-8.0)
[2020-09-29 01:59] LABS: Bacteria Urine Occasional (0-1); Culture Indicated Urine Specimen Cultured
[2020-09-29] MEDS: DOCUSATE 100 MG CAPSULE PO ×3 (01:59→20:55)
[2020-09-29] MEDS: SENNOSIDES 8.6 MG TABLET 17.2 MG PO ×2 (02:00→20:55)
--- NOTE | 2020-09-29 02:59 | PC.NURSE ---
Addendum entered by Myrna Willoughby R.N. 09/29/20 03:31: pt had a pink emesis, hospitalist was notified and was shown the emesis. As per hospitalist, guaic her stool whenever she has one. Zofran given to patient and resolved her nausea Original Note: pt was admitted to room 214 from ED via stretcher. pt was able to ambulate from stretcher to bed but it took two person assist and pt was visibly weak and was moaning in pain upon transfer. pt complains that she is always cold. numerous warm blanket given to pt. Pt had a smear upon arrival and was cleaned by this report writer and [employer] OFFICER. Pt has been coughing upon arrival, hospitalist was able to witness her coughing fit. pt was started on golytely but after two and a half cups of the golytely, pt states she does not want to drink golytely anymore, was able to reason with pt and explain the purpose of golytely. pt took a break from golytely for an hour before she was able to resume drinking. pt not a good historian and kept saying to ask the questions to her once he comes in the morning. pt is alert and oriented x1. call light within reach, bed on lowest position, jernigan draining via gravity and is free of kinks, bed alarm activated
[2020-09-29] MEDS: ONDANSETRON 4 MG ODT PO (03:10)
[2020-09-29] MEDS: PANTOPRAZOLE 40 MG VIAL IV (04:18)
[2020-09-29 04:22] LABS: INR 1.1 (0.9-1.3); Prothrombin Time 13.1 SECONDS (10.1-12.7)
[2020-09-29 04:27] LABS: Lactate (Lactic Acid) 1.3 mmol/L (0.7-2.1)
--- NOTE | 2020-09-29 04:27 | P.HP_ITS ---
History of Present Illness History of Present Illness Date Patient Seen: 09/28/20 Time Patient Seen: 23:55 Chief complaint: abdominal pain Narrative: Patient is a 74 year old female Jennifer Tubbs presents with her a chief complaint of increasing episodes of abdominal pain over the past 2 weeks. Patient is a nonsmoker with extensive history of flaccid bladder and prior episodes of urinary retention as well as chronic constipation, and CLL. In the ED the patient reported that these episodes are diffuse, crampy in nature and are increasing in severity and duration. She denies any provocation or palliation of her symptoms. She has had no fever chills. She is nauseated and has a terrible appetite but denies any vomiting. She has chronic constipation and denies any obvious change in that pattern. She denies any exposure to persons known to have COVID. She has had no runny nose, sore throat or cough. She has seen a urologist in the past who has recommended either manual suprapubic pressure to help increase bladder emptying versus self cath eterization versus suprapubic catheters. Upon admit to the floor the patient was either unwilling or unable to assist in her review of symptoms or in her history unsure if this is altered mental sta tus(encephalopathy) or the patient's base line. The patient kept repeating that she is a poor historian and that her will be back in the morning and he could answer my questions at that time. The patient did manage to acknowledge that she had no chest pain, shortness of breath,fever, or body aches she does get cold easily and requested a warm blanket. The patient appeared irritated at being admitted to the hospital She denies nausea at this time but c/o continued abdominal pain, she did note that her abdominal pain is chronic and only worsened which is what brought her in to the ED today. She notes that her abdominal pain has improved since the pain medication in the emergency room but continues as a diffuse discomfort and tenderness. She notes that she has this abdominal pain chronically but that it worsened a couple days ago, when I asked when her last bowel movement was she repeated more than once I do not have bowel movements when I inquired further she repeated I never have bowel movements. Patient's vital signs upon admit temp 97.7?, BP 162/77, HR 80, R 17, O2 saturation 99% on room air. Patient's labs WBC 18.3, neut # [id number] BUN 24, glucose 184, EGFR 56.1, BUN creatinine ratio 24.7, lactate #1-3.2, #2 4.1, lipase negative, magnesium normal.CXR: Chest without acute cardiopulmonary abnormalities. CT ABD/Pelvis:Marked amount of fecal material seen throughout the colon and rectum. There is distention of the rectum, suggesting fecal impaction. Findings may also represent sequela of functional distal colonic obstruction. Urinary bladder decompressed by Flor catheter with persistent marked circumferential wall thickening. Concurrent cystitis not completely excluded. Patient History Medical History Bladder incontinence Cervical somatic dysfunction Chronic low back pain without sciatica Constipation, chronic Cranial somatic dysfunction Diabetes type 2, controlled Excessive daytime sleepiness Fatigue Flaccid bladder GERD (gastroesophageal reflux disease) Hearing aid worn History of recurrent UTI (urinary tract infection) Hypothyroidism Lumbar region somatic dysfunction Lymphocytosis (symptomatic) Pelvic somatic dysfunction Physical deconditioning Postmenopausal atrophic vaginitis Sacral region somatic dysfunction Thoracic region somatic dysfunction Unintended weight loss Urinary retention Urinary retention with incomplete bladder emptying Surgical History H/O section Hx of tubal ligation Family & Social History Family History Mother Myocardial infarct Father CVA (cerebral vascular accident) Cancer Sister Thyroid disease Cancer Brother Thyroid disease Social History: household members spouse Prior Living Arrangements House Safety & Behavioral: Feels Safe in Current Yes Environment Been Physically Hurt or No Threatened By a Person Suicidal Ideation Description None Suicide Plan Description No Plan Tobacco & Substance use: Smoking Status Never smoker alcohol intake current alcohol intake frequency holiday/special occasion Substance Use Type does not use Meds Home Medications and Allergies Home Medications Medication Instructions Recorded Confirmed Type latanoprost 1 drp EYE-BOTH BEDTIME #0 02/18/09 09/28/20 History metformin 1,000 mg PO BID #0 02/18/09 09/28/20 History multivitamin 1 cap PO DAILY #0 02/18/09 09/23/20 History glimepiride 4 mg PO BID 05/16/19 09/28/20 History Trulicity 1.5 mg SUBCUT WEEKLY 09/03/19 09/28/20 History polyethylene glycol 3350 [Miralax] 17 gram PO DAILY PRN #119 gram 09/04/19 09/23/20 Rx lovastatin 40 mg tablet 40 mg PO QPM #90 tab 12/31/19 09/28/20 Rx Disabled Parking Permit #1 ea 04/25/20 09/23/20 Rx probiotic PO 05/20/20 09/23/20 History nitrofurantoin monohyd/m-cryst 100 mg PO BID #14 cap 05/22/20 09/23/20 Rx [Macrobid] brimonidine 0.2 %-timolol 0.5 % EYE-BOTH 05/27/20 09/23/20 History eye drops ciprofloxacin HCl 250 mg tablet 250 mg PO BID #6 tab 05/27/20 09/23/20 Rx ospemifene 60 mg tablet 60 mg PO DAILY #90 tab 05/27/20 09/28/20 Rx levothyroxine 75 mcg tablet 75 mcg PO DAILY #90 tab 07/31/20 09/28/20 Rx ondansetron HCl 4 mg tablet 4 mg PO Q6H PRN #10 tab 08/20/20 09/23/20 Rx Allergies Allergy/AdvReac Type Severity Reaction Status Date / Time No Known Drug Allergies Allergy Verified 09/23/20 13:53 Review of Systems Review of Systems ROS: Yes All systems reviewed with the patient and are negative except as otherwise documented Constitutional Constitutional: Reports system reviewed and no additional complaints, except as documented and Reports poor appetite Cardiovascular Cardiovascular: Reports system reviewed and no additional complaints, except as documented Respiratory Respiratory: Reports system reviewed and no additional complaints, except as documented Gastrointestinal Gastrointestinal: Reports system reviewed and no additional complaints, except as documented and Reports abdominal pain Genitourinary Genitourinary: Reports system reviewed and no additional complaints, except as documented Musculoskeletal Musculoskeletal: Reports system reviewed and no additional complaints, except as documented Integumentary/Breasts Skin/Breast: Reports system reviewed and no additional complaints, except as documented Neurologic Neurologic: Reports system reviewed and no additional complaints, except as documented Psychiatric Psychiatric: Reports system reviewed and no additional complaints, except as documented Endocrine Endocrine: Reports system reviewed and no additional complaints, except as documented Hematologic/Lymphatic Hematologic/Lymphatic: Reports system reviewed and no additional complaints, except as documented Allergic/Immunologic Allergic/Immunologic: Reports system reviewed and no additional complaints, except as documented Exam Vital Signs (past 8 hours): - 09/28/20 20:51 09/28/20 20:58 09/28/20 21:00 Temperature Pulse Rate 100 H 87 81 Respiratory Rate 30 H 18 19 Blood Pressure 174/86 H 154/80 H Pulse Oximetry 99 99 09/28/20 21:30 09/28/20 22:00 09/28/20 22:30 Temperature Pulse Rate 81 80 89 Respiratory Rate 19 17 22 Blood Pressure 160/78 H 162/77 H 172/83 H Pulse Oximetry 99 99 97 09/28/20 23:00 09/28/20 23:30 09/29/20 00:00 Temperature Pulse Rate 92 H 94 H 96 H Respiratory Rate 23 17 22 Blood Pressure 150/67 H 164/78 H 194/95 H Pulse Oximetry 97 99 98 09/29/20 00:30 09/29/20 00:45 Temperature 98.8 F Pulse Rate 94 H Respiratory Rate 16 Blood Pressure 159/88 H Pulse Oximetry 98 98 Oxygen Delivery Method Room Air Oxygen Flow Rate 0 Narrative Exam Narrative: General: Patient is a thin frail elderly female moderately- nourished in no acute distress at this time, but appears in mild discomfort. HEENT: Normocephalic, atraumatic, extraocular muscles intact, oral pharynx is clear and mucous membranes are moist. Neck is supple and symmetric, trachea is midline, no adenopathy, no thyroid enlargement, nontender, no masses palpated. Negative for JVD Chest: Normal AP diameter, no nasal flaring, retractions, or tachypneic labored Lungs: Auscultation of all lung muñoz are clear coarse without adventitious sounds, wheezes, rhonchi, or rales. Cardio: S1 & S2 with regular rate and rhythm without murmur, rubs, or gallops, no carotid bruit, no cardiac pulsations present. Abdomen: Firm, diffuse generalized tenderness, greater right upper quadrant. Bowel sounds decreased hypoactive are present in all 4 quadrants without guarding or rebound, no CVA tenderness. Musculoskeletal: Muscle strength and tone are equal within normal limits, no deformity, crepitus, effusions, cyanosis, clubbing, or edema present. Full range of motion intact radial and pedal pulses are normal. Skin: Warm dry slightly dusky in color and intact without rashes, ulcerations or petechiae. Neuro: Alert and orientated x3, strength is +5/5 in all extremities, sensation to touch intact, no gross deficits noted of cranial nerves. Psych: Patient has a well-kept appearance, aggitated affect, mental status attitude thought context and judgment are appropriate for age but are not situationally appropriate and confrontational to the concept her hospitalization. Objective Labs Result Diagrams: 09/28/20 17:32 09/28/20 17:32 Labs: Laboratory Results - last 24 hr 09/28/20 09/28/20 09/28/20 17:32 17:32 17:32 WBC 18.3 H RBC 4.23 Hgb 13.4 Hct 40.3 MCV 95.4 MCH 31.6 MCHC 33.2 RDW 16.4 H Plt Count 222 Neut % (Auto) Not Reportable Lymph % (Auto) Not Reportable [place] % (Auto) Not Reportable Eos % (Auto) Not Reportable Baso % (Auto) Not Reportable Lymph # (Auto) Not Reportable [place] # (Auto) Not Reportable Baso # (Auto) Not Reportable Total Counted 100 Seg Neutrophils % 38.0 Lymphocytes % (Manual) 43.0 Atypical Lymphs % 14.0 H Monocytes % (Manual) 3.0 Basophils % (Manual) 2.0 H Neutrophils # (Manual) 6954 H Nucleated RBCs Not Reportable RBC Morphology Normal morphology ESR PT INR D-Dimer Sodium 139 Potassium 4.0 Chloride 101 Carbon Dioxide 32 BUN 24 H Creatinine 0.97 Estimated GFR 56.1 L BUN/Creatinine Ratio 24.7 H Glucose 184 H Lactate 3.2 H Calcium 9.8 Magnesium 1.8 Total Bilirubin 1.0 AST 19 ALT 13 Alkaline Phosphatase 70 Troponin I C-Reactive Protein Total Protein 7.3 Albumin 4.3 Globulin 3.0 Albumin/Globulin Ratio 1.4 Lipase 124 Urine Color Urine Appearance Urine pH Ur Specific [place] Urine Protein Urine Glucose (UA) Urine Ketones Urine Occult Blood Urine Nitrate Urine Bilirubin Urine Urobilinogen Ur Leukocyte Esterase Urine RBC Urine WBC Ur Squamous Epith Cells Urine Bacteria Ur Culture Indicated? SARS-CoV-2 (PCR) 09/28/20 09/28/20 09/28/20 17:32 20:04 20:27 WBC RBC Hgb Hct MCV MCH MCHC RDW Plt Count Neut % (Auto) Lymph % (Auto) [place] % (Auto) Eos % (Auto) Baso % (Auto) Lymph # (Auto) [place] # (Auto) Baso # (Auto) Total Counted Seg Neutrophils % Lymphocytes % (Manual) Atypical Lymphs % Monocytes % (Manual) Basophils % (Manual) Neutrophils # (Manual) Nucleated RBCs RBC Morphology ESR PT INR D-Dimer Sodium Potassium Chloride Carbon Dioxide BUN Creatinine Estimated GFR BUN/Creatinine Ratio Glucose Lactate 4.1 H* Calcium Magnesium Total Bilirubin AST ALT Alkaline Phosphatase Troponin I < 0.012 C-Reactive Protein < 0.5 Total Protein Albumin Globulin Albumin/Globulin Ratio Lipase Urine Color Urine Appearance Urine pH Ur Specific [place] Urine Protein Urine Glucose (UA) Urine Ketones Urine Occult Blood Urine Nitrate Urine Bilirubin Urine Urobilinogen Ur Leukocyte Esterase Urine RBC Urine WBC Ur Squamous Epith Cells Urine Bacteria Ur Culture Indicated? SARS-CoV-2 (PCR) Negative 09/29/20 09/29/20 09/29/20 00:10 00:10 01:05 WBC RBC Hgb Hct MCV MCH MCHC RDW Plt Count Neut % (Auto) Lymph % (Auto) [place] % (Auto) Eos % (Auto) Baso % (Auto) Lymph # (Auto) [place] # (Auto) Baso # (Auto) Total Counted Seg Neutrophils % Lymphocytes % (Manual) Atypical Lymphs % Monocytes % (Manual) Basophils % (Manual) Neutrophils # (Manual) Nucleated RBCs RBC Morphology ESR 6 PT INR D-Dimer < 200 Sodium Potassium Chloride Carbon Dioxide BUN Creatinine Estimated GFR BUN/Creatinine Ratio Glucose Lactate Calcium Magnesium Total Bilirubin AST ALT Alkaline Phosphatase Troponin I C-Reactive Protein Total Protein Albumin Globulin Albumin/Globulin Ratio Lipase Urine Color Yellow Urine Appearance Clear Urine pH 6.5 Ur Specific [place] 1.010 Urine Protein Negative Urine Glucose (UA) Negative Urine Ketones Negative Urine Occult Blood Trace-lysed Urine Nitrate Negative Urine Bilirubin Negative Urine Urobilinogen 0.2 Ur Leukocyte Esterase Trace H Urine RBC 0-1/hpf Urine WBC 0-1/hpf Ur Squamous Epith Cells 0-1 /hpf Urine Bacteria Occasional (0-1) Ur Culture Indicated? Specimen cultured SARS-CoV-2 (PCR) 09/29/20 03:55 WBC RBC Hgb Hct MCV MCH MCHC RDW Plt Count Neut % (Auto) Lymph % (Auto) [place] % (Auto) Eos % (Auto) Baso % (Auto) Lymph # (Auto) [place] # (Auto) Baso # (Auto) Total Counted Seg Neutrophils % Lymphocytes % (Manual) Atypical Lymphs % Monocytes % (Manual) Basophils % (Manual) Neutrophils # (Manual) Nucleated RBCs RBC Morphology ESR PT 13.1 H INR 1.1 D-Dimer Sodium Potassium Chloride Carbon Dioxide BUN Creatinine Estimated GFR BUN/Creatinine Ratio Glucose Lactate Calcium Magnesium Total Bilirubin AST ALT Alkaline Phosphatase Troponin I C-Reactive Protein Total Protein Albumin Globulin Albumin/Globulin Ratio Lipase Urine Color Urine Appearance Urine pH Ur Specific [place] Urine Protein Urine Glucose (UA) Urine Ketones Urine Occult Blood Urine Nitrate Urine Bilirubin Urine Urobilinogen Ur Leukocyte Esterase Urine RBC Urine WBC Ur Squamous Epith Cells Urine Bacteria Ur Culture Indicated? SARS-CoV-2 (PCR) Assessment & Plan Assessment & Plan narrative: 1. Abdominal pain, Fecal Impaction, acute on chronic, Right upper & lower quadrant abdominal, stable patient not in acute distress at this time, present on admission. -suspect just fecal impaction, but concern for possible distal colonic obstruction, ischemic disease versus acute enteritis versus small bowel obstruction, GI bleed, UTI/pyelonephritis. As evidenced by elevated lactic acid (#1 3.2, #2 4.1) and leukocytosis/neutrophilia:(18.10/6953). -Patient's vital signs upon admit temp 97.7?, BP 162/77, HR 80, R 17, O2 saturation 99% on room air. Patient's labs WBC 18.3, neut # 6954 BUN 24, glucose 184, EGFR 56.1, BUN creatinine ratio 24.7, lactate #1-3.2, #2 4.1, lipase negative, magnesium normal.CXR: Chest without acute cardiopulmonary abnormalities. CT ABD/Pelvis:Marked amount of fecal material seen throughout the colon and rectum. There is distention of the rectum, suggesting fecal impaction. Findings may also represent sequela of functional distal colonic obstruction. Urinary bladder decompressed by Flor catheter with persistent marked circumferential wall thickening. Concurrent cystitis not completely excluded -IV fluids: LR 100 cc/hour, monitor electrolytes, maintain potassium greater than 4 and magnesium greater than 2 -patient admitted to telemedicine, labs ordered repeat CBC, CMP, and Mag q.day, A1C, Pt/PTT, Type & screen, CRP, ESR, Repeat Lactate. -patient was placed on clear fluid and GoLYTELY was attempted did allow to mix it with cranberry juice, patient then vomited possible hematemesis. Stopped oral intake. Will monitor for possible bowel obstruction/upper GI bleed. -In ER pt receive lactulose 40 g in ER, 100 mg colace and rectal suppository, on the floor patient had approximately 2 and half cups of GoLYTELY, rectal suppository, senna, 100 mg Colace. Patient has still had no bowel at this time. -No NG tube unless intractable vomiting -Antiemetics, pain meds as needed, ambulate as tolerated -recommend considering Dr. Main consult tomorrow -consults ordered physical therapy, occupational therapy. -prevention vaccine recommend flu 2. Urinary retention, acute greater than 500 cc found on bladder scan, acute on chronic, present on admission -Flor catheter placed, UA obtained-culture pending patient given Levaquin 750 mg in ER -will continue Levaquin 750 mg q.day x5 days, as patient's WBC and lactic acid seemed to improve following initial dose suspect UTI/pyelonephritis. 3. Diabetes type 2 non insulin dependent, acute on chronic, stable, present on admission, uncontrolled -holding patient's glimepiride and metformin. A1C ordered. 4. Hypothyroidism, chronic, not present on admission, control unknown -holding patient's level thyroxine at this time will re-initiate once patient's bowel impaction has cleared. 5. Hyperlipidemia, chronic, unknown control, not present on admission -Hold patient's lovastatin at this time will re-initiate once patient is bowel impaction has cleared Code status: Full code COVID PCR: Negative Surrogate decision maker: Spouse VTE/DVT prophylaxis: Held medication at this time until GI bleed could be ruled out/continue SCDs Scores GCS Viola coma scale eye opening: Spontaneous Viola coma scale verbal response: Orientated Bharti coma scale motor response: Obey commands Bharti coma scale total score: 15 Wells' Criteria for PE Clinical signs and symptoms of DVT: No PE is #1 Dx or equally likely: No Heart rate > 100: No Immobilization at least 3 days or surg in previous 4 weeks: No History of PE or DVT: No Hemoptysis: No Malignancy w/Treatment within 6 months or palliative: No Wells' PE Score total: 0
[2020-09-29 04:31] LABS: PTT Partial Thromboplastin Tim 29 SECONDS (26.4-36.2)
[2020-09-29 04:33] LABS: Alanine Aminotransferase 9 IU/L (<35); Albumin 3.5 g/dL (3.5-5.0); Albumin Globulin Ratio 1.3 (1.0-2.8); Alkaline Phosphatase 59 U/L (38-126); Aspartate Aminotransferase 19 IU/L (14-36); BUN Creatinine Ratio 18.6 (6-22); Blood Urea Nitrogen 13 mg/dL (7-17); Calcium 8.4 mg/dL (8.4-10.2); Carbon Dioxide 26 mmol/L (22-32); Chloride 108 mmol/L (98-107); Estimated Glomerular Filt Rate > 60.0 mL/min (>60); Globulin 2.6 g/dL (1.7-4.1); Glucose 162 mg/dL (80-110); HEMOLYSIS 16 (0-50); Phosphorous 3.1 mg/dL (2.8-4.1); Potassium 3.6 mmol/L (3.4-5.1); Sodium 138 mmol/L (137-145); Total Protein 6.1 g/dL (6.3-8.2)
[2020-09-29 04:35] LABS: Hematocrit 36.4 % (36-46); Mean Corpuscular HGB Conc 32.9 % (30-36); Mean Corpuscular Hemoglobin 31.5 PG (26-34); Mean Corpuscular Volume 95.7 fL (80-100); Platelet Count 178 X10^3/uL (150-400); Red Blood Cell Count 3.81 X10^6/uL (4.0-5.2); White Blood Cell Count 17.3 X10^3/uL (4.5-11.0)
[2020-09-29 04:56] LABS: Hemoglobin A1C% w Est Avg Glu 5.4 % (4.0-6.0)
[2020-09-29] MEDS: BISACODYL 10 MG SUPP PR (05:25)
[2020-09-29 06:21] LABS: Neutrophils Absolute Manual 9342 /uL (3000-5900); Total Cells Counted 100
[2020-09-29 06:22] LABS: Anisocytosis 1+; Smudge Cells 1+
--- NOTE | 2020-09-29 09:17 | OT.IPNOTE ---
Per Dr. Celeste pt not appropriate for OT eval at this time, therefore okay to discharge OT eval orders.
[2020-09-29] MEDS: LACTULOSE 20 GM/30 ML SOLUTION PO ×2 (09:20→20:54)
[2020-09-29] MEDS: ACETAMINOPHEN 325 MG TABLET 650 MG PO (09:20)
[2020-09-29] MEDS: LEVOTHYROXINE 75 MCG TABLET PO (09:20)
--- NOTE | 2020-09-29 10:35 | PT-IP ANOTE ---
Discussed pt at AM interdisciplinary rounds. Hospitalist indicated pt not appropriate for therapy at this time. PT will discharge orders but remain available for re-consult as pt condition changes.
--- NOTE | 2020-09-29 11:02 | CM.DANOTE ---
Addendum entered by Tila Al R.N. 09/29/20 12:35: , Jj, is at patient's bedside. Patient awake and smiling, but did not engage in any conversation. Gave a Senior [employer] book to look at for any resources that he may need, including in home caregivers, as well as assisted living/memory care facilities. Original Note: DCP: Case received, EMR reviewed. Checked on patient. She is alert to self, as confirmed in chart, and was sleeping. Placed this business planner's name and extension number on white board in patient's room. , Jj, is point of contact and POA. Called him and introduced self on the phone. Was able to obtain some information regarding her baseline activity and cognitive status prior to her hospitalization. DCP assessment completed with information currently available. Patient is a 74 year old female who admitted yesterday evening to the care of the hospitalist team. PCP: Dr. Lock. Payer: confirmed: Medicare/[employer]. Patient came to the hospital via private vehicle secondary to having abdominal pain and discomfort. She has history of flaccid bladder with urinary retention. After jernigan, 800 ccs. She also has history of poor appetite, as well as chronic cystitis. Labs have been performed, and no infection is noted. She is constipated, and had to have enema, as well as manual disimpaction. Unable to obtain information from patient due to cognitive deficit, but was able to get in touch with , Jj. Jj confirmed that patient has had decline in her cognition going on for approximately the last year. Confirmed also that he is her primary caregiver as well, but his son lives close by, and also assist. He just had a meeting with [facility] regarding her fdc care insurance, and a cognitive screen was completed. stated that she now qualifies for fdc care insurance. He had been looking at [facility], but is not sure about her going to that facility. Let him know that this business planner can provide resources as well. also stated that patient used to have [facility], but was discharged. She was not progressing with therapy. Confirmed with Bambi at [facility] that patient was under P.T, and O.T. services, and discharged in July. These were the only disciplines at the time. P: DCP to continue to follow. Home is the plan, but will see if patient will need indwelling jernigan, and she has not yet worked with P.T. is planning on coming to see patient soon. Tila Al RN/Seat Nailer
[2020-09-29] MEDS: LIDOCAINE 2% (UROJET) 5 ML GEL TOP (12:10)
--- NOTE | 2020-09-29 13:11 | PC.NURSE ---
Day shift: Per Dr Celeste Pt may need a mineral oil enema later today. just performed a digital disimpaction of stool on the Pt at approx 1305. said he did remove a hard ball and the other stool ion the rectum felt soft and is hopeful Pt will have a BM soon. CHRISTIANA Villatoro was in with for the previously stated. Call light in reach. Will continue w/ plan of care. Bed alarm is on. PT/OT to work w/ Pt after she has a BM.
--- NOTE | 2020-09-29 16:07 | P.PN_ITS ---
Subjective Subjective Date Patient Seen: 09/29/20 Time Patient Seen: 16:08 Interval history: Jennifer Tubbs is a 74 year old female with PMH of CLL (observing off of treatment), chronic constipation, urinary incontinence and retention, DM admitted for obstipation. She had only a smear like bowel movement today, disimpaction performed with removal of a small-moderate sized hard stool ball. Rectum dilated and full of soft stool. Has been taking go lytely throughou t the day in hopes of making her have a bowel movement. Lactate has resolved this morning with fluids. Exam Vital Signs (past 8 hours): - 09/29/20 08:33 09/29/20 09:40 09/29/20 11:35 Temperature 98.8 F 98.5 F Pulse Rate 88 96 H Respiratory Rate 16 16 Blood Pressure 133/78 139/82 Pulse Oximetry 99 98 97 09/29/20 12:37 09/29/20 16:05 Temperature 98.9 F Pulse Rate 81 Respiratory Rate 18 Blood Pressure 125/78 Pulse Oximetry 97 97 Oxygen Delivery Method Room Air Oxygen Flow Rate 0 Narrative Exam Narrative: General: Older female sitting in bedside chair and in no acute distress, well-developed, well-nourished, appropriately interactive. HEENT: Normocephalic, atraumatic. External ears without defect. Pupils equal, round, and reactive to light. Anicteric sclerae, moist conjunctivae, and no lid lag. Oropharynx free of erythema and cobble stoning with moist mucosa. Neck: Supple with full range of motion. No jugular venous distension. No lymphadenopathy or thyromegaly. Cardiovascular: Regular rate and rhythm without murmurs, rubs, or gallops appreciated Pulmonary: Clear to auscultation bilaterally without crackles, wheezes, or rhonchi. Normal respiratory effort with no use of accessory muscles. Abdomen: tender in LLQ, minimally distended. Rectal: sphincter tone intact, dilated rectum with single hard stool ball which was removed. rectal vault full of soft brown stool. Extremities: No clubbing, cyanosis, or edema. Skin: Normal temperature, turgor, and texture; no rash, ulcers, or subcutaneous nodules appreciated. Neurological: Cranial nerves grossly intact. Psychiatric: Normal mood and affect. Alert and oriented to person, place, and time. Objective Labs Result Diagrams: 09/29/20 03:55 09/29/20 03:55 Labs: Laboratory Results - last 24 hr 09/28/20 09/28/20 09/28/20 17:32 17:32 17:32 WBC 18.3 H RBC 4.23 Hgb 13.4 Hct 40.3 MCV 95.4 MCH 31.6 MCHC 33.2 RDW 16.4 H Plt Count 222 Neut % (Auto) Not Reportable Lymph % (Auto) Not Reportable [place] % (Auto) Not Reportable Eos % (Auto) Not Reportable Baso % (Auto) Not Reportable Lymph # (Auto) Not Reportable [place] # (Auto) Not Reportable Baso # (Auto) Not Reportable Total Counted 100 Seg Neutrophils % 38.0 Lymphocytes % (Manual) 43.0 Atypical Lymphs % 14.0 H Monocytes % (Manual) 3.0 Basophils % (Manual) 2.0 H Neutrophils # (Manual) 6954 H Nucleated RBCs Not Reportable Smudge Cells RBC Morphology Normal morphology Anisocytosis ESR PT INR APTT D-Dimer Sodium 139 Potassium 4.0 Chloride 101 Carbon Dioxide 32 BUN 24 H Creatinine 0.97 Estimated GFR 56.1 L BUN/Creatinine Ratio 24.7 H Glucose 184 H Hemoglobin A1c Lactate 3.2 H Calcium 9.8 Phosphorus Magnesium 1.8 Total Bilirubin 1.0 AST 19 ALT 13 Alkaline Phosphatase 70 Troponin I C-Reactive Protein Total Protein 7.3 Albumin 4.3 Globulin 3.0 Albumin/Globulin Ratio 1.4 Lipase 124 Urine Color Urine Appearance Urine pH Ur Specific [place] Urine Protein Urine Glucose (UA) Urine Ketones Urine Occult Blood Urine Nitrate Urine Bilirubin Urine Urobilinogen Ur Leukocyte Esterase Urine RBC Urine WBC Ur Squamous Epith Cells Urine Bacteria Ur Culture Indicated? SARS-CoV-2 (PCR) Blood Type Antibody Screen 09/28/20 09/28/20 09/28/20 17:32 20:04 20:27 WBC RBC Hgb Hct MCV MCH MCHC RDW Plt Count Neut % (Auto) Lymph % (Auto) [place] % (Auto) Eos % (Auto) Baso % (Auto) Lymph # (Auto) [place] # (Auto) Baso # (Auto) Total Counted Seg Neutrophils % Lymphocytes % (Manual) Atypical Lymphs % Monocytes % (Manual) Basophils % (Manual) Neutrophils # (Manual) Nucleated RBCs Smudge Cells RBC Morphology Anisocytosis ESR PT INR APTT D-Dimer Sodium Potassium Chloride Carbon Dioxide BUN Creatinine Estimated GFR BUN/Creatinine Ratio Glucose Hemoglobin A1c Lactate 4.1 H* Calcium Phosphorus Magnesium Total Bilirubin AST ALT Alkaline Phosphatase Troponin I < 0.012 C-Reactive Protein < 0.5 Total Protein Albumin Globulin Albumin/Globulin Ratio Lipase Urine Color Urine Appearance Urine pH Ur Specific [place] Urine Protein Urine Glucose (UA) Urine Ketones Urine Occult Blood Urine Nitrate Urine Bilirubin Urine Urobilinogen Ur Leukocyte Esterase Urine RBC Urine WBC Ur Squamous Epith Cells Urine Bacteria Ur Culture Indicated? SARS-CoV-2 (PCR) Negative Blood Type Antibody Screen 09/29/20 09/29/20 09/29/20 00:10 00:10 00:10 WBC RBC Hgb Hct MCV MCH MCHC RDW Plt Count Neut % (Auto) Lymph % (Auto) [place] % (Auto) Eos % (Auto) Baso % (Auto) Lymph # (Auto) [place] # (Auto) Baso # (Auto) Total Counted Seg Neutrophils % Lymphocytes % (Manual) Atypical Lymphs % Monocytes % (Manual) Basophils % (Manual) Neutrophils # (Manual) Nucleated RBCs Smudge Cells RBC Morphology Anisocytosis ESR 6 PT INR APTT D-Dimer < 200 Sodium Potassium Chloride Carbon Dioxide BUN Creatinine Estimated GFR BUN/Creatinine Ratio Glucose Hemoglobin A1c Lactate Calcium Phosphorus Magnesium Total Bilirubin AST ALT Alkaline Phosphatase Troponin I C-Reactive Protein Total Protein Albumin Globulin Albumin/Globulin Ratio Lipase Urine Color Urine Appearance Urine pH Ur Specific [place] Urine Protein Urine Glucose (UA) Urine Ketones Urine Occult Blood Urine Nitrate Urine Bilirubin Urine Urobilinogen Ur Leukocyte Esterase Urine RBC Urine WBC Ur Squamous Epith Cells Urine Bacteria Ur Culture Indicated? SARS-CoV-2 (PCR) Blood Type O Positive Antibody Screen Negative 09/29/20 09/29/20 09/29/20 01:05 03:55 03:55 WBC 17.3 H RBC 3.81 L Hgb 12.0 Hct 36.4 MCV 95.7 MCH 31.5 MCHC 32.9 RDW 16.0 H Plt Count 178 Neut % (Auto) Lymph % (Auto) [place] % (Auto) Eos % (Auto) Baso % (Auto) Lymph # (Auto) [place] # (Auto) Baso # (Auto) Total Counted 100 Seg Neutrophils % 54.0 Lymphocytes % (Manual) 41.0 Atypical Lymphs % Monocytes % (Manual) 5.0 Basophils % (Manual) Neutrophils # (Manual) 9342 H Nucleated RBCs Smudge Cells 1+ H RBC Morphology See below Anisocytosis 1+ H ESR PT 13.1 H INR 1.1 APTT D-Dimer Sodium Potassium Chloride Carbon Dioxide BUN Creatinine Estimated GFR BUN/Creatinine Ratio Glucose Hemoglobin A1c Lactate Calcium Phosphorus Magnesium Total Bilirubin AST ALT Alkaline Phosphatase Troponin I C-Reactive Protein Total Protein Albumin Globulin Albumin/Globulin Ratio Lipase Urine Color Yellow Urine Appearance Clear Urine pH 6.5 Ur Specific [place] 1.010 Urine Protein Negative Urine Glucose (UA) Negative Urine Ketones Negative Urine Occult Blood Trace-lysed Urine Nitrate Negative Urine Bilirubin Negative Urine Urobilinogen 0.2 Ur Leukocyte Esterase Trace H Urine RBC 0-1/hpf Urine WBC 0-1/hpf Ur Squamous Epith Cells 0-1 /hpf Urine Bacteria Occasional (0-1) Ur Culture Indicated? Specimen cultured SARS-CoV-2 (PCR) Blood Type Antibody Screen 09/29/20 09/29/20 09/29/20 03:55 03:55 03:55 WBC RBC Hgb Hct MCV MCH MCHC RDW Plt Count Neut % (Auto) Lymph % (Auto) [place] % (Auto) Eos % (Auto) Baso % (Auto) Lymph # (Auto) [place] # (Auto) Baso # (Auto) Total Counted Seg Neutrophils % Lymphocytes % (Manual) Atypical Lymphs % Monocytes % (Manual) Basophils % (Manual) Neutrophils # (Manual) Nucleated RBCs Smudge Cells RBC Morphology Anisocytosis ESR PT INR APTT D-Dimer Sodium 138 Potassium 3.6 Chloride 108 H Carbon Dioxide 26 BUN 13 Creatinine 0.70 Estimated GFR > 60.0 BUN/Creatinine Ratio 18.6 Glucose 162 H Hemoglobin A1c 5.4 Lactate 1.3 Calcium 8.4 Phosphorus 3.1 Magnesium Total Bilirubin 1.0 AST 19 ALT 9 Alkaline Phosphatase 59 Troponin I C-Reactive Protein Total Protein 6.1 L Albumin 3.5 Globulin 2.6 Albumin/Globulin Ratio 1.3 Lipase Urine Color Urine Appearance Urine pH Ur Specific [place] Urine Protein Urine Glucose (UA) Urine Ketones Urine Occult Blood Urine Nitrate Urine Bilirubin Urine Urobilinogen Ur Leukocyte Esterase Urine RBC Urine WBC Ur Squamous Epith Cells Urine Bacteria Ur Culture Indicated? SARS-CoV-2 (PCR) Blood Type Antibody Screen 09/29/20 03:55 WBC RBC Hgb Hct MCV MCH MCHC RDW Plt Count Neut % (Auto) Lymph % (Auto) [place] % (Auto) Eos % (Auto) Baso % (Auto) Lymph # (Auto) [place] # (Auto) Baso # (Auto) Total Counted Seg Neutrophils % Lymphocytes % (Manual) Atypical Lymphs % Monocytes % (Manual) Basophils % (Manual) Neutrophils # (Manual) Nucleated RBCs Smudge Cells RBC Morphology Anisocytosis ESR PT INR APTT 29 D-Dimer Sodium Potassium Chloride Carbon Dioxide BUN Creatinine Estimated GFR BUN/Creatinine Ratio Glucose Hemoglobin A1c Lactate Calcium Phosphorus Magnesium Total Bilirubin AST ALT Alkaline Phosphatase Troponin I C-Reactive Protein Total Protein Albumin Globulin Albumin/Globulin Ratio Lipase Urine Color Urine Appearance Urine pH Ur Specific [place] Urine Protein Urine Glucose (UA) Urine Ketones Urine Occult Blood Urine Nitrate Urine Bilirubin Urine Urobilinogen Ur Leukocyte Esterase Urine RBC Urine WBC Ur Squamous Epith Cells Urine Bacteria Ur Culture Indicated? SARS-CoV-2 (PCR) Blood Type Antibody Screen PFSH Medical History Bladder incontinence Cervical somatic dysfunction Chronic low back pain without sciatica Constipation, chronic Cranial somatic dysfunction Diabetes type 2, controlled Excessive daytime sleepiness Fatigue Flaccid bladder GERD (gastroesophageal reflux disease) Hearing aid worn History of recurrent UTI (urinary tract infection) Hypothyroidism Lumbar region somatic dysfunction Lymphocytosis (symptomatic) Pelvic somatic dysfunction Physical deconditioning Postmenopausal atrophic vaginitis Sacral region somatic dysfunction Thoracic region somatic dysfunction Unintended weight loss Urinary retention Urinary retention with incomplete bladder emptying Surgical History H/O section Hx of tubal ligation Family History Mother Myocardial infarct Father CVA (cerebral vascular accident) Cancer Sister Thyroid disease Cancer Brother Thyroid disease Social History household members: spouse Smoking Status: Never smoker alcohol intake: current Assessment & Plan Assessment & Plan narrative: Jennifer Tubbs is a 74 year old female with PMH of CLL (observing off of treatment), chronic constipation, urinary incontinence and retention, DM admitted for fecal impaction. 1. Fecal impaction, acute on chronic, present on admission. - manual disimpaction in the ER, and another today with removal of a single hard stool ball today. Rectum full of now soft stool. - patient currently receiving jug of go-lytely bowel prep solution to assist with her large stool burden. She is also on miralax, senna, docusate. Received fleet enema. Can attempt mineral oil enema if needed. - suspect fecal impaction led to acute urinary retention. 2. Urinary retention, acute on chronic, present on admission - greater than 500 cc found on bladder scan, suspect secondary to acute fecal impaction and stool burden. -Flor catheter placed, UA with 0-1 WBC and chronic cystitis on CT. Given a dose of levaquin, will hold given UA results. Reflexed to culture, but unless ESBL organism no need for treatment. 3. Diabetes type 2 non insulin dependent, acute on chronic, stable, present on admission, uncontrolled -holding patient's glimepiride and metformin. A1C ordered. 4. Hypothyroidism, chronic, not present on admission, control unknown -holding patient's level thyroxine at this time will re-initiate once patient's bowel impaction has cleared. 5. Hyperlipidemia, chronic, unknown control, not present on admission -Hold patient's lovastatin at this time will re-initiate once patient is bowel impaction has cleared 6. CLL, chronic - patient with stable leukocytosis on admission labs. 7. Elevated lactic acid, acute, present on admission, resolved - improved with IV fluids. Likely elevated in setting of dehydration from nausea, abdominal pain and fecal impaction. 8. Chronic cystitis - see above under problem 2. Code status: Full code COVID PCR: Negative Surrogate decision maker: Spouse
[2020-09-29] MEDS: LATANOPROST 0.005% OPHTH 2.5 ML 1 DROPS EYE-BOTH (21:03)
--- NOTE | 2020-09-29 23:22 | PC.NURSE ---
Guiac test at 2054 was negative for occult blood.
[2020-09-30] VITALS (8 sets, daily range): BP systolic 104–140; BP diastolic 64–78; PULSE 76–84; RESP 16; TEMP 36.2–36.5; O2SAT 93–97
[2020-09-30] MEDS: PANTOPRAZOLE 20 MG TABLET PO (05:35)
[2020-09-30] MEDS: LEVOTHYROXINE 75 MCG TABLET PO (05:35)
--- NOTE | 2020-09-30 06:52 | PC.NURSE ---
Pt able to have bowel movement on own. Still mildly confused, weakness while ambulating.
[2020-09-30] MEDS: LACTULOSE 20 GM/30 ML SOLUTION PO (09:53)
[2020-09-30] MEDS: DOCUSATE 100 MG CAPSULE PO (09:53)
[2020-09-30] MEDS: ENOXAPARIN 40 MG/0.4 ML SYRINGE SUBCUT (09:53)
[2020-09-30] MEDS: INSULIN ASPART 100 UNIT/ML INSULN PEN SUBCUT (12:14)
--- NOTE | 2020-09-30 12:26 | CM.DPC ---
Addendum entered by Linda Montalvo LPN 09/30/20 12:33: Dr. Celeste plans to meet with pt and Elkin shortly. He has also ordered urban designer consult. Met now with pt and Elkin. Elkin confirms pt's functional abilities are very limited. She spends about 6% of her time in bed, much of remainder of time in a chair near the nc and fireplace. Is able to get around in limited way with a 4 wheeled stroller and does take herself to the bathroom. He reports she has been seeing Dr. Persaud/urology for about a year and he has no solutions for us expect to self -cath or to have a suprapubic ostomy places. He is agreeable to having [facility] come in again and with the disciplines as noted below. Referral given to Bambi/[facility] via phone conversation and fax ([facility]). Elkin also confirms that they do have a long term care phlebotomist care policy and this is currently paying for [facility] caregivers 2x week, 4 hours a day. P: at this time: home with [facility] and care as per above when stable for same. Original Note: DCP: continued: Case received, EMR reviewed. Discussed in Team Rounds. OBS status continues: per UR RN Kye. Dr. Celeste stated OT/PT was ordered and d/c today was likely. Discussed ? of HH with Dr. Celeste agreeing and signing Face/Faced document. Expect need for RN/PT/OT/HIGH SCHOOL DIRECTOR/GENERAL ROAD SUPERVISOR. Pt is expected to d/c home with her jernigan catheter in place.
--- NOTE | 2020-09-30 13:25 | CM.DPNOTE ---
Faxed Face to Face and clinicals to [facility] on 09/30/20 and received fax confirmation. Yvette Ledbetter CM Asst.
--- NOTE | 2020-09-30 13:42 | PT.IIE ---
Surgical History (Last Reviewed 09/29/20 @ 04:49 by WESLEY Beth) H/O section Hx of tubal ligation Medical History (Last Reviewed 09/29/20 @ 04:49 by WESLEY Beth) Bladder incontinence Cervical somatic dysfunction Chronic low back pain without sciatica Constipation, chronic Cranial somatic dysfunction Diabetes type 2, controlled Excessive daytime sleepiness Fatigue Flaccid bladder GERD (gastroesophageal reflux disease) Hearing aid worn History of recurrent UTI (urinary tract infection) Hypothyroidism Lumbar region somatic dysfunction Lymphocytosis (symptomatic) Pelvic somatic dysfunction Physical deconditioning Postmenopausal atrophic vaginitis Sacral region somatic dysfunction Thoracic region somatic dysfunction Unintended weight loss Urinary retention Urinary retention with incomplete bladder emptying Physical Therapy Inpatient Evaluation/Re-Eval M1 PT/OT-IP Prior Functional Status Start: 09/29/20 08:59 Freq: NEEDED Status: Active Protocol: Document 09/30/20 13:17 AW (Rec: 09/30/20 13:42 AW [id number]) Medical Review Prior Functional Status Medical History Reviewed Yes Communication Pt is soft spoken and requires extra processing time during conversation but is able to make needs known. Mobility and Gait Pt is a limited household ambulator with 4WW/stroller. She uses a wheelchair when she leaves the house for appointments. Pt has had limited outpatient PT related to vestibular diagnosis - possible [facility]. Activities of Daily Living and IADL's Pt states she dresses herself, has SBA for standing showers, and has frequent assist from her for toilet transfers and completeness of hygiene. Prior Functional Level (Other details) Per case checker note, pt has [facility] [employer] caregivers 4 hours at a time twice weekly. Social History Household Members spouse Living Arrangements House Number of Floors (Floors) One Floor Number of Stairs To Enter/Railing? 4 non-consecutive stairs to enter with wide bilateral rails. Home Environment Standard Height Toilet,Walk in Shower Home Equipment Four Wheel Walker,Manual Wheelchair,Hand Held Shower Additional Social History Comment Pt lives with her spouse, Elkin, who she describes as her full -time caregiver. M2 PT-IP Current Condition Start: 09/29/20 08:59 Freq: NEEDED Status: Active Protocol: Document 09/30/20 13:17 AW (Rec: 09/30/20 13:42 AW [id number]) Physical Therapy Current Condition Current Condition Evaluation Date 09/30/20 Treatment Diagnosis fecal impaction; urinary retention; impaired mobility Onset Date 09/28/20 M3 PT-IP Subjective Start: 09/29/20 08:59 Freq: NEEDED Status: Active Protocol: Document 09/30/20 13:17 AW (Rec: 09/30/20 13:42 AW [id number]) Subjective Physical Therapy Visit Type Type Initial Evaluation Visit Start Time 12:41 Visit Stop Time 13:17 Total Visit Minutes 36 Number of EMPLOYMENT INTERVIEWER Visits 0 Physical Therapy Visit Comments Patient Comments Pt is willing to participate with PT Patient Goals Return home with possible home health therapy. Therapy Pain Assessment Pain When Pain Assessed During Mobility Pain Present Pain Present Denied Pain M4 PT-IP Mobility and Gait Start: 09/29/20 08:59 Freq: NEEDED Status: Active Protocol: Document 09/30/20 13:17 AW (Rec: 09/30/20 13:42 AW [id number]) PT-Bed Mobility Assessment Supine to Sit Supine to Sit Minimal Assistance,1 Person Assistance,Head of Bed Elevated,Bedrails Scooting Scooting to Edge of Bed Minimal Assistance PT-Transfer Assessment Sit to and From Stand Sit to and from Stand Minimal Assistance,Moderate Assistance,1 Person Assistance ,Use of Upper Extremities Equipment Transfer Assistive Device Gait Belt,Front Wheeled Walker Orthotic/Prosthetic Devices or Brace: No Transfers Transfer Destination Chair,Bedside Commode Transfer Technique Stand Step Pivot Transfer Ability Level of Assist Minimal Assistance,1 Person Assistance,Use of Upper Extremities Comments Mobility Comments Pt was reclined in the bed as PT arrived. She refused lowering HOB past 60 degrees and completed supine to sit min A x 1 with extra time and multiple rest breaks. In sitting, she needed min A x 1 to scoot toward EOB. With FWW, she stood min A x 1 and transferred to the bedside chair exhibiting poor eccentric control. She then requested to use the commode. She stood from the chair min A x 1 and transferred with max cues for positioning and safety during sit to stand. Pt sat and attempted to move her bowels but was unsuccessful. She stood again and required assist for pericare and briefs management before using the FWW to transfer back to the chair min A x 1. She was positioned with legs elevated, blanket provided, call light and all needs in reach. Gait Assessment Gait Gait Assistance Required: Minimum Assistance,Moderate Assistance,1 Person Assist Distance (Feet) 5 Assistive Devices Assistive Device Gait Belt,Front Wheeled Walker Orthotic/Prosthetic Devices or Brace: No Gait Deviations General Gait Pattern Antalgic,Decreased Stride Length,Decreased Feet Clearance,Flexed Trunk,Narrow Based Gait Factors Limiting Gait Function Factors Limiting Gait Function Decreased Activity Tolerance, Decreased Sensation,Decreased Strength,Difficulty Following Directions,Poor Balance,Poor Safety Awareness Comments Gait Comments Pt able to take shuffling steps during transfers only. Gait was notable for high degree of kyphosis/trunk flexion and tendency to push the walker too far ahead. Stair Climbing Assessment Comments Stair Climbing Comments Not assessed. PT-Balance Assessment Sitting Balance and Reactions Static Sitting Balance Ability Good Dynamic Sitting Balance Ability Fair Standing Balance and Reactions Static Standing Balance Ability Poor Dynamic Standing Balance Ability Poor Device Used FWW M5 PT-IP Objective Assessments Start: 09/29/20 08:59 Freq: NEEDED Status: Active Protocol: Document 09/30/20 13:17 AW (Rec: 09/30/20 13:42 AW [id number]) Orientation Orientation/Cognition Level of Alertness Lethargic Orientation Name,Birthday,Place,Situation Safety Awareness Decreased Safety Awareness Comments Pt required extra processing time during conversation but speech content was appropriate . Gross Range of Motion Lower Extremity ROM Assessment Within Functional Limits Strength Lower Extremity Strength Assessment Bilaterally Impaired Hip 3-/5 Knee 3/5 Ankle 3/5 Muscle Tone Muscle Tone WNL No Comments Muscle Tone Comments low tone BLE M6 PT-IP Treatment Start: 09/29/20 08:59 Freq: NEEDED Status: Active Protocol: Document 09/30/20 13:17 AW (Rec: 09/30/20 13:42 AW [id number]) Physical Therapy Treatment Education Education Provided Safety Other Treatments Other Treatment Performed Provided education on role of PT, plan of care, and recommendation for HH therapy. M7 PT-IP Assessment and Plan Start: 09/29/20 08:59 Freq: NEEDED Status: Active Protocol: Document 09/30/20 13:17 AW (Rec: 09/30/20 13:42 AW [id number]) PT Summary Assessment and Plan Potential Rehabilitation Potential Fair Status of Condition at Evaluation Evolving Summary Impairments Strength,Balance,Tone, Cognition,Bed Mobility, Transfers,Gait,Activity Tolerance Assessment Summary Jennifer is a 74 yo woman seen for PT evaluation with admitting diagnosis of urinary retention secondary to fecal impaction. She is a limited household ambulator at baseline. On evaluation, she required min to mod assist for bed mobility and transfers with FWW. Her activity tolerance is exceedingly limited and it is difficult to assess how this compares with her baseline. Regardless, she would benefit from home health therapy at discharge to mediate the effects of immobility. She is likely to discharge home with spouse and private caregiver assist. Goals Bed Mobility Goal Contact Guard Assistance Transfer Goal Contact Guard Assistance,Front Wheeled Walker Gait Goal Contact Guard Assistance,Front Wheel Walker Gait Distance 25 Other Goals - up/down platform step x 4 with FWW or TECHNICAL INSPECTOR Frequency of Treatment Frequency Of Treatment Once a Day Treatment Plan Physical Therapy Treatment Plan Bed Mobility Training,Transfer Training,Gait Training, Therapeutic Exercise,Balance Retraining,Discharge Planning Other Recommendations and Next Treatment transfers, gait training; Focus stairs if able Recommendations To Nursing Amount of Assist Needed 1 Person Assist Discharge Recommendations PT Discharge Recommendations Home with Assistance,Home with 24/7 Assist Available,Home Health Transportation Needs at Discharge Private Vehicle
--- NOTE | 2020-09-30 15:30 | CM.DPNOTE ---
Spoke to Dr. Celeste who is planning on discharging patient today. However, informs me that the family doesn't want to resume care with [facility] and wishes to go with another HH agency - no preference was provided. I stopped by room 214 and no family was in the room. Pt. was unable to chose HH agency. I called [facility] and left message to make sure there was no preference, but as of yet have not heard back from him. [facility] is the next agency on the hit list so referral is sent to them to assure HH is set up before pt. discharges home.
--- NOTE | 2020-09-30 15:43 | CM.DPNOTE ---
Faxed clinicals and face to face to [facility] per Khurram. Fax confirmation received. Yvette Ledbetter CM Asst.
--- NOTE | 2020-09-30 17:14 | DIET.PN ---
Dietary Progress Note Assessment: 74y F admitted c abdominal pain referred to nutrition for malnutrition assessment. Pt reports weight loss last winter (30# over 3mo period) which she characterizes as unintentional, however pt has maintained this weight loss and reports she has no intention of regaining any of it back. Per chart review, pt has 13.2% unintentional weight loss in 1y, non-severe. During interview pt had hiccups and was turned away from RD. Pt reports no intentional exercise. She states consuming 1-2 meals per day and has no sx of N/V. Pt ordered chicken breast on bed of lettuce c ranch, pudding cup, and chocolate ice cream. Pt ate 60% chicken and two bites ice cream when RD removed tray from room at 2pm. HT: 157.4cm WT: 53kg UBW: 61kg (-13.2% in 1y, non-severe) BMI: 21.4 Labs: WBC 17.5 H, A1c 5.4, lactate 4.1 RD Impression: Pt does not meet criteria for severe PCM.
--- NOTE | 2020-09-30 18:19 | PC.NURSE ---
Discharge Note Patient A&O, VSS, RA. No complaints of pain or discomfort. Patient discharged education reviewed with patient and . No question or concerns. agreeable to follow-up with PCP and Urologist. PIV discontinued. All belongings packed and given to spouse along with discharge packet. Patient taken down via wheelchair to POV.
--- NOTE | 2020-09-30 20:06 | P.DS_ITS ---
History of Present Illness History of Present Illness Date Patient Seen: 09/30/20 Time Patient Seen: 16:00 Chief complaint: abdominal pain Narrative: As per WESLEY Beth: Patient is a 74 year old female Jennifer Tubbs presents with her a chief complaint of increasing episodes of abdominal pain over the past 2 weeks. Patient is a nonsmoker with extensive history of flaccid bladder and prior episodes of urinary retention as well as chronic constipation, and CLL. In the ED the patient reported that these episodes are diffuse, crampy in nature and are increasing in severity and duration. She denies any provocation or palliation of her symptoms. She has had no fever chills. She is nauseated and has a terrible appetite but denies any vomiting. She has chronic constipation and denies any obvious change in that pattern. She denies any exposure to persons known to have COVID. She has had no runny nose, sore throat or cough. She has seen a urologist in the past who has recommended either manual suprapubi c pressure to help increase bladder emptying versus self catheterization versus suprapubic catheters. Upon admit to the floor the patient was either unwilling or unable to assist in her review of symptoms or in her history unsure if this is altered mental status(encephalopathy) or the patient's base line. The patient kept repeating that she is a poor historian and that her will be back in the morning and he could answer my questions at that time. The patient did manage to acknowledge that she had no chest pain, shortness of breath,fever, or body aches she does get cold easily and requested a warm blanket. The patient appeared irritated at being admitted to the hospital She denies nausea at this time but c/o continued abdominal pain, she did note that her abdominal pain is chronic and only worsened which is what brought her in to the ED today. She notes that her abdominal pain has improved since the pain medication in the emergency room but continues as a diffuse discomfort and tenderness. She notes that she has this abdominal pain chronically but that it worsened a couple days ago, when I asked when her last bowel movement was she repeated more than once I do not hav e bowel movements when I inquired further she repeated I never have bowel movements. Patient's vital signs upon admit temp 97.7?, BP 162/77, HR 80, R 17, O2 saturation 99% on room air. Patient's labs WBC 18.3, neut # [id number] BUN 24, glucose 184, EGFR 56.1, BUN creatinine ratio 24.7, lactate #1-3.2, #2 4.1, lipase negative, magnesium normal.CXR: Chest without acute cardiopulmonary abnormalities. CT ABD/Pelvis:Marked amount of fecal material seen throughout the colon and rectum. There is distention of the rectum, suggesting fecal impaction. Findings may also represent sequela of functional distal colonic obstruction. Urinary bladder decompressed by Jernigan catheter with persistent marked circumferential wall thickening. Concurrent cystitis not completely excluded. Discharge Providers Provider Date of admission: 09/28/20 23:09 Discharge Date: 09/30/20 Primary care physician: Wicho Lock DO Consults: 09/28/20 23:54 Consult to Discharge Planning Routine Comment: Consult to Occupational Therapy Evaluate & Treat Comment: Physician Instructions: Evaluate and treat Consult to Physical Therapy Evaluate & Treat Comment: Physician Instructions: Evaluate and Treat 09/30/20 10:12 Consult to Dietitian, Adult Routine Comment: Reason For Exam: acute protein calorie malnutrition Consult to Physical Therapy Evaluate & Treat Comment: Physician Instructions: Evaluate and Treat 09/30/20 12:32 Consult to Occupational Therapy Evaluate & Treat Comment: Physician Instructions: Evaluate and treat 09/30/20 12:41 Consult to Home Health Routine Comment: [facility] as the referral. Reason For Exam: HH RN/OT/PT/COMPUTER TECHNICAL SPECIALIST/EDUCATION DEAN Discharge provider: Aron Celeste DO Summary Hospital Course Discharge Diagnosis: Please see hospital course by problem list noted below. Hospital Course: Jennifer Tubbs is a 74 year old female with PMH of CLL (obser ving off of treatment), chronic constipation, urinary incontinence and retention, DM admitted for fecal impaction. 1. Fecal impaction, acute on chronic, present on admission. - manual disimpaction in the ER, second on HD#1 with another removal of a single hard stool ball. - after disimpaction patient had multiple small bowel movements. Aggressive laxitive therapy recommended to continue which instructions are noted below. recommend you continue the medications below of docusate, lactulose, and senna for 7 days. If you have greater than 5 bowel movements in a day at recommend st opping lactulose. Otherwise, please continue lactulose therapy. After 7 days, if you have diarrhea please stop all medications. If bowel movements are between 1-3 a day continue the above medications. If you do not have a bowel movement for 1 day please add MiraLax therapy to the above medications. If you do not have a bowel movement for 3 days despite this addition please consider an enema or suppository and consultation with her primary care provider if this does not become affective after 5 days. 2. Urinary retention with chronic cystitis suspect related to frequent jernigan ca theter use, acute on chronic, present on admission - greater than 500 cc found on bladder scan, suspect secondary to acute fecal impaction and stool burden. -Jernigan catheter placed, UA with 0-1 WBC and chronic cystitis on CT. Given a dose of levaquin in the ER, will hold given UA results. Reflexed to culture, given no ESBL organism no need for treatment. - recommend continued jernigan catheter, outpatient urology follow up with Dr. Persaud. 3. Diabetes type 2 non insulin dependent, acute on chronic, stable, present on admission, uncontrolled - resume home medications. 4. Hypothyroidism, chronic, not present on admission, control unknown -continue home medications. 5. Hyperlipidemia, chronic, unknown control, not present on admission -continue home medications. 6. CLL, chronic - patient with stable leukocytosis on admission labs. Recommend continued follow up with oncology. 7. Elevated lactic acid, acute, present on admission, resolved - improved with IV fluids. Likely elevated in setting of dehydration from nausea, abdominal pain and fecal impaction. 8. Chronic cystitis - see above under problem 2. Exam Vital Signs (past 8 hours): - 09/30/20 12:08 09/30/20 16:04 Temperature 97.3 F L Pulse Rate 82 Respiratory Rate 16 Blood Pressure 104/66 Pulse Oximetry 93 96 Oxygen Delivery Method Room Air Oxygen Flow Rate 0 Narrative Exam Narrative: General: Older female sitting in bedside chair and in no acute distress, well-developed, well-nourished, appropriately interactive. HEENT: Normocephalic, atraumatic. External ears without defect. Pupils equal, round, and reactive to light. Anicteric sclerae, moist conjunctivae, and no lid lag. Oropharynx free of erythema and cobble stoning with moist mucosa. Neck: Supple with full range of motion. No jugular venous distension. No lymphadenopathy or thyromegaly. Cardiovascular: Regular rate and rhythm without murmurs, rubs, or gallops appre ciated Pulmonary: Clear to auscultation bilaterally without crackles, wheezes, or rhonchi. Normal respiratory effort with no use of accessory muscles. Abdomen: soft, non-tender, non-distended. Extremities: No clubbing, cyanosis, or edema. Skin: Normal temperature, turgor, and texture; no rash, ulcers, or subcutaneous nodules appreciated. Psychiatric: Normal mood and affect. Objective Labs Result Diagrams: 09/29/20 03:55 09/29/20 03:55 [facility] Medical History Bladder incontinence Cervical somatic dysfunction Chronic low back pain without sciatica Constipation, chronic Cranial somatic dysfunction Diabetes type 2, controlled Excessive daytime sleepiness Fatigue Flaccid bladder GERD (gastroesophageal reflux disease) Hearing aid worn History of recurrent UTI (urinary tract infection) Hypothyroidism Lumbar region somatic dysfunction Lymphocytosis (symptomatic) Pelvic somatic dysfunction Physical deconditioning Postmenopausal atrophic vaginitis Sacral region somatic dysfunction Thoracic region somatic dysfunction Unintended weight loss Urinary retention Urinary retention with incomplete bladder emptying Surgical History H/O section Hx of tubal ligation Family History Mother Myocardial infarct Father CVA (cerebral vascular accident) Cancer Sister Thyroid disease Cancer Brother Thyroid disease Social History household members: spouse Smoking Status: Never smoker alcohol intake: current Discharge Plan Discharge Plan Patient Disposition: Home Provider Discharge Comment: You were admitted to the hospital with constipation and acute urinary retention. A Jernigan catheter was placed and constipation was improved with aggressive laxative therapy. I recommend you follow-up with Urology and Gastroenterology as well as your primary care provider. For the constipation, I recommend you continue the medications below of docusate, lactulose, and senna. If you have greater than 5 bowel movements in a day at recommend stopping lactulose. Otherwise, please continue lactulose therapy. After 7 days, if you have diarrhea please stop all medications. If bowel moveme nts are between 1-3 a day continue the above medications. If you do not have a bowel movement for 1 day please add MiraLax therapy to the above medications. If you do not have a bowel movement for 3 days despite this addition please consider an enema or suppository and consultation with her primary care provider if this does not become affective after 5 days. Discharge orders & Medications Prescriptions: New docusate sodium [DOK] 100 mg Capsule 100 mg PO BID 30 Days Qty: 60 RF: 0 lactulose 20 gram/30 mL Solution 20 g PO BID 7 Days Qty: 420 RF: 0 sennosides [senna] 8.6 mg Tablet 17.2 mg PO BEDTIME 30 Days Qty: 60 RF: 0 Continued latanoprost 0.005 % Drops 1 drp EYE-BOTH BEDTIME Qty: 0 RF: 0 metformin 1,000 mg Tablet 1,000 mg PO BID Qty: 0 RF: 0 lovastatin 40 mg tablet 40 mg PO QPM Qty: 90 RF: 1 levothyroxine 75 mcg tablet 75 mcg PO DAILY Qty: 90 RF: 2 (DME) Disabled Parking Permit Qty: 1 RF: 0 probiotic PO RF: 0 Trulicity 1.5 mg/0.5 mL Pen Injector 1.5 mg SUBCUT WEEKLY RF: 0 polyethylene glycol 3350 [Miralax] 17 gram/dose powder 17 gram PO DAILY PRN (Reason: constipation) Qty: 119 RF: 0 glimepiride 4 mg Tablet 4 mg PO BID RF: 0 Combigan 0.2-0.5 % drops 0.2 - 0.5 drp EYE-BOTH BID RF: 0 Osphena 60 mg tablet 60 mg PO DAILY Qty: 90 RF: 3 Follow up/Referrals: Wicho Lock DO [Primary Care Provider] - Visit Report/Discharge Packet Instructions: DI for Constipation Discharge Data Primary Care Provider: Wicho Lock Attending Provider: Maggie Kessler
== END 2020-09-30 17:45 | disposition home or self-care (01) ==
LOC: ED 17:19 → AC 23:09
PROVIDERS: Emergency Medicine; Admitting Provider Nurse Practitioner Family; Emergency Provider Emergency Medicine; PCP Family Medicine; Visit Provider Nurse Practitioner Family
DX: K56.41 Fecal impaction (principal); R07.9 Chest pain, unspecified; E03.9 Hypothyroidism, unspecified; E11.9 Type 2 diabetes mellitus without complications; Z79.4 Long term (current) use of insulin; R33.9 Retention of urine, unspecified; E78.5 Hyperlipidemia, unspecified; Z85.6 Personal history of leukemia; D72.829 Elevated white blood cell count, unspecified; Z20.822 Contact with and (suspected) exposure to COVID-19
CPT/HCPCS: 36415; 51798; 71045; 74177; 80053; 81001; 81003; 82962; 83036; 83605; 83690; 83735; 84100; 84484; 85007; 85025; 85379; 85610; 85651; 85730; 86140; 86850; 86900; 86901; 87077; 87086; 87635; 96361; 96365; 96366; 96372; 96375; 97162; 97530; 99284; C9803; G0378; C9113; J1650; J1956; Q9967

== ENCOUNTER → 2020-10-09 14:26 | Outpatient (CLI) | payer MEDICARE, OTHER, SELFPAY ==
[2020-10-09 14:25] VITALS: BMI 20.6
== END ==
PROVIDERS: PCP Family Medicine; Visit Provider Specialist
DX: N39.0 Urinary tract infection, site not specified (principal)
CPT/HCPCS: 87077; 87086

== ENCOUNTER → 2020-10-17 12:23 | Outpatient (CLI) | payer MEDICARE, OTHER, SELFPAY ==
[2020-10-09 14:25] VITALS: BMI 20.6
[2020-10-17 13:25] LABS: Appearance Urine UA SL CLOUDY; Bilirubin Urine UA NEGATIVE (NEGATIVE); Color Urine UA YELLOW; Glucose Urine UA NEGATIVE (Negative); Ketones Urine UA NEGATIVE (NEGATIVE); Leukocyte Esterase Urine UA 3+ (NEGATIVE); Nitrite Urine UA NEGATIVE (Negative); Occult Blood Urine UA 1+ (Negative); Protein Urine UA TRACE (Negative); Specific Gravity Urine UA <=1.005 (1.000-1.035); Urobilinogen Urine UA 0.2 E.U./dL (0.2)
[2020-10-17 13:44] LABS: pH Urine UA 5.5 (4.5-8.0)
[2020-10-17 13:45] LABS: Calcium Oxalate Crystals Urine Few; RBC Urine 5-10/HPF (0-5/HPF); Squamous Epithelial Cell Urine 0-1 /HPF (0-5/HPF); WBC Urine 30-100/HPF (0-5/HPF)
[2020-10-17 13:46] LABS: Amorphous Sediment Urine 1+; Bacteria Urine Many (>30); Culture Indicated Urine Specimen Cultured
== END ==
PROVIDERS: PCP Family Medicine; Visit Provider Family Medicine
DX: R82.90 Unspecified abnormal findings in urine (principal)
CPT/HCPCS: 81001; 87077; 87086

== ENCOUNTER → 2020-10-29 11:41 | Outpatient (CLI) | payer MEDICARE, OTHER, SELFPAY ==
[2020-10-09 14:25] VITALS: BMI 20.6
[2020-10-29 12:53] LABS: COVID19 -Nasal RAPID Negative (Negative)
== END ==
PROVIDERS: PCP Family Medicine; Visit Provider Physician Assistant
DX: Z01.812 Encounter for preprocedural laboratory examination (principal); Z20.822 Contact with and (suspected) exposure to COVID-19
CPT/HCPCS: 87635; C9803

== ENCOUNTER 2020-10-31 07:40 | Day surgery (SDC) | payer MEDICARE, OTHER, SELFPAY ==
[2020-10-09 14:25] VITALS: BMI 20.6
[2020-10-31] VITALS (8 sets, daily range): BP systolic 108–123; BP diastolic 52–74; PULSE 62–76; RESP 8–13; TEMP 36.2–36.9; O2SAT 96–99; BMI 22.8
[2020-10-31] MEDS: LACTATED RINGERS 500 ML 25 ML IV (08:32)
[2020-10-31] MEDS: VANCOMYCIN 1,000 MG/200 ML PIGGYBACK 200 MG IV (08:32)
--- NOTE | 2020-10-31 08:36 | PM.PREOP ---
Pre-operative Note Interval Note History & Physical reviewed/Exam performed by Physician: Yes Changes to H&P: No
--- NOTE | 2020-10-31 08:36 | PM.PREOP ---
Pre-operative Note Interval Note History & Physical reviewed/Exam performed by Physician: Yes Changes to H&P: No
--- NOTE | 2020-10-31 08:46 | SUR.OPER ---
Lithotomy on padded OR bed, head on pillow, arms secured on padded arm boards at <90 degrees abduction. Legs secured in padded yellow fins stirrups.
[2020-10-31] MEDS: GENTAMICIN 160 MG in SODIUM CHLORIDE 0.9% 100 ML 104 ML IV (09:10)
[2020-10-31] MEDS: BUPIVACAINE 0.5% W/ EPI (PF) 30 ML VIAL INJ (09:40)
--- NOTE | 2020-10-31 09:50 | PM.OP.1 ---
Operative Date/Time/Diagnoses Date of procedure: 10/31/20 Time of procedure: 09:50 Pre-op diagnosis: Urinary retention Post-op diagnosis: same Procedure & Clinicians Procedure: 1. Placement suprapubic cystostomy Same procedure as scheduled: Yes Indications: Urinary retention Surgeon: Jefferson Graham Click Yes if Unassisted: Yes Anesthesia Type: General and Local (0.5% Marcaine with epinephrine) Operative Notes Findings: 1. Urethra-normal location and caliber. 2. Bladder-1+ trabeculation. Patchy catheter cystitis changes at posterior and superior posterior wall. Normal ureteral orifices bilaterally. No stone or suspicious lesions seen. 3. Normal abdominal wall tissue planes. Closure Type: not applicable Applied: catheter (Twenty Georgian silicone catheter) Estimated Blood Loss (mL): 2 Blood products transfused: none Procedure in detail: Patient was positioned supine and was administered general anesthesia. She was then repositioned in semilithotomy and the lower abdomen, genitalia, and groin were prepped and draped in sterile fashion. Next, the 22 Georgian panendoscope was passed in lower urinary tract with the findings as described above the bladder was filled and the panendoscope was removed. The Lowsley retractor was then advanced and lower urinary tract with occur pointing upward and anteriorly. The tip of the Lowsley retractor was then identified with the opposite hand. The skin and subcutaneous tissue was then infiltrated with local anesthetic. A stab incision through the layers of the abdominal wall was then made from the skin to the tip of the Lowsley and the Lowsley retractor was then advanced through the incision and out through the abdominal wall incision. The jaws were then opened and then the 20 Georgian silicone catheter was engaged within the jaws of the Lowsley. Now the Lowsley retractor was withdrawn and detached from the tip of the silicone catheter. The catheter was then since withdrawn slightly is the was position within the bladder proper and the balloon was inflated to 10 cc. The panendoscope was then reintroduced and then the bladder and the insertion site were inspected. There was no active bleeding. The panendoscope was then removed. The suprapubic catheter was then secured in place with 2-0 silk suture. A drain sponge was then applied and the catheter was placed to gravity drainage. The patient was then repositioned in supine. The patient was then 0 awakened, transferred to gurney, and transported to PACU. Complications: none Post-operative Condition: stable Disposition: PACU Plan for aftercare: Home
== END 2020-10-31 11:14 | disposition home or self-care (01) ==
PROVIDERS: PCP Family Medicine; Referring Provider Specialist; Visit Provider Specialist
PROC: 0T9B30Z Drainage of Bladder with Drainage Device, Percutaneous Approach (ICD-10-PCS; CPT 51102; principal; 2020-10-31 08:45)
DX: R33.9 Retention of urine, unspecified (principal); N31.2 Flaccid neuropathic bladder, not elsewhere classified
CPT/HCPCS: 51102; J1100; J2250; J2405; J2704; J3010

== ENCOUNTER → 2020-11-21 11:33 | Outpatient (CLI) | payer MEDICARE, OTHER, SELFPAY ==
[2020-11-10 08:46] VITALS: BMI 20.6
== END ==
PROVIDERS: PCP Family Medicine; Visit Provider Specialist
DX: N39.0 Urinary tract infection, site not specified (principal); N31.2 Flaccid neuropathic bladder, not elsewhere classified; R33.9 Retention of urine, unspecified
CPT/HCPCS: 51702; 87077; 87086; 87186

== ENCOUNTER → 2020-12-25 16:27 | Outpatient (CLI) | payer MEDICARE, OTHER, SELFPAY ==
[2020-11-10 08:46] VITALS: BMI 20.6
[2020-12-25 18:53] LABS: BUN Creatinine Ratio 20.2 (6-22); Blood Urea Nitrogen 18 mg/dL (7-17); Calcium 9.8 mg/dL (8.4-10.2); Carbon Dioxide 27 mmol/L (22-32); Chloride 104 mmol/L (98-107); Estimated Glomerular Filt Rate > 60.0 mL/min (>60); Glucose 166 mg/dL (80-110); HEMOLYSIS < 15 (0-50); Sodium 140 mmol/L (137-145)
[2020-12-25 19:00] LABS: Hemoglobin A1C% w Est Avg Glu 5.6 % (4.0-6.0)
[2020-12-25 19:27] LABS: Thyroid Stimulating Hormone 2.73 uIU/mL (0.47-4.68)
== END ==
PROVIDERS: PCP Family Medicine; Referring Provider Family Medicine; Visit Provider Family Medicine
DX: E11.8 Type 2 diabetes mellitus with unspecified complications (principal); I10 Essential (primary) hypertension; C91.10 Chronic lymphocytic leukemia of B-cell type not having achieved remission; E03.9 Hypothyroidism, unspecified; R53.82 Chronic fatigue, unspecified
CPT/HCPCS: 36415; 80048; 83036; 84443

== ENCOUNTER 2021-01-08 10:16 | Emergency (ER) | payer MEDICARE, OTHER, SELFPAY ==
[2020-11-10 08:46] VITALS: BMI 20.6
[2021-01-08] VITALS (23 sets, daily range): BP systolic 112–212; BP diastolic 57–110; PULSE 78–127; RESP 16; O2SAT 93–100; BMI 19.5
--- NOTE | 2021-01-08 10:51 | ED_ITS ---
HPI - General Adult General Chief complaint: Abdominal Pain Stated complaint: severe constipation and had a fall today Time Seen by Provider: 01/08/21 10:20 Source: patient Mode of arrival: Wheelchair Limitations: physical limitation History of Present Illness HPI narrative: Patient is a 75-year-old female. Has history of chronic urinary retention has a suprapubic catheter in place. She has had issues with const ipation in the past. She currently has not had a bowel movement in 10 days per her report. This morning she was going to go use the restroom because she felt like she needed to have a bowel movement and she slipped on the bathroom rug and fell. She did not sustain any injuries from this. She did not have a bowel movement. Three different episodes last evening she felt like she needed to have a bowel movement but could not. They have been trying oral laxatives at home without improvement. states she has had to be admitted to the hospital in the past for this. Related Data Home Medications Medication Instructions Recorded Confirmed latanoprost 1 drp EYE-BOTH BEDTIME #0 02/18/09 10/31/20 metformin 1,000 mg PO BID #0 02/18/09 10/31/20 glimepiride 4 mg PO BID 05/16/19 10/31/20 Trulicity 1.5 mg SUBCUT WEEKLY 09/03/19 10/31/20 probiotic 1 cap PO DAILY 05/20/20 10/31/20 brimonidine 0.2 %-timolol 0.5 % 0.2 - 0.5 drp EYE-BOTH BID 05/27/20 10/31/20 eye drops docusate sodium 100 mg PO BID 10/31/20 10/31/20 sennosides [senna] 2 mg PO DAILY 10/31/20 10/31/20 Previous Rx's Medication Instructions Recorded polyethylene glycol 3350 [Miralax] 17 gram PO DAILY PRN #119 gram 09/04/19 lovastatin 40 mg tablet 40 mg PO QPM #90 tab 12/31/19 Disabled Parking Permit #1 ea 04/25/20 ospemifene 60 mg tablet 60 mg PO DAILY #90 tab 05/27/20 levothyroxine 75 mcg tablet 75 mcg PO DAILY #90 tab 07/31/20 oxycodone 5 mg PO Q4H PRN #14 tab 10/31/20 Allergies Allergy/AdvReac Type Severity Reaction Status Date / Time No Known Drug Allergies Allergy Verified 10/27/20 15:31 Review of Systems Constitutional Constitutional: Denies fever(s) and Denies headache(s) ENT Ears, Nose, Mouth, and Throat: Denies headache(s) Cardiovascular Cardiovascular: Denies chest pain and Denies dyspnea Respiratory Respiratory: Denies dyspnea Gastrointestinal Gastrointestinal: Reports abdominal pain, Reports constipation, Reports nausea and Denies vomiting Genitourinary Genitourinary: Denies dysuria Genitourinary: Denies dysuria Musculoskeletal Musculoskeletal: Reports system reviewed and no additional complaints, except as documented Integumentary/Breasts Skin/Breast: Denies rash Neurologic Neurologic: Reports system reviewed and no additional complaints, except as documented and Denies headache(s) Hematologic/Lymphatic On Anticoagulants: No Allergic/Immunologic Allergic/Immunologic: Reports system reviewed and no additional complaints, except as documented Patient History Medical History Bladder incontinence Cervical somatic dysfunction Chronic low back pain without sciatica Constipation, chronic Cranial somatic dysfunction Diabetes type 2, controlled Excessive daytime sleepiness Fatigue Flaccid bladder GERD (gastroesophageal reflux disease) Hearing aid worn History of recurrent UTI (urinary tract infection) Hypothyroidism Lumbar region somatic dysfunction Lymphocytosis (symptomatic) Pelvic somatic dysfunction Physical deconditioning Postmenopausal atrophic vaginitis Sacral region somatic dysfunction Thoracic region somatic dysfunction Unintended weight loss Urinary retention Urinary retention with incomplete bladder emptying Surgical History H/O section Hx of tubal ligation Family History Mother Myocardial infarct Father CVA (cerebral vascular accident) Cancer Sister Thyroid disease Cancer Brother Thyroid disease Social History household members: spouse Smoking Status: Never smoker alcohol intake: never Smoking Status: Never smoker alcohol intake frequency: holidays/special occasions only Substance Use Type: does not use Exam Initial Vital Signs Initial Vital Signs: Vital Signs Pulse Rate 83 01/08/21 10:30 Respiratory Rate 16 01/08/21 10:30 Blood Pressure 173/79 H 01/08/21 10:30 Pulse Oximetry 99 01/08/21 10:30 Const General: cooperative HENMT Head: normal to inspection and normocephalic Resp Effort & Inspection: normal respiratory effort Auscultation: clear to auscultation bilaterally Cardio Rate: regular rate Rhythm: regular rhythm GI Inspection: non-distended Palpation: soft and tender (Diffuse tenderness) Rectal Exam: visual inspection normal, normal sphincter tone, fecal impaction and No hemorrhoids Back/Spine/Pelvis Back: No CVA tenderness Skin Lesions: no lesions Rashes: no rashes Neuro General: patient alert and patient awake Speech: speech normal Extrem General: normal to inspection and capillary refill normal Other: Pelvis stable. Moves all 4 extremities. Psych Appearance: grossly normal and well kempt Procedures Rectal Disimpaction Time out performed rectal disimpaction: Yes Indication: fecal impaction Procedural Sedation: No Sedation/Analgesia: none Technique: manual disimpaction with gloved finger Result: significant stool output Patient Tolerated Procedure: Well Complications: none Course Orders Ordered: ED Orders 01/08/21 10:53 CT abdomen pelvis w con Stat 01/08/21 11:02 Complete Blood Count AUTO DIFF Stat Comprehensive Metabolic Panel Stat Lactate (Lactic Acid) Stat Lipase Stat Discontinued Medications Sodium Chloride (Normal Saline 0.9%) 1,000 mls @ 1,000 mls/hr IV BOLUS ONE Stop: 01/08/21 11:51 Last Infusion: 01/08/21 13:20 Dose: 0 mls/hr Documented by: Admin: 01/08/21 11:14 Dose: 1,000 mls/hr Documented by: EFRAÍN Magnesium Citrate (Magnesium Citrate 300 Ml Solution) 300 ml PO NOW ONE Stop: 01/08/21 15:35 Last Admin: 01/08/21 16:20 Dose: 300 ml Documented by: PRETTY Ondansetron HCl (Ondansetron 4 Mg/2 Ml Inj) 4 mg IV NOW ONE Stop: 01/08/21 11:31 Last Admin: 01/08/21 11:34 Dose: 4 mg Documented by: EFRAÍN Ondansetron HCl (Ondansetron 4 Mg/2 Ml Inj) 4 mg IV NOW ONE Stop: 01/08/21 16:33 Last Admin: 01/08/21 16:38 Dose: 4 mg Documented by: PRETTY Sodium Biphosphate/Sodium Phosphate (Fleets Enema) 1 each TN NOW ONE Stop: 01/08/21 10:53 Last Admin: 01/08/21 11:14 Dose: 1 each Documented by: EFRAÍN Vital Signs Vital signs: Vital Signs - 8 hr 01/08/21 11:30 01/08/21 11:31 01/08/21 12:00 Pulse Rate 107 H 96 H 83 Blood Pressure 180/87 H 150/67 H Pulse Oximetry 98 100 97 01/08/21 12:30 01/08/21 13:00 01/08/21 13:54 Pulse Rate 79 83 79 Blood Pressure 157/69 H Pulse Oximetry 97 98 98 01/08/21 14:00 01/08/21 14:30 01/08/21 14:55 Pulse Rate 78 79 89 Blood Pressure 167/77 H Pulse Oximetry 98 97 98 01/08/21 15:00 01/08/21 15:30 01/08/21 16:00 Pulse Rate 82 85 82 Blood Pressure 148/75 H 160/77 H 174/78 H Pulse Oximetry 98 100 99 01/08/21 16:30 01/08/21 16:42 01/08/21 17:00 Pulse Rate 104 H 127 H 101 H Blood Pressure 212/110 H 159/89 H 171/81 H Pulse Oximetry 98 99 96 01/08/21 17:21 01/08/21 17:30 01/08/21 18:00 Pulse Rate 102 H Blood Pressure 167/81 H 165/79 H Pulse Oximetry 97 01/08/21 18:39 01/08/21 19:00 Pulse Rate 88 85 Blood Pressure 155/72 H 114/57 L Pulse Oximetry 93 97 Medical Decision Making Medical Records Medical records reviewed: Yes I reviewed the patient's medical records. Lab Data Lab results reviewed: Yes I reviewed the patient's lab results. Result diagrams: 01/08/21 11:02 01/08/21 11:02 Labs: Lab Results 01/08/21 01/08/21 01/08/21 Range/Units 11:02 11:02 11:02 WBC 17.8 H (4.5-11.0) X10^3/uL RBC 4.16 (4.0-5.2) X10^6/uL Hgb 13.2 (12.0-16.0) g/dL Hct 39.6 (36-46) % MCV 95.4 (80-100) fL MCH 31.7 (26-34) PG MCHC 33.2 (30-36) % RDW 15.6 H (11.6-14.8) % Plt Count 195 (150-400) X10^3/uL Neut % (Auto) Not Reportable Lymph % (Auto) Not Reportable Levy % (Auto) Not Reportable Eos % (Auto) Not Reportable Baso % (Auto) Not Reportable Lymph # (Auto) Not Reportable Levy # (Auto) Not Reportable Baso # (Auto) Not Reportable Total Counted 100 Seg Neutrophils % 52.0 (38-70) % Lymphocytes % (Manual) 34.0 (25-45) % Atypical Lymphs % 10.0 H ( - 0) % Monocytes % (Manual) 3.0 (2-11) % Basophils % (Manual) 1.0 (0-1) % Neutrophils # (Manual) 9256 H (9758-5623) /uL Smudge Cells 1+ H RBC Morphology Normal morphology Sodium 138 (137-145) mmol/L Potassium 4.4 (3.4-5.1) mmol/L Chloride 101 (98-107) mmol/L Carbon Dioxide 30 (22-32) mmol/L BUN 23 H (7-17) mg/dL Creatinine 0.85 (0.52-1.04) mg/dL Estimated GFR > 60.0 (>60) mL/min BUN/Creatinine Ratio 27.1 H (6-22) Glucose 154 H (80-110) mg/dL Lactate 1.5 (0.7-2.1) mmol/L Calcium 9.7 (8.4-10.2) mg/dL Total Bilirubin 1.0 (0.2-1.3) mg/dL AST 20 (14-36) IU/L ALT 10 (<35) IU/L Alkaline Phosphatase 78 (38-126) U/L Total Protein 6.8 (6.3-8.2) g/dL Albumin 3.9 (3.5-5.0) g/dL Globulin 2.9 (1.7-4.1) g/dL Albumin/Globulin Ratio 1.3 (1.0-2.8) Lipase 94 (23-300) U/L Imaging Data CT scan - abdomen/pelvis: Radiologist's Impression: [address], [place] [address]HB Scan ReportSigned Patient: Jennifer Tubbs FMR#: [id number]: 6Acct:[id number]/Sex: 75 / FDate of Service: 01/08/21Loc: EDAccession Number: [id number] Procedure: CT abdomen pelvis w con Ordering Provider: Adonis Pelaez D.O. PROCEDURE: CT ABDOMEN PELVIS W CON INDICATIONS: Constipation, eval for obstruction TECHNIQUE: After the administration of intravenous contrast, 5 mm thick sections acquired from the diaphragm to the symphysis. 5 mm coronal and sagittal reformats were acquired. For radiation dose reduction, the following was used: automated exposure control, adjustment of mA and/or kV according to patient size. COMPARISON: [facility], CT, CT ABDOMEN PELVIS W CON, 09/28/2020, 18:57. [facility], CT, CT ABDOMEN PELVIS W CON, 10/10/2019, 13:55. FINDINGS: Image quality: Excellent. ABDOMEN: Lung bases: Increased prominence of right middle lobe medial segment nodule measuring 9 mm. Lung bases are otherwise clear. Heart size is normal. Solid organs: Liver is normal in size and enhancement. Gallbladder is grossly unremarkable. Biliary system is non dilated. Pancreas enhances normally. Spleen is normal in size and enhancement. No adrenal nodules. Kidneys demonstrate normal size and enhancement, without hydronephrosis. Nonobstructing calculus within the superior pole left kidney measuring 12 mm is unchanged. Nonobstructing 3 mm calculus within the inferior pole right kidney. Bilateral renal cysts are present, as before. Peritoneum and bowel: Stomach and small bowel grossly unremarkable. The rectum is moderately distended and demonstrates moderate diffuse thickening with moderate surrounding fat stranding. Bowel loops demonstrate otherwise normal wall thickness and caliber. No free fluid or air. Nodes and vessels: No retroperitoneal or mesenteric adenopathy by size criteria. Aorta and inferior vena cava are normal in size. Miscellaneous: No ventral hernias. PELVIS: Genitourinary: Suprapubic Flor catheter is present. Urinary bladder is decompressed and appears moderately thickened. Miscellaneous: No inguinal hernias or adenopathy. Bones: There is a new, 15 mm lucent focus within the right superior T12 vertebral body which could represent a Schmorl's node. No change in 20 mm hypodense focus within the costochondral junction of the right anterior 7th rib. No vertebral body comp ression fractures. IMPRESSION: 1. Proctitis. Fecal impaction. 2. Nonobstructing bilateral renal calculi. 3. Increased right lung base nodule. Initial further assessment with PET-CT examination is recommended. 4. Urinary bladder decompression with possible thickening. Recommend correlation with urinalysis results. 5. Indeterminate new T12 lesion. Initial further assessment with bone scan is recommended. Dictated by: Jessica Da Silva M.D. on 01/08/2021 at 14:05 Approved by: Jessica Da Silva M.D. on 01/08/2021 at 14:11 [facility] Narrative Medical decision making narrative: Attempted enema and this was unsuccessful. CT scan the abdomen does not show any signs of obstruction but does show fecal impaction. Attempted Mag citrate without any improvement. A manual disimpaction was performed which resulted in a large amount of soft stool. Patient has a leukocytosis however this is chronic for her. I did discuss the need to continue the laxatives at home. She was given return precautions. She does express understanding agreement. Discharge Plan Departure Patient Disposition: Home Clinical Impression: Fecal impaction in rectum Instructions: Constipation (Alternative Therapy), Constipation Activity Restrictions/Additional Instructions: The CT scan today did not show any signs of an obstruction. There was quite a bit of stool in the rectum. We were able to remove this. Recommend that you continue with your laxatives until you start to have loose stools and then start to decrease your laxative use. Contact your primary provider for follow-up. Return to the emergency department for new or worsening symptoms Prescriptions: No Action latanoprost 0.005 % Drops 1 drp EYE-BOTH BEDTIME Qty: 0 RF: 0 metformin 1,000 mg Tablet 1,000 mg PO BID Qty: 0 RF: 0 lovastatin 40 mg tablet 40 mg PO QPM Qty: 90 RF: 1 levothyroxine 75 mcg tablet 75 mcg PO DAILY Qty: 90 RF: 2 (DME) Disabled Parking Permit Qty: 1 RF: 0 probiotic 1 cap PO DAILY RF: 0 Trulicity 1.5 mg/0.5 mL Pen Injector 1.5 mg SUBCUT WEEKLY RF: 0 polyethylene glycol 3350 [Miralax] 17 gram/dose powder 17 gram PO DAILY PRN (Reason: constipation) Qty: 119 RF: 0 glimepiride 4 mg Tablet 4 mg PO BID RF: 0 sennosides [senna] 8.6 mg Tablet 2 mg PO DAILY RF: 0 docusate sodium 100 mg Capsule 100 mg PO BID RF: 0 oxycodone 5 mg tablet 5 mg PO Q4H PRN (Reason: pain) Qty: 14 RF: 0 Combigan 0.2-0.5 % drops 0.2 - 0.5 drp EYE-BOTH BID RF: 0 Osphena 60 mg tablet 60 mg PO DAILY Qty: 90 RF: 3 Referrals: Wicho Lock DO [Primary Care Provider] -
[2021-01-08] MEDS: FLEETS ENEMA 1 EACH PR (11:14)
[2021-01-08] MEDS: SODIUM CHLORIDE 0.9% 1,000 ML 1000 ML IV (11:14)
[2021-01-08 11:15] LABS: Hematocrit 39.6 % (36-46); Hemoglobin 13.2 g/dL (12.0-16.0); Mean Corpuscular HGB Conc 33.2 % (30-36); Mean Corpuscular Hemoglobin 31.7 PG (26-34); Mean Corpuscular Volume 95.4 fL (80-100); Platelet Count 195 X10^3/uL (150-400); Red Blood Cell Count 4.16 X10^6/uL (4.0-5.2); Red Cell Distribution Width 15.6 % (11.6-14.8); White Blood Cell Count 17.8 X10^3/uL (4.5-11.0)
[2021-01-08 11:17] LABS: Add Manual Diff / Slide Review YES
[2021-01-08 11:27] LABS: Alanine Aminotransferase 10 IU/L (<35); Albumin 3.9 g/dL (3.5-5.0); Albumin Globulin Ratio 1.3 (1.0-2.8); Alkaline Phosphatase 78 U/L (38-126); Aspartate Aminotransferase 20 IU/L (14-36); BUN Creatinine Ratio 27.1 (6-22); Blood Urea Nitrogen 23 mg/dL (7-17); Calcium 9.7 mg/dL (8.4-10.2); Carbon Dioxide 30 mmol/L (22-32); Chloride 101 mmol/L (98-107); Estimated Glomerular Filt Rate > 60.0 mL/min (>60); Globulin 2.9 g/dL (1.7-4.1); Glucose 154 mg/dL (80-110); HEMOLYSIS < 15 (0-50); Lactate (Lactic Acid) 1.5 mmol/L (0.7-2.1); Lipase 94 U/L (23-300); Potassium 4.4 mmol/L (3.4-5.1); Sodium 138 mmol/L (137-145); Total Protein 6.8 g/dL (6.3-8.2)
[2021-01-08] MEDS: ONDANSETRON 4 MG/2 ML INJ IV ×2 (11:34→16:38)
[2021-01-08 11:47] LABS: Neutrophils Absolute Manual 9256 /uL (3000-5900); RBC Morphology Normal Morphology; Smudge Cells 1+; Total Cells Counted 100
[2021-01-08] MEDS: MAGNESIUM CITRATE 300 ML SOLUTION PO (16:20)
--- NOTE | 2021-01-08 16:32 | PC.NURSE ---
pt vomiting after drinking mag citrate.
== END 2021-01-08 19:19 | disposition home or self-care (01) ==
PROVIDERS: Emergency Provider Emergency Medicine; PCP Family Medicine
DX: K56.41 Fecal impaction (principal); R10.9 Unspecified abdominal pain; R11.0 Nausea
CPT/HCPCS: 36415; 74177; 80053; 83605; 83690; 85007; 85025; 96361; 96374; 96375; 99284; 99285; J2405; Q9967

== ENCOUNTER 2021-01-10 04:12 | Emergency (ER) | payer MEDICARE, OTHER, SELFPAY ==
[2020-11-10 08:46] VITALS: BMI 20.6
[2021-01-10] VITALS (9 sets, daily range): BP systolic 102–139; BP diastolic 55–64; PULSE 72–82; RESP 17; TEMP 36.9; O2SAT 95–99; BMI 21.9
--- NOTE | 2021-01-10 04:37 | ED.FEMALEGU ---
HPI - Female Genitourinary <Rula Chapo, - Last Filed: 01/10/21 18:14> General Chief complaint: Urogenital-Female Stated complaint: Urinary catheter issues Time Seen by Provider: 01/10/21 04:16 Source: patient, family, RN notes reviewed and old records reviewed Mode of arrival: Family Vehicle Limitations: no limitations History of Present Illness HPI Narrative: Patient is a 75-year-old female with history of indwelling suprapubic catheter for flaccid bladder, CLL issues. states that it is not draining and she has had 2 falls this week. She was seen and evaluated here on January 08 after a fall and constipation issues. She did not hit her head. He states that her legs are weak and give out from under her. She has been offered home physical therapy but does not seem interested or want to participate in it. She complains of extreme fatigue and tiredness. But she denies any abdominal pain fever chills nausea vomiting or chest pain. Flor catheter was initially placed in October it is changed by home health during the 1st week of the month and is due to be changed next week. Related Data Home Medications Medication Instructions Recorded Confirmed latanoprost 1 drp EYE-BOTH BEDTIME #0 02/18/09 10/31/20 metformin 1,000 mg PO BID #0 02/18/09 10/31/20 glimepiride 4 mg PO BID 05/16/19 10/31/20 Trulicity 1.5 mg SUBCUT WEEKLY 09/03/19 10/31/20 probiotic 1 cap PO DAILY 05/20/20 10/31/20 brimonidine 0.2 %-timolol 0.5 % 0.2 - 0.5 drp EYE-BOTH BID 05/27/20 10/31/20 eye drops docusate sodium 100 mg PO BID 10/31/20 10/31/20 sennosides [senna] 2 mg PO DAILY 10/31/20 10/31/20 Previous Rx's Medication Instructions Recorded polyethylene glycol 3350 [Miralax] 17 gram PO DAILY PRN #119 gram 09/04/19 lovastatin 40 mg tablet 40 mg PO QPM #90 tab 12/31/19 Disabled Parking Permit #1 ea 04/25/20 ospemifene 60 mg tablet 60 mg PO DAILY #90 tab 05/27/20 levothyroxine 75 mcg tablet 75 mcg PO DAILY #90 tab 07/31/20 oxycodone 5 mg PO Q4H PRN #14 tab 10/31/20 cefdinir 300 mg PO Q12H #14 cap 01/10/21 Allergies Allergy/AdvReac Type Severity Reaction Status Date / Time No Known Drug Allergies Allergy Verified 10/27/20 15:31 Review of Systems <Rula Cowan DO - Last Filed: 01/10/21 18:14> Review of Systems ROS Unobtainable: All systems reviewed & are unremarkable except as noted in HPI and below Constitutional Constitutional: Denies body ache(s), Denies chills, Reports fatigue, Denies fever(s) and Denies frequent falls ENT Ears, Nose, Mouth, and Throat: Denies dizziness Cardiovascular Cardiovascular: Denies chest pain, Denies irregular heart rhythm, Denies lightheadedness, Denies palpitations, Denies dyspnea, Denies dyspnea on exertion and Denies orthopnea Respiratory Respiratory: Denies cough, Denies dyspnea, Denies dyspnea on exertion and Denies wheezing Gastrointestinal Gastrointestinal: Denies abdominal pain, Denies change in bowel habits, Denies diarrhea, Denies nausea and Denies vomiting Genitourinary Genitourinary: Reports system reviewed and no additional complaints, except as documented Musculoskeletal Musculoskeletal: Reports muscle weakness and Denies numbness Integumentary/Breasts Skin/Breast: Denies pruritus, Denies erythema, Denies rash and Denies wounds Neurologic Neurologic: Denies behavioral changes, Denies confusion, Denies dizziness, Denies frequent falls and Denies numbness Psychiatric Psychiatric: Denies behavioral changes and Denies confusion Endocrine Endocrine: Reports fatigue and Denies palpitations Allergic/Immunologic Allergic/Immunologic: Denies wheezing Patient History <Rula Cowan DO - Last Filed: 01/10/21 18:14> Medical History Bladder incontinence Cervical somatic dysfunction Chronic low back pain without sciatica Constipation, chronic Cranial somatic dysfunction Diabetes type 2, controlled Excessive daytime sleepiness Fatigue Flaccid bladder GERD (gastroesophageal reflux disease) Hearing aid worn History of recurrent UTI (urinary tract infection) Hypothyroidism Lumbar region somatic dysfunction Lymphocytosis (symptomatic) Pelvic somatic dysfunction Physical deconditioning Postmenopausal atrophic vaginitis Sacral region somatic dysfunction Thoracic region somatic dysfunction Unintended weight loss Urinary retention Urinary retention with incomplete bladder emptying Surgical History H/O section Hx of tubal ligation Family History Mother Myocardial infarct Father CVA (cerebral vascular accident) Cancer Sister Thyroid disease Cancer Brother Thyroid disease alcohol intake frequency: holidays/special occasions only Substance Use Type: does not use Exam <Rula Cowan DO - Last Filed: 01/10/21 18:14> Initial Vital Signs Initial Vital Signs: Vital Signs Temperature 98.5 F 01/10/21 04:20 Pulse Rate 75 01/10/21 04:20 Respiratory Rate 17 01/10/21 04:20 Blood Pressure 139/64 01/10/21 04:20 Pulse Oximetry 99 01/10/21 04:20 GENERAL: Awake alert 75-year-old female HEENT: Head atraumatic,EOMI, pupils reactive, face symmetric, [moist] mucous membranes CARDIOVASCULAR: Regular rate and rhythm without murmurs, rubs or gallops. RESPIRATORY: Breath sounds equal bilaterally, no wheezes rales or rhonchi. ABDOMEN: Soft, nontender. Normoactive bowel sounds all 4 quadrants. No guarding or rebound. : Suprapubic catheter in place is also depends is so ill and wet EXTREMITIES: Normal range of motion, no clubbing or edema. Neurovascularly intact NEUROLOGICAL: Alert and oriented x2.Normal gait and speech. No gross deficits SKIN: Warm, dry, no laceration, no petechiae, no rashes or lesions. <Dilip Bhatt MD - Last Filed: 01/10/21 10:26> Initial Vital Signs Initial Vital Signs: Vital Signs Temperature 98.5 F 01/10/21 04:20 Pulse Rate 75 01/10/21 04:20 Respiratory Rate 17 01/10/21 04:20 Blood Pressure 139/64 01/10/21 04:20 Pulse Oximetry 99 01/10/21 04:20 Course <Rula Cowan DO - Last Filed: 01/10/21 18:14> Orders Ordered: Discontinued Medications Sodium Chloride (Normal Saline 0.9%) 1,000 mls @ 1,000 mls/hr IV BOLUS ONE Stop: 01/10/21 05:40 Last Infusion: 01/10/21 06:25 Dose: Infused Documented by: Ceftriaxone Sodium 1,000 mg/ (Sodium Chloride) 100 mls @ 200 mls/hr IV NOW ONE Stop: 01/10/21 05:41 Last Infusion: 01/10/21 06:25 Dose: Infused Documented by: Sodium Chloride (Normal Saline 0.9%) 1,000 mls @ 1,000 mls/hr IV BOLUS ONE Stop: 01/10/21 08:30 Last Infusion: 01/10/21 08:34 Dose: Infused Documented by: Vital Signs Vital signs: Vital Signs - 8 hr 01/10/21 04:20 01/10/21 06:52 01/10/21 06:53 Temperature 98.5 F Pulse Rate 75 75 74 Respiratory Rate 17 Blood Pressure 139/64 129/59 L Pulse Oximetry 99 98 97 01/10/21 07:00 01/10/21 07:30 01/10/21 08:00 Temperature Pulse Rate 75 82 79 Respiratory Rate Blood Pressure 106/59 L 109/58 L 121/55 L Pulse Oximetry 96 98 98 01/10/21 08:30 01/10/21 09:00 01/10/21 09:30 Temperature Pulse Rate 72 75 77 Respiratory Rate Blood Pressure 102/57 L 108/58 L 118/56 L Pulse Oximetry 98 97 95 <Dilip Bhatt MD - Last Filed: 01/10/21 10:26> Course Course Narrative: Sign out at 7:00 a.m.. Awaiting for laboratory studies to return. Potassium level as well as lactic acid. 8:00 a.m.. Repeat lactic acid as the 2nd specimen was drawn prematurely. Orders Ordered: Discontinued Medications Sodium Chloride (Normal Saline 0.9%) 1,000 mls @ 1,000 mls/hr IV BOLUS ONE Stop: 01/10/21 05:40 Last Infusion: 01/10/21 06:25 Dose: Infused Documented by: Ceftriaxone Sodium 1,000 mg/ (Sodium Chloride) 100 mls @ 200 mls/hr IV NOW ONE Stop: 01/10/21 05:41 Last Infusion: 01/10/21 06:25 Dose: Infused Documented by: Sodium Chloride (Normal Saline 0.9%) 1,000 mls @ 1,000 mls/hr IV BOLUS ONE Stop: 01/10/21 08:30 Last Infusion: 01/10/21 08:34 Dose: Infused Documented by: Reevaluation(s) Reevaluation #1: Spoke with patient and results of repeat labs. They desire discharge home. No admission. Labs have improved. Not toxic at discharge Time: 09:32 Vital Signs Vital signs: Vital Signs - 8 hr 01/10/21 04:20 01/10/21 06:52 01/10/21 06:53 Temperature 98.5 F Pulse Rate 75 75 74 Respiratory Rate 17 Blood Pressure 139/64 129/59 L Pulse Oximetry 99 98 97 01/10/21 07:00 01/10/21 07:30 01/10/21 08:00 Temperature Pulse Rate 75 82 79 Respiratory Rate Blood Pressure 106/59 L 109/58 L 121/55 L Pulse Oximetry 96 98 98 01/10/21 08:30 01/10/21 09:00 01/10/21 09:30 Temperature Pulse Rate 72 75 77 Respiratory Rate Blood Pressure 102/57 L 108/58 L 118/56 L Pulse Oximetry 98 97 95 MDM - Female Genitourinary <Rula Cowan DO - Last Filed: 01/10/21 18:14> Lab Data Result diagrams: 01/10/21 05:00 01/10/21 06:40 Labs: Lab Results 01/10/21 01/10/21 01/10/21 Range/Units 04:35 05:00 05:00 WBC 20.7 H (4.5-11.0) X10^3/uL RBC 3.92 L (4.0-5.2) X10^6/uL Hgb 12.3 (12.0-16.0) g/dL Hct 37.4 (36-46) % MCV 95.3 (80-100) fL MCH 31.5 (26-34) PG MCHC 33.0 (30-36) % RDW 16.0 H (11.6-14.8) % Plt Count 194 (150-400) X10^3/uL Neut % (Auto) Not Reportable Lymph % (Auto) Not Reportable Slope % (Auto) Not Reportable Eos % (Auto) Not Reportable Baso % (Auto) Not Reportable Lymph # (Auto) Not Reportable Slope # (Auto) Not Reportable Baso # (Auto) Not Reportable Total Counted 100 Seg Neutrophils % 53.0 (38-70) % Lymphocytes % (Manual) 41.0 (25-45) % Monocytes % (Manual) 5.0 (2-11) % Eosinophils % (Manual) 1.0 L (2-4) % Neutrophils # (Manual) 83475 H (1576-8432) /uL RBC Morphology See below Anisocytosis 1+ H Sodium 135 L (137-145) mmol/L Potassium 5.2 H (3.4-5.1) mmol/L Chloride 102 (98-107) mmol/L Carbon Dioxide 28 (22-32) mmol/L BUN 27 H (7-17) mg/dL Creatinine 0.94 (0.52-1.04) mg/dL Estimated GFR 58.1 L (>60) mL/min BUN/Creatinine Ratio 28.7 H (6-22) Glucose 151 H (80-110) mg/dL Lactate (0.7-2.1) mmol/L Calcium 9.6 (8.4-10.2) mg/dL Total Bilirubin 0.8 (0.2-1.3) mg/dL AST 22 (14-36) IU/L ALT 10 (<35) IU/L Alkaline Phosphatase 64 (38-126) U/L Total Protein 6.6 (6.3-8.2) g/dL Albumin 3.8 (3.5-5.0) g/dL Globulin 2.8 (1.7-4.1) g/dL Albumin/Globulin Ratio 1.4 (1.0-2.8) Procalcitonin 0.31 (<0.5) ng/mL Urine RBC 0-1/hpf (0-5/HPF) Urine WBC >100/hpf H (0-5/HPF) Calcium Oxalate Crystal Occasional H Urine Bacteria Many (>30) H (None) Ur Culture Indicated? Specimen cultured 01/10/21 01/10/21 01/10/21 Range/Units 05:00 06:40 06:40 WBC (4.5-11.0) X10^3/uL RBC (4.0-5.2) X10^6/uL Hgb (12.0-16.0) g/dL Hct (36-46) % MCV (80-100) fL MCH (26-34) PG MCHC (30-36) % RDW (11.6-14.8) % Plt Count (150-400) X10^3/uL Neut % (Auto) Lymph % (Auto) Slope % (Auto) Eos % (Auto) Baso % (Auto) Lymph # (Auto) Slope # (Auto) Baso # (Auto) Total Counted Seg Neutrophils % (38-70) % Lymphocytes % (Manual) (25-45) % Monocytes % (Manual) (2-11) % Eosinophils % (Manual) (2-4) % Neutrophils # (Manual) (3014-3330) /uL RBC Morphology Anisocytosis Sodium (137-145) mmol/L Potassium 4.3 (3.4-5.1) mmol/L Chloride (98-107) mmol/L Carbon Dioxide (22-32) mmol/L BUN (7-17) mg/dL Creatinine (0.52-1.04) mg/dL Estimated GFR (>60) mL/min BUN/Creatinine Ratio (6-22) Glucose (80-110) mg/dL Lactate 2.3 H 2.3 H (0.7-2.1) mmol/L Calcium (8.4-10.2) mg/dL Total Bilirubin (0.2-1.3) mg/dL AST (14-36) IU/L ALT (<35) IU/L Alkaline Phosphatase (38-126) U/L Total Protein (6.3-8.2) g/dL Albumin (3.5-5.0) g/dL Globulin (1.7-4.1) g/dL Albumin/Globulin Ratio (1.0-2.8) Procalcitonin (<0.5) ng/mL Urine RBC (0-5/HPF) Urine WBC (0-5/HPF) Calcium Oxalate Crystal Urine Bacteria (None) Ur Culture Indicated? 01/10/21 Range/Units 08:40 WBC (4.5-11.0) X10^3/uL RBC (4.0-5.2) X10^6/uL Hgb (12.0-16.0) g/dL Hct (36-46) % MCV (80-100) fL MCH (26-34) PG MCHC (30-36) % RDW (11.6-14.8) % Plt Count (150-400) X10^3/uL Neut % (Auto) Lymph % (Auto) Slope % (Auto) Eos % (Auto) Baso % (Auto) Lymph # (Auto) Slope # (Auto) Baso # (Auto) Total Counted Seg Neutrophils % (38-70) % Lymphocytes % (Manual) (25-45) % Monocytes % (Manual) (2-11) % Eosinophils % (Manual) (2-4) % Neutrophils # (Manual) (2361-7781) /uL RBC Morphology Anisocytosis Sodium (137-145) mmol/L Potassium (3.4-5.1) mmol/L Chloride (98-107) mmol/L Carbon Dioxide (22-32) mmol/L BUN (7-17) mg/dL Creatinine (0.52-1.04) mg/dL Estimated GFR (>60) mL/min BUN/Creatinine Ratio (6-22) Glucose (80-110) mg/dL Lactate 2.1 (0.7-2.1) mmol/L Calcium (8.4-10.2) mg/dL Total Bilirubin (0.2-1.3) mg/dL AST (14-36) IU/L ALT (<35) IU/L Alkaline Phosphatase (38-126) U/L Total Protein (6.3-8.2) g/dL Albumin (3.5-5.0) g/dL Globulin (1.7-4.1) g/dL Albumin/Globulin Ratio (1.0-2.8) Procalcitonin (<0.5) ng/mL Urine RBC (0-5/HPF) Urine WBC (0-5/HPF) Calcium Oxalate Crystal Urine Bacteria (None) Ur Culture Indicated? Urine Dip Bedside Urine Glucose Negative Bedside Urine Bilirubin - Negative Bedside Urine Ketone - Negative Urine Specific Pioneer 1.025 Bedside Urine Occult Blood ++ Bedside Urine pH 6 Bedside Urine Protein + 30 Bedside Urine Urobilinogen - Negative Bedside Urine Nitrite - Negative Bedside Urine Leukocytes ++ [address] scan - head: Radiologist's Impression: Preliminary report no acute intracranial process MDM Narrative Medical decision making narrative: Patient has increased leukocytosis baseline seems to be about 17 or 18 and today it is 20. Mild lactate elevation of 2 point 3. Prior urinalysis micro shows Pseudomonas which was sensitive to cefepime and resistant to fluoroquinolones. Of Rocephin in the ED and will send her home on cefepime. At this time Flor catheter has been switched. Signed out to Dr. Bhatt recheck labs <Dilip Bhatt MD - Last Filed: 01/10/21 10:26> Lab Data Labs: Lab Results 01/10/21 01/10/21 01/10/21 Range/Units 04:35 05:00 05:00 WBC 20.7 H (4.5-11.0) X10^3/uL RBC 3.92 L (4.0-5.2) X10^6/uL Hgb 12.3 (12.0-16.0) g/dL Hct 37.4 (36-46) % MCV 95.3 (80-100) fL MCH 31.5 (26-34) PG MCHC 33.0 (30-36) % RDW 16.0 H (11.6-14.8) % Plt Count 194 (150-400) X10^3/uL Neut % (Auto) Not Reportable Lymph % (Auto) Not Reportable Slope % (Auto) Not Reportable Eos % (Auto) Not Reportable Baso % (Auto) Not Reportable Lymph # (Auto) Not Reportable Slope # (Auto) Not Reportable Baso # (Auto) Not Reportable Total Counted 100 Seg Neutrophils % 53.0 (38-70) % Lymphocytes % (Manual) 41.0 (25-45) % Monocytes % (Manual) 5.0 (2-11) % Eosinophils % (Manual) 1.0 L (2-4) % Neutrophils # (Manual) 99675 H (0774-1337) /uL RBC Morphology See below Anisocytosis 1+ H Sodium 135 L (137-145) mmol/L Potassium 5.2 H (3.4-5.1) mmol/L Chloride 102 (98-107) mmol/L Carbon Dioxide 28 (22-32) mmol/L BUN 27 H (7-17) mg/dL Creatinine 0.94 (0.52-1.04) mg/dL Estimated GFR 58.1 L (>60) mL/min BUN/Creatinine Ratio 28.7 H (6-22) Glucose 151 H (80-110) mg/dL Lactate (0.7-2.1) mmol/L Calcium 9.6 (8.4-10.2) mg/dL Total Bilirubin 0.8 (0.2-1.3) mg/dL AST 22 (14-36) IU/L ALT 10 (<35) IU/L Alkaline Phosphatase 64 (38-126) U/L Total Protein 6.6 (6.3-8.2) g/dL Albumin 3.8 (3.5-5.0) g/dL Globulin 2.8 (1.7-4.1) g/dL Albumin/Globulin Ratio 1.4 (1.0-2.8) Procalcitonin 0.31 (<0.5) ng/mL Urine RBC 0-1/hpf (0-5/HPF) Urine WBC >100/hpf H (0-5/HPF) Calcium Oxalate Crystal Occasional H Urine Bacteria Many (>30) H (None) Ur Culture Indicated? Specimen cultured 01/10/21 01/10/21 01/10/21 Range/Units 05:00 06:40 06:40 WBC (4.5-11.0) X10^3/uL RBC (4.0-5.2) X10^6/uL Hgb (12.0-16.0) g/dL Hct (36-46) % MCV (80-100) fL MCH (26-34) PG MCHC (30-36) % RDW (11.6-14.8) % Plt Count (150-400) X10^3/uL Neut % (Auto) Lymph % (Auto) Slope % (Auto) Eos % (Auto) Baso % (Auto) Lymph # (Auto) Slope # (Auto) Baso # (Auto) Total Counted Seg Neutrophils % (38-70) % Lymphocytes % (Manual) (25-45) % Monocytes % (Manual) (2-11) % Eosinophils % (Manual) (2-4) % Neutrophils # (Manual) (4140-1682) /uL RBC Morphology Anisocytosis Sodium (137-145) mmol/L Potassium 4.3 (3.4-5.1) mmol/L Chloride (98-107) mmol/L Carbon Dioxide (22-32) mmol/L BUN (7-17) mg/dL Creatinine (0.52-1.04) mg/dL Estimated GFR (>60) mL/min BUN/Creatinine Ratio (6-22) Glucose (80-110) mg/dL Lactate 2.3 H 2.3 H (0.7-2.1) mmol/L Calcium (8.4-10.2) mg/dL Total Bilirubin (0.2-1.3) mg/dL AST (14-36) IU/L ALT (<35) IU/L Alkaline Phosphatase (38-126) U/L Total Protein (6.3-8.2) g/dL Albumin (3.5-5.0) g/dL Globulin (1.7-4.1) g/dL Albumin/Globulin Ratio (1.0-2.8) Procalcitonin (<0.5) ng/mL Urine RBC (0-5/HPF) Urine WBC (0-5/HPF) Calcium Oxalate Crystal Urine Bacteria (None) Ur Culture Indicated? 01/10/21 Range/Units 08:40 WBC (4.5-11.0) X10^3/uL RBC (4.0-5.2) X10^6/uL Hgb (12.0-16.0) g/dL Hct (36-46) % MCV (80-100) fL MCH (26-34) PG MCHC (30-36) % RDW (11.6-14.8) % Plt Count (150-400) X10^3/uL Neut % (Auto) Lymph % (Auto) Slope % (Auto) Eos % (Auto) Baso % (Auto) Lymph # (Auto) Slope # (Auto) Baso # (Auto) Total Counted Seg Neutrophils % (38-70) % Lymphocytes % (Manual) (25-45) % Monocytes % (Manual) (2-11) % Eosinophils % (Manual) (2-4) % Neutrophils # (Manual) (6458-2728) /uL RBC Morphology Anisocytosis Sodium (137-145) mmol/L Potassium (3.4-5.1) mmol/L Chloride (98-107) mmol/L Carbon Dioxide (22-32) mmol/L BUN (7-17) mg/dL Creatinine (0.52-1.04) mg/dL Estimated GFR (>60) mL/min BUN/Creatinine Ratio (6-22) Glucose (80-110) mg/dL Lactate 2.1 (0.7-2.1) mmol/L Calcium (8.4-10.2) mg/dL Total Bilirubin (0.2-1.3) mg/dL AST (14-36) IU/L ALT (<35) IU/L Alkaline Phosphatase (38-126) U/L Total Protein (6.3-8.2) g/dL Albumin (3.5-5.0) g/dL Globulin (1.7-4.1) g/dL Albumin/Globulin Ratio (1.0-2.8) Procalcitonin (<0.5) ng/mL Urine RBC (0-5/HPF) Urine WBC (0-5/HPF) Calcium Oxalate Crystal Urine Bacteria (None) Ur Culture Indicated? Urine Dip Bedside Urine Glucose Negative Bedside Urine Bilirubin - Negative Bedside Urine Ketone - Negative Urine Specific Pioneer 1.025 Bedside Urine Occult Blood ++ Bedside Urine pH 6 Bedside Urine Protein + 30 Bedside Urine Urobilinogen - Negative Bedside Urine Nitrite - Negative Bedside Urine Leukocytes ++ 125 Esterase Discharge Plan Departure Patient Disposition: Home Clinical Impression: Acute hyperkalemia UTI (urinary tract infection) Qualifiers: Urinary tract infection type: catheter-associated UTI Indwelling urinary catheter type: unspecified Encounter type: initial encounter Qualified Code(s): T83.511A - Infection and inflammatory reaction due to indwelling urethral catheter, initial encounter Instructions: DI for Urinary Tract Infection (UTI) Activity Restrictions/Additional Instructions: *You have been diagnosed with UTI, mild elevation of potassium *What to do: Flor catheter has been changed today. Please monitor for drainage. Given 1 dose of antibiotics in the emergency department. *Continue to take medications as directed Cefdinir 300 mg every 12 hours for 7 days--> SENT TO [facility] *Follow up with your primary care provider in 2-3 days *Return to ER if you should have increasing weakness, confusion, [or] any new, worsening or concerning symptoms Prescriptions: New cefdinir 300 mg capsule 300 mg PO Q12H Qty: 14 RF: 0 No Action latanoprost 0.005 % Drops 1 drp EYE-BOTH BEDTIME Qty: 0 RF: 0 metformin 1,000 mg Tablet 1,000 mg PO BID Qty: 0 RF: 0 lovastatin 40 mg tablet 40 mg PO QPM Qty: 90 RF: 1 levothyroxine 75 mcg tablet 75 mcg PO DAILY Qty: 90 RF: 2 (DME) Disabled Parking Permit Qty: 1 RF: 0 probiotic 1 cap PO DAILY RF: 0 Trulicity 1.5 mg/0.5 mL Pen Injector 1.5 mg SUBCUT WEEKLY RF: 0 polyethylene glycol 3350 [Miralax] 17 gram/dose powder 17 gram PO DAILY PRN (Reason: constipation) Qty: 119 RF: 0 glimepiride 4 mg Tablet 4 mg PO BID RF: 0 sennosides [senna] 8.6 mg Tablet 2 mg PO DAILY RF: 0 docusate sodium 100 mg Capsule 100 mg PO BID RF: 0 oxycodone 5 mg tablet 5 mg PO Q4H PRN (Reason: pain) Qty: 14 RF: 0 Combigan 0.2-0.5 % drops 0.2 - 0.5 drp EYE-BOTH BID RF: 0 Osphena 60 mg tablet 60 mg PO DAILY Qty: 90 RF: 3 Referrals: Wicho Lock DO [Primary Care Provider] -
--- NOTE | 2021-01-10 04:41 | DI.CT.S_ITS ---
PROCEDURE: CT HEAD/BRAIN WO CON INDICATIONS: recurrent falls TECHNIQUE: Noncontrast 4.5 mm thick angled axial sections acquired from the foramen magnum to the vertex, with coronal and sagittal reformats. For radiation dose reduction, the following was used: automated exposure control, adjustment of mA and/or kV according to patient size. COMPARISON: [facility], MR, MR HEAD/BRAIN WO/W CON, 05/08/2020, 17:07. [facility], CT, CT ANGIO HEAD AND NECK, 09/02/2019, 17:40. [facility], CT, CT HEAD/BRAIN WO CON, 09/02/2019, 17:35. FINDINGS: Image quality: Excellent. CSF spaces: Basal cisterns are patent. No extra-axial fluid collections. The ventricles are symmetric in size and shape. Brain: No intracranial bleeds or masses. There is cerebral volume loss for age, with resultant ventricular and sulcal prominence. There are periventricular and deep white matter chronic small vessel ischemic changes. There is intracranial internal carotid artery atherosclerosis. Skull and face: Calvarium and visualized facial bones appear intact, without suspicious lesions. Sinuses: Visualized sinuses and mastoids are clear. IMPRESSION: No acute intracranial hemorrhage is seen. No acute intracranial process is seen. Note: No significant discrepancy from the preliminary report. Dictated by: Rafael Gerber M.D. on 01/10/2021 at 7:21 Approved by: Rafael Gerber M.D. on 01/10/2021 at 7:22
[2021-01-10 04:44] LABS: Calcium Oxalate Crystals Urine Occasional; RBC Urine 0-1/HPF (0-5/HPF); WBC Urine >100/HPF (0-5/HPF)
[2021-01-10 04:45] LABS: Bacteria Urine Many (>30); Culture Indicated Urine Specimen Cultured
--- NOTE | 2021-01-10 04:54 | PC.NURSE ---
Pt with suprapubic catheter. spouse states hasn't had much urine in back the past day or two. Flushed with 60ml of normal saline and catheter started draining. removed about apr 700mls from bladder.
[2021-01-10] MEDS: SODIUM CHLORIDE 0.9% 1,000 ML 1000 ML IV ×2 (05:19→07:35)
[2021-01-10 05:21] LABS: Alanine Aminotransferase 10 IU/L (<35); Albumin 3.8 g/dL (3.5-5.0); Albumin Globulin Ratio 1.4 (1.0-2.8); Alkaline Phosphatase 64 U/L (38-126); Aspartate Aminotransferase 22 IU/L (14-36); BUN Creatinine Ratio 28.7 (6-22); Bilirubin Total 0.8 mg/dL (0.2-1.3); Blood Urea Nitrogen 27 mg/dL (7-17); Calcium 9.6 mg/dL (8.4-10.2); Carbon Dioxide 28 mmol/L (22-32); Chloride 102 mmol/L (98-107); Estimated Glomerular Filt Rate 58.1 mL/min (>60); Globulin 2.8 g/dL (1.7-4.1); Glucose 151 mg/dL (80-110); Lactate (Lactic Acid) 2.3 mmol/L (0.7-2.1); Sodium 135 mmol/L (137-145); Total Protein 6.6 g/dL (6.3-8.2)
[2021-01-10 05:25] LABS: Add Manual Diff / Slide Review YES; Hematocrit 37.4 % (36-46); Hemoglobin 12.3 g/dL (12.0-16.0); Mean Corpuscular Hemoglobin 31.5 PG (26-34); Mean Corpuscular Volume 95.3 fL (80-100); Platelet Count 194 X10^3/uL (150-400); Red Blood Cell Count 3.92 X10^6/uL (4.0-5.2); White Blood Cell Count 20.7 X10^3/uL (4.5-11.0)
[2021-01-10 05:27] LABS: HEMOLYSIS 59 (0-50)
[2021-01-10 05:28] LABS: Potassium 5.2 mmol/L (3.4-5.1)
[2021-01-10 05:37] LABS: Procalcitonin 0.31 ng/mL (<0.5)
[2021-01-10] MEDS: cefTRIAXone 1,000 MG in SODIUM CHLORIDE 0.9% 100 ML 200 ML IV (05:46)
[2021-01-10 05:51] LABS: Neutrophils Absolute Manual 10971 /uL (3000-5900); Total Cells Counted 100
[2021-01-10 05:53] LABS: Anisocytosis 1+
[2021-01-10 06:59] LABS: HEMOLYSIS < 15 (0-50); Potassium 4.3 mmol/L (3.4-5.1)
[2021-01-10 07:02] LABS: Lactate (Lactic Acid) 2.3 mmol/L (0.7-2.1)
[2021-01-10 07:03] LABS: Reflexed Lactate in 2 Hours Y
[2021-01-10 08:48] LABS: Reflexed Lactate in 2 Hours Y
[2021-01-10 08:54] LABS: Lactate 2HR (Lactic Acid Rflx) 2.1 mmol/L (0.7-2.1)
== END 2021-01-10 09:45 | disposition home or self-care (01) ==
PROVIDERS: Emergency Medicine; Emergency Provider Emergency Medicine; PCP Family Medicine
DX: E87.5 Hyperkalemia (principal); T83.511A Infection and inflammatory reaction due to indwelling urethral catheter, initial encounter; W19.XXXA Unspecified fall, initial encounter; R29.6 Repeated falls
CPT/HCPCS: 36415; 51702; 51798; 70450; 80053; 81003; 81015; 83605; 84132; 84145; 85007; 85025; 87040; 87077; 87086; 87186; 96361; 96365; 99284; 99285; J0696

== ENCOUNTER → 2021-02-10 15:59 | Outpatient (ROUT) | payer MEDICARE, OTHER, SELFPAY ==
[2020-11-10 08:46] VITALS: BMI 20.6
[2021-02-10 16:06] LABS: Appearance Urine UA CLOUDY; Bilirubin Urine UA NEGATIVE (NEGATIVE); Color Urine UA YELLOW; Glucose Urine UA NEGATIVE (Negative); Ketones Urine UA NEGATIVE (NEGATIVE); Leukocyte Esterase Urine UA 1+ (NEGATIVE); Nitrite Urine UA NEGATIVE (Negative); Occult Blood Urine UA 3+ (Negative); Protein Urine UA 2+ (Negative); Urobilinogen Urine UA 0.2 E.U./dL (0.2); pH Urine UA 8.5 (4.5-8.0)
[2021-02-10 16:19] LABS: Amorphous Sediment Urine 1+; Bacteria Urine Few (2-10); RBC Urine 30-100/HPF (0-5/HPF); Squamous Epithelial Cell Urine 0-1 /HPF (0-5/HPF); WBC Urine 5-10/HPF (0-5/HPF)
[2021-02-10 16:20] LABS: Culture Indicated Urine Specimen Cultured; Mucus Urine 1+ (Negative)
== END ==
PROVIDERS: PCP Family Medicine; Visit Provider Family Medicine
DX: N39.0 Urinary tract infection, site not specified (principal)
CPT/HCPCS: 81001; 87077; 87086; 87186